=== PATIENT | female | born 1950 | race Caucasian/White ===

== ENCOUNTER 2021-01-09 13:59 | Inpatient (IN) ==
[2021-01-09 14:32] LABS: Basophils # (auto) 0.01 K/uL (0-0.2); Basophils % (auto) 0.2 %; Eosinophils # (auto) 0.16 K/uL (0-0.5); Eosinophils % (auto) 2.7 %; Hematocrit (blood only) 37.8 % (37-47); Hemoglobin 13.1 g/dL (12.0-16.0); Immature Granulocytes # (auto) 0.04 K/uL (0.00-0.02); Immature Granulocytes % (auto) 0.7 %; Lymphocytes # (auto) 1.93 K/uL (1.2-3.4); Mean Corpuscular Hemoglobin 32.4 pg (25-34); Mean Corpuscular Hgb Conc 34.7 g/dL (32-36); Mean Corpuscular Volume 93.6 fL (80-100); Mean Platelet Volume 8.7 fL (7.4-10.4); Monocytes # (auto) 0.43 K/uL (0.11-0.59); Monocytes % (auto) 7.1 %; Neutrophils # (auto) 3.46 K/uL (1.4-6.5); Neutrophils % (auto) 57.3 %; Platelet Count 218 K/uL (130-400); RDW Coefficient of Variation 12.5 % (11.5-14.5); RDW Standard Deviation 42.3 fL (36.4-46.3); Red Blood Count 4.04 M/uL (4.2-5.4); White Blood Count 6.03 K/uL (4.8-10.8)
[2021-01-09] MEDS ORDERED: OPTIRAY 320 125ml IV ONE (14:35)
[2021-01-09 14:37] LABS: iSTAT Creatinine 0.6 mg/dl (0.6-1.3); iSTAT Hemoglobin 12.9 g/dl (12.0-16.0); iSTAT Ionized Calcium 1.26 mmol/l (1.12-1.32); iSTAT Potassium 4.5 mmol/L (3.3-5.0)
--- NOTE | 2021-01-09 14:39 | CT Scan Report ---
CT OF THE HEAD WITHOUT CONTRAST CLINICAL HISTORY: Stroke Alert COMPARISON STUDY: No previous studies for comparison. CT DOSE: 537.48 mGy.cm TECHNIQUE: Helical axial images of the head were obtained without IV contrast. Automated exposure con trol was utilized for the study. A dose lowering technique was utilized adhering to the principles o f ALARA. FINDINGS: No acute intracranial hemorrhage, midline shift or mass effect is present. The ventricular system is unremarkable. The basal cisterns are patent. No extra-axial collections are present. There are no findings to suggest acute dural sinus thrombosis or acute territorial infarct. No significant calvarial abnormalities are present. Visualized portions of the sinuses and mastoid air cells are yale ar. IMPRESSION: No acute intracranial findings. ACT 112: Negative or not required by law. Electronically signed by: Jonathan Choe M.D. 01/09/2021 2:38 PM
[2021-01-09 14:42] LABS: Partial Thromboplastin Time 27.3 Seconds (21.0-31.0); Prothrombin Time 10.3 Seconds (9.0-12.0)
--- NOTE | 2021-01-09 14:48 | XRay Report ---
XR chest 1V portable CLINICAL HISTORY: stroke alert COMPARISON STUDY: Chest radiograph January 14, 2012. FINDINGS: Lung volumes are normal. Linear left basilar opacities favor atelectasis.. There is no pneu mothorax or pleural effusion. Mild cardiomegaly is noted. Mediastinal contours are normal. There is n o evidence for pulmonary edema. IMPRESSION: No acute cardiopulmonary findings. ACT 112: Negative or not required by law. Electronically signed by: Jonathan Choe M.D. 01/09/2021 2:46 PM
[2021-01-09 14:50] LABS: Alanine Aminotransferase 26 U/L (12-78); Albumin Level 3.8 gm/dl (3.4-5.0); Aspartate Aminotransferase 16 U/L (15-37); BUN Creatinine Ratio 38.7 (10-20); Blood Urea Nitrogen 26 mg/dl (7-18); Calcium 8.8 mg/dl (8.5-10.1); Carbon Dioxide 30 mmol/L (21-32); Chloride 110 mmol/L (98-107); Est GFR (African American) 104.7 ml/min; Est GFR (Non-African American) 90.3 ml/min; Glucose 87 mg/dl (70-99); Magnesium 1.9 mg/dl (1.8-2.4); Potassium 4.5 mmol/L (3.5-5.1); Sodium 143 mmol/L (136-145)
[2021-01-09 14:55] LABS: Albumin Globulin Ratio 1.2 (0.9-2); Alkaline Phosphatase 93 U/L (45-117); Bilirubin,Total 0.6 mg/dl (0.2-1); Globulin 3.2 gm/dl (2.5-4.0); Troponin I < 0.015 ng/ml (0-0.045)
--- NOTE | 2021-01-09 15:05 | Emergency Department Note ---
Impression & Plan UTI (urinary tract infection), Altered mental status ED Provider Note NAME: ENRIKE PICHARDO AGE: 70 SEX: F : 1950 ARRIVES VIA: Walk-In INFORMANT: Patient, ED PROVIDER(S): Messi Correa MD Chief Complaint: Confusion HPI: Patient does present with concern for acute confusion. This apparently last known well was 11 AM. Patient has not had any reported fevers chills chest pains or shortness of breath. The patient's daughter with whom the patient lives was concerned as she did not recognize the daughter or was unable to say where the patient lives or who her granddaughter is. Patient does have a his tory of multiple system atrophy and is wheelchair-bound at baseline. There was also concerned about some left upper extremity weakness although the patient does have a history of a chronic issue of the left upper extremity. Patient does complain of left upper extremity pain. ROS: See HPI for pertinent positives and negatives. A total of 10 systems were reviewed and otherwise negative. Past medical history: See below Surgical history: See below Social history: See below Physical Exam: GENERAL: NAD, wearing glasses, wearing a mask, non-toxic. EYE EXAM: Normal conjunctiva. PERRL, no anisocoria and EOM's grossly intact w/o pain. OROPHARYNX: Moist mucus membranes. Grossly normal dentition. No exudate, posterior pharynx is clear, no tonsillar/uvular deviation or swelling. No cervical adenopathy, no submental, submandibular, or sublingual swelling. NECK: Supple, no nuchal rigidity, no adenopathy, non-tender. No signs of meningismus. FROM of the neck with good chin to chest and neck extension. No stridor. LUNGS: Clear to auscultation. Normal chest wall mechanics. HEART: NSR, no MRG. ABDOMEN: Abdomen soft, non-tender, normo-active bowel sounds, no masses, no rebound or guarding. BACK: No CVA TTP. SKIN: No rashes and no bruising. UPPER EXTREMITIES: Upper extremities are grossly normal. LOWER EXTREMITIES: Grossly normal, no edema. NEURO EXAM: Awake alert does follow commands, cranial nerves II through XII grossly intact with normal speech, 5 and 5 strength right upper extremity, 4-5 strength left upper extremity, 2 out of 5 strength bilateral lower extremities. No sensory deficits. Patient is not oriented to place. Differential diagnoses: Infection, dehydration, metabolic abnormality, hypo/hyperglycemia, electrolyte disturbance, anemia, hypoxia, cardiac sources, intracerebral event, toxicologic, neurologic, as well as other pathologies. Course: Patient was seen and evaluated the bedside. Full history physical exam was performed. EKG interpreted by me Significant motion artifact. Ventricular rate of 87. Imaging Studies: See Below Cardiac monitoring: An order was placed for continuous cardiac monitoring. The monitor shows a rate of 88 with sinus rhythm. MDM: Patient did present due to concern for confusion and left upper extremity weakness. The patient also does have bilateral lower extremity weakness. Patient was initiated as a code stroke prior to arrival. I did speak with Dr. Calix with [facility] telestroke who did evaluate the patient. Patient is not a TPA candidate. Last known well was 11 but the patient has chronic deficits of her bilateral lower extremities and the patient's left upper extremity has a known prior issue with movement and thus does not believe she requires TPA at this time. Patient had unremarkable CT head and CT angiography of the head neck. I did speak with the on-call hospitalist due to the patient's acute confusion. The patient was ordered Rocephin given the possibility of UTI. Patient has had some mild improvement in her confusion since arrival per the patient's daughter at bedside. Patient was admitted by Dr. Chery. Past Med/Surg History Medical History Atypical parkinsonism HLD (hyperlipidemia) Hypothyroid MDD (major depressive disorder) Multiple system atrophy Orthostatic hypotension Surgical History History of hysterectomy Family History Other Family history unknown Social History Smoking Status: Former smoker Hx Alcohol Use: No Hx Substance Use: No Preferred Language: Swedish Communication Ability: Effective Beliefs That Will Affect Care: None Current Living Situation: Family Current Living Situation Comment: Lives with and daughter Other Information That Helps Us Care for You: No Feels Safe at Home: Yes Assistive Devices: Wheelchair Allergies Allergies Allergy/AdvReac Type Severity Reaction Status Date / Time bacitracin Allergy Intermediate hives Verified 01/09/21 15:04 neomycin Allergy Intermediate hives Verified 01/09/21 15:04 onion Allergy Intermediate diarrhea,violent Verified 01/09/21 15:04 illness polymyxin B Allergy Intermediate hives Verified 01/09/21 15:04 ragweed pollen Allergy Intermediate hayfever/adolfo Verified 01/09/21 15:04 fever carbidopa Allergy Unknown FROM [facility] Verified 01/09/21 15:04 MED LIST levodopa Allergy Unknown FROM [facility] Verified 01/09/21 15:04 MED LIST Home Meds Home Medications Medication Instructions Recorded Confirmed L.acidoph-L.rhamn-B.bifidum-B.long 1 tab PO TIDM 01/09/21 01/09/21 12.9 mg (2 billion cell) tabletDR (Probiotic Acidophilus Biobworthing[place]) alprazolam 0.25 mg tablet 0.125 mg PO DAILY PRN 01/09/21 01/09/21 alprazolam 0.25 mg tablet 0.25 mg PO HS 01/09/21 01/09/21 atorvastatin 10 mg tablet 10 mg PO QDD 01/09/21 01/09/21 cetirizine 10 mg tablet (Zyrtec) 10 mg PO HS 01/09/21 01/09/21 cholecalciferol (vitamin D3) 25 50 mcg PO DAILY 01/09/21 01/09/21 mcg (1,000 unit) tablet (Vitamin D3) citalopram 40 mg tablet 40 mg PO DAILY 01/09/21 01/09/21 cyanocobalamin (vitamin B-12) 1,000 mcg PO DAILY 01/09/21 01/09/21 1,000 mcg tablet (Vitamin B-12) gabapentin 300 mg capsule 300 mg PO TID 01/09/21 01/09/21 indomethacin 50 mg capsule 50 mg PO BID PRN 01/09/21 01/09/21 levothyroxine 75 mcg tablet 75 mcg PO DAILY 01/09/21 01/09/21 melatonin 10 mg tablet 10 mg PO HS 01/09/21 01/09/21 midodrine 2.5 mg tablet 2.5 mg PO BID 01/09/21 01/09/21 nystatin 100,000 unit/gram topical 1 applic TOPICAL BID 01/09/21 01/09/21 powder polyethylene glycol 3350 17 gram 17 g PO DAILY 01/09/21 01/09/21 oral powder packet (Miralax) ropinirole 1 mg tablet 1 mg PO TIDM 01/09/21 01/09/21 ropinirole 2 mg tablet 2 mg PO TIDM 01/09/21 01/09/21 sennosides 8.6 mg-docusate sodium 1 tab-cap PO BID 01/09/21 01/09/21 50 mg tablet (Senna-S) Results & Data (ED) Vital Signs Vital Signs - 24 hr 01/09/21 14:14 01/09/21 14:15 01/09/21 14:43 Temperature 36.8 C Temperature Source Temporal Artery Scan Pulse Rate 89 88 90 Pulse Rate [Apical] Pulse Rate from SpO2 Sensor 88 92 H Respiratory Rate 20 18 20 Blood Pressure 140/75 140/75 142/66 H Blood Pressure [Left Arm] Blood Pressure Mean 96 96 91 Blood Pressure Mean [Left Arm] Pulse Oximetry 95 94 91 Oxygen Delivery Method Room Air Sepsis Recent Fever Within 48 Hours No Sepsis New/Unexplained Change in Mental Status No Sepsis Action Taken by Nursing No Action Required 01/09/21 14:51 01/09/21 15:43 01/09/21 17:00 Temperature Temperature Source Pulse Rate 88 Pulse Rate [Apical] 87 90 Pulse Rate from SpO2 Sensor Respiratory Rate 18 18 Blood Pressure Blood Pressure [Left Arm] 124/55 L 128/55 L Blood Pressure Mean Blood Pressure Mean [Left Arm] 78 79 Pulse Oximetry 94 95 92 Oxygen Delivery Method Room Air Room Air Room Air Sepsis Recent Fever Within 48 Hours Sepsis New/Unexplained Change in Mental Status Sepsis Action Taken by Long-Term Medications Current Medication List: was personally reviewed by me Laboratory Data Attestation: I reviewed the patient's lab results. Result diagrams: 01/10/21 05:41 01/10/21 05:41 Lab Results 01/09/21 01/09/21 01/09/21 Range/Units 14:10 14:20 14:20 WBC 6.03 (4.8-10.8) K/uL RBC 4.04 L (4.2-5.4) M/uL Hgb 13.1 (12.0-16.0) g/dL POC Hgb (12.0-16.0) g/dl Hct 37.8 (37-47) % POC Hct (37-47) % MCV 93.6 (80-100) fL MCH 32.4 (25-34) pg MCHC 34.7 (32-36) g/dL RDW Std Deviation 42.3 (36.4-46.3) fL RDW Coeff of Radhames 12.5 (11.5-14.5) % Plt Count 218 (130-400) K/uL MPV 8.7 (7.4-10.4) fL Immature Gran % (Auto) 0.7 % Neut % (Auto) 57.3 % Lymph % (Auto) 32.0 % [place] % (Auto) 7.1 % Eos % (Auto) 2.7 % Baso % (Auto) 0.2 % Neut # (Auto) 3.46 (1.4-6.5) K/uL Lymph # (Auto) 1.93 (1.2-3.4) K/uL [place] # (Auto) 0.43 (0.11-0.59) K/uL Eos # (Auto) 0.16 (0-0.5) K/uL Baso # (Auto) 0.01 (0-0.2) K/uL Immature Gran # (Auto) 0.04 H (0.00-0.02) K/uL PT 10.3 (9.0-12.0) Seconds INR 1.0 (0.9-1.1) APTT 27.3 (21.0-31.0) Seconds PTT Ratio 1.0 POC Sodium (135-144) mmol/L Sodium (136-145) mmol/L POC Potassium (3.3-5.0) mmol/L Potassium (3.5-5.1) mmol/L POC Chloride (101-112) mmol/L Chloride (98-107) mmol/L Carbon Dioxide (21-32) mmol/L POC Total CO2 (24-31) mmol/L Anion Gap (3-11) POC Anion Gap (16-25) mmol/L POC BUN (7-18) mg/dl BUN (7-18) mg/dl Creatinine (0.6-1.2) mg/dl POC Creatinine (0.6-1.3) mg/dl Est Cr Clr Drug Dosing Est GFR ( Amer) ml/min Est GFR (Non-Af Amer) ml/min BUN/Creatinine Ratio (10-20) Glucose (70-99) mg/dl POC Glucose (70-99) mg/dl POC Glucose (other) (70-99) mg/dl Calcium (8.5-10.1) mg/dl POC Ioniz Calcium Dary (1.12-1.32) mmol/l Magnesium (1.8-2.4) mg/dl Total Bilirubin (0.2-1) mg/dl AST (15-37) U/L ALT (12-78) U/L Alkaline Phosphatase (45-117) U/L Troponin I (0-0.045) ng/ml Total Protein (6.4-8.2) gm/dl Albumin (3.4-5.0) gm/dl Globulin (2.5-4.0) gm/dl Albumin/Globulin Ratio (0.9-2) TSH 1.750 (0.300-4.500) uIu/ml Urine Color Urine Appearance (Clear) Urine pH (4.5-7.5) Ur Specific Kinsey (1.000-1.030) Urine Protein (Negative) Urine Glucose (UA) (Negative) Urine Ketones (Negative) Urine Blood (Negative) Urine Nitrite (Negative) Urine Bilirubin (Negative) Urine Urobilinogen (Negative) Ur Leukocyte Esterase (Negative) Urine WBC (Auto) (0-5) /hpf Urine RBC (Auto) (0-4) /hpf U Hyaline Cast (Auto) (0-5) /lpf U Epithel Cells (Auto) (0-5) /lpf Urine Bacteria (Auto) (Negative) Urine Yeast COVID-19 Eval Order SARS-CoV-2 (PCR) (Negative) Blood Type Antibody Screen 01/09/21 01/09/21 01/09/21 Range/Units 14:20 14:21 14:23 WBC (4.8-10.8) K/uL RBC (4.2-5.4) M/uL Hgb (12.0-16.0) g/dL POC Hgb (12.0-16.0) g/dl Hct (37-47) % POC Hct (37-47) % MCV (80-100) fL MCH (25-34) pg MCHC (32-36) g/dL RDW Std Deviation (36.4-46.3) fL RDW Coeff of Radhames (11.5-14.5) % Plt Count (130-400) K/uL MPV (7.4-10.4) fL Immature Gran % (Auto) % Neut % (Auto) % Lymph % (Auto) % [place] % (Auto) % Eos % (Auto) % Baso % (Auto) % Neut # (Auto) (1.4-6.5) K/uL Lymph # (Auto) (1.2-3.4) K/uL [place] # (Auto) (0.11-0.59) K/uL Eos # (Auto) (0-0.5) K/uL Baso # (Auto) (0-0.2) K/uL Immature Gran # (Auto) (0.00-0.02) K/uL PT (9.0-12.0) Seconds INR (0.9-1.1) APTT (21.0-31.0) Seconds PTT Ratio POC Sodium (135-144) mmol/L Sodium 143 (136-145) mmol/L POC Potassium (3.3-5.0) mmol/L Potassium 4.5 (3.5-5.1) mmol/L POC Chloride (101-112) mmol/L Chloride 110 H (98-107) mmol/L Carbon Dioxide 30 (21-32) mmol/L POC Total CO2 (24-31) mmol/L Anion Gap 3.0 (3-11) POC Anion Gap (16-25) mmol/L POC BUN (7-18) mg/dl BUN 26 H (7-18) mg/dl Creatinine 0.67 (0.6-1.2) mg/dl POC Creatinine (0.6-1.3) mg/dl Est Cr Clr Drug Dosing Not Reportable Est GFR ( Amer) 104.7 ml/min Est GFR (Non-Af Amer) 90.3 ml/min BUN/Creatinine Ratio 38.7 H (10-20) Glucose 87 (70-99) mg/dl POC Glucose 87 (70-99) mg/dl POC Glucose (other) (70-99) mg/dl Calcium 8.8 (8.5-10.1) mg/dl POC Ioniz Calcium Dary (1.12-1.32) mmol/l Magnesium 1.9 (1.8-2.4) mg/dl Total Bilirubin 0.6 (0.2-1) mg/dl AST 16 (15-37) U/L ALT 26 (12-78) U/L Alkaline Phosphatase 93 (45-117) U/L Troponin I < 0.015 (0-0.045) ng/ml Total Protein 7.0 (6.4-8.2) gm/dl Albumin 3.8 (3.4-5.0) gm/dl Globulin 3.2 (2.5-4.0) gm/dl Albumin/Globulin Ratio 1.2 (0.9-2) TSH (0.300-4.500) uIu/ml Urine Color Urine Appearance (Clear) Urine pH (4.5-7.5) Ur Specific Kinsey (1.000-1.030) Urine Protein (Negative) Urine Glucose (UA) (Negative) Urine Ketones (Negative) Urine Blood (Negative) Urine Nitrite (Negative) Urine Bilirubin (Negative) Urine Urobilinogen (Negative) Ur Leukocyte Esterase (Negative) Urine WBC (Auto) (0-5) /hpf Urine RBC (Auto) (0-4) /hpf U Hyaline Cast (Auto) (0-5) /lpf U Epithel Cells (Auto) (0-5) /lpf Urine Bacteria (Auto) (Negative) Urine Yeast COVID-19 Eval Order SARS-CoV-2 (PCR) (Negative) Blood Type O Positive Antibody Screen NEGATIVE 01/09/21 01/09/21 01/09/21 Range/Units 14:24 14:49 14:49 WBC (4.8-10.8) K/uL RBC (4.2-5.4) M/uL Hgb (12.0-16.0) g/dL POC Hgb 12.9 (12.0-16.0) g/dl Hct (37-47) % POC Hct 38 (37-47) % MCV (80-100) fL MCH (25-34) pg MCHC (32-36) g/dL RDW Std Deviation (36.4-46.3) fL RDW Coeff of Radhames (11.5-14.5) % Plt Count (130-400) K/uL MPV (7.4-10.4) fL Immature Gran % (Auto) % Neut % (Auto) % Lymph % (Auto) % [place] % (Auto) % Eos % (Auto) % Baso % (Auto) % Neut # (Auto) (1.4-6.5) K/uL Lymph # (Auto) (1.2-3.4) K/uL [place] # (Auto) (0.11-0.59) K/uL Eos # (Auto) (0-0.5) K/uL Baso # (Auto) (0-0.2) K/uL Immature Gran # (Auto) (0.00-0.02) K/uL PT (9.0-12.0) Seconds INR (0.9-1.1) APTT (21.0-31.0) Seconds PTT Ratio POC Sodium 144 (135-144) mmol/L Sodium (136-145) mmol/L POC Potassium 4.5 (3.3-5.0) mmol/L Potassium (3.5-5.1) mmol/L POC Chloride 101 (101-112) mmol/L Chloride (98-107) mmol/L Carbon Dioxide (21-32) mmol/L POC Total CO2 27 (24-31) mmol/L Anion Gap (3-11) POC Anion Gap 21.0 (16-25) mmol/L POC BUN 27 H (7-18) mg/dl BUN (7-18) mg/dl Creatinine (0.6-1.2) mg/dl POC Creatinine 0.6 (0.6-1.3) mg/dl Est Cr Clr Drug Dosing Est GFR ( Amer) ml/min Est GFR (Non-Af Amer) ml/min BUN/Creatinine Ratio (10-20) Glucose (70-99) mg/dl POC Glucose (70-99) mg/dl POC Glucose (other) 89 (70-99) mg/dl Calcium (8.5-10.1) mg/dl POC Ioniz Calcium Dary 1.26 (1.12-1.32) mmol/l Magnesium (1.8-2.4) mg/dl Total Bilirubin (0.2-1) mg/dl AST (15-37) U/L ALT (12-78) U/L Alkaline Phosphatase (45-117) U/L Troponin I (0-0.045) ng/ml Total Protein (6.4-8.2) gm/dl Albumin (3.4-5.0) gm/dl Globulin (2.5-4.0) gm/dl Albumin/Globulin Ratio (0.9-2) TSH (0.300-4.500) uIu/ml Urine Color Urine Appearance (Clear) Urine pH (4.5-7.5) Ur Specific Kinsey (1.000-1.030) Urine Protein (Negative) Urine Glucose (UA) (Negative) Urine Ketones (Negative) Urine Blood (Negative) Urine Nitrite (Negative) Urine Bilirubin (Negative) Urine Urobilinogen (Negative) Ur Leukocyte Esterase (Negative) Urine WBC (Auto) (0-5) /hpf Urine RBC (Auto) (0-4) /hpf U Hyaline Cast (Auto) (0-5) /lpf U Epithel Cells (Auto) (0-5) /lpf Urine Bacteria (Auto) (Negative) Urine Yeast COVID-19 Eval Order Covid19 at [facility] SARS-CoV-2 (PCR) NEGATIVE (Negative) Blood Type Antibody Screen 01/09/21 Range/Units 15:06 WBC (4.8-10.8) K/uL RBC (4.2-5.4) M/uL Hgb (12.0-16.0) g/dL POC Hgb (12.0-16.0) g/dl Hct (37-47) % POC Hct (37-47) % MCV (80-100) fL MCH (25-34) pg MCHC (32-36) g/dL RDW Std Deviation (36.4-46.3) fL RDW Coeff of Radhames (11.5-14.5) % Plt Count (130-400) K/uL MPV (7.4-10.4) fL Immature Gran % (Auto) % Neut % (Auto) % Lymph % (Auto) % [place] % (Auto) % Eos % (Auto) % Baso % (Auto) % Neut # (Auto) (1.4-6.5) K/uL Lymph # (Auto) (1.2-3.4) K/uL [place] # (Auto) (0.11-0.59) K/uL Eos # (Auto) (0-0.5) K/uL Baso # (Auto) (0-0.2) K/uL Immature Gran # (Auto) (0.00-0.02) K/uL PT (9.0-12.0) Seconds INR (0.9-1.1) APTT (21.0-31.0) Seconds PTT Ratio POC Sodium (135-144) mmol/L Sodium (136-145) mmol/L POC Potassium (3.3-5.0) mmol/L Potassium (3.5-5.1) mmol/L POC Chloride (101-112) mmol/L Chloride (98-107) mmol/L Carbon Dioxide (21-32) mmol/L POC Total CO2 (24-31) mmol/L Anion Gap (3-11) POC Anion Gap (16-25) mmol/L POC BUN (7-18) mg/dl BUN (7-18) mg/dl Creatinine (0.6-1.2) mg/dl POC Creatinine (0.6-1.3) mg/dl Est Cr Clr Drug Dosing Est GFR ( Amer) ml/min Est GFR (Non-Af Amer) ml/min BUN/Creatinine Ratio (10-20) Glucose (70-99) mg/dl POC Glucose (70-99) mg/dl POC Glucose (other) (70-99) mg/dl Calcium (8.5-10.1) mg/dl POC Ioniz Calcium Dary (1.12-1.32) mmol/l Magnesium (1.8-2.4) mg/dl Total Bilirubin (0.2-1) mg/dl AST (15-37) U/L ALT (12-78) U/L Alkaline Phosphatase (45-117) U/L Troponin I (0-0.045) ng/ml Total Protein (6.4-8.2) gm/dl Albumin (3.4-5.0) gm/dl Globulin (2.5-4.0) gm/dl Albumin/Globulin Ratio (0.9-2) TSH (0.300-4.500) uIu/ml Urine Color Yellow Urine Appearance Cloudy A (Clear) Urine pH 7.0 (4.5-7.5) Ur Specific Kinsey 1.029 (1.000-1.030) Urine Protein Negative (Negative) Urine Glucose (UA) Negative (Negative) Urine Ketones Negative (Negative) Urine Blood 3+ H (Negative) Urine Nitrite Negative (Negative) Urine Bilirubin Negative (Negative) Urine Urobilinogen Negative (Negative) Ur Leukocyte Esterase 1+ H (Negative) Urine WBC (Auto) 1-5 (0-5) /hpf Urine RBC (Auto) >30 H (0-4) /hpf U Hyaline Cast (Auto) 1-5 (0-5) /lpf U Epithel Cells (Auto) 20-30 H (0-5) /lpf Urine Bacteria (Auto) 4+ H (Negative) Urine Yeast Not Reportable COVID-19 Eval Order SARS-CoV-2 (PCR) (Negative) Blood Type Antibody Screen Administered Medications Alprazolam (Alprazolam 0.25 Mg Tablet) 0.125 mg PO DAILY PRN PRN Reason: Anxiety Stop: 02/08/21 18:48 Last Admin: 01/10/21 08:39 Dose: 0.125 mg Documented by: [id number] Alprazolam (Alprazolam 0.25 Mg Tablet) 0.25 mg PO HS SAL Stop: 02/08/21 20:59 Last Admin: 01/09/21 20:50 Dose: 0.25 mg Documented by: [id number] Cetirizine HCl (Cetirizine Hcl 10 Mg Tablet) 10 mg PO HS SAL Stop: 02/08/21 20:59 Last Admin: 01/09/21 20:51 Dose: 10 mg Documented by: [id number] Citalopram Hydrobromide (Citalopram 40 Mg Tab) 40 mg PO DAILY SAL Stop: 02/09/21 08:59 Last Admin: 01/10/21 08:22 Dose: 40 mg Documented by: [id number] Cyanocobalamin (Cyanocobalamin 500 Mcg Tablet (Vitamin B-12)) 1,000 mcg PO DAILY SAL Stop: 02/09/21 08:59 Last Admin: 01/10/21 08:22 Dose: 1,000 mcg Documented by: [id number] Gabapentin (Gabapentin 300 Mg Cap) 300 mg PO TID SAL Stop: 02/08/21 20:59 Last Admin: 01/10/21 08:22 Dose: 300 mg Documented by: [id number] Admin: 01/09/21 20:52 Dose: 300 mg Documented by: [id number] Heparin Sodium (Porcine) (Heparin Sod 5,000 Unit/0.5 Ml Vial) 5,000 units SQ Q8 SAL Stop: 02/08/21 21:59 Last Admin: 01/10/21 08:20 Dose: Not Given Documented by: [id number] Admin: 01/09/21 20:54 Dose: 5,000 units Documented by: [id number] Ceftriaxone Sodium 2,000 mg/ (Dextrose) 70 mls @ 140 mls/hr IV Q24H [facility]; Protocol Stop: 01/15/21 07:59 Last Infusion: 01/10/21 09:36 Dose: 0 mls/hr Documented by: [id number] Admin: 01/10/21 08:29 Dose: 140 mls/hr Documented by: [id number] Indomethacin (Indomethacin 25 Mg Cap) 50 mg PO BID PRN PRN Reason: Pain Stop: 02/08/21 18:48 Last Admin: 01/10/21 08:20 Dose: 50 mg Documented by: [id number] Admin: 01/10/21 01:40 Dose: 50 mg Documented by: [id number] Lactobacillus Acidoph/Casei/Rhamnos (Advanced Probiotic 1250 Mg Capsule) 2 cap PO DAILY SAL Stop: 02/09/21 08:59 Last Admin: 01/10/21 08:22 Dose: 2 cap Documented by: [id number] Levothyroxine Sodium (Levothyroxine Sodium 75 Mcg Tablet) 75 mcg PO DAILYBB [facility] Stop: 02/09/21 06:29 Last Admin: 01/10/21 08:20 Dose: Not Given Documented by: [id number] Lidocaine (Lidocaine 5% 1 Patch) 1 patch TD QAM SAL Stop: 02/08/21 19:29 Last Admin: 01/10/21 08:23 Dose: 1 patch Documented by: [id number] Admin: 01/09/21 20:39 Dose: 1 patch Documented by: [id number] Melatonin (Melatonin 3 Mg Tab) 9 mg PO HS [facility] Stop: 02/08/21 20:59 Last Admin: 01/09/21 20:52 Dose: 9 mg Documented by: [id number] Midodrine (Midodrine Hcl 2.5 Mg Tab) 2.5 mg PO BID@0800,1200 [facility] Stop: 02/09/21 07:59 Last Admin: 01/10/21 08:20 Dose: 2.5 mg Documented by: [id number] Miscellaneous (Remove Lidoderm Patch) 1 ea N/A DAILY@2100 [facility] Stop: 02/08/21 20:59 Last Admin: 01/09/21 20:51 Dose: 1 ea Documented by: [id number] Nystatin (Nystatin Powder 15gm Btl) 1 appln EXT BID SAL Stop: 02/08/21 20:59 Last Admin: 01/10/21 08:24 Dose: 1 appln Documented by: [id number] Admin: 01/09/21 20:53 Dose: 1 appln Documented by: [id number] Polyethylene Glycol (Polyethylene (Miralax) 17 Gm Pack) 17 gm PO DAILY SAL Stop: 02/09/21 08:59 Last Admin: 01/10/21 08:23 Dose: 17 gm Documented by: [id number] Ropinirole HCl (Ropinirole Hcl 1 Mg Tablet) 1 mg PO TIDM SAL Stop: 02/09/21 07:59 Last Admin: 01/10/21 08:21 Dose: 1 mg Documented by: [id number] Ropinirole HCl (Ropinirole Hcl 1 Mg Tablet) 2 mg PO TIDM SAL Stop: 02/09/21 07:59 Last Admin: 01/10/21 08:24 Dose: 2 mg Documented by: [id number] Senna/Docusate Sodium (Docusate Sodium/Senna 50/8.6mg Tab) 1 tab PO BID SAL Stop: 02/08/21 20:59 Last Admin: 01/10/21 08:20 Dose: 1 tab Documented by: [id number] Admin: 01/09/21 20:53 Dose: 1 tab Documented by: [id number] Vitamin D (Cholecalciferol 1,000 Units 25 Mcg Tab) 2,000 units PO DAILY SAL Stop: 02/09/21 08:59 Last Admin: 01/10/21 08:21 Dose: 2,000 units Documented by: [id number] Discontinued Medications Acetaminophen (Acetaminophen 500 Mg Tab) 1,000 mg PO NOW STA Stop: 01/09/21 16:00 Last Admin: 01/09/21 16:09 Dose: 1,000 mg Documented by: [id number] Aspirin (Aspirin 81 Mg Chew) 324 mg PO ONE ONE Stop: 01/09/21 20:34 Last Admin: 01/09/21 20:47 Dose: 324 mg Documented by: [id number] Ceftriaxone Sodium (Rocephin) 2,000 mg in 70 mls @ 140 mls/hr IV NOW STA Stop: 01/09/21 17:18 Last Infusion: 01/09/21 17:44 Dose: 0 mls/hr Documented by: [id number] Admin: 01/09/21 17:09 Dose: 140 mls/hr Documented by: [id number] Sodium Chloride (Nss 1000ml) 1,000 mls @ 80 mls/hr IV .[id number] SAL Stop: 01/10/21 07:18 Last Infusion: 01/10/21 09:36 Dose: 0 mls/hr Documented by: [id number] Admin: 01/09/21 20:38 Dose: 80 mls/hr Documented by: [id number] Ioversol (Optiray 320 125ml) 120 ml IV ONCE ONE Stop: 01/09/21 14:36 Last Admin: 01/09/21 14:36 Dose: 120 ml Documented by: [id number] Morphine Sulfate (Morphine Sulfate 2 Mg/Ml Carp) 2 mg IV NOW STA Stop: 01/09/21 18:07 Last Admin: 01/09/21 18:12 Dose: 2 mg Documented by: [id number] Morphine Sulfate (Morphine Sulfate 2 Mg/Ml Carp) 2 mg IV NOW STA Stop: 01/09/21 19:28 Last Admin: 01/09/21 20:38 Dose: 2 mg Documented by: [id number] Imaging Data Radiologist's Impression: Chest X-Ray 01/09/21 14:01 XR chest 1V portable CLINICAL HISTORY: stroke alert COMPARISON STUDY: Chest radiograph January 14, 2012. FINDINGS: Lung volumes are normal. Linear left basilar opacities favor atelectasis.. There is no pneumothorax or pleural effusion. Mild cardiomegaly is noted. Mediastinal contours are normal. There is no evidence for pulmonary edema. IMPRESSION: No acute cardiopulmonary findings. ACT 112: Negative or not required by law. Electronically signed by: Jonathan Choe M.D. 01/09/2021 2:[address] 01/09/21 14:01 CT OF THE HEAD WITHOUT CONTRAST CLINICAL HISTORY: Stroke Alert COMPARISON STUDY: No previous studies for comparison. CT DOSE: 537.48 mGy.cm TECHNIQUE: Helical axial images of the head were obtained without IV contrast. Automated exposure control was utilized for the study. A dose lowering technique was utilized adhering to the principles of ALARA. FINDINGS: No acute intracranial hemorrhage, midline shift or mass effect is present. The ventricular system is unremarkable. The basal cisterns are patent. No extra-axial collections are present. There are no findings to suggest acute dural sinus thrombosis or acute territorial infarct. No significant calvarial abnormalities are present. Visualized portions of the sinuses and mastoid air cells are clear. IMPRESSION: No acute intracranial findings. ACT 112: Negative or not required by law. Electronically signed by: Jonathan Choe M.D. 01/09/2021 2:38 PM Chest X-Ray 01/09/21 14:01 XR chest 1V portable CLINICAL HISTORY: stroke alert COMPARISON STUDY: Chest radiograph January 14, 2012. FINDINGS: Lung volumes are normal. Linear left basilar opacities favor atelectasis.. There is no pneumothorax or pleural effusion. Mild cardiomegaly is noted. Mediastinal contours are normal. There is no evidence for pulmonary justino ma. IMPRESSION: No acute cardiopulmonary findings. ACT 112: Negative or not required by law. Electronically signed by: Jonathan Choe M.D. 01/09/2021 2:[address] 01/09/21 14:01 CT OF THE HEAD WITHOUT CONTRAST CLINICAL HISTORY: Stroke Alert COMPARISON STUDY: No previous studies for comparison. CT DOSE: 537.48 mGy.cm TECHNIQUE: Helical axial images of the head were obtained without IV contrast. Automated exposure control was utilized for the study. A dose lowering technique was utilized adhering to the principles of ALARA. FINDINGS: No acute intracranial hemorrhage, midline shift or mass effect is present. The ventricular system is unremarkable. The basal cisterns are patent. No extra-axial collections are present. There are no findings to suggest acute dural sinus thrombosis or acute territorial infarct. No significant calvarial abnormalities are present. Visualized portions of the sinuses and mastoid air cells are clear. IMPRESSION: No acute intracranial findings. ACT 112: Negative or not required by law. Electronically signed by: Jonathan Choe M.D. 01/09/2021 2:38 PM Head CTA 01/09/21 14:23 CT angio head w con CLINICAL HISTORY: Stroke Like Symptoms TECHNIQUE: CT angiography of the head was performed in a dynamic helical fashion during intravenous administration of 112 cc of Optiray. MIP imaging was performed. A dose lowering technique was utilized adhering to the principles of ALARA. CT DOSE: COMPARISON STUDY: No previous studies for comparison. FINDINGS: Bilateral internal carotid arteries are patent and show no evidence of occlusion or significant stenosis. Right and left middle cerebral cerebral arteries, anterior cerebral arteries and anterior communicating arteries are normally opacified without focal occlusion or hemodynamically significant stenosis. Basilar artery is diffusely narrowed without evidence of focal occlusion. There is origin of the right and left posterior cerebral arteries which shows no evidence of focal occlusion or hemodynamically significant stenosis. Hypoplastic left transverse sinus. Arachnoid granulations with are seen within confluent of sinuses. The rest of visualized dural sinuses are well opacified. IMPRESSION: 1. No evidence of occlusion or hemodynamically significant stenosis. 2. origin of the right and left posterior cerebral arteries from MCA is seen bilaterally. 3. The rest of findings as above. ACT 112: Negative or not required by law. The above report was generated using voice recognition software. It may contain grammatical, syntax or spelling errors. Electronically signed by: Chelita Husain DO 01/09/2021 3:25 PM Neck CTA 01/09/21 14:23 CT angio neck with con CLINICAL HISTORY: Stroke Like Symptoms COMPARISON STUDY: No previous studies for comparison. TECHNIQUE: CT angiography was performed from the aortic arch to the skull base. MIP imaging was performed. The patient was scanned in a dynamic helical fashion during intravenous administration of 120 cc of Optiray. A dose lowering technique was utilized adhering to the principles of ALARA. CT DOSE: 496.07 mGy.cm Technique: CT angiogram of the carotid and vertebral arteries was obtained using intravenous contrast and 3-D reconstruction. NASCET criteria was utilized. Findings: The right carotid revealed no evidence of aneurysm and no evidence of dissection. There is no evidence of hemodynamic significant stenosis. The left carotid revealed no evidence of hemodynamic significant stenosis. There is no evidence of aneurysm. There is no evidence of dissection. Mild diffuse narrowing of the V4 segment of the right vertebral artery. No evidence of focal occlusion is seen. There is no evidence of vertebral dissection. IMPRESSION: No evidence of hemodynamically significant carotid artery stenosis. Mild diffuse narrowing of the V4 segment of the right vertebral artery without focal occlusion might represent developmental variant. No evidence of dissection. ACT 112: Negative or not required by law. The above report was generated using voice recognition software. It may contain grammatical, syntax or spelling errors. Electronically signed by: Chelita Husain DO 01/09/2021 3:20 PM Discharge Plan Visit Data Chief Complaint: Stroke/CVA Symptoms Stated Complaint: SEIZURE ED Provider: Messi Correa Discharge Problem: UTI (urinary tract infection), Altered mental status Patient Disposition: Admitted As Inpatient Discharge Instructions Interventions: ED Discharge Assessment Last Done: 01/09/21 18:18
--- NOTE | 2021-01-09 15:21 | CT Scan Report ---
CT angio neck with con CLINICAL HISTORY: Stroke Like Symptoms COMPARISON STUDY: No previous studies for comparison. TECHNIQUE: CT angiography was performed from the aortic arch to the skull base. MIP imaging was perfo rmed. The patient was scanned in a dynamic helical fashion during intravenous administration of 120 c c of Optiray. A dose lowering technique was utilized adhering to the principles of ALARA. CT DOSE: 496.07 mGy.cm Technique: CT angiogram of the carotid and vertebral arteries was obtained using intravenous contrast and 3-D reconstruction. NASCET criteria was utilized. Findings: The right carotid revealed no evidence of aneurysm and no evidence of dissection. There is no evidenc e of hemodynamic significant stenosis. The left carotid revealed no evidence of hemodynamic significant stenosis. There is no evidence of an eurysm. There is no evidence of dissection. Mild diffuse narrowing of the V4 segment of the right vertebral artery. No evidence of focal occlusio n is seen. There is no evidence of vertebral dissection. IMPRESSION: No evidence of hemodynamically significant carotid artery stenosis. Mild diffuse narrowing of the V4 segment of the right vertebral artery without focal occlusion might represent developmental variant. No evidence of dissection. ACT 112: Negative or not required by law. The above report was generated using voice recognition software. It may contain grammatical, syntax o r spelling errors. Electronically signed by: Chelita Husain DO 01/09/2021 3:20 PM
--- NOTE | 2021-01-09 15:27 | CT Scan Report ---
CT angio head w con CLINICAL HISTORY: Stroke Like Symptoms TECHNIQUE: CT angiography of the head was performed in a dynamic helical fashion during intravenous a dministration of 112 cc of Optiray. MIP imaging was performed. A dose lowering technique was utilized adhering to the principles of ALARA. CT DOSE: COMPARISON STUDY: No previous studies for comparison. FINDINGS: Bilateral internal carotid arteries are patent and show no evidence of occlusion or significant steno sis. Right and left middle cerebral cerebral arteries, anterior cerebral arteries and anterior communicati ng arteries are normally opacified without focal occlusion or hemodynamically significant stenosis. Basilar artery is diffusely narrowed without evidence of focal occlusion. There is origin of th e right and left posterior cerebral arteries which shows no evidence of focal occlusion or hemodynami [place] significant stenosis. Hypoplastic left transverse sinus. Arachnoid granulations with are seen within confluent of sinuses. The rest of visualized dural sinuse s are well opacified. IMPRESSION: 1. No evidence of occlusion or hemodynamically significant stenosis. 2. origin of the right and left posterior cerebral arteries from MCA is seen bilaterally. 3. The rest of findings as above. ACT 112: Negative or not required by law. The above report was generated using voice recognition software. It may contain grammatical, syntax o r spelling errors. Electronically signed by: Chelita Husain DO 01/09/2021 3:25 PM
[2021-01-09 15:54] LABS: Appearance Urine Cloudy (Clear); Bacteria Urine Automated 4+ (Negative); Bilirubin Urine Negative (Negative); Blood Urine 3+ (Negative); Color Urine Yellow; Epithelial Cell Urine Auto 20-30 /lpf (0-5); Glucose Urine UA Negative (Negative); Ketones Urine Negative (Negative); Leukocyte Esterase Urine 1+ (Negative); Nitrite Urine Negative (Negative); Protein Urine Negative (Negative); Specific Gravity Urine 1.029 (1.000-1.030); Urobilinogen Urine Negative (Negative)
[2021-01-09] MEDS ORDERED: ACETAMINOPHEN 500 MG TAB PO STA (15:59)
--- NOTE | 2021-01-09 15:59 | Electrocardiogram Report ---
Test Reason : Blood Pressure : / mmHG Vent. Rate : 087 BPM Atrial Rate : 087 BPM P-R Int : 160 ms QRS Dur : 076 ms QT Int : 330 ms P-R-T Axes : 000 -28 -05 degrees QTc Int : 397 ms Poor data quality, interpretation may be adversely affected Narrow complex rhythm with normal rate, otherwise not interpretable Confirmed by Santana Ni ([id number]) on 01/09/2021 3:58:35 PM Referred By: Confirmed By:Jose Ni
[2021-01-09 16:06] LABS: RBC Urine Automated >30 /hpf (0-4)
[2021-01-09] MEDS ORDERED: cefTRIAXone SODIUM 2,000 MG/70 ML BAG IV STA (16:49)
--- NOTE | 2021-01-09 17:54 | History & Physical Report ---
Date of Service January 09, 2021 Assessment & Plan (1) Altered mental status: Plan: Pt is 70 y/o F with PMH atypical parkinsonism, orthostatic hypotension, HLD, acquired hypothyroidism, anxiety presented to ER with complaint of altered mental status this morning. In ER patient afebrile, vitals stable. CT head: No acute intracranial findings. CTA head: No evidence of occlusion or hemodynamically significant stenosis. origin of the right and left posterior cerebral arteries from MCA is seen bilaterally. CTA neck:No evidence of hemodynamically significant carotid artery stenosis. Mild diffuse narrowing of the V4 segment of the right vertebral artery without focal occlusion might represent developmental variant. No evidence of dissection. UA suggestive of UTI. Tele stroke recommended no TPA. DDX: metabolic encephalopathy secondary to UTI, TIA -During ER course patient becomes more oriented -Tele to monitor for arrhythmias -EKG in am -Neurology consult. Will hold on MRI pending further neurology recommendations -aspiration precautions -PT/OT consult -Continue statin -Treat UTI as below -CBC, BMP in a.m. (2) UTI (urinary tract infection): Plan: UA: 4+ bacteria, 1+ leuk esterase,> 30 RBC, 20-30 epithelial -In ER given Rocephin IV -Urine culture pending -Continue Rocephin Patient with reported UTI the end of November 2020. Was treated with Cipro. Was unable to find UA and outpatient records (3) Chronic pain of left upper extremity: Plan: Chronic LUE pain. Reports increased pain today. Chronic edema left hand, daughter does not feel increased edema -Will obtain Doppler to rule out DVT -Continue indomethacin -Lidocaine patch (4) Atypical parkinsonism: Plan: Follows with [facility] neurology in [place]:Dr Painter -Continue ropinirole (5) Orthostatic hypotension: Plan: -Continue midodrine (6) HLD (hyperlipidemia): Plan: -Continue atorvastatin (7) Hypothyroid: Plan: TSH pending -Continue levothyroxine (8) Anxiety: Plan: -Continue citalopram, alprazolam DVT Prophylaxis -Heparin SQ Full Code as per discussion with pt Follows with Dr White for routine care Pt was seen and care coordinated with Dr Chery. See addendum Admission and Anticipated Discharge Date Admission Date: Patient seen and examined by me, care coordinated with JOSE Vegas, please refer to her note above for further detail. Pt is 70 y/o F with hx of atypical parkinsonism, orthostatic hypotension, HLD, acquired hypothyroidism, anxiety presents with altered mental status, not able to recognize her family members earlier this morning. In addition patient had some left upper extremity pain, which is chronic but seem to be bothering her more today. Therefore patient actually came as stroke alert. CT brain images unremarkable. On my evaluation, patient is already aware of being in the hospital and able to answer questions appropriately. She does not remember however what happened earlier today. Lungs are CTAB w/o any wheezing rhonchi or crackles. Heart sounds regular. Abdomen soft nontender nondistended. No significant lower extremity edema. Left-sided weakness chronic. No significant left upper extremity edema noted. Tele stroke recommended no TPA. Doppler obtained for left lower extremity. UA significant for possible UTI. Patient has history of recent UTI as well. Patient reports urinary frequency, but the inability to void today. Started on Rocephin in ED. Continue antibiotic, and await urine culture. Will discuss further with neurology if any further studies needs to be obtained. Rio Chery MD History of Present Illness Chief Complaint: Confusion Primary Care Provider: Ronit White MD Pt is 70 y/o F with PMH atypical parkinsonism, orthostatic hypotension, HLD, acquired hypothyroidism, anxiety presented to ER with complaint of altered mental status. History obtained from patient's daughter and patient. Patient's daughter reports patient with chronic left upper extremity pain and some edema and decreased range of motion however patient been complaining of more pain to left arm today. Also reports chronic bilateral lower extremity pain edema. Patient is wheelchair-bound. Patient's daughter states this morning patient had acute confusion did not know where she was, did not know daughter or granddaughter. Patient is usually alert and oriented x3 at baseline. It is rep orted that patient had urinary symptoms over 1 month ago and was treated with Cipro and completed course. Reports past couple days patient complaining of urinary frequency. Has had poor appetite and oral intake the past 2 days. This morning was unable to urinate. Denies any known fever, chills, hematuria, falls or head injury. Reports pain patient with chronic constipation and are currently using laxatives, currently titrating dose to avoid loose stools. Denies TRINH, nausea, vomiting dizziness, syncope, vision changes, neck pain, CP, SOB, orthopnea, palpitations, cough, sore throat, choking, otalgia, rhinorrhea, abdominal pain, new paresthesias, rashes. In ER patient afebrile, vitals stable. CT head: No acute intracranial findings. UA suggestive of UTI. Tele stroke recommended no TPA. In ER was given Rocephin IV. Upon initial ER presentation patient did not know location or family members. During ER course patient is alert to place, person, year and season. Allergies Allergy/AdvReac Type Severity Reaction Status Date / Time bacitracin Allergy Intermediate hives Verified 01/09/21 15:04 neomycin Allergy Intermediate hives Verified 01/09/21 15:04 onion Allergy Intermediate diarrhea,violent Verified 01/09/21 15:04 illness polymyxin B Allergy Intermediate hives Verified 01/09/21 15:04 ragweed pollen Allergy Intermediate hayfever/adolfo Verified 01/09/21 15:04 fever carbidopa [place] [facility] 01/09/21 15:04 MED LIST levodopa Allergy Unknown [place] [facility] Verified 01/09/21 15:04 MED LIST Home Medications Medication Instructions Recorded Confirmed Type L.acidoph-L.rhamn-B.bifidum-B.long 1 tab PO TIDM 01/09/21 01/09/21 History 12.9 mg (2 billion cell) DR armando (Probiotic Acidophilus Trini) alprazolam 0.25 mg tablet 0.125 mg PO DAILY PRN 01/09/21 01/09/21 History alprazolam 0.25 mg tablet 0.25 mg PO HS 01/09/21 01/09/21 History atorvastatin 10 mg tablet 10 mg PO QDD 01/09/21 01/09/21 History cetirizine 10 mg tablet (Zyrtec) 10 mg PO HS 01/09/21 01/09/21 History cholecalciferol (vitamin D3) 25 50 mcg PO DAILY 01/09/21 01/09/21 History mcg (1,000 unit) tablet (Vitamin D3) citalopram 40 mg tablet 40 mg PO DAILY 01/09/21 01/09/21 History cyanocobalamin (vitamin B-12) 1,000 mcg PO DAILY 01/09/21 01/09/21 History 1,000 mcg tablet (Vitamin B-12) gabapentin 300 mg capsule 300 mg PO TID 01/09/21 01/09/21 History indomethacin 50 mg capsule 50 mg PO BID PRN 01/09/21 01/09/21 History levothyroxine 75 mcg tablet 75 mcg PO DAILY 01/09/21 01/09/21 History melatonin 10 mg tablet 10 mg PO HS 01/09/21 01/09/21 History midodrine 2.5 mg tablet 2.5 mg PO BID 01/09/21 01/09/21 History nystatin 100,000 unit/gram topical 1 applic TOPICAL BID 01/09/21 01/09/21 History powder polyethylene glycol 3350 17 gram 17 g PO DAILY 01/09/21 01/09/21 History oral powder packet (Miralax) ropinirole 1 mg tablet 1 mg PO TIDM 01/09/21 01/09/21 History ropinirole 2 mg tablet 2 mg PO TIDM 01/09/21 01/09/21 History sennosides 8.6 mg-docusate sodium 1 tab-cap PO BID 01/09/21 01/09/21 History 50 mg tablet (Senna-S) Past Med/Surg History Medical History Atypical parkinsonism HLD (hyperlipidemia) Hypothyroid MDD (major depressive disorder) Multiple system atrophy Orthostatic hypotension Surgical History History of hysterectomy Family History Other Family history unknown Social History Smoking Status: Former smoker Hx Alcohol Use: No Hx Substance Use: No Preferred Language: Spanish Communication Ability: Effective Beliefs That Will Affect Care: None Current Living Situation: Family Current Living Situation Comment: Lives with and daughter Other Information That Helps Us Care for You: No Feels Safe at Home: Yes Assistive Devices: Wheelchair Review of Systems Review of Systems: All systems reviewed & are unremarkable except as noted in HPI & below Physical Exam Physical Exam: General: no distress, overweight, chronic ill appearing Head: normocephalic, atraumatic Eyes: PERRL, EOM's intact, conjunctiva non-injected, anicteric ENT: normal inspection external ears, nose, mucous membranes moist Neck: supple, trachea midline Lungs: clear, no respiratory distress, no wheezing/rhonchi/rales CV: RRR, no murmur, no JVD, no pretibial edema Abd: normal BS, soft, non-tender Ext: no cyanosis, no erythema, no calf tenderness, left fingers contracted, +tenderness to palpation left upper arm, unable to actively move left arm, minimal passive ROM attempted secondary to discomfort Neuro: Alert, oriented to place, person, year and season, unsure of month or day. +resting tremor left fingers and tremor and left foot, The face is strong and symmetric, Hearing grossly intact, no dysarthria, only able to slightly shrug right shoulder, unable to left secondary to chronic LUE weakness and pain, tongue is midline, normal movement, no fasciculations +weakness bilateral upper extremities and lower extremities with left greater than right. (chronic weakness, left greater than right at baseline). Skin: warm, dry Results & Data Results & Data ([facility]) Vital Signs (Past 12 Hours) Vital Signs Temp Pulse Pulse Resp BP BP Pulse Ox 01/09/21 17:00 90 18 128/55 L 92 01/09/21 15:43 87 18 124/55 L 95 01/09/21 14:51 88 94 01/09/21 14:43 90 20 142/66 H 91 01/09/21 14:15 88 18 140/75 94 01/09/21 14:14 36.8 C 89 20 140/75 95 Laboratory Results Short CBC 01/09/21 Range/Units 14:20 WBC 6.03 (4.8-10.8) K/uL Hgb 13.1 (12.0-16.0) g/dL Hct 37.8 (37-47) % Plt Count 218 (130-400) K/uL BMP 01/09/21 14:20 Sodium 143 Potassium 4.5 Chloride 110 H Carbon Dioxide 30 BUN 26 H Creatinine 0.67 Glucose 87 Calcium 8.8 Cardiac Enzymes 01/09/21 Range/Units 14:20 Troponin I < 0.015 (0-0.045) ng/ml Liver Function 01/09/21 Range/Units 14:20 Total Bilirubin 0.6 (0.2-1) mg/dl AST 16 (15-37) U/L ALT 26 (12-78) U/L Alkaline Phosphatase 93 (45-117) U/L Albumin 3.8 (3.4-5.0) gm/dl Urine 01/09/21 Range/Units 15:06 Urine Color Yellow Urine Appearance Cloudy A (Clear) Urine pH 7.0 (4.5-7.5) Ur Specific [place] 1.029 (1.000-1.030) Urine Protein Negative (Negative) Urine Glucose (UA) Negative (Negative) Diagnostic Findings Chest X-Ray 01/09/21 14:01 XR chest 1V portable CLINICAL HISTORY: stroke alert COMPARISON STUDY: Chest radiograph January 14, 2012. FINDINGS: Lung volumes are normal. Linear left basilar opacities favor atelectasis.. There is no pneumothorax or pleural effusion. Mild cardiomegaly is noted. Mediastinal contours are normal. There is no evidence for pulmonary edema. IMPRESSION: No acute cardiopulmonary findings. ACT 112: Negative or not required by law. Electronically signed by: Jonathan Cheo M.D. 01/09/2021 2:[address] 01/09/21 14:01 CT OF THE HEAD WITHOUT CONTRAST CLINICAL HISTORY: Stroke Alert COMPARISON STUDY: No previous studies for comparison. CT DOSE: 537.48 mGy.cm TECHNIQUE: Helical axial images of the head were obtained without IV contrast. Automated exposure control was utilized for the study. A dose lowering technique was utilized adhering to the principles of ALARA. FINDINGS: No acute intracranial hemorrhage, midline shift or mass effect is present. The ventricular system is unremarkable. The basal cisterns are patent. No extra-axial collections are present. There are no findings to suggest acute dural sinus thrombosis or acute territorial infarct. No significant calvarial abnormalities are present. Visualized portions of the sinuses and mastoid air cells are clear. IMPRESSION: No acute intracranial findings. ACT 112: Negative or not required by law. Electronically signed by: Jonathan Choe M.D. 01/09/2021 2:38 PM Head CTA 01/09/21 14:23 CT angio head w con CLINICAL HISTORY: Stroke Like Symptoms TECHNIQUE: CT angiography of the head was performed in a dynamic helical fashion during intravenous administration of 112 cc of Optiray. MIP imaging was performed. A dose lowering technique was utilized adhering to the principles of ALARA. CT DOSE: COMPARISON STUDY: No previous studies for comparison. FINDINGS: Bilateral internal carotid arteries are patent and show no evidence of occlusion or significant stenosis. Right and left middle cerebral cerebral arteries, anterior cerebral arteries and anterior communicating arteries are normally opacified without focal occlusion or hemodynamically significant stenosis. Basilar artery is diffusely narrowed without evidence of focal occlusion. There is origin of the right and left posterior cerebral arteries which shows no evidence of focal occlusion or hemodynamically significant stenosis. Hypoplastic left transverse sinus. Arachnoid granulations with are seen within confluent of sinuses. The rest of visualized dural sinuses are well opacified. IMPRESSION: 1. No evidence of occlusion or hemodynamically significant stenosis. 2. origin of the right and left posterior cerebral arteries from MCA is seen bilaterally. 3. The rest of findings as above. ACT 112: Negative or not required by law. The above report was generated using voice recognition software. It may contain grammatical, syntax or spelling errors. Electronically signed by: Chelita Husain DO 01/09/2021 3:25 PM Neck CTA 01/09/21 14:23 CT angio neck with con CLINICAL HISTORY: Stroke Like Symptoms COMPARISON STUDY: No previous studies for comparison. TECHNIQUE: CT angiography was performed from the aortic arch to the skull base. MIP imaging was performed. The patient was scanned in a dynamic helical fashion during intravenous administration of 120 cc of Optiray. A dose lowering technique was utilized adhering to the principles of ALARA. CT DOSE: 496.07 mGy.cm Technique: CT angiogram of the carotid and vertebral arteries was obtained using intravenous contrast and 3-D reconstruction. NASCET criteria was utilized. Findings: The right carotid revealed no evidence of aneurysm and no evidence of dissection. There is no evidence of hemodynamic significant stenosis. The left carotid revealed no evidence of hemodynamic significant stenosis. There is no evidence of aneurysm. There is no evidence of dissection. Mild diffuse narrowing of the V4 segment of the right vertebral artery. No evidence of focal occlusion is seen. There is no evidence of vertebral dissection. IMPRESSION: No evidence of hemodynamically significant carotid artery stenosis. Mild diffuse narrowing of the V4 segment of the right vertebral artery without focal occlusion might represent developmental variant. No evidence of dissection. ACT 112: Negative or not required by law. The above report was generated using voice recognition software. It may contain grammatical, syntax or spelling errors. Electronically signed by: Chelita Husain DO 01/09/2021 3:20 PM Code Status & VTE Plan VTE Prophylaxis Plan VTE Prophylaxis will be ordered: Yes
[2021-01-09] MEDS ORDERED: MoRPHine SULFATE 2 MG/ML CARP IV STA ×2 (18:06→19:27)
[2021-01-09] MEDS ORDERED: ALPRAZolam 0.25 MG TABLET PO PRN (18:49)
[2021-01-09] MEDS ORDERED: PHARMACIST DISCHARGE MED REC CONSULT PRN (18:49)
[2021-01-09] MEDS ORDERED: ACETAMINOPHEN 325 MG TAB PO PRN (18:49)
[2021-01-09] MEDS ORDERED: SODIUM CHLORIDE 0.9% 1000ML 1,000 ML IV SCH (18:49)
[2021-01-09] MEDS ORDERED: POLYETHYLENE (MIRALAX) 17 GM PACK PO PRN (19:05)
[2021-01-09] MEDS ORDERED: MoRPHine SULFATE 2 MG/ML CARP IV PRN (19:29)
[2021-01-09] MEDS ORDERED: ASPIRIN 81 MG CHEW PO ONE (20:33)
[2021-01-09] MEDS: LIDOCAINE 5% 1 PATCH TD SCH (20:39)
[2021-01-09] MEDS: ALPRAZolam 0.25 MG TABLET PO SCH (20:50)
[2021-01-09] MEDS: CETIRIZINE HCL 10 MG TABLET PO SCH (20:51)
[2021-01-09] MEDS: MELATONIN 3 MG TAB PO SCH (20:52)
[2021-01-09] MEDS: GABAPENTIN 300 MG CAP PO SCH (20:52)
[2021-01-09] MEDS: DOCUSATE SODIUM/SENNA 50/8.6MG TAB PO SCH (20:53)
[2021-01-09] MEDS: NYSTATIN POWDER 15GM BTL EXT SCH (20:53)
[2021-01-09] MEDS: HEPARIN SOD 5,000 UNIT/0.5 ML VIAL SQ SCH (20:54)
[2021-01-10] MEDS: INDOMETHACIN 25 MG CAP PO PRN ×2 (01:40→08:20)
[2021-01-10 05:59] LABS: Basophils # (auto) 0.01 K/uL (0-0.2); Basophils % (auto) 0.1 %; Eosinophils # (auto) 0.11 K/uL (0-0.5); Eosinophils % (auto) 1.5 %; Hematocrit (blood only) 33.9 % (37-47); Hemoglobin 11.8 g/dL (12.0-16.0); Immature Granulocytes # (auto) 0.03 K/uL (0.00-0.02); Immature Granulocytes % (auto) 0.4 %; Lymphocytes % (auto) 29.5 %; Mean Corpuscular Hemoglobin 33.1 pg (25-34); Mean Corpuscular Hgb Conc 34.8 g/dL (32-36); Mean Platelet Volume 8.5 fL (7.4-10.4); Monocytes # (auto) 0.55 K/uL (0.11-0.59); Monocytes % (auto) 7.7 %; Neutrophils # (auto) 4.31 K/uL (1.4-6.5); Neutrophils % (auto) 60.8 %; Platelet Count 181 K/uL (130-400); RDW Coefficient of Variation 12.7 % (11.5-14.5); RDW Standard Deviation 43.5 fL (36.4-46.3); Red Blood Count 3.57 M/uL (4.2-5.4); White Blood Count 7.11 K/uL (4.8-10.8)
[2021-01-10 06:46] LABS: BUN Creatinine Ratio 32.4 (10-20); Calcium 8.5 mg/dl (8.5-10.1); Creatinine Clr Calc Pharmacy 94.9 ml/min; Est GFR (African American) 109.8 ml/min; Est GFR (Non-African American) 94.7 ml/min; Potassium 3.6 mmol/L (3.5-5.1)
--- NOTE | 2021-01-10 07:36 | Ultrasound Report ---
LEFT UPPER EXTREMITY VENOUS DOPPLER ULTRASOUND CLINICAL HISTORY: Left arm pain and swelling. COMPARISON STUDY: No previous studies for comparison. TECHNIQUE: Sonography of the deep venous system of the left upper extremity was performed. FINDINGS: This exam was compromised by difficulty positioning with suboptimal evaluation of the left radial, ulnar and basilic veins. The left antecubital fossa was also suboptimally assessed. However, no venous thrombus was identified within the left upper extremity. IMPRESSION: Technically difficult exam, as described above. However, no deep venous thrombus identif ied within the left upper extremity. ACT 112: Negative or not required by law. Electronically signed by: Jonathan Choe M.D. 01/10/2021 7:34 AM
[2021-01-10] MEDS: MIDODRINE HCL 2.5 MG TAB PO SCH ×2 (08:20→12:29)
[2021-01-10] MEDS: DOCUSATE SODIUM/SENNA 50/8.6MG TAB PO SCH ×2 (08:20→20:43)
[2021-01-10] MEDS: HEPARIN SOD 5,000 UNIT/0.5 ML VIAL SQ SCH ×3 (08:20→21:03)
[2021-01-10] MEDS: LEVOTHYROXINE SODIUM 75 MCG TABLET PO SCH (08:20)
[2021-01-10] MEDS: rOPINIRole HCL 1 MG TABLET PO SCH ×6 (08:21→16:32)
[2021-01-10] MEDS: CHOLECALCIFEROL 1,000 UNITS 25 MCG TAB PO SCH (08:21)
[2021-01-10] MEDS: CITALOPRAM 40 MG TAB PO SCH (08:22)
[2021-01-10] MEDS: GABAPENTIN 300 MG CAP PO SCH ×3 (08:22→20:43)
[2021-01-10] MEDS: CYANOCOBALAMIN 500 MCG TABLET (VITAMIN B-12) PO SCH (08:22)
[2021-01-10] MEDS: ADVANCED PROBIOTIC 1250 MG CAPSULE PO SCH (08:22)
[2021-01-10] MEDS: POLYETHYLENE (MIRALAX) 17 GM PACK PO SCH (08:23)
[2021-01-10] MEDS: LIDOCAINE 5% 1 PATCH TD SCH (08:23)
[2021-01-10] MEDS: NYSTATIN POWDER 15GM BTL EXT SCH ×2 (08:24→20:49)
[2021-01-10] MEDS: cefTRIAXone SODIUM 2,000 MG in DEXTROSE 5% 50 ML IV SCH (08:29)
--- NOTE | 2021-01-10 09:00 | Hospitalist Progress Note ---
Date of Service January 10, 2021 Assessment & Plan (1) Altered mental status: Plan: Pt is 70 y/o F with atypical parkinsonism, orthostatic hypotension, HLD, acquired hypothyroidism, anxiety presents w/ altered mental status. In ER patient afebrile, vitals stable. CT head: No acute intracranial findings. CTA head: No evidence of occlusion or hemodynamically significant stenosis. origin of the right and left posterior cerebral arteries from MCA is seen bilaterally. CTA neck:No evidence of hemodynamically significant carotid artery stenosis. Mild diffuse narrowing of the V4 segment of the right vertebral artery without focal occlusion might represent developmental variant. No evidence of dissection. Tele stroke recommended no TPA. UA suggestive of UTI. DDX: metabolic encephalopathy secondary to UTI, TIA -During ER course patient becomes more oriented Now patient is alert oriented answering questions appropriately -Tele to monitor for arrhythmias -EKG in am -Neurology consult. Will hold on MRI pending further neurology recommendations Seen by neurology, no further testing recommended. Patient's altered mental status most likely secondary to UTI. Recommend to follow-up with neurology in [place]. -aspiration precautions -PT/OT consult -recommend to return home -Continue statin -Treat UTI as below -CBC, BMP in a.m. (2) UTI (urinary tract infection): Plan: UA: 4+ bacteria, 1+ leuk esterase,> 30 RBC, 20-30 epithelial Patient reported dysuria symptoms, frequency, and then inability to void the day of admission. -In ER given Rocephin IV -Urine culture pending -Continue Rocephin Patient with reported UTI the end of November 2020. Was treated with Cipro. Was unable to find UA and outpatient records (3) Chronic pain of left upper extremity: Plan: Chronic LUE pain. Reports increased pain on day of admission. Chronic edema left hand, daughter does not feel increased edema -Doppler obtained - negative for DVT -Continue indomethacin -Lidocaine patch Currently left upper extremity pain feels better, improved (4) Atypical parkinsonism: Plan: Follows with [facility] neurology in [place]:Dr Painter -Continue ropinirole (5) Orthostatic hypotension: Plan: -Continue midodrine (6) HLD (hyperlipidemia): Plan: -Continue atorvastatin (7) Hypothyroid: Plan: TSH 1.75 -Continue levothyroxine (8) Anxiety: Plan: -Continue citalopram, alprazolam DVT Prophylaxis -Heparin SQ Full Code as per discussion with pt Follows with Dr White for routine care Admission and Anticipated Discharge Date Admission Date: January 09, 2021 Subjective Patient seen in follow-up of altered mental status, UTI Currently laying in bed in no acute distress, she is alert oriented answering questions appropriately Denies any fevers, chills, chest pain, shortness of breath, abdominal pain, nausea or vomiting Reports left lower extremity pain feels better Seen by neurology today Review of Systems Review of Systems: All systems reviewed & are unremarkable except as noted in Subjective Physical Exam Physical Exam: General: no distress, overweight, chronic ill appearing Head: normocephalic, atraumatic Eyes: PERRL, EOM's intact, conjunctiva non-injected, anicteric ENT: normal inspection external ears, nose, mucous membranes moist Neck: supple, trachea midline Lungs: clear, no respiratory distress, no wheezing/rhonchi/rales CV: RRR, no murmur, no JVD, no pretibial edema Abd: normal BS, soft, non-tender Ext: left fingers contracted, +tenderness to palpation left upper arm (improved), unable to actively move left arm, minimal passive ROM attempted secondary to discomfort Neuro: Alert, oriented and answering questions appropriately. No facial asymmetry, speech fluent. +mild resting tremor left fingers and left foot. +weakness bilateral upper extremities and lower extremities with left greater than right. (chronic weakness, left greater than right at baseline). Skin: warm, dry Results & Data Results & Data ([facility]) Vital Signs (Past 12 Hours) Vital Signs Temp Pulse Pulse Resp BP Pulse Ox 01/10/21 08:05 37.0 C 75 18 130/78 93 01/10/21 07:44 78 01/10/21 03:43 36.8 C 76 20 125/74 93 Laboratory Results 01/10/21 01/10/21 01/10/21 Range/Units 05:41 05:41 05:41 WBC 7.11 (4.8-10.8) K/uL RBC 3.57 L (4.2-5.4) M/uL Hgb 11.8 L (12.0-16.0) g/dL POC Hgb (12.0-16.0) g/dl Hct 33.9 L (37-47) % POC Hct (37-47) % MCV 95.0 (80-100) fL MCH 33.1 (25-34) pg MCHC 34.8 (32-36) g/dL RDW Std Deviation 43.5 (36.4-46.3) fL RDW Coeff of Radhames 12.7 (11.5-14.5) % Plt Count 181 (130-400) K/uL MPV 8.5 (7.4-10.4) fL Immature Gran % (Auto) 0.4 % Neut % (Auto) 60.8 % Lymph % (Auto) 29.5 % [place] % (Auto) 7.7 % Eos % (Auto) 1.5 % Baso % (Auto) 0.1 % Neut # (Auto) 4.31 (1.4-6.5) K/uL Lymph # (Auto) 2.10 (1.2-3.4) K/uL [place] # (Auto) 0.55 (0.11-0.59) K/uL Eos # (Auto) 0.11 (0-0.5) K/uL Baso # (Auto) 0.01 (0-0.2) K/uL Immature Gran # (Auto) 0.03 H (0.00-0.02) K/uL PT (9.0-12.0) Seconds INR (0.9-1.1) APTT (21.0-31.0) Seconds PTT Ratio POC Sodium (135-144) mmol/L Sodium 140 (136-145) mmol/L POC Potassium (3.3-5.0) mmol/L Potassium 3.6 D (3.5-5.1) mmol/L POC Chloride (101-112) mmol/L Chloride 108 H (98-107) mmol/L Carbon Dioxide 26 (21-32) mmol/L POC Total CO2 (24-31) mmol/L Anion Gap 6.0 (3-11) POC Anion Gap (16-25) mmol/L POC BUN (7-18) mg/dl BUN 19 H (7-18) mg/dl Creatinine 0.58 L (0.6-1.2) mg/dl POC Creatinine (0.6-1.3) mg/dl Est Cr Clr Drug Dosing 94.9 Est GFR ( Amer) 109.8 ml/min Est GFR (Non-Af Amer) 94.7 ml/min BUN/Creatinine Ratio 32.4 H (10-20) Glucose 88 (70-99) mg/dl POC Glucose (70-99) mg/dl POC Glucose (other) (70-99) mg/dl Estimat Average Glucose Pending Hemoglobin A1c Pending Calcium 8.5 (8.5-10.1) mg/dl POC Ioniz Calcium Dary (1.12-1.32) mmol/l Magnesium (1.8-2.4) mg/dl Total Bilirubin (0.2-1) mg/dl AST (15-37) U/L ALT (12-78) U/L Alkaline Phosphatase (45-117) U/L Troponin I (0-0.045) ng/ml Total Protein (6.4-8.2) gm/dl Albumin (3.4-5.0) gm/dl Globulin (2.5-4.0) gm/dl Albumin/Globulin Ratio (0.9-2) Triglycerides 182 H (0-150) mg/dl Cholesterol 174 (0-200) mg/dl LDL Cholesterol, Calc 97 mg/dl VLDL Cholesterol, Calc 36 mg/dl HDL Cholesterol 41 mg/dl Cholesterol/HDL Ratio 4 TSH (0.300-4.500) uIu/ml Urine Color Urine Appearance (Clear) Urine pH (4.5-7.5) Ur Specific [place] (1.000-1.030) Urine Protein (Negative) Urine Glucose (UA) (Negative) Urine Ketones (Negative) Urine Blood (Negative) Urine Nitrite (Negative) Urine Bilirubin (Negative) Urine Urobilinogen (Negative) Ur Leukocyte Esterase (Negative) Urine WBC (Auto) (0-5) /hpf Urine RBC (Auto) (0-4) /hpf U Hyaline Cast (Auto) (0-5) /lpf U Epithel Cells (Auto) (0-5) /lpf Urine Bacteria (Auto) (Negative) Urine Yeast COVID-19 Eval Order SARS-CoV-2 (PCR) (Negative) Blood Type Antibody Screen 01/09/21 01/09/21 01/09/21 Range/Units 15:06 14:49 14:49 WBC (4.8-10.8) K/uL RBC (4.2-5.4) M/uL Hgb (12.0-16.0) g/dL POC Hgb (12.0-16.0) g/dl Hct (37-47) % POC Hct (37-47) % MCV (80-100) fL MCH (25-34) pg MCHC (32-36) g/dL RDW Std Deviation (36.4-46.3) fL RDW Coeff of Radhames (11.5-14.5) % Plt Count (130-400) K/uL MPV (7.4-10.4) fL Immature Gran % (Auto) % Neut % (Auto) % Lymph % (Auto) % [place] % (Auto) % Eos % (Auto) % Baso % (Auto) % Neut # (Auto) (1.4-6.5) K/uL Lymph # (Auto) (1.2-3.4) K/uL [place] # (Auto) (0.11-0.59) K/uL Eos # (Auto) (0-0.5) K/uL Baso # (Auto) (0-0.2) K/uL Immature Gran # (Auto) (0.00-0.02) K/uL PT (9.0-12.0) Seconds INR (0.9-1.1) APTT (21.0-31.0) Seconds PTT Ratio POC Sodium (135-144) mmol/L Sodium (136-145) mmol/L POC Potassium (3.3-5.0) mmol/L Potassium (3.5-5.1) mmol/L POC Chloride (101-112) mmol/L Chloride (98-107) mmol/L Carbon Dioxide (21-32) mmol/L POC Total CO2 (24-31) mmol/L Anion Gap (3-11) POC Anion Gap (16-25) mmol/L POC BUN (7-18) mg/dl BUN (7-18) mg/dl Creatinine (0.6-1.2) mg/dl POC Creatinine (0.6-1.3) mg/dl Est Cr Clr Drug Dosing Est GFR ( Amer) ml/min Est GFR (Non-Af Amer) ml/min BUN/Creatinine Ratio (10-20) Glucose (70-99) mg/dl POC Glucose (70-99) mg/dl POC Glucose (other) (70-99) mg/dl Estimat Average Glucose Hemoglobin A1c Calcium (8.5-10.1) mg/dl POC Ioniz Calcium Dary (1.12-1.32) mmol/l Magnesium (1.8-2.4) mg/dl Total Bilirubin (0.2-1) mg/dl AST (15-37) U/L ALT (12-78) U/L Alkaline Phosphatase (45-117) U/L Troponin I (0-0.045) ng/ml Total Protein (6.4-8.2) gm/dl Albumin (3.4-5.0) gm/dl Globulin (2.5-4.0) gm/dl Albumin/Globulin Ratio (0.9-2) Triglycerides (0-150) mg/dl Cholesterol (0-200) mg/dl LDL Cholesterol, Calc mg/dl VLDL Cholesterol, Calc mg/dl HDL Cholesterol mg/dl Cholesterol/HDL Ratio TSH (0.300-4.500) uIu/ml Urine Color Yellow Urine Appearance Cloudy A (Clear) Urine pH 7.0 (4.5-7.5) Ur Specific [place] 1.029 (1.000-1.030) Urine Protein Negative (Negative) Urine Glucose (UA) Negative (Negative) Urine Ketones Negative (Negative) Urine Blood 3+ H (Negative) Urine Nitrite Negative (Negative) Urine Bilirubin Negative (Negative) Urine Urobilinogen Negative (Negative) Ur Leukocyte Esterase 1+ H (Negative) Urine WBC (Auto) 1-5 (0-5) /hpf Urine RBC (Auto) >30 H (0-4) /hpf U Hyaline Cast (Auto) 1-5 (0-5) /lpf U Epithel Cells (Auto) 20-30 H (0-5) /lpf Urine Bacteria (Auto) 4+ H (Negative) Urine Yeast Not Reportable COVID-19 Eval Order Covid19 at [facility] SARS-CoV-2 (PCR) NEGATIVE (Negative) Blood Type Antibody Screen 01/09/21 01/09/21 01/09/21 Range/Units 14:24 14:23 14:21 WBC (4.8-10.8) K/uL RBC (4.2-5.4) M/uL Hgb (12.0-16.0) g/dL POC Hgb 12.9 (12.0-16.0) g/dl Hct (37-47) % POC Hct 38 (37-47) % MCV (80-100) fL MCH (25-34) pg MCHC (32-36) g/dL RDW Std Deviation (36.4-46.3) fL RDW Coeff of Radhames (11.5-14.5) % Plt Count (130-400) K/uL MPV (7.4-10.4) fL Immature Gran % (Auto) % Neut % (Auto) % Lymph % (Auto) % [place] % (Auto) % Eos % (Auto) % Baso % (Auto) % Neut # (Auto) (1.4-6.5) K/uL Lymph # (Auto) (1.2-3.4) K/uL [place] # (Auto) (0.11-0.59) K/uL Eos # (Auto) (0-0.5) K/uL Baso # (Auto) (0-0.2) K/uL Immature Gran # (Auto) (0.00-0.02) K/uL PT (9.0-12.0) Seconds INR (0.9-1.1) APTT (21.0-31.0) Seconds PTT Ratio POC Sodium 144 (135-144) mmol/L Sodium (136-145) mmol/L POC Potassium 4.5 (3.3-5.0) mmol/L Potassium (3.5-5.1) mmol/L POC Chloride 101 (101-112) mmol/L Chloride (98-107) mmol/L Carbon Dioxide (21-32) mmol/L POC Total CO2 27 (24-31) mmol/L Anion Gap (3-11) POC Anion Gap 21.0 (16-25) mmol/L POC BUN 27 H (7-18) mg/dl BUN (7-18) mg/dl Creatinine (0.6-1.2) mg/dl POC Creatinine 0.6 (0.6-1.3) mg/dl Est Cr Clr Drug Dosing Est GFR ( Amer) ml/min Est GFR (Non-Af Amer) ml/min BUN/Creatinine Ratio (10-20) Glucose (70-99) mg/dl POC Glucose 87 (70-99) mg/dl POC Glucose (other) 89 (70-99) mg/dl Estimat Average Glucose Hemoglobin A1c Calcium (8.5-10.1) mg/dl POC Ioniz Calcium Dary 1.26 (1.12-1.32) mmol/l Magnesium (1.8-2.4) mg/dl Total Bilirubin (0.2-1) mg/dl AST (15-37) U/L ALT (12-78) U/L Alkaline Phosphatase (45-117) U/L Troponin I (0-0.045) ng/ml Total Protein (6.4-8.2) gm/dl Albumin (3.4-5.0) gm/dl Globulin (2.5-4.0) gm/dl Albumin/Globulin Ratio (0.9-2) Triglycerides (0-150) mg/dl Cholesterol (0-200) mg/dl LDL Cholesterol, Calc mg/dl VLDL Cholesterol, Calc mg/dl HDL Cholesterol mg/dl Cholesterol/HDL Ratio TSH (0.300-4.500) uIu/ml Urine Color Urine Appearance (Clear) Urine pH (4.5-7.5) Ur Specific [place] (1.000-1.030) Urine Protein (Negative) Urine Glucose (UA) (Negative) Urine Ketones (Negative) Urine Blood (Negative) Urine Nitrite (Negative) Urine Bilirubin (Negative) Urine Urobilinogen (Negative) Ur Leukocyte Esterase (Negative) Urine WBC (Auto) (0-5) /hpf Urine RBC (Auto) (0-4) /hpf U Hyaline Cast (Auto) (0-5) /lpf U Epithel Cells (Auto) (0-5) /lpf Urine Bacteria (Auto) (Negative) Urine Yeast COVID-19 Eval Order SARS-CoV-2 (PCR) (Negative) Blood Type O Positive Antibody Screen NEGATIVE 01/09/21 01/09/21 01/09/21 Range/Units 14:20 14:20 14:20 WBC 6.03 (4.8-10.8) K/uL RBC 4.04 L (4.2-5.4) M/uL Hgb 13.1 (12.0-16.0) g/dL POC Hgb (12.0-16.0) g/dl Hct 37.8 (37-47) % POC Hct (37-47) % MCV 93.6 (80-100) fL MCH 32.4 (25-34) pg MCHC 34.7 (32-36) g/dL RDW Std Deviation 42.3 (36.4-46.3) fL RDW Coeff of Radhames 12.5 (11.5-14.5) % Plt Count 218 (130-400) K/uL MPV 8.7 (7.4-10.4) fL Immature Gran % (Auto) 0.7 % Neut % (Auto) 57.3 % Lymph % (Auto) 32.0 % [place] % (Auto) 7.1 % Eos % (Auto) 2.7 % Baso % (Auto) 0.2 % Neut # (Auto) 3.46 (1.4-6.5) K/uL Lymph # (Auto) 1.93 (1.2-3.4) K/uL [place] # (Auto) 0.43 (0.11-0.59) K/uL Eos # (Auto) 0.16 (0-0.5) K/uL Baso # (Auto) 0.01 (0-0.2) K/uL Immature Gran # (Auto) 0.04 H (0.00-0.02) K/uL PT 10.3 (9.0-12.0) Seconds INR 1.0 (0.9-1.1) APTT 27.3 (21.0-31.0) Seconds PTT Ratio 1.0 POC Sodium (135-144) mmol/L Sodium 143 (136-145) mmol/L POC Potassium (3.3-5.0) mmol/L Potassium 4.5 (3.5-5.1) mmol/L POC Chloride (101-112) mmol/L Chloride 110 H (98-107) mmol/L Carbon Dioxide 30 (21-32) mmol/L POC Total CO2 (24-31) mmol/L Anion Gap 3.0 (3-11) POC Anion Gap (16-25) mmol/L POC BUN (7-18) mg/dl BUN 26 H (7-18) mg/dl Creatinine 0.67 (0.6-1.2) mg/dl POC Creatinine (0.6-1.3) mg/dl Est Cr Clr Drug Dosing Not Reportable Est GFR ( Amer) 104.7 ml/min Est GFR (Non-Af Amer) 90.3 ml/min BUN/Creatinine Ratio 38.7 H (10-20) Glucose 87 (70-99) mg/dl POC Glucose (70-99) mg/dl POC Glucose (other) (70-99) mg/dl Estimat Average Glucose Hemoglobin A1c Calcium 8.8 (8.5-10.1) mg/dl POC Ioniz Calcium Dary (1.12-1.32) mmol/l Magnesium 1.9 (1.8-2.4) mg/dl Total Bilirubin 0.6 (0.2-1) mg/dl AST 16 (15-37) U/L ALT 26 (12-78) U/L Alkaline Phosphatase 93 (45-117) U/L Troponin I < 0.015 (0-0.045) ng/ml Total Protein 7.0 (6.4-8.2) gm/dl Albumin 3.8 (3.4-5.0) gm/dl Globulin 3.2 (2.5-4.0) gm/dl Albumin/Globulin Ratio 1.2 (0.9-2) Triglycerides (0-150) mg/dl Cholesterol (0-200) mg/dl LDL Cholesterol, Calc mg/dl VLDL Cholesterol, Calc mg/dl HDL Cholesterol mg/dl Cholesterol/HDL Ratio TSH (0.300-4.500) uIu/ml Urine Color Urine Appearance (Clear) Urine pH (4.5-7.5) Ur Specific [place] (1.000-1.030) Urine Protein (Negative) Urine Glucose (UA) (Negative) Urine Ketones (Negative) Urine Blood (Negative) Urine Nitrite (Negative) Urine Bilirubin (Negative) Urine Urobilinogen (Negative) Ur Leukocyte Esterase (Negative) Urine WBC (Auto) (0-5) /hpf Urine RBC (Auto) (0-4) /hpf U Hyaline Cast (Auto) (0-5) /lpf U Epithel Cells (Auto) (0-5) /lpf Urine Bacteria (Auto) (Negative) Urine Yeast COVID-19 Eval Order SARS-CoV-2 (PCR) (Negative) Blood Type Antibody Screen 01/09/21 Range/Units 14:10 WBC (4.8-10.8) K/uL RBC (4.2-5.4) M/uL Hgb (12.0-16.0) g/dL POC Hgb (12.0-16.0) g/dl Hct (37-47) % POC Hct (37-47) % MCV (80-100) fL MCH (25-34) pg MCHC (32-36) g/dL RDW Std Deviation (36.4-46.3) fL RDW Coeff of Radhames (11.5-14.5) % Plt Count (130-400) K/uL MPV (7.4-10.4) fL Immature Gran % (Auto) % Neut % (Auto) % Lymph % (Auto) % [place] % (Auto) % Eos % (Auto) % Baso % (Auto) % Neut # (Auto) (1.4-6.5) K/uL Lymph # (Auto) (1.2-3.4) K/uL [place] # (Auto) (0.11-0.59) K/uL Eos # (Auto) (0-0.5) K/uL Baso # (Auto) (0-0.2) K/uL Immature Gran # (Auto) (0.00-0.02) K/uL PT (9.0-12.0) Seconds INR (0.9-1.1) APTT (21.0-31.0) Seconds PTT Ratio POC Sodium (135-144) mmol/L Sodium (136-145) mmol/L POC Potassium (3.3-5.0) mmol/L Potassium (3.5-5.1) mmol/L POC Chloride (101-112) mmol/L Chloride (98-107) mmol/L Carbon Dioxide (21-32) mmol/L POC Total CO2 (24-31) mmol/L Anion Gap (3-11) POC Anion Gap (16-25) mmol/L POC BUN (7-18) mg/dl BUN (7-18) mg/dl Creatinine (0.6-1.2) mg/dl POC Creatinine (0.6-1.3) mg/dl Est Cr Clr Drug Dosing Est GFR ( Amer) ml/min Est GFR (Non-Af Amer) ml/min BUN/Creatinine Ratio (10-20) Glucose (70-99) mg/dl POC Glucose (70-99) mg/dl POC Glucose (other) (70-99) mg/dl Estimat Average Glucose Hemoglobin A1c Calcium (8.5-10.1) mg/dl POC Ioniz Calcium Dary (1.12-1.32) mmol/l Magnesium (1.8-2.4) mg/dl Total Bilirubin (0.2-1) mg/dl AST (15-37) U/L ALT (12-78) U/L Alkaline Phosphatase (45-117) U/L Troponin I (0-0.045) ng/ml Total Protein (6.4-8.2) gm/dl Albumin (3.4-5.0) gm/dl Globulin (2.5-4.0) gm/dl Albumin/Globulin Ratio (0.9-2) Triglycerides (0-150) mg/dl Cholesterol (0-200) mg/dl LDL Cholesterol, Calc mg/dl VLDL Cholesterol, Calc mg/dl HDL Cholesterol mg/dl Cholesterol/HDL Ratio TSH 1.750 (0.300-4.500) uIu/ml Urine Color Urine Appearance (Clear) Urine pH (4.5-7.5) Ur Specific [place] (1.000-1.030) Urine Protein (Negative) Urine Glucose (UA) (Negative) Urine Ketones (Negative) Urine Blood (Negative) Urine Nitrite (Negative) Urine Bilirubin (Negative) Urine Urobilinogen (Negative) Ur Leukocyte Esterase (Negative) Urine WBC (Auto) (0-5) /hpf Urine RBC (Auto) (0-4) /hpf U Hyaline Cast (Auto) (0-5) /lpf U Epithel Cells (Auto) (0-5) /lpf Urine Bacteria (Auto) (Negative) Urine Yeast COVID-19 Eval Order SARS-CoV-2 (PCR) (Negative) Blood Type Antibody Screen (1) Altered mental status Altered mental status type: unspecified Qualified Code(s): R41.82 - Altered mental status, unspecified (2) UTI (urinary tract infection) Hematuria presence: with hematuria Urinary tract infection type: acute cystitis Qualified Code(s): N30.01 - Acute cystitis with hematuria
--- NOTE | 2021-01-10 14:03 | Consultation Report ---
NEUROLOGY CONSULTATION NOTE DATE OF CONSULTATION: 01/10/2021 CHIEF COMPLAINT: Altered mental status. HISTORY OF PRESENT ILLNESS: A 70-year-old female with a past medical history of parkinsonism, orthostatic hypotension, hyperlipidemia as well as anxiety, presented to the Emergency Department yesterday with complaint of altered mental status. History was largely obtained from the patient's daughter. States that the patient has chronic left upper extremity pain and some edema and decreased range of motion; however, the patient was complaining of more pain to the left arm yesterday. She also was complaining of bilateral lower extremity pain. She is wheelchair bound. It was noted that she had acute confusion in the morning and did not know where she was, did not know who the daughter was or granddaughter. She is usually alert, oriented to person, place, and time. It was noted that she did have urinary symptoms over 1 month ago and was treated with ciprofloxacin and completed the course. She was complaining of urinary frequency more recently. She had a poor appetite and oral intake for the last 2 days. Earlier yesterday, she was unable to urinate. There was no fever, chills, hematuria, falls or head injury noted. She does have chronic constipation, is currently using laxatives. She denied any headache, nausea, vomiting, dizziness, syncope, vision changes, chest pain, shortness of breath, palpitations, cough, sore throat, choking, rhinorrhea, abdominal pain or paresthesias. In the ER, she was afebrile. Her vitals were stable. She underwent a CT head noncontrast, which showed no acute findings. UA was suggestive of a urinary tract infection. A telestroke consultation was performed and they did not recommend administration of IV tPA. She was given IV Rocephin in the Emergency Department. The patient was admitted for altered mental status, presumed due to her urinary tract infection. Neurology was consulted for further assessment. ALLERGIES: BACITRACIN, NEOMYCIN, ONION, POLYMYXIN B, RAGWEED, POLLEN, CARBIDOPA AND LEVODOPA. HOME MEDICATIONS: Xanax as needed, Xanax nightly, atorvastatin, vitamin D, citalopram 40 mg daily, vitamin B12, gabapentin 300 mg 3 times daily, indomethacin 50 mg as needed, Synthroid, melatonin, midodrine 2.5 mg twice daily, nystatin, MiraLax, ropinirole 3 mg 3 times daily, and senna. PAST MEDICAL HISTORY: Parkinsonism, hyperlipidemia, hypothyroidism, major depressive disorder, multiple systems atrophy, orthostatic hypotension. PAST SURGICAL HISTORY: Colon, hysterectomy. FAMILY HISTORY: Reviewed. No pertinent family history noted. SOCIAL HISTORY: She is a former smoker. Denies any alcohol use. She lives with her and daughter. She is wheelchair bound. REVIEW OF SYSTEMS: Negative except as noted above in the HPI. PHYSICAL EXAMINATION: VITAL SIGNS: Blood pressure 130/78, pulse is 75, respiratory rate 18, temperature 37.0 degrees Celsius, oxygen saturation 93% on room air. GENERAL: The patient appears stated age, appears chronically ill, in no distress. HEENT: Head is atraumatic, normocephalic. Normal eyelids. Normal conjunctivae. Eyes are midline. NECK: Supple, right torticollis LUNGS: Normal respiratory effort. CARDIAC: Pulses are intact. ABDOMEN: Nondistended. SKIN: No skin rash. PSYCHIATRIC: Normal mood. NEUROLOGIC: She is awake, alert, oriented to person, place, and time. Comprehension is intact. No dysarthria. Speech is soft. Pupils are symmetric. Facial sensation is intact. Extraocular muscles are intact. Face is symmetric and intact hearing. Palate is symmetric. Good shoulder shrug. Tongue is midline. Gait, the patient is wheelchair bound and unable to ambulate. Left arm tremor with posture.. Sensation is intact to light touch. Muscle tone shows paratonia. Left arm weakness 3/5, chronic. Left toe is downgoing. DIAGNOSTIC TESTING AND LABORATORY VALUES: WBC 7.11, hemoglobin 11.8, platelet count 181. INR is 1.0. Sodium is 140, potassium 3.6, chloride is 108, carbon dioxide 26, BUN is 19, creatinine 0.58, glucose is 88. Hemoglobin A1c is pending. Calcium is 8.5, magnesium 2.0, AST and ALT are normal. Triglycerides are elevated at 182, LDL is 97. IMAGING: Head CT noncontrast showed no acute intracranial finding. Head and neck CTA showed no evidence of occlusion or hemodynamically significant stenosis. origin of the right and left posterior cerebral arteries from the MCA seen bilaterally. No evidence of hemodynamically significant carotid stenosis. Mild diffuse narrowing of the V4 segment of the right vertebral artery without focal occlusion, no evidence of dissection. Lower extremity Dopplers showed no deep venous thrombosis within the left upper extremity. Chest x-ray, no acute cardiopulmonary findings. Urinalysis showed cloudy appearance, 3+ blood, 1+ leukocyte esterase, greater than 30 RBCs, 20-30 epithelial cells, 4+ bacteria. Urine culture is pending. ASSESSMENT AND PLAN: A 70-year-old woman with history of multiple systems atrophy on Requip admitted with encephalopathy, likely secondary to urinary tract infection. Urine cultures are pending. The patient's mental status did improve with use of IV antibiotics. CT head and CTA head and neck is reassuring without any evidence of acute intracranial hemorrhage or evidence of acute ischemic stroke. There is no large vessel occlusion or high-grade stenosis. The patient does follow up neurologist for her left sided weakness and MSA. She is currently back to baseline. For now, I would recommend in followup urine culture. Otherwise, no additional neurological testing required. Please contact me with any additional questions or concerns. Job ID: [id number] [facility]
[2021-01-10] MEDS: ATORVASTATIN 10 MG TAB PO SCH (16:31)
[2021-01-10] MEDS: CETIRIZINE HCL 10 MG TABLET PO SCH (20:43)
[2021-01-10] MEDS: MELATONIN 3 MG TAB PO SCH (20:43)
[2021-01-10] MEDS: ALPRAZolam 0.25 MG TABLET PO SCH (20:44)
[2021-01-11] MEDS: HEPARIN SOD 5,000 UNIT/0.5 ML VIAL SQ SCH ×3 (05:33→19:42)
[2021-01-11] MEDS: LEVOTHYROXINE SODIUM 75 MCG TABLET PO SCH (05:34)
[2021-01-11 08:24] LABS: Estimated Average Glucose 100 mg/dl; Hemoglobin A1C 5.1 % (4.5-5.6)
[2021-01-11 09:37] LABS: BUN Creatinine Ratio 27.1 (10-20); Calcium 8.6 mg/dl (8.5-10.1); Creatinine Clr Calc Pharmacy 93.2 ml/min; Est GFR (African American) 109.2 ml/min; Est GFR (Non-African American) 94.2 ml/min; Potassium 3.6 mmol/L (3.5-5.1)
[2021-01-11 09:44] LABS: Hematocrit (blood only) 34.4 % (37-47); Hemoglobin 11.7 g/dL (12.0-16.0)
[2021-01-11] MEDS: cefTRIAXone SODIUM 2,000 MG in DEXTROSE 5% 50 ML IV SCH (09:49)
[2021-01-11] MEDS: MIDODRINE HCL 2.5 MG TAB PO SCH ×2 (09:49→13:48)
[2021-01-11] MEDS: rOPINIRole HCL 1 MG TABLET PO SCH ×6 (09:50→16:03)
[2021-01-11] MEDS: ADVANCED PROBIOTIC 1250 MG CAPSULE PO SCH (09:50)
[2021-01-11] MEDS: CITALOPRAM 40 MG TAB PO SCH (09:51)
[2021-01-11] MEDS: CHOLECALCIFEROL 1,000 UNITS 25 MCG TAB PO SCH (09:51)
[2021-01-11] MEDS: DOCUSATE SODIUM/SENNA 50/8.6MG TAB PO SCH ×2 (09:52→19:42)
[2021-01-11] MEDS: LIDOCAINE 5% 1 PATCH TD SCH (09:52)
[2021-01-11] MEDS: GABAPENTIN 300 MG CAP PO SCH ×3 (09:52→19:42)
[2021-01-11] MEDS: CYANOCOBALAMIN 500 MCG TABLET (VITAMIN B-12) PO SCH (09:52)
[2021-01-11] MEDS: NYSTATIN POWDER 15GM BTL EXT SCH ×2 (09:54→19:42)
[2021-01-11] MEDS: POLYETHYLENE (MIRALAX) 17 GM PACK PO SCH (09:55)
--- NOTE | 2021-01-11 14:08 | Hospitalist Progress Note ---
Date of Service January 11, 2021 Assessment & Plan (1) Altered mental status: Plan: Pt is 70 y/o F with atypical parkinsonism, orthostatic hypotension, HLD, acquired hypothyroidism, anxiety presents w/ altered mental status. In ER patient afebrile, vitals stable. CT head: No acute intracranial findings. CTA head: No evidence of occlusion or hemodynamically significant stenosis. origin of the right and left posterior cerebral arteries from MCA is seen bilaterally. CTA neck:No evidence of hemodynamically significant carotid artery stenosis. Mild diffuse narrowing of the V4 segment of the right vertebral artery without focal occlusion might represent developmental variant. No evidence of dissection. Tele stroke recommended no TPA. UA suggestive of UTI. DDX: metabolic encephalopathy secondary to UTI, TIA -During ER course patient becomes more oriented Now patient is alert oriented answering questions appropriately -Tele to monitor for arrhythmias -EKG in am -Neurology consult. Will hold on MRI pending further neurology recommendations Seen by neurology, no further testing recommended. Patient's altered mental status most likely secondary to UTI. Recommend to follow-up with neurology in [place]. -aspiration precautions -PT/OT consult -recommend to return home -Continue statin -Treat UTI as below -CBC, BMP in a.m. (2) UTI (urinary tract infection): Plan: UA: 4+ bacteria, 1+ leuk esterase,> 30 RBC, 20-30 epithelial Patient reported dysuria symptoms, frequency, and then inability to void the day of admission. Uribe was placed in the ED. -In ER given Rocephin IV -Urine culture pending -Continue Rocephin Patient with reported UTI the end of November 2020. Was treated with Cipro. Was unable to find UA and outpatient records Constipation -Patient has a chronic constipation, continue stool softeners - she did not have a bowel movement since admission, provide suppository now (3) Chronic pain of left upper extremity: Plan: Chronic LUE pain. Reports increased pain on day of admission. Chronic edema left hand, daughter does not feel increased edema -Doppler obtained - negative for DVT -Continue indomethacin -Lidocaine patch Currently left upper extremity pain feels better, improved (4) Atypical parkinsonism: Plan: Follows with [facility] neurology in [place]:Dr Painter -Continue ropinirole (5) Orthostatic hypotension: Plan: -Continue midodrine (6) HLD (hyperlipidemia): Plan: -Continue atorvastatin (7) Hypothyroid: Plan: TSH 1.75 -Continue levothyroxine (8) Anxiety: Plan: -Continue citalopram, alprazolam DVT Prophylaxis -Heparin SQ Full Code as per discussion with pt Follows with Dr White for routine care Admission and Anticipated Discharge Date Admission Date: January 09, 2021 Subjective Patient seen in follow-up of altered mental status, UTI Currently laying in bed in no acute distress, she is alert oriented answering questions appropriately Denies any fevers, chills, chest pain, shortness of breath, abdominal pain, nausea or vomiting Reports left lower extremity pain feels better. Also she is able to move her left upper extremity more. Seen by neurology yesterday Review of Systems Review of Systems: All systems reviewed & are unremarkable except as noted in Subjective Physical Exam Physical Exam: General: no distress, overweight, chronic ill appearing Head: normocephalic, atraumatic Eyes: PERRL, EOM's intact, conjunctiva non-injected, anicteric ENT: normal inspection external ears, nose, mucous membranes moist Neck: supple, trachea midline Lungs: clear, no respiratory distress, no wheezing/rhonchi/rales CV: RRR, no murmur, no JVD, no pretibial edema Abd: normal BS, soft, non-tender Ext: left fingers contracted, +tenderness to palpation left upper arm (improved), minimal movement of LUE (seems at baseline) Neuro: Alert, oriented and answering questions appropriately. No facial asymmetry, speech fluent. +mild resting tremor left fingers. +weakness bilateral upper extremities and lower extremities with left > right. (chronic weakness, left greater than right at baseline). Skin: warm, dry Results & Data Results & Data ([facility]) Vital Signs (Past 12 Hours) Vital Signs Temp Pulse Pulse Resp BP BP Pulse Ox 01/11/21 12:34 37.3 C 79 18 110/68 90 01/11/21 09:00 79 01/11/21 07:41 37.2 C 80 18 121/70 91 01/11/21 04:16 37.2 C 80 20 107/58 L 92 Laboratory Results 01/11/21 01/11/21 01/11/21 Range/Units 05:45 05:45 05:45 Hgb 11.7 L (12.0-16.0) g/dL Hct 34.4 L (37-47) % Sodium 141 (136-145) mmol/L Potassium 3.6 (3.5-5.1) mmol/L Chloride 109 H (98-107) mmol/L Carbon Dioxide 28 (21-32) mmol/L Anion Gap 4.0 (3-11) BUN 16 (7-18) mg/dl Creatinine 0.59 L (0.6-1.2) mg/dl Est Cr Clr Drug Dosing 93.2 ml/min Est GFR ( Amer) 109.2 ml/min Est GFR (Non-Af Amer) 94.2 ml/min BUN/Creatinine Ratio 27.1 H (10-20) Glucose 89 (70-99) mg/dl Estimat Average Glucose mg/dl Hemoglobin A1c (4.5-5.6) % Calcium 8.6 (8.5-10.1) mg/dl Magnesium 1.8 (1.8-2.4) mg/dl 01/10/21 Range/Units 05:41 Hgb (12.0-16.0) g/dL Hct (37-47) % Sodium (136-145) mmol/L Potassium (3.5-5.1) mmol/L Chloride (98-107) mmol/L Carbon Dioxide (21-32) mmol/L Anion Gap (3-11) BUN (7-18) mg/dl Creatinine (0.6-1.2) mg/dl Est Cr Clr Drug Dosing ml/min Est GFR ( Amer) ml/min Est GFR (Non-Af Amer) ml/min BUN/Creatinine Ratio (10-20) Glucose (70-99) mg/dl Estimat Average Glucose 100 mg/dl Hemoglobin A1c 5.1 (4.5-5.6) % Calcium (8.5-10.1) mg/dl Magnesium (1.8-2.4) mg/dl Medications Administered Current Inpatient Medications Acetaminophen (Acetaminophen 325 Mg Tab) 650 mg PO Q4H PRN PRN Reason: Pain or Fever Stop: 02/08/21 18:48 Last Admin: 01/10/21 14:00 Dose: 650 mg Documented by: Alprazolam (Alprazolam 0.25 Mg Tablet) 0.125 mg PO DAILY PRN PRN Reason: Anxiety Stop: 02/08/21 18:48 Last Admin: 01/10/21 08:39 Dose: 0.125 mg Documented by: Alprazolam (Alprazolam 0.25 Mg Tablet) 0.25 mg PO HS SAL Stop: 02/08/21 20:59 Last Admin: 01/10/21 20:44 Dose: 0.25 mg Documented by: Atorvastatin Calcium (Atorvastatin 10 Mg Tab) 10 mg PO QDD SAL Stop: 02/09/21 16:29 Last Admin: 01/10/21 16:31 Dose: 10 mg Documented by: Bisacodyl (Bisacodyl 10 Mg Supp) 10 mg DE NOW STA Stop: 01/11/21 14:59 Cetirizine HCl (Cetirizine Hcl 10 Mg Tablet) 10 mg PO HS SAL Stop: 02/08/21 20:59 Last Admin: 01/10/21 20:43 Dose: 10 mg Documented by: Citalopram Hydrobromide (Citalopram 40 Mg Tab) 40 mg PO DAILY SAL Stop: 02/09/21 08:59 Last Admin: 01/11/21 09:51 Dose: 40 mg Documented by: Cyanocobalamin (Cyanocobalamin 500 Mcg Tablet (Vitamin B-12)) 1,000 mcg PO DAILY SAL Stop: 02/09/21 08:59 Last Admin: 01/11/21 09:52 Dose: 1,000 mcg Documented by: Gabapentin (Gabapentin 300 Mg Cap) 300 mg PO TID SAL Stop: 02/08/21 20:59 Last Admin: 01/11/21 13:47 Dose: 300 mg Documented by: Heparin Sodium (Porcine) (Heparin Sod 5,000 Unit/0.5 Ml Vial) 5,000 units SQ Q8 SAL Stop: 02/08/21 21:59 Last Admin: 01/11/21 13:47 Dose: 5,000 units Documented by: Ceftriaxone Sodium 2,000 mg/ (Dextrose) 70 mls @ 140 mls/hr IV Q24H [facility]; Protocol Stop: 01/15/21 07:59 Last Infusion: 01/11/21 10:22 Dose: Infused Documented by: Indomethacin (Indomethacin 25 Mg Cap) 50 mg PO BID PRN PRN Reason: Pain Stop: 02/08/21 18:48 Last Admin: 01/10/21 08:20 Dose: 50 mg Documented by: Lactobacillus Acidoph/Casei/Rhamnos (Advanced Probiotic 1250 Mg Capsule) 2 cap PO DAILY [facility] Stop: 02/09/21 08:59 Last Admin: 01/11/21 09:50 Dose: 2 cap Documented by: Levothyroxine Sodium (Levothyroxine Sodium 75 Mcg Tablet) 75 mcg PO DAILYBB [facility] Stop: 02/09/21 06:29 Last Admin: 01/11/21 05:34 Dose: 75 mcg Documented by: Lidocaine (Lidocaine 5% 1 Patch) 1 patch TD QAM [facility] Stop: 02/08/21 19:29 Last Admin: 01/11/21 09:52 Dose: 1 patch Documented by: Melatonin (Melatonin 3 Mg Tab) 9 mg PO HS [facility] Stop: 02/08/21 20:59 Last Admin: 01/10/21 20:43 Dose: 9 mg Documented by: Midodrine (Midodrine Hcl 2.5 Mg Tab) 2.5 mg PO BID@0800,1200 [facility] Stop: 02/09/21 07:59 Last Admin: 01/11/21 13:48 Dose: 2.5 mg Documented by: Miscellaneous (Remove Lidoderm Patch) 1 ea N/A DAILY@2100 [facility] Stop: 02/08/21 20:59 Last Admin: 01/10/21 20:45 Dose: 1 ea Documented by: Miscellaneous Information (Pharmacist Discharge Med Rec Consult) 1 ea N/A UD PRN PRN Reason: Consult Stop: 02/08/21 18:48 Morphine Sulfate (Morphine Sulfate 2 Mg/Ml Carp) 2 mg IV Q4H PRN PRN Reason: Pain (7-10) Stop: 01/23/21 19:28 Nystatin (Nystatin Powder 15gm Btl) 1 appln EXT BID [facility] Stop: 02/08/21 20:59 Last Admin: 01/11/21 09:54 Dose: 1 appln Documented by: Oxycodone HCl (Oxycodone Hcl Ir 5 Mg Tab (Immediate Release)) 5 mg PO Q4H PRN PRN Reason: Pain Stop: 01/23/21 19:27 Polyethylene Glycol (Polyethylene (Miralax) 17 Gm Pack) 17 gm PO DAILY [facility] Stop: 02/09/21 08:59 Last Admin: 01/11/21 09:55 Dose: 17 gm Documented by: Polyethylene Glycol (Polyethylene (Miralax) 17 Gm Pack) 17 gm PO DAILY PRN PRN Reason: CONSTIPATION Stop: 02/08/21 19:04 Potassium Chloride (Potassium Chloride Crtab 20 Meq Tabcr) 20 meq PO NOW STA Stop: 01/11/21 15:02 Ropinirole HCl (Ropinirole Hcl 1 Mg Tablet) 1 mg PO TIDM SAL Stop: 02/09/21 07:59 Last Admin: 01/11/21 13:48 Dose: 1 mg Documented by: Ropinirole HCl (Ropinirole Hcl 1 Mg Tablet) 2 mg PO TIDM SAL Stop: 02/09/21 07:59 Last Admin: 01/11/21 13:48 Dose: 2 mg Documented by: Senna/Docusate Sodium (Docusate Sodium/Senna 50/8.6mg Tab) 1 tab PO BID SAL Stop: 02/08/21 20:59 Last Admin: 01/11/21 09:52 Dose: 1 tab Documented by: Vitamin D (Cholecalciferol 1,000 Units 25 Mcg Tab) 2,000 units PO DAILY SAL Stop: 02/09/21 08:59 Last Admin: 01/11/21 09:51 Dose: 2,000 units Documented by: (1) UTI (urinary tract infection) Hematuria presence: with hematuria Urinary tract infection type: acute cystitis Qualified Code(s): N30.01 - Acute cystitis with hematuria (2) Altered mental status Altered mental status type: unspecified Qualified Code(s): R41.82 - Altered mental status, unspecified
[2021-01-11] MEDS ORDERED: bisacodyL 10 MG SUPP PR STA (14:58)
[2021-01-11] MEDS ORDERED: POTASSIUM CHLORIDE CRTAB 20 MEQ TABCR PO STA (15:01)
[2021-01-11] MEDS: ATORVASTATIN 10 MG TAB PO SCH (16:03)
[2021-01-11] MEDS: AMPICILLIN 1,000 MG in SODIUM CHLOR 0.9% AD-VAN 50 ML IV SCH (17:50)
[2021-01-11] MEDS: CETIRIZINE HCL 10 MG TABLET PO SCH (19:41)
[2021-01-11] MEDS: MELATONIN 3 MG TAB PO SCH (19:42)
[2021-01-11] MEDS: ALPRAZolam 0.25 MG TABLET PO SCH (20:51)
[2021-01-12] MEDS: AMPICILLIN 1,000 MG in SODIUM CHLOR 0.9% AD-VAN 50 ML IV SCH ×4 (01:00→18:05)
[2021-01-12] MEDS: HEPARIN SOD 5,000 UNIT/0.5 ML VIAL SQ SCH ×3 (05:41→20:31)
[2021-01-12] MEDS: LEVOTHYROXINE SODIUM 75 MCG TABLET PO SCH (05:41)
[2021-01-12 06:15] LABS: Hematocrit (blood only) 34.5 % (37-47); Hemoglobin 11.7 g/dL (12.0-16.0); Mean Corpuscular Hemoglobin 32.4 pg (25-34); Mean Corpuscular Hgb Conc 33.9 g/dL (32-36); Mean Corpuscular Volume 95.6 fL (80-100); Mean Platelet Volume 8.7 fL (7.4-10.4); Platelet Count 173 K/uL (130-400); RDW Coefficient of Variation 12.7 % (11.5-14.5); RDW Standard Deviation 44.1 fL (36.4-46.3); Red Blood Count 3.61 M/uL (4.2-5.4); White Blood Count 6.17 K/uL (4.8-10.8)
[2021-01-12 06:46] LABS: BUN Creatinine Ratio 32.9 (10-20); Calcium 8.9 mg/dl (8.5-10.1); Creatinine Clr Calc Pharmacy 94.6 ml/min; Est GFR (African American) 109.8 ml/min; Est GFR (Non-African American) 94.7 ml/min; Phosphorus 4.7 mg/dl (2.5-4.9); Potassium 3.9 mmol/L (3.5-5.1)
[2021-01-12] MEDS: DOCUSATE SODIUM/SENNA 50/8.6MG TAB PO SCH ×2 (08:14→20:30)
[2021-01-12] MEDS: ADVANCED PROBIOTIC 1250 MG CAPSULE PO SCH (08:14)
[2021-01-12] MEDS: GABAPENTIN 300 MG CAP PO SCH ×3 (08:14→20:30)
[2021-01-12] MEDS: MIDODRINE HCL 2.5 MG TAB PO SCH ×2 (08:15→11:45)
[2021-01-12] MEDS: CHOLECALCIFEROL 1,000 UNITS 25 MCG TAB PO SCH (08:15)
[2021-01-12] MEDS: CYANOCOBALAMIN 500 MCG TABLET (VITAMIN B-12) PO SCH (08:15)
[2021-01-12] MEDS: rOPINIRole HCL 1 MG TABLET PO SCH ×6 (08:16→16:30)
[2021-01-12] MEDS: CITALOPRAM 40 MG TAB PO SCH (08:16)
[2021-01-12] MEDS: LIDOCAINE 5% 1 PATCH TD SCH (08:17)
[2021-01-12] MEDS: POLYETHYLENE (MIRALAX) 17 GM PACK PO SCH (08:21)
[2021-01-12] MEDS: NYSTATIN POWDER 15GM BTL EXT SCH ×2 (08:21→20:30)
--- NOTE | 2021-01-12 13:29 | Hospitalist Progress Note ---
Date of Service January 12, 2021 Assessment & Plan (1) Metabolic encephalopathy: Plan: (1) Altered mental status: Plan: Pt is 70 y/o F with atypical parkinsonism, orthostatic hypotension, HLD, acquired hypothyroidism, anxiety presents w/ altered mental status. In ER patient afebrile, vitals stable. CT head: No acute intracranial findings. CTA head: No evidence of occlusion or hemodynamically significant stenosis. origin of the right and left posterior cerebral arteries from MCA is seen bilaterally. CTA neck:No evidence of hemodynamically significant carotid artery stenosis. Mild diffuse narrowing of the V4 segment of the right vertebral artery without focal occlusion might represent developmental variant. No evidence of dissection. Tele stroke recommended no TPA. UTI UA c/w UTI. Urine cultx - Enterococcus faecalis - switched Abx from ceftriaxone to Unasyn DDX: metabolic encephalopathy secondary to UTI, TIA -During ER course patient becomes more oriented Now patient is alert oriented answering questions appropriately -Tele to monitor for arrhythmias -EKG in am -Neurology consult. Will hold on MRI pending further neurology recommendations Seen by neurology, no further testing recommended. Patient's altered mental status most likely secondary to UTI. Recommend to follow-up with neurology in [place]. -aspiration precautions -PT/OT consult -recommend to return home -Continue statin -Treat UTI as below -CBC, BMP in a.m. (2) UTI (urinary tract infection): Plan: UA: 4+ bacteria, 1+ leuk esterase,> 30 RBC, 20-30 epithelial Patient reported dysuria symptoms, frequency, and then inability to void the day of admission. Uribe was placed in the ED. -In ER given Rocephin IV - now switched to Unasyn -Urine culture - Enterococcus faecalis Patient with reported UTI the end of November 2020. Was treated with Cipro. Was unable to find UA and outpatient records Constipation -Patient has a chronic constipation, continue stool softeners - she did not have a bowel movement since admission, provide suppository now (3) Chronic pain of left upper extremity: Plan: Chronic LUE pain. Reports increased pain on day of admission. Chronic edema left hand, daughter does not feel increased edema -Doppler obtained - negative for DVT -Continue indomethacin -Lidocaine patch Currently left upper extremity pain feels better, improved (4) Atypical parkinsonism: Plan: Follows with [facility] neurology in [place]:Dr Madina -Continue ropinirole (5) Orthostatic hypotension: Plan: -Continue midodrine (6) HLD (hyperlipidemia): Plan: -Continue atorvastatin (7) Hypothyroid: Plan: TSH 1.75 -Continue levothyroxine (8) Anxiety: Plan: -Continue citalopram, alprazolam DVT Prophylaxis -Heparin SQ Full Code as per discussion with pt Follows with Dr White for routine care Disposition - per PT recommends snf/ rehab - CM aware Admission and Anticipated Discharge Date Admission Date: January 09, 2021 Subjective Patient seen in follow-up of altered mental status, UTI Currently laying in bed in no acute distress, she is alert oriented answering questions appropriately Denies any fevers, chills, chest pain, shortness of breath, abdominal pain, nausea or vomiting Reports left lower extremity pain feels better. Also she is able to move her left upper extremity more. Seen by neurology - recommend outpt follow up Seen by PT - recommend snf/ rehab - discussed with CM Review of Systems Review of Systems: All systems reviewed & are unremarkable except as noted in Subjective Physical Exam Physical Exam: General: no distress, overweight, chronic ill appearing Head: normocephalic, atraumatic Eyes: PERRL, EOM's intact, conjunctiva non-injected, anicteric ENT: normal inspection external ears, nose, mucous membranes moist Neck: supple, trachea midline Lungs: clear, no respiratory distress, no wheezing/rhonchi/rales CV: RRR, no murmur, no JVD, no pretibial edema Abd: normal BS, soft, non-tender Ext: left fingers contracted, +tenderness to palpation left upper arm (improved), minimal movement of LUE (seems at baseline) Neuro: Alert, oriented and answering questions appropriately. No facial asymmetry, speech fluent. +mild resting tremor left fingers. +weakness bilateral upper extremities and lower extremities with left > right. (chronic weakness, left greater than right at baseline). Skin: warm, dry Results & Data Results & Data ([facility]) Vital Signs (Past 12 Hours) Vital Signs Temp Pulse Pulse Resp BP Pulse Ox 01/12/21 08:04 36.9 C 86 18 128/70 91 01/12/21 07:59 81 01/12/21 03:47 37 C 81 20 101/60 93 Laboratory Results 01/12/21 01/12/21 Range/Units 05:53 05:53 WBC 6.17 (4.8-10.8) K/uL RBC 3.61 L (4.2-5.4) M/uL Hgb 11.7 L (12.0-16.0) g/dL Hct 34.5 L (37-47) % MCV 95.6 (80-100) fL MCH 32.4 (25-34) pg MCHC 33.9 (32-36) g/dL RDW Std Deviation 44.1 (36.4-46.3) fL RDW Coeff of Radhames 12.7 (11.5-14.5) % Plt Count 173 (130-400) K/uL MPV 8.7 (7.4-10.4) fL Sodium 140 (136-145) mmol/L Potassium 3.9 (3.5-5.1) mmol/L Chloride 109 H (98-107) mmol/L Carbon Dioxide 26 (21-32) mmol/L Anion Gap 5.0 (3-11) BUN 19 H (7-18) mg/dl Creatinine 0.58 L (0.6-1.2) mg/dl Est Cr Clr Drug Dosing 94.6 ml/min Est GFR ( Amer) 109.8 ml/min Est GFR (Non-Af Amer) 94.7 ml/min BUN/Creatinine Ratio 32.9 H (10-20) Glucose 98 (70-99) mg/dl Calcium 8.9 (8.5-10.1) mg/dl Phosphorus 4.7 (2.5-4.9) mg/dl Magnesium 2.0 (1.8-2.4) mg/dl Medications Administered Current Inpatient Medications Acetaminophen (Acetaminophen 325 Mg Tab) 650 mg PO Q4H PRN PRN Reason: Pain or Fever Stop: 02/08/21 18:48 Last Admin: 01/10/21 14:00 Dose: 650 mg Documented by: Alprazolam (Alprazolam 0.25 Mg Tablet) 0.125 mg PO DAILY PRN PRN Reason: Anxiety Stop: 02/08/21 18:48 Last Admin: 01/10/21 08:39 Dose: 0.125 mg Documented by: Alprazolam (Alprazolam 0.25 Mg Tablet) 0.25 mg PO HS SAL Stop: 02/08/21 20:59 Last Admin: 01/11/21 20:51 Dose: 0.25 mg Documented by: Atorvastatin Calcium (Atorvastatin 10 Mg Tab) 10 mg PO QDD SAL Stop: 02/09/21 16:29 Last Admin: 01/11/21 16:03 Dose: 10 mg Documented by: Cetirizine HCl (Cetirizine Hcl 10 Mg Tablet) 10 mg PO HS SAL Stop: 02/08/21 20:59 Last Admin: 01/11/21 19:41 Dose: 10 mg Documented by: Citalopram Hydrobromide (Citalopram 40 Mg Tab) 40 mg PO DAILY SAL Stop: 02/09/21 08:59 Last Admin: 01/12/21 08:16 Dose: 40 mg Documented by: Cyanocobalamin (Cyanocobalamin 500 Mcg Tablet (Vitamin B-12)) 1,000 mcg PO DAILY SAL Stop: 02/09/21 08:59 Last Admin: 01/12/21 08:15 Dose: 1,000 mcg Documented by: Gabapentin (Gabapentin 300 Mg Cap) 300 mg PO TID SAL Stop: 02/08/21 20:59 Last Admin: 01/12/21 08:14 Dose: 300 mg Documented by: Heparin Sodium (Porcine) (Heparin Sod 5,000 Unit/0.5 Ml Vial) 5,000 units SQ Q8 SAL Stop: 02/08/21 21:59 Last Admin: 01/12/21 05:41 Dose: 5,000 units Documented by: Ampicillin Sodium 1,000 mg/ (Sodium Chloride) 50 mls @ 100 mls/hr IV Q6 SAL Stop: 01/16/21 17:59 Last Infusion: 01/12/21 12:17 Dose: Infused Documented by: Indomethacin (Indomethacin 25 Mg Cap) 50 mg PO BID PRN PRN Reason: Pain Stop: 02/08/21 18:48 Last Admin: 01/10/21 08:20 Dose: 50 mg Documented by: Lactobacillus Acidoph/Casei/Rhamnos (Advanced Probiotic 1250 Mg Capsule) 2 cap PO DAILY SAL Stop: 02/09/21 08:59 Last Admin: 01/12/21 08:14 Dose: 2 cap Documented by: Levothyroxine Sodium (Levothyroxine Sodium 75 Mcg Tablet) 75 mcg PO DAILYBB SAL Stop: 02/09/21 06:29 Last Admin: 01/12/21 05:41 Dose: 75 mcg Documented by: Lidocaine (Lidocaine 5% 1 Patch) 1 patch TD QAM [facility] Stop: 02/08/21 19:29 Last Admin: 01/12/21 08:17 Dose: 1 patch Documented by: Melatonin (Melatonin 3 Mg Tab) 9 mg PO HS [facility] Stop: 02/08/21 20:59 Last Admin: 01/11/21 19:42 Dose: 9 mg Documented by: Midodrine (Midodrine Hcl 2.5 Mg Tab) 2.5 mg PO BID@0800,1200 [facility] Stop: 02/09/21 07:59 Last Admin: 01/12/21 11:45 Dose: 2.5 mg Documented by: Miscellaneous (Remove Lidoderm Patch) 1 ea N/A DAILY@2100 [facility] Stop: 02/08/21 20:59 Last Admin: 01/11/21 19:42 Dose: 1 ea Documented by: Miscellaneous Information (Pharmacist Discharge Med Rec Consult) 1 ea N/A UD PRN PRN Reason: Consult Stop: 02/08/21 18:48 Morphine Sulfate (Morphine Sulfate 2 Mg/Ml Carp) 2 mg IV Q4H PRN PRN Reason: Pain (7-10) Stop: 01/23/21 19:28 Nystatin (Nystatin Powder 15gm Btl) 1 appln EXT BID [facility] Stop: 02/08/21 20:59 Last Admin: 01/12/21 08:21 Dose: 1 appln Documented by: Oxycodone HCl (Oxycodone Hcl Ir 5 Mg Tab (Immediate Release)) 5 mg PO Q4H PRN PRN Reason: Pain Stop: 01/23/21 19:27 Polyethylene Glycol (Polyethylene (Miralax) 17 Gm Pack) 17 gm PO DAILY SAL Stop: 02/09/21 08:59 Last Admin: 01/12/21 08:21 Dose: Not Given Documented by: Polyethylene Glycol (Polyethylene (Miralax) 17 Gm Pack) 17 gm PO DAILY PRN PRN Reason: CONSTIPATION Stop: 02/08/21 19:04 Ropinirole HCl (Ropinirole Hcl 1 Mg Tablet) 1 mg PO TIDM [facility] Stop: 02/09/21 07:59 Last Admin: 01/12/21 11:45 Dose: 1 mg Documented by: Ropinirole HCl (Ropinirole Hcl 1 Mg Tablet) 2 mg PO TIDM SAL Stop: 02/09/21 07:59 Last Admin: 01/12/21 11:45 Dose: 2 mg Documented by: Senna/Docusate Sodium (Docusate Sodium/Senna 50/8.6mg Tab) 1 tab PO BID SAL Stop: 02/08/21 20:59 Last Admin: 01/12/21 08:14 Dose: 1 tab Documented by: Vitamin D (Cholecalciferol 1,000 Units 25 Mcg Tab) 2,000 units PO DAILY SAL Stop: 02/09/21 08:59 Last Admin: 01/12/21 08:15 Dose: 2,000 units Documented by:
[2021-01-12] MEDS: ATORVASTATIN 10 MG TAB PO SCH (16:30)
[2021-01-12] MEDS: oxyCODONE HCL IR 5 MG TAB (IMMEDIATE RELEASE) PO PRN (18:09)
[2021-01-12] MEDS: ALPRAZolam 0.25 MG TABLET PO SCH (20:30)
[2021-01-12] MEDS: CETIRIZINE HCL 10 MG TABLET PO SCH (20:30)
[2021-01-12] MEDS: MELATONIN 3 MG TAB PO SCH (20:31)
[2021-01-13] MEDS: AMPICILLIN 1,000 MG in SODIUM CHLOR 0.9% AD-VAN 50 ML IV SCH ×2 (02:08→05:52)
[2021-01-13] MEDS: HEPARIN SOD 5,000 UNIT/0.5 ML VIAL SQ SCH ×3 (05:52→20:44)
[2021-01-13] MEDS: LEVOTHYROXINE SODIUM 75 MCG TABLET PO SCH (05:52)
[2021-01-13] MEDS: CYANOCOBALAMIN 500 MCG TABLET (VITAMIN B-12) PO SCH (08:23)
[2021-01-13] MEDS: MIDODRINE HCL 2.5 MG TAB PO SCH ×2 (08:24→11:42)
[2021-01-13] MEDS: DOCUSATE SODIUM/SENNA 50/8.6MG TAB PO SCH ×2 (08:24→20:06)
[2021-01-13] MEDS: GABAPENTIN 300 MG CAP PO SCH ×3 (08:25→20:07)
[2021-01-13] MEDS: rOPINIRole HCL 1 MG TABLET PO SCH ×6 (08:25→16:30)
[2021-01-13] MEDS: CHOLECALCIFEROL 1,000 UNITS 25 MCG TAB PO SCH (08:25)
[2021-01-13] MEDS: ADVANCED PROBIOTIC 1250 MG CAPSULE PO SCH (08:26)
[2021-01-13] MEDS: CITALOPRAM 40 MG TAB PO SCH (08:26)
[2021-01-13] MEDS: LIDOCAINE 5% 1 PATCH TD SCH (08:27)
[2021-01-13] MEDS: POLYETHYLENE (MIRALAX) 17 GM PACK PO SCH (08:28)
[2021-01-13] MEDS: NYSTATIN POWDER 15GM BTL EXT SCH ×2 (08:28→20:44)
[2021-01-13] MEDS ORDERED: CIPROFLOXACIN 500 MG TAB PO SCH (10:30)
[2021-01-13] MEDS: ATORVASTATIN 10 MG TAB PO SCH (16:29)
[2021-01-13] MEDS: AMOXICILLIN/CLAVULANATE 500 MG TAB PO SCH (16:33)
--- NOTE | 2021-01-13 19:13 | Hospitalist Progress Note ---
Date of Service January 13, 2021 Assessment & Plan (1) Altered mental status: Plan: Pt is 70 y/o F with atypical parkinsonism, orthostatic hypotension, HLD, acquired hypothyroidism, anxiety presents w/ altered mental status likely secondary to UTI. Admitting vitals afebrile and stable with normal admitting CT head. No acute findings and CT head and CTA neck. Initial concern for stroketelestroke recommended no TPA. Neurology evaluated her and recommended no further testing/no MRI as patient's mental status was likely secondary to UTI. Neuro recommends to follow-up with neurology in [place]. 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 (2) UTI (urinary tract infection): Plan: Patient with reported UTI the end of November 2020. Was treated with Cipro. Was unable to find UA and outpatient records Patient has symptoms consistent with UTI upon presentation along with positive UA Urine culture out and sensitive to penicillin We will transition her to Augmentin with a stop date of January 08 after evening dose. (3) Chronic pain of left upper extremity: Plan: Chronic LUE pain. Reports increased pain on day of admission. Chronic edema left hand, daughter does not feel increased edema -Doppler obtained - negative for DVT -Continue indomethacin -Lidocaine patch -Improved (4) Atypical parkinsonism: Plan: Follows with [facility] neurology in [place]:Dr Painter -Continue ropinirole (5) Orthostatic hypotension: Plan: -Continue midodrine (6) HLD (hyperlipidemia): Plan: -Continue atorvastatin (7) Hypothyroid: Plan: TSH 1.75 -Continue levothyroxine (8) Anxiety: Plan: -Continue citalopram, alprazolam DVT Prophylaxis -Heparin SQ Disposition: Patient medically stable, awaiting SNF placement. Waiting for return call from [facility] care for bed availability. Full Code as per discussion with pt Follows with Dr White for routine care Admission and Anticipated Discharge Date Admission Date: January 09, 2021 Subjective Patient was sitting up in chair, on room air, NAD, no new issues overnight. PT reevaluated her today and recommend SNF placement. Patient is AO x3, states that she feels better, denies any review of symptoms. We will remove her urinary catheter. Patient eating and moving bowels okay. Physical Exam Physical Exam: GENERAL: Alert and oriented x3. NAD, on RA. Avoid. Chronic ill-appearing. HEENT: No pallor, no icterus. Pupils equal, round and reactive to light. Oral mucosa moist. NECK: No JVD, no neck masses. HEART: S1 and S2 heard. Regular rate and rhythm. No murmur, no gallop. RESPIRATORY SYSTEM: Normal AP diameter. No accessory muscle use. No wheezing, no crackles. ABDOMEN: Soft, bowel sounds present, nontender, no distention. CENTRAL NERVOUS SYSTEM: Alert and oriented x3. No facial droop. Speech is clear. Obeys simple commands. Moves extremities. EXTREMITIES: No edema, left fingers contracted, minimal movement of LLE [at baseline], bilateral weak upper extremities and lower extremities [left greater than right, at baseline] Results & Data Results & Data ([facility]) Vital Signs (Past 12 Hours) Vital Signs Temp Pulse Resp BP Pulse Ox 01/13/21 11:08 37.1 C 84 16 94/59 L 90 01/13/21 08:13 36.7 C 82 16 105/63 91 (1) Altered mental status Altered mental status type: unspecified Qualified Code(s): R41.82 - Altered mental status, unspecified (2) UTI (urinary tract infection) Hematuria presence: with hematuria Urinary tract infection type: acute cystitis Qualified Code(s): N30.01 - Acute cystitis with hematuria
[2021-01-13] MEDS: CETIRIZINE HCL 10 MG TABLET PO SCH (20:06)
[2021-01-13] MEDS: ALPRAZolam 0.25 MG TABLET PO SCH (20:06)
[2021-01-13] MEDS: MELATONIN 3 MG TAB PO SCH (20:07)
[2021-01-14] MEDS: LEVOTHYROXINE SODIUM 75 MCG TABLET PO SCH (05:19)
[2021-01-14] MEDS: HEPARIN SOD 5,000 UNIT/0.5 ML VIAL SQ SCH ×3 (05:19→21:53)
[2021-01-14] MEDS: CHOLECALCIFEROL 1,000 UNITS 25 MCG TAB PO SCH (08:10)
[2021-01-14] MEDS: CYANOCOBALAMIN 500 MCG TABLET (VITAMIN B-12) PO SCH (08:10)
[2021-01-14] MEDS: GABAPENTIN 300 MG CAP PO SCH ×3 (08:10→21:54)
[2021-01-14] MEDS: MIDODRINE HCL 2.5 MG TAB PO SCH ×2 (08:10→11:45)
[2021-01-14] MEDS: DOCUSATE SODIUM/SENNA 50/8.6MG TAB PO SCH ×2 (08:10→21:54)
[2021-01-14] MEDS: CITALOPRAM 40 MG TAB PO SCH (08:10)
[2021-01-14] MEDS: ADVANCED PROBIOTIC 1250 MG CAPSULE PO SCH (08:11)
[2021-01-14] MEDS: rOPINIRole HCL 1 MG TABLET PO SCH ×6 (08:11→17:08)
[2021-01-14] MEDS: LIDOCAINE 5% 1 PATCH TD SCH (08:12)
[2021-01-14] MEDS: NYSTATIN POWDER 15GM BTL EXT SCH ×2 (08:12→21:55)
[2021-01-14] MEDS: AMOXICILLIN/CLAVULANATE 500 MG TAB PO SCH ×2 (08:12→17:08)
[2021-01-14] MEDS: POLYETHYLENE (MIRALAX) 17 GM PACK PO SCH (08:13)
[2021-01-14] MEDS ORDERED: BACLOFEN 20 MG TAB PO ONE (10:37)
--- NOTE | 2021-01-14 16:57 | Hospitalist Progress Note ---
Date of Service January 14, 2021 Assessment & Plan (1) Metabolic encephalopathy: (2) Altered mental status: Plan: Pt is 70 y/o F with atypical parkinsonism, orthostatic hypotension, HLD, acquired hypothyroidism, anxiety presents w/ altered mental status likely sec ondary to UTI. Admitting vitals afebrile and stable with normal admitting CT head. No acute findings and CT head and CTA neck. Initial concern for stroketelestroke recommended no TPA. Neurology evaluated her and recommended no further testing/no MRI as patient's mental status was likely secondary to UTI. Neuro recommends to follow-up with neurology in [place]. 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 RESOLVED (3) UTI (urinary tract infection): Plan: Patient with reported UTI the end of November 2020. Was treated with Cipro. Was unable to find UA and outpatient records Patient has symptoms consistent with UTI upon presentation along with positive UA Urine culture out and sensitive to penicillin We will transition her to Augmentin with a stop date of January 08 after evening dose. (4) Chronic pain of left upper extremity: Plan: Chronic LUE pain. Reports increased pain on day of admission. Chronic edema left hand, daughter does not feel increased edema -Doppler obtained - negative for DVT -Continue indomethacin -Lidocaine patch -Improved (5) Atypical parkinsonism: Plan: Follows with [facility]y in [place]:Dr Painter -Continue ropinirole (6) Orthostatic hypotension: Plan: -Continue midodrine (7) HLD (hyperlipidemia): Plan: -Continue atorvastatin (8) Hypothyroid: Plan: TSH 1.75 -Continue levothyroxine (9) Anxiety: Plan: -Continue citalopram, alprazolam DVT Prophylaxis -Heparin SQ Disposition: Patient medically stable, awaiting SNF placement. Authorization pending. [facility] can possibly take tomorrow or Monday. Full Code as per discussion with pt Follows with Dr White for routine care Admission and Anticipated Discharge Date Admission Date: January 09, 2021 Subjective Patient was lying in bed, on room air, NAD, no new issues overnight. PT recommend SNF placement. Patient is AO x3, states she is feeling cramps in her lower extremities for which at home she uses gabapentin and gets relief. She recently received gabapentin dose at bedside exam. We will add one-time dose of baclofen. denies any other review of symptoms. Patient eating and moving bowels okay. Physical Exam Physical Exam: GENERAL: Alert and oriented x3. NAD, on RA. Avoid. Chronic ill-appearing. HEENT: No pallor, no icterus. Pupils equal, round and reactive to light. Oral mucosa moist. NECK: No JVD, no neck masses. HEART: S1 and S2 heard. Regular rate and rhythm. No murmur, no gallop. RESPIRATORY SYSTEM: Normal AP diameter. No accessory muscle use. No wheezing, no crackles. ABDOMEN: Soft, bowel sounds present, nontender, no distention. CENTRAL NERVOUS SYSTEM: Alert and oriented x3. No facial droop. Speech is clear. Obeys simple commands. Moves extremities. EXTREMITIES: No edema, left fingers contracted, minimal movement of LLE [at baseline], bilateral weak upper extremities and lower extremities [left greater than right, at baseline] Results & Data Results & Data ([facility]) Vital Signs (Past 12 Hours) Vital Signs Temp Pulse Pulse Resp BP Pulse Ox 01/14/21 15:51 37.1 C 72 16 95/58 L 90 01/14/21 11:21 36.6 C 73 16 117/71 92 01/14/21 07:30 81 01/14/21 07:18 37.1 C 79 20 106/64 91 (1) Altered mental status Altered mental status type: unspecified Qualified Code(s): R41.82 - Altered mental status, unspecified (2) UTI (urinary tract infection) Hematuria presence: with hematuria Urinary tract infection type: acute cystitis Qualified Code(s): N30.01 - Acute cystitis with hematuria
[2021-01-14] MEDS: ATORVASTATIN 10 MG TAB PO SCH (17:07)
[2021-01-14] MEDS: ALPRAZolam 0.25 MG TABLET PO SCH (21:53)
[2021-01-14] MEDS: CETIRIZINE HCL 10 MG TABLET PO SCH (21:54)
[2021-01-14] MEDS: MELATONIN 3 MG TAB PO SCH (21:54)
[2021-01-15] MEDS: HEPARIN SOD 5,000 UNIT/0.5 ML VIAL SQ SCH ×3 (05:56→20:42)
[2021-01-15] MEDS: LEVOTHYROXINE SODIUM 75 MCG TABLET PO SCH (05:56)
[2021-01-15] MEDS: oxyCODONE HCL IR 5 MG TAB (IMMEDIATE RELEASE) PO PRN (08:09)
[2021-01-15] MEDS: MIDODRINE HCL 2.5 MG TAB PO SCH ×2 (08:09→12:09)
[2021-01-15] MEDS: GABAPENTIN 300 MG CAP PO SCH ×3 (08:09→20:37)
[2021-01-15] MEDS: CYANOCOBALAMIN 500 MCG TABLET (VITAMIN B-12) PO SCH (08:10)
[2021-01-15] MEDS: DOCUSATE SODIUM/SENNA 50/8.6MG TAB PO SCH ×2 (08:10→20:36)
[2021-01-15] MEDS: CHOLECALCIFEROL 1,000 UNITS 25 MCG TAB PO SCH (08:10)
[2021-01-15] MEDS: AMOXICILLIN/CLAVULANATE 500 MG TAB PO SCH ×2 (08:10→16:50)
[2021-01-15] MEDS: ADVANCED PROBIOTIC 1250 MG CAPSULE PO SCH (08:10)
[2021-01-15] MEDS: CITALOPRAM 40 MG TAB PO SCH (08:10)
[2021-01-15] MEDS: rOPINIRole HCL 1 MG TABLET PO SCH ×6 (08:10→16:49)
[2021-01-15] MEDS: NYSTATIN POWDER 15GM BTL EXT SCH ×2 (08:11→20:42)
[2021-01-15] MEDS: POLYETHYLENE (MIRALAX) 17 GM PACK PO SCH (08:12)
[2021-01-15] MEDS: LIDOCAINE 5% 1 PATCH TD SCH (08:12)
[2021-01-15] MEDS: CYCLOBENZAPRINE HCL 5 MG TAB PO SCH ×2 (12:09→20:36)
--- NOTE | 2021-01-15 16:11 | Hospitalist Progress Note ---
Date of Service January 15, 2021 Assessment & Plan (1) Metabolic encephalopathy: (2) Altered mental status: Plan: Pt is 70 y/o F with atypical parkinsonism, orthostatic hypotension, HLD, acquired hypothyroidism, anxiety presents w/ altered mental status likely se condary to UTI. Admitting vitals afebrile and stable with normal admitting CT head. No acute findings and CT head and CTA neck. Initial concern for stroketelestroke recommended no TPA. Neurology evaluated her and recommended no further testing/no MRI as patient's mental status was likely secondary to UTI. Neuro recommends to follow-up with neurology in [place]. 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 Continue with treatment of UTI and labs as needed. RESOLVED (3) UTI (urinary tract infection): Plan: Patient with reported UTI the end of November 2020. Was treated with Cipro. Was unable to find UA and outpatient records Patient has symptoms consistent with UTI upon presentation along with positive UA Urine culture out and sensitive to penicillin We will transition her to Augmentin with a stop date of January 18 after evening dose. (4) Chronic pain of left upper extremity: Plan: Chronic LUE pain. Reports increased pain on day of admission. Chronic edema left hand, daughter does not feel increased edema -Doppler obtained - negative for DVT -Continue indomethacin -Lidocaine patch -Patient having stiffness worsening lately, will add Flexeril. -Continue supportive care. (5) Atypical parkinsonism: Plan: Follows with [facility]y in [place]:Dr Painter -Continue ropinirole (6) Orthostatic hypotension: Plan: -Continue midodrine (7) HLD (hyperlipidemia): Plan: -Continue atorvastatin (8) Hypothyroid: Plan: TSH 1.75 -Continue levothyroxine (9) Anxiety: Plan: -Continue citalopram, alprazolam DVT Prophylaxis -Heparin SQ Patient's daughter made aware of her plan of care and seemed understanding and agreeable. Disposition: PT recommend SNF placement -was denied, 01/[address] Jc and made her aware that loss of patient's postural balance is new and our in-house PT recommends SNF placement to regain that as patient lives with her daughter at home with no aide coming and it would be difficult for her care at home. Still denied. I believe patient will benefit from SNF placement and family is going to do appeal per CM, with a backup of home health option. Full Code as per discussion with pt Follows with Dr White for routine care Admission and Anticipated Discharge Date Admission Date: January 09, 2021 Subjective Patient was lying in bed, on room air, NAD, no new issues overnight. PT recommend SNF placement -was denied, 01/15 talked with insurance physician Dr[address] Jc and made her aware that loss of patient's postural balance is new and our in-house PT recommends SNF placement to regain that as patient lives with her daughter at home with no aide coming and it would be difficult for her care at home. Still denied. I believe patient will benefit from SNF placement and family is going to do appeal, with a backup of home health option. Patient is AO x3, she was again feeling cramps in her lower extremities today morning and he states that it was relieved by muscle relaxant given yesterday. Denies any other review of symptoms. Patient eating and moving bowels okay. Physical Exam Physical Exam: GENERAL: Alert and oriented x3. NAD, on RA. Avoid. Chronic ill-appearing. HEENT: No pallor, no icterus. Pupils equal, round and reactive to light. Oral mucosa moist. NECK: No JVD, no neck masses. HEART: S1 and S2 heard. Regular rate and rhythm. No murmur, no gallop. RESPIRATORY SYSTEM: Normal AP diameter. No accessory muscle use. No wheezing, no crackles. ABDOMEN: Soft, bowel sounds present, nontender, no distention. CENTRAL NERVOUS SYSTEM: Alert and oriented x3. No facial droop. Speech is clear. Obeys simple commands. Moves extremities. EXTREMITIES: No edema, left fingers contracted, minimal movement of LLE [at baseline], bilateral weak upper extremities and lower extremities [left greater than right, at baseline] Results & Data Results & Data ([facility]) Vital Signs (Past 12 Hours) Vital Signs Temp Pulse Pulse Resp BP Pulse Ox 01/15/21 15:22 74 01/15/21 11:00 36.6 C 80 16 91/56 L 90 01/15/21 07:24 76 01/15/21 07:15 36.6 C 83 16 114/71 90 (1) Altered mental status Altered mental status type: unspecified Qualified Code(s): R41.82 - Altered mental status, unspecified (2) UTI (urinary tract infection) Hematuria presence: with hematuria Urinary tract infection type: acute cystitis Qualified Code(s): N30.01 - Acute cystitis with hematuria
[2021-01-15] MEDS: ATORVASTATIN 10 MG TAB PO SCH (16:50)
[2021-01-15] MEDS: CETIRIZINE HCL 10 MG TABLET PO SCH (20:36)
[2021-01-15] MEDS: MELATONIN 3 MG TAB PO SCH (20:37)
[2021-01-15] MEDS: ALPRAZolam 0.25 MG TABLET PO SCH (20:41)
[2021-01-16] MEDS: HEPARIN SOD 5,000 UNIT/0.5 ML VIAL SQ SCH ×2 (05:58→14:45)
[2021-01-16] MEDS: LEVOTHYROXINE SODIUM 75 MCG TABLET PO SCH (05:58)
[2021-01-16] MEDS: DOCUSATE SODIUM/SENNA 50/8.6MG TAB PO SCH ×2 (08:37→19:51)
[2021-01-16] MEDS: GABAPENTIN 300 MG CAP PO SCH ×3 (08:37→19:49)
[2021-01-16] MEDS: CYCLOBENZAPRINE HCL 5 MG TAB PO SCH ×2 (08:37→19:50)
[2021-01-16] MEDS: MIDODRINE HCL 2.5 MG TAB PO SCH ×2 (08:38→12:18)
[2021-01-16] MEDS: CYANOCOBALAMIN 500 MCG TABLET (VITAMIN B-12) PO SCH (08:38)
[2021-01-16] MEDS: POLYETHYLENE (MIRALAX) 17 GM PACK PO SCH (08:38)
[2021-01-16] MEDS: CITALOPRAM 40 MG TAB PO SCH (08:38)
[2021-01-16] MEDS: ADVANCED PROBIOTIC 1250 MG CAPSULE PO SCH (08:38)
[2021-01-16] MEDS: CHOLECALCIFEROL 1,000 UNITS 25 MCG TAB PO SCH (08:38)
[2021-01-16] MEDS: LIDOCAINE 5% 1 PATCH TD SCH (08:39)
[2021-01-16] MEDS: AMOXICILLIN/CLAVULANATE 500 MG TAB PO SCH ×2 (08:39→17:17)
[2021-01-16] MEDS: rOPINIRole HCL 1 MG TABLET PO SCH ×6 (08:39→17:16)
[2021-01-16] MEDS: NYSTATIN POWDER 15GM BTL EXT SCH ×2 (08:39→19:51)
[2021-01-16] MEDS: oxyCODONE HCL IR 5 MG TAB (IMMEDIATE RELEASE) PO PRN ×2 (08:41→19:46)
--- NOTE | 2021-01-16 15:37 | Hospitalist Progress Note ---
Date of Service January 16, 2021 Assessment & Plan (1) Metabolic encephalopathy: (2) Altered mental status: Plan: Pt is 70 y/o F with atypical parkinsonism, orthostatic hypotension, HLD, acquired hypothyroidism, anxiety presents w/ altered mental status likely se condary to UTI. Admitting vitals afebrile and stable with normal admitting CT head. No acute findings and CT head and CTA neck. Initial concern for stroketelestroke recommended no TPA. Neurology evaluated her and recommended no further testing/no MRI as patient's mental status was likely secondary to UTI. Neuro recommends to follow-up with neurology in [place]. 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 Continue with treatment of UTI and labs as needed. RESOLVED (3) UTI (urinary tract infection): Plan: Patient with reported UTI the end of November 2020. Was treated with Cipro. Was unable to find UA and outpatient records Patient has symptoms consistent with UTI upon presentation along with positive UA Urine culture out and sensitive to penicillin We will transition her to Augmentin with a stop date of January 18 after evening dose. (4) Chronic pain of left upper extremity: Plan: Chronic LUE pain. Reports increased pain on day of admission. Chronic edema left hand, daughter does not feel increased edema -Doppler obtained - negative for DVT -Continue indomethacin -Lidocaine patch -Patient having stiffness worsening lately, Flexeril added 5 mg twice dailycan uptitrate to 10 mg 3 times daily as appropriate. -Continue supportive care. (5) Atypical parkinsonism: Plan: Follows with [facility]y in [place]:Dr Painter -Continue ropinirole (6) Orthostatic hypotension: Plan: -Continue midodrine (7) HLD (hyperlipidemia): Plan: -Continue atorvastatin (8) Hypothyroid: Plan: TSH 1.75 -Continue levothyroxine (9) Anxiety: Plan: -Continue citalopram, alprazolam DVT Prophylaxis -Heparin SQ Patient's daughter made aware of her plan of care and seemed understanding and agreeable. Disposition: PT recommend SNF placement -was denied, 01/[address] talked [address] insurance physician [address] Jc and made her aware that loss of patient's postural balance is new and our in-house PT recommends SNF placement to regain that as patient lives with her daughter at home with no aide coming and it would be difficult for her care at home. Still denied. I believe patient will benefit from SNF placement and family is going to do appeal per CM, with a backup of home health option. Full Code as per discussion with pt Follows with Dr White for routine care Admission and Anticipated Discharge Date Admission Date: January 09, 2021 Subjective Patient was lying in bed, NAD, on room air. No acute events overnight. Patient reports improvement in her stiffness with addition of cyclobenzaprine. We will continue with this medication. Denies shortness of breath/fever/chills/other review of symptoms. Physical Exam Physical Exam: GENERAL: Alert and oriented x3. NAD, on RA. Avoid. Chronic ill-appearing. HEENT: No pallor, no icterus. Pupils equal, round and reactive to light. Oral mucosa moist. NECK: No JVD, no neck masses. HEART: S1 and S2 heard. Regular rate and rhythm. No murmur, no gallop. RESPIRATORY SYSTEM: Normal AP diameter. No accessory muscle use. No wheezing, no crackles. ABDOMEN: Soft, bowel sounds present, nontender, no distention. CENTRAL NERVOUS SYSTEM: Alert and oriented x3. No facial droop. Speech is clear. Obeys simple commands. Moves extremities. EXTREMITIES: No edema, left fingers contracted, minimal movement of LLE [at baseline], bilateral weak upper extremities and lower extremities [left greater than right, at baseline] Results & Data Results & Data ([facility]) Vital Signs (Past 12 Hours) Vital Signs Temp Pulse Pulse Resp BP Pulse Ox 01/16/21 11:21 37.3 C 76 22 103/66 92 01/16/21 07:22 36.8 C 84 16 90/54 L 91 01/16/21 07:03 76 (1) Altered mental status Altered mental status type: unspecified Qualified Code(s): R41.82 - Altered mental status, unspecified (2) UTI (urinary tract infection) Hematuria presence: with hematuria Urinary tract infection type: acute cystitis Qualified Code(s): N30.01 - Acute cystitis with hematuria
[2021-01-16] MEDS: ATORVASTATIN 10 MG TAB PO SCH (17:15)
[2021-01-16] MEDS: ALPRAZolam 0.25 MG TABLET PO SCH (19:42)
[2021-01-16] MEDS: CETIRIZINE HCL 10 MG TABLET PO SCH (19:46)
[2021-01-16] MEDS: MELATONIN 3 MG TAB PO SCH (19:48)
[2021-01-17] MEDS: HEPARIN SOD 5,000 UNIT/0.5 ML VIAL SQ SCH ×4 (00:45→23:56)
[2021-01-17] MEDS: LEVOTHYROXINE SODIUM 75 MCG TABLET PO SCH (06:08)
[2021-01-17] MEDS: CHOLECALCIFEROL 1,000 UNITS 25 MCG TAB PO SCH (08:15)
[2021-01-17] MEDS: CYANOCOBALAMIN 500 MCG TABLET (VITAMIN B-12) PO SCH (08:15)
[2021-01-17] MEDS: MIDODRINE HCL 2.5 MG TAB PO SCH ×2 (08:15→12:45)
[2021-01-17] MEDS: CITALOPRAM 40 MG TAB PO SCH (08:15)
[2021-01-17] MEDS: AMOXICILLIN/CLAVULANATE 500 MG TAB PO SCH ×2 (08:15→16:48)
[2021-01-17] MEDS: DOCUSATE SODIUM/SENNA 50/8.6MG TAB PO SCH ×2 (08:15→20:23)
[2021-01-17] MEDS: GABAPENTIN 300 MG CAP PO SCH ×3 (08:15→20:23)
[2021-01-17] MEDS: rOPINIRole HCL 1 MG TABLET PO SCH ×6 (08:16→16:48)
[2021-01-17] MEDS: ADVANCED PROBIOTIC 1250 MG CAPSULE PO SCH (08:16)
[2021-01-17] MEDS: NYSTATIN POWDER 15GM BTL EXT SCH ×2 (08:17→20:28)
[2021-01-17] MEDS: POLYETHYLENE (MIRALAX) 17 GM PACK PO SCH (08:17)
[2021-01-17] MEDS: LIDOCAINE 5% 1 PATCH TD SCH (08:17)
[2021-01-17] MEDS: oxyCODONE HCL IR 5 MG TAB (IMMEDIATE RELEASE) PO PRN ×2 (08:20→20:28)
--- NOTE | 2021-01-17 09:00 | Hospitalist Progress Note ---
Date of Service January 17, 2021 Assessment & Plan (1) Metabolic encephalopathy: (2) Altered mental status: Plan: Pt is 70 y/o F with atypical parkinsonism, orthostatic hypotension, HLD, acquired hypothyroidism, anxiety presents w/ altered mental status likely se condary to UTI. Admitting vitals afebrile and stable with normal admitting CT head. No acute findings and CT head and CTA neck. Initial concern for stroketelestroke recommended no TPA. Neurology evaluated her and recommended no further testing/no MRI as patient's mental status was likely secondary to UTI. Neuro recommends to follow-up with neurology in [place]. 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 Continue with treatment of UTI and labs as needed. RESOLVED (3) UTI (urinary tract infection): Plan: Patient with reported UTI the end of November 2020. Was treated with Cipro. Was unable to find UA and outpatient records Patient has symptoms consistent with UTI upon presentation along with positive UA Urine culture out and sensitive to penicillin Continue with Augmentin with a stop date of January 18 after evening dose. (4) Chronic pain of left upper extremity: Plan: Chronic LUE pain. Reports increased pain on day of admission. Chronic edema left hand, daughter does not feel increased edema -Doppler obtained - negative for DVT -Continue indomethacin -Lidocaine patch -Patient having stiffness worsening lately, Flexeril dose increased to 10 mg twice dailycan uptitrate to 10 mg 3 times daily as appropriate. -Continue supportive care. (5) Atypical parkinsonism: Plan: Follows with [facility]y in [place]:Dr Painter -Continue ropinirole (6) Orthostatic hypotension: Plan: -Continue midodrine (7) HLD (hyperlipidemia): Plan: -Continue atorvastatin (8) Hypothyroid: Plan: TSH 1.75 -Continue levothyroxine (9) Anxiety: Plan: -Continue citalopram, alprazolam DVT Prophylaxis -Heparin SQ Patient's daughter made aware of her plan of care and seemed understanding and agreeable. Disposition: PT recommend SNF placement -was denied, 01/15 talked with insurance physician [address] Jc and made her aware that loss of patient's postural balance is new and our in-house PT recommends SNF placement to regain that as patient lives with her daughter at home with no aide coming and it would be difficult for her care at home. Still denied. I believe patient will benefit from SNF placement and family is going to do appeal per CM, with a backup of home health option. Can be discharged as soon as patient gets placement. Full Code as per discussion with pt Follows with Dr White for routine care Admission and Anticipated Discharge Date Admission Date: January 09, 2021 Subjective Patient was lying in bed, NAD, on room air. No acute events overnight. Patient reports improvement in her stiffness with addition of cyclobenzaprine-but was still having spasms at bedside exam, but to lesser extent than her usual per patient. Will increase the dose on Flexeril.. Denies shortness of breath/f ever/chills/other review of symptoms. Patient is eating and moving bowel movements okay. Physical Exam Physical Exam: GENERAL: Alert and oriented x3. NAD, on RA. Avoid. Chronic ill-appearing. HEENT: No pallor, no icterus. Pupils equal, round and reactive to light. Oral mucosa moist. NECK: No JVD, no neck masses. HEART: S1 and S2 heard. Regular rate and rhythm. No murmur, no gallop. RESPIRATORY SYSTEM: Normal AP diameter. No accessory muscle use. No wheezing, no crackles. ABDOMEN: Soft, bowel sounds present, nontender, no distention. CENTRAL NERVOUS SYSTEM: Alert and oriented x3. No facial droop. Speech is clear. Obeys simple commands. Moves extremities. EXTREMITIES: No edema, left fingers contracted, minimal movement of LLE [at baseline], bilateral weak upper extremities and lower extremities [left greater than right, at baseline]. Results & Data Results & Data ([facility]) Vital Signs (Past 12 Hours) Vital Signs Temp Pulse Pulse Resp BP Pulse Ox 01/17/21 07:22 90 01/17/21 07:07 36.9 C 86 18 99/63 L 91 01/17/21 03:25 37 C 83 16 103/67 90 01/16/21 23:43 37 C 82 16 90/61 L 90 01/16/21 22:20 78 (1) Altered mental status Altered mental status type: unspecified Qualified Code(s): R41.82 - Altered mental status, unspecified (2) UTI (urinary tract infection) Hematuria presence: with hematuria Urinary tract infection type: acute cystitis Qualified Code(s): N30.01 - Acute cystitis with hematuria
[2021-01-17] MEDS: CYCLOBENZAPRINE HCL 10 MG TAB PO SCH ×2 (09:37→20:21)
[2021-01-17] MEDS: ATORVASTATIN 10 MG TAB PO SCH (16:48)
[2021-01-17] MEDS: MELATONIN 3 MG TAB PO SCH (20:21)
[2021-01-17] MEDS: CETIRIZINE HCL 10 MG TABLET PO SCH (20:23)
[2021-01-17] MEDS: ALPRAZolam 0.25 MG TABLET PO SCH (20:28)
[2021-01-18] MEDS: HEPARIN SOD 5,000 UNIT/0.5 ML VIAL SQ SCH ×3 (05:57→21:52)
[2021-01-18] MEDS: LEVOTHYROXINE SODIUM 75 MCG TABLET PO SCH (05:57)
[2021-01-18] MEDS: AMOXICILLIN/CLAVULANATE 500 MG TAB PO SCH ×2 (08:06→17:17)
[2021-01-18] MEDS: rOPINIRole HCL 1 MG TABLET PO SCH ×6 (08:07→17:17)
[2021-01-18] MEDS: MIDODRINE HCL 2.5 MG TAB PO SCH ×2 (08:07→12:22)
[2021-01-18] MEDS: CHOLECALCIFEROL 1,000 UNITS 25 MCG TAB PO SCH (08:08)
[2021-01-18] MEDS: CYCLOBENZAPRINE HCL 10 MG TAB PO SCH ×2 (08:08→20:45)
[2021-01-18] MEDS: CITALOPRAM 40 MG TAB PO SCH (08:08)
[2021-01-18] MEDS: CYANOCOBALAMIN 500 MCG TABLET (VITAMIN B-12) PO SCH (08:08)
[2021-01-18] MEDS: LIDOCAINE 5% 1 PATCH TD SCH (08:09)
[2021-01-18] MEDS: ADVANCED PROBIOTIC 1250 MG CAPSULE PO SCH (08:09)
[2021-01-18] MEDS: GABAPENTIN 300 MG CAP PO SCH ×3 (08:09→20:45)
[2021-01-18] MEDS: POLYETHYLENE (MIRALAX) 17 GM PACK PO SCH (08:10)
[2021-01-18] MEDS: DOCUSATE SODIUM/SENNA 50/8.6MG TAB PO SCH ×2 (08:10→20:40)
[2021-01-18] MEDS: NYSTATIN POWDER 15GM BTL EXT SCH ×2 (08:11→20:47)
--- NOTE | 2021-01-18 12:01 | Hospitalist Progress Note ---
Date of Service January 18, 2021 Assessment & Plan (1) Metabolic encephalopathy: (2) Altered mental status: Plan: Pt is 70 y/o F with atypical parkinsonism, orthostatic hypotension, HLD, acquired hypothyroidism, anxiety presents w/ altered mental status likely se condary to UTI. Admitting vitals afebrile and stable with normal admitting CT head. No acute findings and CT head and CTA neck. Initial concern for stroketelestroke recommended no TPA. Neurology evaluated her and recommended no further testing/no MRI as patient's mental status was likely secondary to UTI. Neuro recommends to follow-up with neurology in [place]. 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 Continue with treatment of UTI and labs as needed. RESOLVED (3) UTI (urinary tract infection): Plan: Patient with reported UTI the end of November 2020. Was treated with Cipro. Was unable to find UA and outpatient records Patient has symptoms consistent with UTI upon presentation along with positive UA Urine culture out and sensitive to penicillin Continue with Augmentin with a stop date of January 18 after evening dose. (4) Chronic pain of left upper extremity: Plan: Chronic LUE pain. Reports increased pain on day of admission. Chronic edema left hand, daughter does not feel increased edema -Doppler obtained - negative for DVT -Continue indomethacin -Lidocaine patch -Patient having stiffness worsening lately, Flexeril dose increased to 10 mg twice dailycan uptitrate to 10 mg 3 times daily as appropriate. -Continue supportive care. (5) Atypical parkinsonism: Plan: Follows with [facility]y in [place]:Dr Painter -Continue ropinirole (6) Orthostatic hypotension: Plan: -Continue midodrine (7) HLD (hyperlipidemia): Plan: -Continue atorvastatin (8) Hypothyroid: Plan: TSH 1.75 -Continue levothyroxine (9) Anxiety: Plan: -Continue citalopram, alprazolam DVT Prophylaxis -Heparin SQ Disposition: Patient accepted at [facility] for tomorrow. We will discharge her [employer] tomorrow. Full Code as per discussion with pt Follows with Dr White for routine care Admission and Anticipated Discharge Date Admission Date: January 09, 2021 Subjective Patient was lying in bed, NAD, on room air. No acute events overnight. Patient reports improvement in her stiffness and spasm, no spasm noted at bedside exam. Continue with current Flexeril dose. Denies shortness of breath/f ever/chills/other review of symptoms. Patient is eating and moving bowel movements okay. Physical Exam Physical Exam: GENERAL: Alert and oriented x3. NAD, on RA. Avoid. Chronic ill-appearing. HEENT: No pallor, no icterus. Pupils equal, round and reactive to light. Oral mucosa moist. NECK: No JVD, no neck masses. HEART: S1 and S2 heard. Regular rate and rhythm. No murmur, no gallop. RESPIRATORY SYSTEM: Normal AP diameter. No accessory muscle use. No wheezing, no crackles. ABDOMEN: Soft, bowel sounds present, nontender, no distention. CENTRAL NERVOUS SYSTEM: Alert and oriented x3. No facial droop. Speech is clear. Obeys simple commands. Moves extremities. EXTREMITIES: No edema, left fingers contracted, minimal movement of LLE [at baseline], bilateral weak upper extremities and lower extremities [left greater than right, at baseline]. Results & Data Results & Data ([facility]) Vital Signs (Past 12 Hours) Vital Signs Temp Pulse Pulse Resp BP Pulse Ox 01/18/21 11:46 37.1 C 86 16 90/51 L 92 01/18/21 07:07 36.5 C 75 18 112/61 91 01/18/21 06:29 78 01/18/21 04:16 36.3 C L 77 18 119/74 90 (1) UTI (urinary tract infection) Hematuria presence: with hematuria Urinary tract infection type: acute cyst itis Qualified Code(s): N30.01 - Acute cystitis with hematuria (2) Altered mental status Altered mental status type: unspecified Qualified Code(s): R41.82 - Altered mental status, unspecified
[2021-01-18] MEDS: ATORVASTATIN 10 MG TAB PO SCH (17:17)
[2021-01-18] MEDS: MELATONIN 3 MG TAB PO SCH (20:44)
[2021-01-18] MEDS: ALPRAZolam 0.25 MG TABLET PO SCH (20:44)
[2021-01-18] MEDS: CETIRIZINE HCL 10 MG TABLET PO SCH (20:45)
[2021-01-19] MEDS: LEVOTHYROXINE SODIUM 75 MCG TABLET PO SCH (06:36)
[2021-01-19] MEDS: HEPARIN SOD 5,000 UNIT/0.5 ML VIAL SQ SCH (06:37)
[2021-01-19] MEDS: MIDODRINE HCL 2.5 MG TAB PO SCH (08:34)
[2021-01-19] MEDS: CHOLECALCIFEROL 1,000 UNITS 25 MCG TAB PO SCH (08:35)
[2021-01-19] MEDS: CITALOPRAM 40 MG TAB PO SCH (08:35)
[2021-01-19] MEDS: rOPINIRole HCL 1 MG TABLET PO SCH ×2 (08:35)
[2021-01-19] MEDS: LIDOCAINE 5% 1 PATCH TD SCH (08:36)
[2021-01-19] MEDS: DOCUSATE SODIUM/SENNA 50/8.6MG TAB PO SCH (08:36)
[2021-01-19] MEDS: ADVANCED PROBIOTIC 1250 MG CAPSULE PO SCH (08:36)
[2021-01-19] MEDS: CYANOCOBALAMIN 500 MCG TABLET (VITAMIN B-12) PO SCH (08:36)
[2021-01-19] MEDS: CYCLOBENZAPRINE HCL 10 MG TAB PO SCH (08:36)
[2021-01-19] MEDS: POLYETHYLENE (MIRALAX) 17 GM PACK PO SCH (08:37)
[2021-01-19] MEDS: GABAPENTIN 300 MG CAP PO SCH (08:37)
[2021-01-19] MEDS: NYSTATIN POWDER 15GM BTL EXT SCH (11:11)
--- NOTE | 2021-01-19 14:33 | Discharge Summary ---
Date of Service January 19, 2021 Admission HPI Per Admitting Provider Pt is 70 y/o F with PMH atypical parkinsonism, orthostatic hypotension, HLD, acquired hypothyroidism, anxiety presented to ER with complaint of altered mental status. History obtained from patient's daughter and patient. Patient's daughter reports patient with chronic left upper extremity pain and some edema and decreased range of motion however patient been complaining of more pain to left arm today. Also reports chronic bilateral lower extremity pain edema. Patient is wheelchair-bound. Patient's daughter states this morning patient had acute confusion did not know where she was, did not know daughter or granddaughter. Patient is usually alert and oriented x3 at baseline. It is reported that patient had urinary symptoms over 1 month ago and was treated with Cipro and completed course. Reports past couple days patient complaining of urinary frequency. Has had poor appetite and oral intake the past 2 days. This morning was unable to urinate. Denies any known fever, chills, hematuria, falls or head injury. Reports pain patient with chronic constipation and are currently using laxatives, currently titrating dose to avoid loose stools. Denies TRINH, nausea, vomiting dizziness, syncope, vision changes, neck pain, CP, SOB, orthopnea, palpitations, cough, sore throat, choking, otalgia, rhinorrhea, abdominal pain, new paresthesias, rashes. In ER patient afebrile, vitals stable. CT head: No acute intracranial findings. UA suggestive of UTI. Tele stroke recommended no TPA. In ER was given Rocephin IV. Upon initial ER presentation patient did not know location or family members. During ER course patient is alert to place, person, year and season. Admission Exam Per Admitting Provider General: no distress, overweight, chronic ill appearing Head: normocephalic, atraumatic Eyes: PERRL, EOM's intact, conjunctiva non-injected, anicteric ENT: normal inspection external ears, nose, mucous membranes moist Neck: supple, trachea midline Lungs: clear, no respiratory distress, no wheezing/rhonchi/rales CV: RRR, no murmur, no JVD, no pretibial edema Abd: normal BS, soft, non-tender Ext: no cyanosis, no erythema, no calf tenderness, left fingers contracted, +tenderness to palpation left upper arm, unable to actively move left arm, minimal passive ROM attempted secondary to discomfort Neuro: Alert, oriented to place, person, year and season, unsure of month or day. +resting tremor left fingers and tremor and left foot, The face is strong and symmetric, Hearing grossly intact, no dysarthria, only able to slightly shrug right shoulder, unable to left secondary to chronic LUE weakness and pain, tongue is midline, normal movement, no fasciculations +weakness bilateral upper extremities and lower extremities with left greater than right. (chronic weakness, left greater than right at baseline). Skin: warm, dry Principal Diagnosis Metabolic encephalopathy secondary to UTI Discharge Exam GENERAL: Alert and oriented x3. NAD, on RA. Avoid. Chronic ill-appearing. HEENT: No pallor, no icterus. Pupils equal, round and reactive to light. Oral mucosa moist. NECK: No JVD, no neck masses. HEART: S1 and S2 heard. Regular rate and rhythm. No murmur, no gallop. RESPIRATORY SYSTEM: Normal AP diameter. No accessory muscle use. No wheezing, no crackles. ABDOMEN: Soft, bowel sounds present, nontender, no distention. CENTRAL NERVOUS SYSTEM: Alert and oriented x3. No facial droop. Speech is cl ear. Obeys simple commands. Moves extremities. EXTREMITIES: No edema, left fingers contracted, minimal movement of LLE [at baseline], bilateral weak upper extremities and lower extremities [left greater than right, at baseline]. Discharge Data Allergies Allergy/AdvReac Type Severity Reaction Status Date / Time bacitracin Allergy Intermediate hives Verified 01/09/21 15:04 neomycin Allergy Intermediate hives Verified 01/09/21 15:04 onion Allergy Intermediate diarrhea,violent Verified 01/09/21 15:04 illness polymyxin B Allergy Intermediate hives Verified 01/09/21 15:04 ragweed pollen Allergy Intermediate hayfever/adolfo Verified 01/09/21 15:04 fever carbidopa Allergy Unknown FROM [facility] Verified 01/09/21 15:04 MED LIST levodopa Allergy Unknown FROM [facility] Verified 01/09/21 15:04 MED LIST Consultations 01/09/21 18:05 ED Decision to Admit Stat 01/09/21 18:49 Consult Neurology Routine Ordered Studies 01/09/21 14:01 CT head/brain wo con Stat 01/09/21 14:23 CT angio head w con Stat CT angio neck with con Stat 01/09/21 17:45 US venous doppler UE LT Urgent Hospital Course (1) Metabolic encephalopathy: (2) Altered mental status: Pt is 70 y/o F with atypical parkinsonism, orthostatic hypotension, HLD, acquired hypothyroidism, anxiety presents w/ altered mental status likely secondary to UTI. Admitting vitals afebrile and stable with normal admitting CT head. No acute findings and CT head and CTA neck. Initial concern for stroketelestroke recommended no TPA. Neurology evaluated her and recommended no further testing/no MRI as patient's mental status was likely secondary to UTI. Neuro recommends to follow-up with neurology in [place]. Metabolic encephalopathy secondary to UTI on the background of multisystem atrophy [on Requip] which raised initial concern of TIA AO x3 at bedside, aspiration precaution Resolved, patient being discharged to SNF. (3) UTI (urinary tract infection): Patient with reported UTI the end of November 2020. Was treated with Cipro. Was unable to find UA and outpatient records Patient has symptoms consistent with UTI upon presentation along with positive UA Urine culture out and sensitive to penicillin Completed course of antibiotic. (4) Chronic pain of left upper extremity: Chronic LUE pain. Reports increased pain on day of admission. Chronic edema left hand, daughter does not feel increased edema -Doppler obtained - negative for DVT -Continue indomethacin -Lidocaine patch -Patient having stiffness worsening lately, Flexeril dose increased to 10 mg twice dailycan uptitrate to 10 mg 3 times daily as appropriate. -Continue supportive care. (5) Atypical parkinsonism: Follows with [facility] neurology in [place]:Dr Painter -Continue ropinirole (6) Orthostatic hypotension: -Continue midodrine (7) HLD (hyperlipidemia): -Continue atorvastatin (8) Hypothyroid: TSH 1.75 -Continue levothyroxine (9) Anxiety: -Continue citalopram, alprazolam DVT Prophylaxis -Heparin SQ Full code Patient being discharged to SNF with the following instruction: Follow-up with your primary care physician within a week time. It is also commended that you follow-up with your neurologist in [place]. For your left wrist pain you can use lidocaine patch, prescription was sent to your pharmacy, however you can also obtain these [id number], often under the name Salonpas. This medication is a topical numbing medication, and will not make you sleepy or interact with other medications you are taking. Take medications as prescribed. You completed the course of antibiotic for UTI on 01/18. Ciprofloxacin sent earlier to the pharmacy is not required anymore and is canceled. You do not need to take any antibiotic after discharge at this point. Total Time Total Time Spent Total Time Spent (In Minutes): 45 Discharge Plan Discharge Items Patient Disposition: Transfer [facility] Reason For Visit: AMS Discharge Diagnosis: Altered mental status secondary to UTI Condition on Discharge: Fair Activity: Per Instructions section Non-emergency contact: Primary Care Provider Call non-emergency contact if: you have any medication questions and your symptoms worsen Follow-up/Referrals: Ronit White MD [Primary Care Provider] - ( ) Diet: Other - See Diet Comment Diet Texture: Dental soft (bite-sized) Diet Comment: FODMAP diet Addtl Attending Provider Instructions: Follow-up with your primary care physician within a week time. It is also commended that you follow-up with your neurologist in [place]. For your left wrist pain you can use lidocaine patch, prescription was sent to your pharmacy, however you can also obtain these [id number], often under the name Salonpas. This medication is a topical numbing medication, and will not make you sleepy or interact with other medications you are taking. Take medications as prescribed. You completed the course of antibiotic for UTI on 01/18. Ciprofloxacin sent earlier to the pharmacy is not required anymore and is canceled. You do not need to take any antibiotic after discharge at this point. Pending Studies at Discharge: No Stand-Alone Forms: My [facility] Skilled Items Patient informed of condition?: Yes DNR: No Discharge Level of Care: Skilled Communicable Disease: No Discharge Prognosis: Improving Lines: None Urinary Catheter: No Medications and DC Order Prescriptions: New lidocaine 5 % Adhesive Patch,Medicated 1 patch transdermal QAM Qty: 15 RF: 0 cyclobenzaprine 10 mg Tablet 10 mg PO BID 30 Days Qty: 60 RF: 0 Continued ropinirole 1 mg Tablet 1 mg PO TIDM RF: 0 polyethylene glycol 3350 [Miralax] 17 gram Powder In Packet 17 g PO DAILY RF: 0 cetirizine [Zyrtec] 10 mg Tablet 10 mg PO HS RF: 0 atorvastatin 10 mg Tablet 10 mg PO QDD RF: 0 sennosides-docusate sodium [Senna-S] 8.6-50 mg Tablet 1 tab-cap PO BID RF: 0 cyanocobalamin (vitamin B-12) [Vitamin B-12] 1,000 mcg Tablet 1,000 mcg PO DAILY RF: 0 levothyroxine 75 mcg Tablet 75 mcg PO DAILY RF: 0 alprazolam 0.25 mg Tablet 0.25 mg PO HS RF: 0 alprazolam 0.25 mg Tablet 0.125 mg PO DAILY PRN (Reason: Anxiety) RF: 0 ropinirole 2 mg Tablet 2 mg PO TIDM RF: 0 indomethacin 50 mg Capsule 50 mg PO BID PRN (Reason: Pain) RF: 0 gabapentin 300 mg Capsule 300 mg PO TID RF: 0 midodrine 2.5 mg Tablet 2.5 mg PO BID RF: 0 nystatin 100,000 unit/gram Powder 1 applic TOPICAL BID RF: 0 melatonin 10 mg Tablet 10 mg PO HS RF: 0 Probiotic Acidophilus Biobeads 12.9 mg (2 billion cell) Tablet,Delayed Release (Dr/Ec) 1 tab PO TIDM RF: 0 citalopram 40 mg tablet 40 mg PO DAILY RF: 0 cholecalciferol (vitamin D3) [Vitamin D3] 25 mcg (1,000 unit) Tablet 50 mcg PO DAILY RF: 0 Discharge Orders: Discharge Order (Routine); Ordered 01/19/21 Ordered By: Seth Womack Admission Data Admit Date/Time: 01/09/21 17:09 Attending Provider: Steh Womack Admit Provider: Paulie Chery Primary Care Provider: Ronit White Other Providers: Paulie Chery ; Jude Alex ; [facility] ; [facility] ; [facility] Other Interventions: Discharge Summary Assessment (RN) Last Done: 01/19/21 10:26
== END 2021-01-19 10:45 | DRG 689 ==
LOC: ED 13:59 → SUATTDRO 17:09 → 2N 17:09

== ENCOUNTER 2021-01-22 10:33 | Inpatient (IN) ==
[2021-01-22] MEDS ORDERED: SODIUM CHLORIDE 0.9% 1000ML 1,000 ML IV STA ×2 (10:51)
[2021-01-22] MEDS ORDERED: VANCOMYCIN CONSULT ACTIVE PRN (10:55)
[2021-01-22] MEDS ORDERED: CEFEPIME 2,000 MG/20 ML VIAL IV STA (10:55)
[2021-01-22] MEDS ORDERED: VANCOMYCIN HCL 1,500 MG in SODIUM CHLORIDE 0.9% 500 ML IV ONE (10:55)
[2021-01-22 11:03] LABS: Basophils # (auto) 0.01 K/uL (0-0.2); Basophils % (auto) 0.1 %; Eosinophils # (auto) 0.11 K/uL (0-0.5); Eosinophils % (auto) 0.9 %; Hematocrit (blood only) 36.7 % (37-47); Hemoglobin 12.2 g/dL (12.0-16.0); Immature Granulocytes # (auto) 0.05 K/uL (0.00-0.02); Immature Granulocytes % (auto) 0.4 %; Lymphocytes # (auto) 0.89 K/uL (1.2-3.4); Lymphocytes % (auto) 7.2 %; Mean Corpuscular Hemoglobin 32.2 pg (25-34); Mean Corpuscular Hgb Conc 33.2 g/dL (32-36); Mean Corpuscular Volume 96.8 fL (80-100); Monocytes # (auto) 0.81 K/uL (0.11-0.59); Monocytes % (auto) 6.6 %; Neutrophils # (auto) 10.41 K/uL (1.4-6.5); Neutrophils % (auto) 84.8 %; Platelet Count 213 K/uL (130-400); RDW Coefficient of Variation 13.4 % (11.5-14.5); RDW Standard Deviation 47.6 fL (36.4-46.3); Red Blood Count 3.79 M/uL (4.2-5.4); White Blood Count 12.28 K/uL (4.8-10.8)
[2021-01-22 11:20] LABS: Alanine Aminotransferase 26 U/L (12-78); Albumin Level 3.6 gm/dl (3.4-5.0); Aspartate Aminotransferase 18 U/L (15-37); BUN Creatinine Ratio 14.8 (10-20); Blood Urea Nitrogen 53 mg/dl (7-18); Calcium 8.7 mg/dl (8.5-10.1); Carbon Dioxide 23 mmol/L (21-32); Chloride 107 mmol/L (98-107); Creatinine Clr Calc Pharmacy 14.2 ml/min; Est GFR (African American) 14.3 ml/min; Est GFR (Non-African American) 12.4 ml/min; Glucose 126 mg/dl (70-99); Potassium 4.3 mmol/L (3.5-5.1); Sodium 138 mmol/L (136-145)
--- NOTE | 2021-01-22 11:22 | XRay Report ---
XR chest 1V portable HISTORY: 70 years-old Female hypotension COMPARISON: Chest radiograph 01/09/2021 TECHNIQUE: Portable AP view the chest FINDINGS: Cardiomediastinal and hilar silhouettes are unchanged. Calcified plaque the thoracic aorta. Linear beltran bsegmental atelectasis/scarring of the left lung base. Mild chronic interstitial coarsening. No pneum othorax, large pleural effusion or overt pulmonary edema. Degenerative changes of the shoulders and s pine. IMPRESSION: No acute process. ACT 112: Negative or not required by law. The above report was generated using voice recognition software. It may contain grammatical, syntax o r spelling errors. Electronically signed by: Osman Sauer M.D. 01/22/2021 11:21 AM
[2021-01-22 11:25] LABS: Albumin Globulin Ratio 1.4 (0.9-2); Alkaline Phosphatase 73 U/L (45-117); Bilirubin,Total 0.5 mg/dl (0.2-1); Globulin 2.6 gm/dl (2.5-4.0); Total Protein 6.2 gm/dl (6.4-8.2); Troponin I < 0.015 ng/ml (0-0.045)
[2021-01-22 11:28] LABS: Appearance Urine Cloudy (Clear); Bacteria Urine Automated Negative (Negative); Bilirubin Urine Negative (Negative); Blood Urine 2+ (Negative); Color Urine Yellow; Epithelial Cell Urine Auto >30 /lpf (0-5); Glucose Urine UA Negative (Negative); Ketones Urine Negative (Negative); Leukocyte Esterase Urine Negative (Negative); Nitrite Urine Negative (Negative); Protein Urine Trace (Negative); Specific Gravity Urine 1.014 (1.000-1.030); Urobilinogen Urine Negative (Negative)
[2021-01-22 11:39] LABS: Calcium Oxalate Crystals Urine Present (None Prsent)
[2021-01-22] MEDS ORDERED: SODIUM CHLORIDE 0.9% 1000ML 500 ML IV ONE ×2 (12:31→13:55)
--- NOTE | 2021-01-22 13:52 | CT Scan Report ---
ABDOMEN AND PELVIS CT WITHOUT CONTRAST CT DOSE: 1077.32 mGycm HISTORY: Acute renal failure with hypotension ARF TECHNIQUE: Multiaxial CT images of the abdomen and pelvis were performed without contrast. A dose lo wering technique was utilized adhering to the principles of ALARA. COMPARISON STUDY: Chest radiograph of same day FINDINGS: Mild cardiomegaly. Trace pericardial effusions with mild dependent bibasilar atelectasis. N o pneumatosis or pneumoperitoneum. Limited exam secondary to upper extremity positioning and respirat ory motion artifact. The unenhanced spleen, pancreas, adrenal glands, gallbladder and liver appear un remarkable. Punctate nonobstructing calculus of the interpolar left kidney. Equivocal punctate calcul i of the inferior pole right kidney. No ureteral calculi or hydroureteronephrosis. Retroperitoneal ca lcifications of the right hemipelvis on image 229 series 3 likely vascular in origin. Decompressed ur inary bladder with Uribe catheter in place. A punctate calcification on image 374 within the pelvis m ay represent a bladder calculus versus phlebolith. Hysterectomy. No adnexal mass lesion. Atherosclero sis of the aorta without aneurysm. Mild circumferential rectal wall thickening is noted with perirectal fat stranding. The appendix is r eportedly surgically absent. No bowel obstruction. Diastases recti. Stranding with small nodular foci of the anterior abdominal wall are suggestive of injection sites. No retroperitoneal hemorrhage iden tified. Degenerative changes of the spine, pelvis and hips. Demineralized appearance of the bones. Mi ld lumbar levoscoliosis. IMPRESSION: 1. Limited exam as above. Probable punctate left renal calculus. No ureteral calculi or hydroureteron ephrosis. 2. Mild rectal wall thickening with perirectal stranding. This may represent a nonspecific proctitis however should be correlated with a follow-up colonoscopy to exclude the less likely possibility of a n underlying lesion. 3. Trace pleural effusions with mild dependent bibasilar atelectasis. 4. No bowel obstruction. ACT 112: Negative or not required by law. The above report was generated using voice recognition software. It may contain grammatical, syntax o r spelling errors. Electronically signed by: Osman Sauer M.D. 01/22/2021 1:51 PM
[2021-01-22] MEDS ORDERED: ACETAMINOPHEN 1,000 MG/100 ML VIAL IV STA (13:54)
--- NOTE | 2021-01-22 14:18 | History & Physical Report ---
Date of Service January 22, 2021 Assessment & Plan (1) Acute respiratory failure with hypoxia: (2) Hypotension: (3) SIRS (systemic inflammatory response syndrome): Plan: -Admit to ICU -Patient sent to the ED from [facility] for evaluation of acute renal fail ure and hypotension -Recently admitted to [facility] 01/09 - 01/19 for metabolic encephalopathy due to UTI. Urine culture grew Enterococcus which patient received appropriate antibiotic course for. -01/12 creatinine 0.5 -> 01/21 1.9 -> 01/22 3.3 -In the ED, patient hypoxic on room air at 86%, currently requiring 4 L of oxygen via nasal cannula, also hypotensive and tachycardic. Given tachypnea and shallow breaths, concern for rapid respiratory decompensation. Has underlying profound generalized weakness -D-dimer 2300, BL LE Doppler negative for DVT. Consider VQ scan (unable to do CTA due to SLOAN) -WBC 12 K, lactate 1.6 -Patient received IVF, IV Vanco, IV cefepime in the ED -?? Partially treated/recurrent UTI -CXR, CT ABD/pelvis unremarkable -Check procalcitonin -Echo -Further management as per ICU (4) Acute renal failure: Plan: -01/12 creatinine 0.5 -> 01/21 1.9 -> 01/22 3.3 -Likely prerenal in nature due to dehydration/acute illness -ABG shows pH 7.28 -May benefit from HCO3 gtt -No signs of ureteral obstruction on CT -Nephrology consult (5) Hypothyroid: Plan: -Continue levothyroxine (6) Multiple system atrophy: Plan: -Typically managed with gabapentin, cyclobenzaprine, and Requip -given SLOAN, will hold these medications for now (7) Orthostatic hypotension: Plan: -Hypotensive as above -Continue midodrine (8) DVT prophylaxis: Plan: -SQ heparin History of Present Illness Chief Complaint: Sent from [facility] for worsening renal function and hypotension Primary Care Provider: Ronit White MD 70 year old female with PMH hypothyroidism, orthostatic hypotension, multiple system atrophy, and other problems listed below who presents to the ED from [facility] for eval of worsening renal function and hypotension. Patient recently admitted to [facility] 01/09 - 01/19 for metabolic encephalopathy due to UTI. Patient was discharged to [facility] for rehab. During previous admission, patient's urine culture grew Enterococcus for which she received 9 days of appropriate antibiotics for. Labs were obtained at [facility] yesterday that showed a creatinine of 1.9 (up from 0.5 on 01/12), today labs show creatinine 3.3. Patient was also found to be hypotensive today 80s/40s. Patient was sent to the ED for further evaluation. Patient speech is garbled at baseline from underlying MSA. She is also mostly bedbound at baseline. Patient reports she is currently feeling close to her baseline. She is noted to be tachypneic and taking shallow breaths however denies feeling short of breath. No chest pain. Denies lightheadedness and dizziness. No abdominal pain, nausea, vomiting, diarrhea. She denies urinary symptoms. In the ED, patient is found to be hypotensive, tachycardic, hypoxic. Also has low-grade fever of 37.6. Labs showed WBC 12 K, creatinine 3.5. CXR negative for acute cardiopulmonary findings. CT ABD/pelvis unremarkable as well. Patient was given IV Tylenol, IV cefepime, IV vancomycin, IVF. Allergies Allergy/AdvReac Type Severity Reaction Status Date / Time bacitracin Allergy Intermediate hives Verified 01/22/21 14:51 neomycin Allergy Intermediate hives Verified 01/22/21 14:51 onion Allergy Intermediate diarrhea,violent Verified 01/22/21 14:51 illness polymyxin B Allergy Intermediate hives Verified 01/22/21 14:51 ragweed pollen Allergy Intermediate hayfever/adolfo Verified 01/22/21 14:51 fever carbidopa Allergy Unknown FROM [facility] Verified 01/22/21 14:51 MED LIST levodopa Allergy Unknown FROM [facility] Verified 01/22/21 14:51 MED LIST Home Medications Medication Instructions Recorded Confirmed Type L.acidoph-L.rhamn-B.bifidum-B.long 1 tab PO TIDM 01/09/21 01/22/21 History 12.9 mg (2 billion cell) DR armando (Probiotic Acidophilus Trini) alprazolam 0.25 mg tablet 0.25 mg PO HS 01/09/21 01/22/21 History atorvastatin 10 mg tablet 10 mg PO QDD 01/09/21 01/22/21 History cetirizine 10 mg tablet (Zyrtec) 10 mg PO HS 01/09/21 01/22/21 History cholecalciferol (vitamin D3) 25 50 mcg PO DAILY 01/09/21 01/22/21 History mcg (1,000 unit) tablet (Vitamin D3) citalopram 40 mg tablet 40 mg PO DAILY 01/09/21 01/22/21 History cyanocobalamin (vitamin B-12) 1,000 mcg PO DAILY 01/09/21 01/22/21 History 1,000 mcg tablet (Vitamin B-12) gabapentin 300 mg capsule 300 mg PO TID 01/09/21 01/22/21 History levothyroxine 75 mcg tablet 75 mcg PO DAILY 01/09/21 01/22/21 History melatonin 10 mg tablet 10 mg PO HS 01/09/21 01/22/21 History midodrine 2.5 mg tablet 2.5 mg PO BID 01/09/21 01/22/21 History polyethylene glycol 3350 17 gram 17 g PO DAILY 01/09/21 01/22/21 History oral powder packet (Miralax) ropinirole 1 mg tablet 1 mg PO TIDM 01/09/21 01/22/21 History ropinirole 2 mg tablet 2 mg PO TIDM 01/09/21 01/22/21 History sennosides 8.6 mg-docusate sodium 1 tab-cap PO BID 01/09/21 01/22/21 History 50 mg tablet (Senna-S) cyclobenzaprine 10 mg tablet 10 mg PO BID 30 Days #60 tab 01/19/21 01/22/21 Rx lidocaine 4 % topical patch 1 patch TOPICAL DAILY 01/22/21 01/22/21 History Past Med/Surg History Medical History (Updated 01/22/21 @ 15:29 by AIDAN Serrano) Anxiety Atypical parkinsonism HLD (hyperlipidemia) Hypothyroid MDD (major depressive disorder) Multiple system atrophy Orthostatic hypotension Surgical History History of hysterectomy Family History Other Family history unknown Social History Smoking Status: Never smoker Hx Alcohol Use: No Hx Substance Use: No Preferred Language: Macedonian Communication Ability: Effective Beliefs That Will Affect Care: None Current Living Situation: Family Current Living Situation Comment: Lives with and daughter Feels Safe at Home: Yes Assistive Devices: Glasses Review of Systems Review of Systems: ROS per HPI, all other systems reviewed and negative Physical Exam Constitutional: well developed, well nourished and + ill appearing Eyes: PERRL, conjunctivae normal, anicteric sclerae ENMT: external ear and nose normal, oropharynx normal Respiratory: + tachypneic (w/ shallow breaths) and + grunting Auscultation: lungs clear to auscultation bilaterally Cardiovascular: Rate/Rhythm: regular rhythm and + tachycardic Vessels: normal peripheral pulses Extremities: no edema Gastrointestinal (Abdomen): normal bowel sounds, soft, nontender, no hepato splenomegaly Musculoskeletal: Extremities: no cyanosis and no clubbing strength 2-35 throughout Skin: no rashes, warm and dry strength 2-3/5 throughout Neurologic: Speech / Cognition: + abnormal speech (garbled speech - at baseline) Cranial Nerves: PERRL, normal accommodation and normal facial strength Psychiatric: A+Ox3, euthymic affect Lymphatic: charlton in place draining dark yellow urine Results & Data Results & Data ([facility]) Vital Signs (Past 12 Hours) Vital Signs Temp Pulse Pulse Resp BP BP Pulse Ox 01/22/21 13:43 130 H 20 88/67 L 97 01/22/21 12:34 99/49 L 01/22/21 12:20 84/57 L 01/22/21 10:54 37.6 C H 112 H 20 91/35 L 86 L Laboratory Results Short CBC 01/22/21 01/22/21 01/22/21 Range/Units 10:46 10:46 10:55 WBC 12.28 H (4.8-10.8) K/uL RBC 3.79 L (4.2-5.4) M/uL Hgb 12.2 (12.0-16.0) g/dL Hct 36.7 L (37-47) % MCV 96.8 (80-100) fL MCH 32.2 (25-34) pg MCHC 33.2 (32-36) g/dL RDW Std Deviation 47.6 H (36.4-46.3) fL RDW Coeff of Radhames 13.4 (11.5-14.5) % Plt Count 213 (130-400) K/uL MPV 9.0 (7.4-10.4) fL Immature Gran % (Auto) 0.4 % Neut % (Auto) 84.8 % Lymph % (Auto) 7.2 % [place] % (Auto) 6.6 % Eos % (Auto) 0.9 % Baso % (Auto) 0.1 % Neut # (Auto) 10.41 H (1.4-6.5) K/uL Lymph # (Auto) 0.89 L (1.2-3.4) K/uL [place] # (Auto) 0.81 H (0.11-0.59) K/uL Eos # (Auto) 0.11 (0-0.5) K/uL Baso # (Auto) 0.01 (0-0.2) K/uL Immature Gran # (Auto) 0.05 H (0.00-0.02) K/uL D-Dimer (0-500) ug/L FEU ABG pH (7.35-7.45) ABG pCO2 (35-46) mmHg ABG pO2 (80-95) mmHg ABG HCO3 (19-24) mmol/L ABG O2 Saturation (90-95) % ABG Base Excess (-9-1.8) mEq/L Jaden Test (Pos) Barometric Pressure mm/Hg Oxygen Given Sodium 138 (136-145) mmol/L Potassium 4.3 (3.5-5.1) mmol/L Chloride 107 (98-107) mmol/L Carbon Dioxide 23 (21-32) mmol/L Anion Gap 8.0 (3-11) BUN 53 H (7-18) mg/dl Creatinine 3.58 H (0.6-1.2) mg/dl Est Cr Clr Drug Dosing 14.2 ml/min Est GFR ( Amer) 14.3 ml/min Est GFR (Non-Af Amer) 12.4 ml/min BUN/Creatinine Ratio 14.8 (10-20) Glucose 126 H (70-99) mg/dl Lactate (0.4-2.0) mmol/L Calcium 8.7 (8.5-10.1) mg/dl Total Bilirubin 0.5 (0.2-1) mg/dl AST 18 (15-37) U/L ALT 26 (12-78) U/L Alkaline Phosphatase 73 (45-117) U/L Troponin I < 0.015 (0-0.045) ng/ml Total Protein 6.2 L (6.4-8.2) gm/dl Albumin 3.6 (3.4-5.0) gm/dl Globulin 2.6 (2.5-4.0) gm/dl Albumin/Globulin Ratio 1.4 (0.9-2) Urine Color Yellow Urine Appearance Cloudy A (Clear) Urine pH 6.0 (4.5-7.5) Ur Specific [place] 1.014 (1.000-1.030) Urine Protein Trace H (Negative) Urine Glucose (UA) Negative (Negative) Urine Ketones Negative (Negative) Urine Blood 2+ H (Negative) Urine Nitrite Negative (Negative) Urine Bilirubin Negative (Negative) Urine Urobilinogen Negative (Negative) Ur Leukocyte Esterase Negative (Negative) Urine WBC (Auto) 5-10 H (0-5) /hpf Urine RBC (Auto) 10-30 H (0-4) /hpf U Hyaline Cast (Auto) 10-30 H (0-5) /lpf U Epithel Cells (Auto) >30 H (0-5) /lpf Urine Bacteria (Auto) Negative (Negative) Calcium Oxalate Crystal Present A (None Prsent) Other Crystals Talc (None Prsent) Granular Casts 1-5 H (0) /lpf Urine Yeast Not Reportable COVID-19 Eval Order SARS-CoV-2 (PCR) (Negative) 01/22/21 01/22/21 01/22/21 Range/Units 11:12 11:12 11:12 WBC (4.8-10.8) K/uL RBC (4.2-5.4) M/uL Hgb (12.0-16.0) g/dL Hct (37-47) % MCV (80-100) fL MCH (25-34) pg MCHC (32-36) g/dL RDW Std Deviation (36.4-46.3) fL RDW Coeff of Radhames (11.5-14.5) % Plt Count (130-400) K/uL MPV (7.4-10.4) fL Immature Gran % (Auto) % Neut % (Auto) % Lymph % (Auto) % [place] % (Auto) % Eos % (Auto) % Baso % (Auto) % Neut # (Auto) (1.4-6.5) K/uL Lymph # (Auto) (1.2-3.4) K/uL [place] # (Auto) (0.11-0.59) K/uL Eos # (Auto) (0-0.5) K/uL Baso # (Auto) (0-0.2) K/uL Immature Gran # (Auto) (0.00-0.02) K/uL D-Dimer (0-500) ug/L FEU ABG pH (7.35-7.45) ABG pCO2 (35-46) mmHg ABG pO2 (80-95) mmHg ABG HCO3 (19-24) mmol/L ABG O2 Saturation (90-95) % ABG Base Excess (-9-1.8) mEq/L Jaden Test (Pos) Barometric Pressure mm/Hg Oxygen Given Sodium (136-145) mmol/L Potassium (3.5-5.1) mmol/L Chloride (98-107) mmol/L Carbon Dioxide (21-32) mmol/L Anion Gap (3-11) BUN (7-18) mg/dl Creatinine (0.6-1.2) mg/dl Est Cr Clr Drug Dosing ml/min Est GFR ( Amer) ml/min Est GFR (Non-Af Amer) ml/min BUN/Creatinine Ratio (10-20) Glucose (70-99) mg/dl Lactate 1.6 (0.4-2.0) mmol/L Calcium (8.5-10.1) mg/dl Total Bilirubin (0.2-1) mg/dl AST (15-37) U/L ALT (12-78) U/L Alkaline Phosphatase (45-117) U/L Troponin I (0-0.045) ng/ml Total Protein (6.4-8.2) gm/dl Albumin (3.4-5.0) gm/dl Globulin (2.5-4.0) gm/dl Albumin/Globulin Ratio (0.9-2) Urine Color Urine Appearance (Clear) Urine pH (4.5-7.5) Ur Specific [place] (1.000-1.030) Urine Protein (Negative) Urine Glucose (UA) (Negative) Urine Ketones (Negative) Urine Blood (Negative) Urine Nitrite (Negative) Urine Bilirubin (Negative) Urine Urobilinogen (Negative) Ur Leukocyte Esterase (Negative) Urine WBC (Auto) (0-5) /hpf Urine RBC (Auto) (0-4) /hpf U Hyaline Cast (Auto) (0-5) /lpf U Epithel Cells (Auto) (0-5) /lpf Urine Bacteria (Auto) (Negative) Calcium Oxalate Crystal (None Prsent) Other Crystals (None Prsent) Granular Casts (0) /lpf Urine Yeast COVID-19 Eval Order Covid19 at [facility] SARS-CoV-2 (PCR) NEGATIVE (Negative) 01/22/21 01/22/21 Range/Units 14:09 14:09 WBC (4.8-10.8) K/uL RBC (4.2-5.4) M/uL Hgb (12.0-16.0) g/dL Hct (37-47) % MCV (80-100) fL MCH (25-34) pg MCHC (32-36) g/dL RDW Std Deviation (36.4-46.3) fL RDW Coeff of Radhames (11.5-14.5) % Plt Count (130-400) K/uL MPV (7.4-10.4) fL Immature Gran % (Auto) % Neut % (Auto) % Lymph % (Auto) % [place] % (Auto) % Eos % (Auto) % Baso % (Auto) % Neut # (Auto) (1.4-6.5) K/uL Lymph # (Auto) (1.2-3.4) K/uL [place] # (Auto) (0.11-0.59) K/uL Eos # (Auto) (0-0.5) K/uL Baso # (Auto) (0-0.2) K/uL Immature Gran # (Auto) (0.00-0.02) K/uL D-Dimer 2330 H* (0-500) ug/L FEU ABG pH 7.28 L (7.35-7.45) ABG pCO2 41 (35-46) mmHg ABG pO2 81 (80-95) mmHg ABG HCO3 19 (19-24) mmol/L ABG O2 Saturation 95.4 H (90-95) % ABG Base Excess -7.5 (-9-1.8) mEq/L Jaden Test Pos (Pos) Barometric Pressure 737.1 mm/Hg Oxygen Given 3.5 Sodium (136-145) mmol/L Potassium (3.5-5.1) mmol/L Chloride (98-107) mmol/L Carbon Dioxide (21-32) mmol/L Anion Gap (3-11) BUN (7-18) mg/dl Creatinine (0.6-1.2) mg/dl Est Cr Clr Drug Dosing ml/min Est GFR ( Amer) ml/min Est GFR (Non-Af Amer) ml/min BUN/Creatinine Ratio (10-20) Glucose (70-99) mg/dl Lactate (0.4-2.0) mmol/L Calcium (8.5-10.1) mg/dl Total Bilirubin (0.2-1) mg/dl AST (15-37) U/L ALT (12-78) U/L Alkaline Phosphatase (45-117) U/L Troponin I (0-0.045) ng/ml Total Protein (6.4-8.2) gm/dl Albumin (3.4-5.0) gm/dl Globulin (2.5-4.0) gm/dl Albumin/Globulin Ratio (0.9-2) Urine Color Urine Appearance (Clear) Urine pH (4.5-7.5) Ur Specific [place] (1.000-1.030) Urine Protein (Negative) Urine Glucose (UA) (Negative) Urine Ketones (Negative) Urine Blood (Negative) Urine Nitrite (Negative) Urine Bilirubin (Negative) Urine Urobilinogen (Negative) Ur Leukocyte Esterase (Negative) Urine WBC (Auto) (0-5) /hpf Urine RBC (Auto) (0-4) /hpf U Hyaline Cast (Auto) (0-5) /lpf U Epithel Cells (Auto) (0-5) /lpf Urine Bacteria (Auto) (Negative) Calcium Oxalate Crystal (None Prsent) Other Crystals (None Prsent) Granular Casts (0) /lpf Urine Yeast COVID-19 Eval Order SARS-CoV-2 (PCR) (Negative) BMP 01/22/21 10:46 Sodium 138 Potassium 4.3 Chloride 107 Carbon Dioxide 23 BUN 53 H Creatinine 3.58 H Glucose 126 H Calcium 8.7 Cardiac Enzymes 01/22/21 Range/Units 10:46 Troponin I < 0.015 (0-0.045) ng/ml Liver Function 01/22/21 Range/Units 10:46 Total Bilirubin 0.5 (0.2-1) mg/dl AST 18 (15-37) U/L ALT 26 (12-78) U/L Alkaline Phosphatase 73 (45-117) U/L Albumin 3.6 (3.4-5.0) gm/dl Urine 01/22/21 Range/Units 10:55 Urine Color Yellow Urine Appearance Cloudy A (Clear) Urine pH 6.0 (4.5-7.5) Ur Specific [place] 1.014 (1.000-1.030) Urine Protein Trace H (Negative) Urine Glucose (UA) Negative (Negative) Diagnostic Findings Chest X-Ray 01/22/21 10:52 XR chest 1V portable HISTORY: 70 years-old Female hypotension COMPARISON: Chest radiograph 01/09/2021 TECHNIQUE: Portable AP view the chest FINDINGS: Cardiomediastinal and hilar silhouettes are unchanged. Calcified plaque the thoracic aorta. Linear subsegmental atelectasis/scarring of the left lung base. Mild chronic interstitial coarsening. No pneumothorax, large pleural effusion or overt pulmonary edema. Degenerative changes of the shoulders and spine. IMPRESSION: No acute process. ACT 112: Negative or not required by law. The above report was generated using voice recognition software. It may contain grammatical, syntax or spelling errors. Electronically signed by: Osman Sauer M.D. 01/22/2021 11:21 AM Abdomen/Pelvis CT 01/22/21 12:[address] WITHOUT CONTRAST CT DOSE: 1077.32 mGycm HISTORY: Acute renal failure with hypotension ARF TECHNIQUE: Multiaxial CT images of the abdomen and pelvis were performed without contrast. A dose lowering technique was utilized adhering to the principles of ALARA. COMPARISON STUDY: Chest radiograph of same day FINDINGS: Mild cardiomegaly. Trace pericardial effusions with mild dependent bibasilar atelectasis. No pneumatosis or pneumoperitoneum. Limited exam secondary to upper extremity positioning and respiratory motion artifact. The unenhanced spleen, pancreas, adrenal glands, gallbladder and liver appear unremarkable. Punctate nonobstructing calculus of the interpolar left kidney. Equivocal punctate calculi of the inferior pole right kidney. No ureteral calculi or hydroureteronephrosis. Retroperitoneal calcifications of the right hemipelvis on image 229 series 3 likely vascular in origin. Decompressed urinary bladder with Charlton catheter in place. A punctate calcification on image 374 within the pelvis may represent a bladder calculus versus phlebolith. Hysterectomy. No adnexal mass lesion. Atherosclerosis of the aorta without aneurysm. Mild circumferential rectal wall thickening is noted with perirectal fat stranding. The appendix is reportedly surgically absent. No bowel obstruction. Diastases recti. Stranding with small nodular foci of the anterior abdominal wall are suggestive of injection sites. No retroperitoneal hemorrhage identified. Degenerative changes of the spine, pelvis and hips. Demineralized appearance of the bones. Mild lumbar levoscoliosis. IMPRESSION: 1. Limited exam as above. Probable punctate left renal calculus. No ureteral calculi or hydroureteronephrosis. 2. Mild rectal wall thickening with perirectal stranding. This may represent a nonspecific proctitis however should be correlated with a follow-up colonoscopy to exclude the less likely possibility of an underlying lesion. 3. Trace pleural effusions with mild dependent bibasilar atelectasis. 4. No bowel obstruction. ACT 112: Negative or not required by law. The above report was generated using voice recognition software. It may contain grammatical, syntax or spelling errors. Electronically signed by: Osman Sauer M.D. 01/22/2021 1:51 PM Code Status & VTE Plan Code Status Patient is a full code as per my discussion with her. Supervising Physician Co-Signing Physician Notes Attending addendum: The patient was seen and examined in emergency room in presence of the daughter and the She has multiple system atrophy disease and was brought in from [facility] with decreased responsiveness, shortness of breath and noted to have acute kidney injury with hypotension She was having respiratory distress during examination but was able to converse with me reasonably Denies any significant pain On examination Moderate shortness of breath at rest with transmitted respiratory sound Her blood pressure noted to be low and she has been on intravenous Levophed and with that blood pressure is maintaining above 100 Chestdecreased breath sounds at the bases without any crackles HeartS1-S2, no murmur appreciated Abdomenmildly distended, soft, bowel sounds present Extremitiesno edema CNSalert and awake. Pleasantly confused with dysarthria likely secondary to dehydration Her admission labs, EKG and imaging studies reviewed She has SLOAN likely secondary to dehydration Possible sepsis secondary to UTI Multiple system atrophy is complicating current presentation Shortness of breath and cannot rule out pulmonary embolism with very high D- dimer She will be admitted to ICU as she may require intubation Agree with assessment and plan as outlined above by Citlalli Ruiz
--- NOTE | 2021-01-22 14:26 | Emergency Department Note ---
Impression & Plan Acute renal failure, Acute hypotension, Acute UTI (urinary tract infection), Tachypnea, Tachycardia ED Provider Note INFORMANT: Patient and ED PROVIDER(S): Michel Mitchell MD CHIEF COMPLAINT: Hypotension PLAN: Disposition: Admitted Condition: Guarded Outpatient prescription management: none Referral: None MEDICAL DECISION MAKING: Patient presented because of hypotension and acute renal failure noted on outpatient testing. She was mildly hypoxic and tachycardic. She denied any feelings of shortness of breath or chest pain. No abdominal pain. She had no headache. She was given prehospital normal saline. This was continued. Blood cultures were obtained. The patient had a leukocytosis on CBC. Chemistry panel confirms acute renal failure. Troponin negative. Urinalysis is concerning for infection. The patient was given broad-spectrum antibiotics of cefepime and vancomycin. The patient had a Covid swab performed. Uribe catheter was placed. CT scan of the abdomen pelvis was performed and was negative. The patient's heart rate increased even though she had received the IV fluids. She was given IV Tylenol for her borderline fever. Bedside ultrasound imaging was ordered for rule out DVT. This was negative. Record review indicated the patient has had significant issues with low blood pressures similar to today. The tachycardia is new. CT PE study cannot be performed secondary to her markedly elevated creatinine. I did discuss this with the patient and her . The patient is ill and needs admission to the hospital. Consultation was made with the [facility] hospitalist service. Patient was evaluated in the ER admitted by Dr. Ruiz. Triage Nursing notes reviewed and agree them. Vital Signs: reviewed and remarkable for tachycardia and hypotension Differential diagnosis: Sepsis, UTI, pneumonia, metabolic, electrolyte abnormalities, cardiac sources, intracerebral event, toxicologic, neurologic, pulmonary embolism, as well as other pathologies. Diagnostics interpreted by me: EC Lead ECG performed and revealed sinus tachycardia at 112 bpm, normal [place], QRS normal. No elevation or depression. No PACs or PVCs Cardiac Monitoring: Cardiac monitoring ordered by me: The patient was placed on continuous cardiac monitoring and observed. It revealed a sinus tachycardic rhythm at 120 beats per minute without ectopy or evidence of dysrhythmia. Imaging studies: Chest x-ray. Findings: A chest x-ray was performed and revealed no pneumothorax, effusion, infiltrate, pulmonary edema, free air under the diaphragm, or wide mediastinum. Impression: No acute disease. HPI: The patient is a 70 year old female who presents to the Emergency Room with acute renal failure and hypotension from her nursing facility [facility]. This started today. The patient was recently in the hospital for altered mental status and UTI treatment. She has significant Parkinson's disease. The patient was also noted to have a pulse oximetry of 87% on room air. She does not normally wear oxygen. No medication was given prehospital. Patient did receive normal saline 600 mL IV bolus. Current pain is rated as 0/10. Patient does not feel short of breath. She does feel weak. Pt denies LOC, headache, fevers, chills, diaphoresis, visual changes, neck pain, chest pain, breathing difficulties, nausea, vomiting, abdominal pain, back pain, melena, hematochezia, numbness, lymphadenopathy, rash, or other complaints. ROS: See above HPI for pertinent positives & negatives. A total of 10 systems reviewed and were otherwise negative. PAST MEDICAL HISTORY:See Below , the [place], hypotension orthostatic PAST SURGICAL HISTORY:See Below, FAMILY HISTORY:See Below SOCIAL HISTORY:See Below, HOME MEDICATIONS:See Below ALLERGIES:See Below VITALS:See Below PHYSICAL EXAMINATION: GENERAL: Awake, mildly ill appearing, in no distress HENT: Normocephalic, atraumatic. Oropharynx unremarkable. EYES: Normal conjunctiva. Sclera non-icteric. NECK: Inspection normal. Non-tender. Supple. No nuchal rigidity. FROM. No masses. RESPIRATORY: Clear to auscultation. No wheezes. No rales. Normal respiratory effort. CARDIAC: Tachycardic rate. Normal rhythm. No murmurs. No rubs. Extremities warm and well perfused. Pulses equal. No JVD. GI: Soft, non-distended. No tenderness to palpation. No rebound or guarding. No masses. RECTAL: Deferred. MUSCULOSKELETAL: Atraumatic. Chest examination reveals no tenderness. The back is symmetrical on inspection without obvious abnormality. There is no CVA tenderness to palpation. No joint edema. LOWER EXTREMITIES: Calves are equal size bilaterally and non-tender. No edema. No discoloration. NEURO: Relatively normal sensorium. No sensory deficits noted. Patient is generally weak in the upper and lower extremities. SKIN: No rash or jaundice noted. CRITICAL CARE: I have personally spent greater than 35 minutes of critical care time in the di rect management of this patient. This includes bedside care, interpretation of diagnostic studies, and testing, discussion with consultants, patient, and family members, and other required patient management activities. These minutes are in excess of all separately billable procedures. Michel Mitchell MD Past Med/Surg History Medical History (Updated 01/22/21 @ 15:29 by AIDAN Serrano) Anxiety Atypical parkinsonism HLD (hyperlipidemia) Hypothyroid MDD (major depressive disorder) Multiple system atrophy Orthostatic hypotension Surgical History History of hysterectomy Family History Other Family history unknown Social History Smoking Status: Never smoker Hx Alcohol Use: No Hx Substance Use: No Preferred Language: Cape Verdean Communication Ability: Effective Beliefs That Will Affect Care: None Current Living Situation: Family Current Living Situation Comment: Lives with and daughter Feels Safe at Home: Yes Assistive Devices: Glasses Allergies Allergies Allergy/AdvReac Type Severity Reaction Status Date / Time bacitracin Allergy Intermediate hives Verified 01/22/21 14:51 neomycin Allergy Intermediate hives Verified 01/22/21 14:51 onion Allergy Intermediate diarrhea,violent Verified 01/22/21 14:51 illness polymyxin B Allergy Intermediate hives Verified 01/22/21 14:51 ragweed pollen Allergy Intermediate hayfever/adolfo Verified 01/22/21 14:51 fever carbidopa Allergy Unknown FROM [facility] [place] Verified 01/22/21 14:51 MED LIST levodopa Allergy Unknown FROM [facility] [place] Verified 01/22/21 14:51 MED LIST Home Meds Home Medications Medication Instructions Recorded Confirmed L.acidoph-L.rhamn-B.bifidum-B.long 1 tab PO TIDM 01/09/21 01/22/21 12.9 mg (2 billion cell) DR armando (Probiotic Acidophilus Trini) alprazolam 0.25 mg tablet 0.25 mg PO HS 01/09/21 01/22/21 atorvastatin 10 mg tablet 10 mg PO QDD 01/09/21 01/22/21 cetirizine 10 mg tablet (Zyrtec) 10 mg PO HS 01/09/21 01/22/21 cholecalciferol (vitamin D3) 25 50 mcg PO DAILY 01/09/21 01/22/21 mcg (1,000 unit) tablet (Vitamin D3) citalopram 40 mg tablet 40 mg PO DAILY 01/09/21 01/22/21 cyanocobalamin (vitamin B-12) 1,000 mcg PO DAILY 01/09/21 01/22/21 1,000 mcg tablet (Vitamin B-12) gabapentin 300 mg capsule 300 mg PO TID 01/09/21 01/22/21 levothyroxine 75 mcg tablet 75 mcg PO DAILY 01/09/21 01/22/21 melatonin 10 mg tablet 10 mg PO HS 01/09/21 01/22/21 midodrine 2.5 mg tablet 2.5 mg PO BID 01/09/21 01/22/21 polyethylene glycol 3350 17 gram 17 g PO DAILY 01/09/21 01/22/21 oral powder packet (Miralax) ropinirole 1 mg tablet 1 mg PO TIDM 01/09/21 01/22/21 ropinirole 2 mg tablet 2 mg PO TIDM 01/09/21 01/22/21 sennosides 8.6 mg-docusate sodium 1 tab-cap PO BID 01/09/21 01/22/21 50 mg tablet (Senna-S) lidocaine 4 % topical patch 1 patch TOPICAL DAILY 01/22/21 01/22/21 Previous Rx's Medication Instructions Recorded cyclobenzaprine 10 mg tablet 10 mg PO BID 30 Days #60 tab 01/19/21 Results & Data (ED) Vital Signs Vital Signs - 24 hr 01/22/21 10:47 01/22/21 10:54 01/22/21 11:00 Temperature 37.6 C H Temperature Source Oral Pulse Rate 112 H 112 H 110 H Pulse Rate [Apical] Pulse Rate from SpO2 Sensor 112 H 111 H Respiratory Rate 21 20 23 Blood Pressure 88/35 L 91/35 L 110/52 L Blood Pressure [Left Arm] Blood Pressure Mean 52 53 71 Blood Pressure Mean [Left Arm] Pulse Oximetry 96 86 L 99 Oxygen Delivery Method Room Air Nasal Cannula Oxygen Flow Rate 0 Sepsis Recent Fever Within 48 Hours No Sepsis New/Unexplained Change in Mental Status No Sepsis Action Taken by Nursing Physician Notified Oxygen Flow Rate - Titration 3 Pulse Oximetry Post Tiitration 100 01/22/21 11:32 01/22/21 12:01 01/22/21 12:20 Temperature Temperature Source Pulse Rate 111 H 109 H Pulse Rate [Apical] Pulse Rate from SpO2 Sensor 109 H 108 H Respiratory Rate 21 24 Blood Pressure 67/40 L Blood Pressure [Left Arm] 84/57 L Blood Pressure Mean 49 Blood Pressure Mean [Left Arm] 66 Pulse Oximetry 97 95 Oxygen Delivery Method Oxygen Flow Rate Sepsis Recent Fever Within 48 Hours Sepsis New/Unexplained Change in Mental Status Sepsis Action Taken by Nursing Oxygen Flow Rate - Titration Pulse Oximetry Post Tiitration 01/22/21 12:30 01/22/21 12:34 01/22/21 13:01 Temperature Temperature Source Pulse Rate 111 H 123 H Pulse Rate [Apical] Pulse Rate from SpO2 Sensor 112 H 125 H Respiratory Rate 28 H 30 H Blood Pressure 87/56 L 120/55 L Blood Pressure [Left Arm] 99/49 L Blood Pressure Mean 66 76 Blood Pressure Mean [Left Arm] 65 Pulse Oximetry 96 86 L Oxygen Delivery Method Oxygen Flow Rate Sepsis Recent Fever Within 48 Hours Sepsis New/Unexplained Change in Mental Status Sepsis Action Taken by Nursing Oxygen Flow Rate - Titration Pulse Oximetry Post Tiitration 01/22/21 13:30 01/22/21 13:43 01/22/21 14:01 Temperature Temperature Source Pulse Rate 134 H 124 H Pulse Rate [Apical] 130 H Pulse Rate from SpO2 Sensor 134 H 125 H Respiratory Rate 27 H 20 22 Blood Pressure 88/67 L 63/41 L Blood Pressure [Left Arm] 88/67 L Blood Pressure Mean 74 48 Blood Pressure Mean [Left Arm] 74 Pulse Oximetry 98 97 96 Oxygen Delivery Method Nasal Cannula Oxygen Flow Rate 4 Sepsis Recent Fever Within 48 Hours Sepsis New/Unexplained Change in Mental Status Sepsis Action Taken by Nursing Oxygen Flow Rate - Titration Pulse Oximetry Post Tiitration 01/22/21 14:30 01/22/21 15:00 01/22/21 15:30 Temperature Temperature Source Pulse Rate 119 H 116 H 112 H Pulse Rate [Apical] Pulse Rate from SpO2 Sensor 119 H 117 H 112 H Respiratory Rate 25 H 17 23 Blood Pressure 55/34 L 79/40 L 68/43 L Blood Pressure [Left Arm] Blood Pressure Mean 41 53 51 Blood Pressure Mean [Left Arm] Pulse Oximetry 97 93 94 Oxygen Delivery Method Oxygen Flow Rate Sepsis Recent Fever Within 48 Hours Sepsis New/Unexplained Change in Mental Status Sepsis Action Taken by Nursing Oxygen Flow Rate - Titration Pulse Oximetry Post Tiitration Laboratory Data Result diagrams: 01/22/21 10:46 01/22/21 10:46 Lab Results 01/22/21 01/22/21 01/22/21 Range/Units 10:46 10:46 10:46 WBC 12.28 H (4.8-10.8) K/uL RBC 3.79 L (4.2-5.4) M/uL Hgb 12.2 (12.0-16.0) g/dL Hct 36.7 L (37-47) % MCV 96.8 (80-100) fL MCH 32.2 (25-34) pg MCHC 33.2 (32-36) g/dL RDW Std Deviation 47.6 H (36.4-46.3) fL RDW Coeff of Radhames 13.4 (11.5-14.5) % Plt Count 213 (130-400) K/uL MPV 9.0 (7.4-10.4) fL Immature Gran % (Auto) 0.4 % Neut % (Auto) 84.8 % Lymph % (Auto) 7.2 % [place] % (Auto) 6.6 % Eos % (Auto) 0.9 % Baso % (Auto) 0.1 % Neut # (Auto) 10.41 H (1.4-6.5) K/uL Lymph # (Auto) 0.89 L (1.2-3.4) K/uL [place] # (Auto) 0.81 H (0.11-0.59) K/uL Eos # (Auto) 0.11 (0-0.5) K/uL Baso # (Auto) 0.01 (0-0.2) K/uL Immature Gran # (Auto) 0.05 H (0.00-0.02) K/uL D-Dimer (0-500) ug/L FEU ABG pH (7.35-7.45) ABG pCO2 (35-46) mmHg ABG pO2 (80-95) mmHg ABG HCO3 (19-24) mmol/L ABG O2 Saturation (90-95) % ABG Base Excess (-9-1.8) mEq/L Jaden Test (Pos) Barometric Pressure mm/Hg Oxygen Given Sodium 138 (136-145) mmol/L Potassium 4.3 (3.5-5.1) mmol/L Chloride 107 (98-107) mmol/L Carbon Dioxide 23 (21-32) mmol/L Anion Gap 8.0 (3-11) BUN 53 H (7-18) mg/dl Creatinine 3.58 H (0.6-1.2) mg/dl Est Cr Clr Drug Dosing 14.2 ml/min Est GFR ( Amer) 14.3 ml/min Est GFR (Non-Af Amer) 12.4 ml/min BUN/Creatinine Ratio 14.8 (10-20) Glucose 126 H (70-99) mg/dl Lactate (0.4-2.0) mmol/L Calcium 8.7 (8.5-10.1) mg/dl Total Bilirubin 0.5 (0.2-1) mg/dl AST 18 (15-37) U/L ALT 26 (12-78) U/L Alkaline Phosphatase 73 (45-117) U/L Troponin I < 0.015 (0-0.045) ng/ml Total Protein 6.2 L (6.4-8.2) gm/dl Albumin 3.6 (3.4-5.0) gm/dl Globulin 2.6 (2.5-4.0) gm/dl Albumin/Globulin Ratio 1.4 (0.9-2) Procalcitonin 0.17 (0-0.5) ng/ml Urine Color Urine Appearance (Clear) Urine pH (4.5-7.5) Ur Specific [place] (1.000-1.030) Urine Protein (Negative) Urine Glucose (UA) (Negative) Urine Ketones (Negative) Urine Blood (Negative) Urine Nitrite (Negative) Urine Bilirubin (Negative) Urine Urobilinogen (Negative) Ur Leukocyte Esterase (Negative) Urine WBC (Auto) (0-5) /hpf Urine RBC (Auto) (0-4) /hpf U Hyaline Cast (Auto) (0-5) /lpf U Epithel Cells (Auto) (0-5) /lpf Urine Bacteria (Auto) (Negative) Calcium Oxalate Crystal (None Prsent) Other Crystals (None Prsent) Granular Casts (0) /lpf Urine Yeast COVID-19 Eval Order SARS-CoV-2 (PCR) (Negative) 01/22/21 01/22/21 01/22/21 Range/Units 10:55 11:12 11:12 WBC (4.8-10.8) K/uL RBC (4.2-5.4) M/uL Hgb (12.0-16.0) g/dL Hct (37-47) % MCV (80-100) fL MCH (25-34) pg MCHC (32-36) g/dL RDW Std Deviation (36.4-46.3) fL RDW Coeff of Radhames (11.5-14.5) % Plt Count (130-400) K/uL MPV (7.4-10.4) fL Immature Gran % (Auto) % Neut % (Auto) % Lymph % (Auto) % [place] % (Auto) % Eos % (Auto) % Baso % (Auto) % Neut # (Auto) (1.4-6.5) K/uL Lymph # (Auto) (1.2-3.4) K/uL [place] # (Auto) (0.11-0.59) K/uL Eos # (Auto) (0-0.5) K/uL Baso # (Auto) (0-0.2) K/uL Immature Gran # (Auto) (0.00-0.02) K/uL D-Dimer (0-500) ug/L FEU ABG pH (7.35-7.45) ABG pCO2 (35-46) mmHg ABG pO2 (80-95) mmHg ABG HCO3 (19-24) mmol/L ABG O2 Saturation (90-95) % ABG Base Excess (-9-1.8) mEq/L Jaden Test (Pos) Barometric Pressure mm/Hg Oxygen Given Sodium (136-145) mmol/L Potassium (3.5-5.1) mmol/L Chloride (98-107) mmol/L Carbon Dioxide (21-32) mmol/L Anion Gap (3-11) BUN (7-18) mg/dl Creatinine (0.6-1.2) mg/dl Est Cr Clr Drug Dosing ml/min Est GFR ( Amer) ml/min Est GFR (Non-Af Amer) ml/min BUN/Creatinine Ratio (10-20) Glucose (70-99) mg/dl Lactate 1.6 (0.4-2.0) mmol/L Calcium (8.5-10.1) mg/dl Total Bilirubin (0.2-1) mg/dl AST (15-37) U/L ALT (12-78) U/L Alkaline Phosphatase (45-117) U/L Troponin I (0-0.045) ng/ml Total Protein (6.4-8.2) gm/dl Albumin (3.4-5.0) gm/dl Globulin (2.5-4.0) gm/dl Albumin/Globulin Ratio (0.9-2) Procalcitonin (0-0.5) ng/ml Urine Color Yellow Urine Appearance Cloudy A (Clear) Urine pH 6.0 (4.5-7.5) Ur Specific [place] 1.014 (1.000-1.030) Urine Protein Trace H (Negative) Urine Glucose (UA) Negative (Negative) Urine Ketones Negative (Negative) Urine Blood 2+ H (Negative) Urine Nitrite Negative (Negative) Urine Bilirubin Negative (Negative) Urine Urobilinogen Negative (Negative) Ur Leukocyte Esterase Negative (Negative) Urine WBC (Auto) 5-10 H (0-5) /hpf Urine RBC (Auto) 10-30 H (0-4) /hpf U Hyaline Cast (Auto) 10-30 H (0-5) /lpf U Epithel Cells (Auto) >30 H (0-5) /lpf Urine Bacteria (Auto) Negative (Negative) Calcium Oxalate Crystal Present A (None Prsent) Other Crystals Talc (None Prsent) Granular Casts 1-5 H (0) /lpf Urine Yeast Not Reportable COVID-19 Eval Order Covid19 at [facility] SARS-CoV-2 (PCR) (Negative) 01/22/21 01/22/21 01/22/21 Range/Units 11:12 14:09 14:09 WBC (4.8-10.8) K/uL RBC (4.2-5.4) M/uL Hgb (12.0-16.0) g/dL Hct (37-47) % MCV (80-100) fL MCH (25-34) pg MCHC (32-36) g/dL RDW Std Deviation (36.4-46.3) fL RDW Coeff of Radhames (11.5-14.5) % Plt Count (130-400) K/uL MPV (7.4-10.4) fL Immature Gran % (Auto) % Neut % (Auto) % Lymph % (Auto) % [place] % (Auto) % Eos % (Auto) % Baso % (Auto) % Neut # (Auto) (1.4-6.5) K/uL Lymph # (Auto) (1.2-3.4) K/uL [place] # (Auto) (0.11-0.59) K/uL Eos # (Auto) (0-0.5) K/uL Baso # (Auto) (0-0.2) K/uL Immature Gran # (Auto) (0.00-0.02) K/uL D-Dimer 2330 H* (0-500) ug/L FEU ABG pH 7.28 L (7.35-7.45) ABG pCO2 41 (35-46) mmHg ABG pO2 81 (80-95) mmHg ABG HCO3 19 (19-24) mmol/L ABG O2 Saturation 95.4 H (90-95) % ABG Base Excess -7.5 (-9-1.8) mEq/L Jaden Test Pos (Pos) Barometric Pressure 737.1 mm/Hg Oxygen Given 3.5 Sodium (136-145) mmol/L Potassium (3.5-5.1) mmol/L Chloride (98-107) mmol/L Carbon Dioxide (21-32) mmol/L Anion Gap (3-11) BUN (7-18) mg/dl Creatinine (0.6-1.2) mg/dl Est Cr Clr Drug Dosing ml/min Est GFR ( Amer) ml/min Est GFR (Non-Af Amer) ml/min BUN/Creatinine Ratio (10-20) Glucose (70-99) mg/dl Lactate (0.4-2.0) mmol/L Calcium (8.5-10.1) mg/dl Total Bilirubin (0.2-1) mg/dl AST (15-37) U/L ALT (12-78) U/L Alkaline Phosphatase (45-117) U/L Troponin I (0-0.045) ng/ml Total Protein (6.4-8.2) gm/dl Albumin (3.4-5.0) gm/dl Globulin (2.5-4.0) gm/dl Albumin/Globulin Ratio (0.9-2) Procalcitonin (0-0.5) ng/ml Urine Color Urine Appearance (Clear) Urine pH (4.5-7.5) Ur Specific [place] (1.000-1.030) Urine Protein (Negative) Urine Glucose (UA) (Negative) Urine Ketones (Negative) Urine Blood (Negative) Urine Nitrite (Negative) Urine Bilirubin (Negative) Urine Urobilinogen (Negative) Ur Leukocyte Esterase (Negative) Urine WBC (Auto) (0-5) /hpf Urine RBC (Auto) (0-4) /hpf U Hyaline Cast (Auto) (0-5) /lpf U Epithel Cells (Auto) (0-5) /lpf Urine Bacteria (Auto) (Negative) Calcium Oxalate Crystal (None Prsent) Other Crystals (None Prsent) Granular Casts (0) /lpf Urine Yeast COVID-19 Eval Order SARS-CoV-2 (PCR) NEGATIVE (Negative) Administered Medications Sodium Chloride (Nss 1000ml) 1,000 mls @ 125 mls/hr IV .Q8H STA Stop: 01/22/21 18:50 Last Admin: 01/22/21 11:18 Dose: 125 mls/hr Documented by: [id number] Discontinued Medications Sodium Chloride (Nss 1000ml) 1,000 mls @ 999 mls/hr IV .Q1H1M STA Stop: 01/22/21 11:51 Last Infusion: 01/22/21 12:09 Dose: 0 mls/hr Documented by: [id number] Admin: 01/22/21 11:07 Dose: 999 mls/hr Documented by: [id number] Cefepime HCl (Maxipime) 2,000 mg in 20 mls @ 5 mls/min IV NOW STA; Protocol Stop: 01/22/21 10:58 Last Admin: 01/22/21 11:18 Dose: 5 mls/min Documented by: [id number] Vancomycin HCl 1,500 mg/ (Sodium Chloride) 530 mls @ 200 mls/hr IV NOW ONE Stop: 01/22/21 13:24 Last Infusion: 01/22/21 14:04 Dose: 0 mls/hr Documented by: [id number] Admin: 01/22/21 11:18 Dose: 200 mls/hr Documented by: [id number] Sodium Chloride (Nss 1000ml) 500 mls @ 999 mls/hr IV .Q31M ONE Stop: 01/22/21 13:01 Last Infusion: 01/22/21 13:11 Dose: 0 mls/hr Documented by: [id number] Admin: 01/22/21 12:39 Dose: 999 mls/hr Documented by: [id number] Acetaminophen (Ofirmev) 1,000 mg in 100 mls @ 400 mls/hr IV NOW STA Stop: 01/22/21 14:08 Last Infusion: 01/22/21 15:37 Dose: 0 mls/hr Documented by: [id number] Admin: 01/22/21 14:36 Dose: 400 mls/hr Documented by: [id number] Sodium Chloride (Nss 1000ml) 500 mls @ 999 mls/hr IV .Q31M ONE Stop: 01/22/21 14:25 Last Infusion: 01/22/21 14:41 Dose: 0 mls/hr Documented by: [id number] Admin: 01/22/21 14:09 Dose: 999 mls/hr Documented by: [id number] Imaging Data Radiologist's Impression: Chest X-Ray 01/22/21 10:52 XR chest 1V portable HISTORY: 70 years-old Female hypotension COMPARISON: Chest radiograph 01/09/2021 TECHNIQUE: Portable AP view the chest FINDINGS: Cardiomediastinal and hilar silhouettes are unchanged. Calcified plaque the thoracic aorta. Linear subsegmental atelectasis/scarring of the left lung base. Mild chronic interstitial coarsening. No pneumothorax, large pleural effusion or overt pulmonary edema. Degenerative changes of the shoulders and spine. IMPRESSION: No acute process. ACT 112: Negative or not required by law. The above report was generated using voice recognition software. It may contain grammatical, syntax or spelling errors. Electronically signed by: Osman Sauer M.D. 01/22/2021 11:21 AM Abdomen/Pelvis CT 01/22/21 12:[address] WITHOUT CONTRAST CT DOSE: 1077.32 mGycm HISTORY: Acute renal failure with hypotension ARF TECHNIQUE: Multiaxial CT images of the abdomen and pelvis were performed without contrast. A dose lowering technique was utilized adhering to the principles of ALARA. COMPARISON STUDY: Chest radiograph of same day FINDINGS: Mild cardiomegaly. Trace pericardial effusions with mild dependent bibasilar atelectasis. No pneumatosis or pneumoperitoneum. Limited exam secondary to upper extremity positioning and respiratory motion artifact. The unenhanced spleen, pancreas, adrenal glands, gallbladder and liver appear unremarkable. Punctate nonobstructing calculus of the interpolar left kidney. Equivocal punctate calculi of the inferior pole right kidney. No ureteral calculi or hydroureteronephrosis. Retroperitoneal calcifications of the right hemipelvis on image 229 series 3 likely vascular in origin. Decompressed urinary bladder with Uribe catheter in place. A punctate calcification on image 374 within the pelvis may represent a bladder calculus versus phlebolith. Hysterectomy. No adnexal mass lesion. Atherosclerosis of the aorta without aneurysm. Mild circumferential rectal wall thickening is noted with perirectal fat stranding. The appendix is reportedly surgically absent. No bowel obstruction. Diastases recti. Stranding with small nodular foci of the anterior abdominal wall are suggestive of injection sites. No retroperitoneal hemorrhage identified. Degenerative changes of the spine, pelvis and hips. Demineralized appearance of the bones. Mild lumbar levoscoliosis. IMPRESSION: 1. Limited exam as above. Probable punctate left renal calculus. No ureteral calculi or hydroureteronephrosis. 2. Mild rectal wall thickening with perirectal stranding. This may represent a nonspecific proctitis however should be correlated with a follow-up colonoscopy to exclude the less likely possibility of an underlying lesion. 3. Trace pleural effusions with mild dependent bibasilar atelectasis. 4. No bowel obstruction. ACT 112: Negative or not required by law. The above report was generated using voice recognition software. It may contain grammatical, syntax or spelling errors. Electronically signed by: Osman Sauer M.D. 01/22/2021 1:51 PM Venous Doppler Study 01/22/21 13:54 BILATERAL LOWER EXTREMITY VENOUS DOPPLER CLINICAL HISTORY: hypotension, hypoxia, tachy, ? DVT COMPARISON STUDY: No previous studies for comparison. TECHNIQUE: Sonography of the deep venous system of the bilateral lower extremities was performed. Compression and augmentation were evaluated. FINDINGS: The bilateral common femoral, superficial femoral and popliteal veins were compressible. Augmentation was normal. Flow was shown within the deep calf vessels. IMPRESSION: No evidence of deep venous thrombus within the bilateral lower extremities. ACT 112: Negative or not required by law. Electronically signed by: Jonathan Choe M.D. 01/22/2021 3:23 PM Discharge Plan Visit Data Chief Complaint: Hypotension Stated Complaint: Lethargy, Hypotension ED Provider: Michel Mitchell Discharge Problem: Acute renal failure, Acute hypotension, Acute UTI (urinary tract infection), Tachypnea, Tachycardia Patient Disposition: Admitted As Inpatient Forms Stand Alone Forms: [facility] Prescriptions Prescriptions: No Action ropinirole 1 mg Tablet 1 mg PO TIDM RF: 0 polyethylene glycol 3350 [Miralax] 17 gram Powder In Packet 17 g PO DAILY RF: 0 cetirizine [Zyrtec] 10 mg Tablet 10 mg PO HS RF: 0 atorvastatin 10 mg Tablet 10 mg PO QDD RF: 0 sennosides-docusate sodium [Senna-S] 8.6-50 mg Tablet 1 tab-cap PO BID RF: 0 cyanocobalamin (vitamin B-12) [Vitamin B-12] 1,000 mcg Tablet 1,000 mcg PO DAILY RF: 0 levothyroxine 75 mcg Tablet 75 mcg PO DAILY RF: 0 alprazolam 0.25 mg Tablet 0.25 mg PO HS RF: 0 ropinirole 2 mg Tablet 2 mg PO TIDM RF: 0 gabapentin 300 mg Capsule 300 mg PO TID RF: 0 midodrine 2.5 mg Tablet 2.5 mg PO BID RF: 0 melatonin 10 mg Tablet 10 mg PO HS RF: 0 Probiotic Acidophilus Biobeads 12.9 mg (2 billion cell) Tablet,Delayed Release (Dr/Ec) 1 tab PO TIDM RF: 0 citalopram 40 mg tablet 40 mg PO DAILY RF: 0 cholecalciferol (vitamin D3) [Vitamin D3] 25 mcg (1,000 unit) Tablet 50 mcg PO DAILY RF: 0 cyclobenzaprine 10 mg Tablet 10 mg PO BID 30 Days Qty: 60 RF: 0 lidocaine 4 % Adhesive Patch,Medicated 1 patch TOPICAL DAILY RF: 0 Referrals Referrals: Ronit White MD [Primary Care Provider] -
[2021-01-22 14:30] LABS: Base Excess ABG -7.5 mEq/L (-9-1.8); HCO3 ABG 19 mmol/L (19-24); Oxygen Saturation ABG 95.4 % (90-95); PCO2 ABG 41 mmHg (35-46); PO2 ABG 81 mmHg (80-95); pH ABG 7.28 (7.35-7.45)
[2021-01-22 14:31] LABS: Allen Test Pos (Pos)
[2021-01-22 14:49] LABS: D Dimer 2330 ug/L FEU (0-500)
--- NOTE | 2021-01-22 15:24 | Ultrasound Report ---
BILATERAL LOWER EXTREMITY VENOUS DOPPLER CLINICAL HISTORY: hypotension, hypoxia, tachy, ? DVT COMPARISON STUDY: No previous studies for comparison. TECHNIQUE: Sonography of the deep venous system of the bilateral lower extremities was performed. Co mpression and augmentation were evaluated. FINDINGS: The bilateral common femoral, superficial femoral and popliteal veins were compressible. A ugmentation was normal. Flow was shown within the deep calf vessels. IMPRESSION: No evidence of deep venous thrombus within the bilateral lower extremities. ACT 112: Negative or not required by law. Electronically signed by: Jonathan Choe M.D. 01/22/2021 3:23 PM
--- NOTE | 2021-01-22 16:14 | Electrocardiogram Report ---
Test Reason : Blood Pressure : / mmHG Vent. Rate : 112 BPM Atrial Rate : 112 BPM P-R Int : 130 ms QRS Dur : 082 ms QT Int : 346 ms P-R-T Axes : 034 -51 035 degrees QTc Int : 472 ms Poor data quality, interpretation may be adversely affected Sinus tachycardia Left axis deviation Poor R wave progression, consider anterior SD vs. lead placement vs. LVH Abnormal ECG When compared with ECG of 09-JAN-2021 14:15, ST no longer depressed in Lateral leads T wave inversion no longer evident in Inferior leads Confirmed by Colten Saleh ([id number]) on 01/22/2021 4:14:42 PM Referred By: Confirmed By:Colten Saleh
[2021-01-22] MEDS ORDERED: STAT IV Infusion **Titration per Protocol STA ×3 (16:52→20:56)
[2021-01-22] MEDS ORDERED: NOREPINEPHRINE/D5W 8 MG/508 ML IV ONE (17:05)
[2021-01-22] MEDS: NOREPINEPHRINE/D5W 8 MG/508 ML BAG IV SCH (17:14)
[2021-01-22] MEDS ORDERED: ICU PROTOCOL FOR HYPERGLYCEMIA PRN (18:10)
[2021-01-22] MEDS ORDERED: LACTATED RINGER'S 500 ML IV ONE (19:30)
[2021-01-22] MEDS ORDERED: RAPID SEQUENCE INDUCTION BAG ONE (19:37)
[2021-01-22] MEDS: PHENYLEPHRINE HCL 20 MG in DEXTROSE 5% 500 ML IV SCH (19:38)
--- NOTE | 2021-01-22 20:18 | Critical Care Consultation ---
Date of Consultation January 22, 2021 Assessment & Plan (1) Septic shock: (2) Multiple system atrophy: (3) Tachycardia: 70-year-old Fe male with a history of multisystem atrophy, Parkinson syndrome, hypertension and bedbound state presenting to the hospital due to shock. Neurologic: No focal deficits at this time. Hold sedating medications. She appears to be at baseline. Pulmonary: Minimal oxygen requirements presently. No focal infiltrates on chest imaging. Cardiovascular: Profound hypotension requiring norepinephrine. Sinus tachycardia likely secondary to septic shock state. Continue maintain mean arterial pressures above 65. We will add vasopressin. Consider transition Levophed to phenylephrine given rapid heart rate. Central line placed. Will place arterial line to obtain more accurate blood pressure readings. She does have orthostatic hypotension at baseline and is on midodrine. Echo ordered. Gastrointestinal: Proctitis noted on CT abdomen. Flagyl added. No abdominal pain. Renal: SLOAN present. Repeat BMP. Follow lactate. Follow urine output. Adequately resuscitated with fluids. Infectious disease: Continue cefepime and Flagyl for empiric coverage. MRSA screen pending. Follow-up blood cultures and urine cultures. UA appears dirty. Hematologic: No issues Endocrine: TSH earlier this month checked within normal limits. Hyperglycemia protocol per ICU pharmacy. Lines and tubes: Right IJ placed on 12/22/2020. Uribe catheter in place. VTE prophylaxis: SCDs. CODE STATUS: Full Family at bedside: None available at bedside due to the COVID-19 pandemic Disposition: Remain in the ICU. May benefit from palliative care consultation. I have personally spent 43 minutes of critical care time in the direct management of this patient. This is a life/limb threatening event. This includes time spent evaluating patient, direct bedside care, chart review, placing orders, interpretation of diagnostic studies, discussion with consultants, patient, and family members, as well as other required patient management activities. This time is exclusive of all separately billable procedures, and teaching time and separate from and in addition to any other critical care service time. Thank you for allowing us to participate in the care of this patient. History of Present Illness Reason for Consultation: Septic shock Attending Physician: Eladia Ruiz MD History of Present Illness History is difficult to obtain from patient due to her chronic dysarthria and multisystem atrophy. I was able to review the chart and obtain some history from the patient. I was also able to speak to the hospitalist. She has a history of hypothyroidism, orthostatic hypotension on midodrine and multisystem atrophy. She resides in [facility]. She was recently discharged from [facility] January 19 due to metabolic encephalopathy and a UTI. She was discharged to [facility] for rehab. Patient was found to be hypotensive with [facility]. She was 80s over 40s in the emergency department. She was started on Levophed. She received 2-1/2 L of fluid. She is mostly bedbound at baseline. She denies any trouble with her breathing at baseline. She denies shortness of breath currently. She does note some dizziness. She denies chest pain, fevers or chills. She was found to have tachycardia in the emergency department. Currently her heart rate is in the 130s. White count is mildly elevated. Abdominal CT demonstrated mild rectal wall thickening with perirectal stranding. Concern for nonspecific proctitis. Chest x-ray on admission did not demonstrate any acute process. Allergies Allergy/AdvReac Type Severity Reaction Status Date / Time bacitracin Allergy Intermediate hives Verified 01/22/21 14:51 neomycin Allergy Intermediate hives Verified 01/22/21 14:51 onion Allergy Intermediate diarrhea,violent Verified 01/22/21 14:51 illness polymyxin B Allergy Intermediate hives Verified 01/22/21 14:51 ragweed pollen Allergy Intermediate hayfever/adolfo Verified 01/22/21 14:51 fever carbidopa Allergy Unknown FROM [facility] Verified 01/22/21 14:51 MED LIST levodopa Allergy Unknown FROM [facility] Verified 01/22/21 14:51 MED LIST Home Medications Medication Instructions Recorded Confirmed Type L.acidoph-L.rhamn-B.bifidum-B.long 1 tab PO TIDM 01/09/21 01/22/21 History 12.9 mg (2 billion cell) tablet, (Probiotic Acidophilus Cruise Compare) alprazolam 0.25 mg tablet 0.25 mg PO HS 01/09/21 01/22/21 History atorvastatin 10 mg tablet 10 mg PO QDD 01/09/21 01/22/21 History cetirizine 10 mg tablet (Zyrtec) 10 mg PO HS 01/09/21 01/22/21 History cholecalciferol (vitamin D3) 25 50 mcg PO DAILY 01/09/21 01/22/21 History mcg (1,000 unit) tablet (Vitamin D3) citalopram 40 mg tablet 40 mg PO DAILY 01/09/21 01/22/21 History cyanocobalamin (vitamin B-12) 1,000 mcg PO DAILY 01/09/21 01/22/21 History 1,000 mcg tablet (Vitamin B-12) gabapentin 300 mg capsule 300 mg PO TID 01/09/21 01/22/21 History levothyroxine 75 mcg tablet 75 mcg PO DAILY 01/09/21 01/22/21 History melatonin 10 mg tablet 10 mg PO HS 01/09/21 01/22/21 History midodrine 2.5 mg tablet 2.5 mg PO BID 01/09/21 01/22/21 History polyethylene glycol 3350 17 gram 17 g PO DAILY 01/09/21 01/22/21 History oral powder packet (Miralax) ropinirole 1 mg tablet 1 mg PO TIDM 01/09/21 01/22/21 History ropinirole 2 mg tablet 2 mg PO TIDM 01/09/21 01/22/21 History sennosides 8.6 mg-docusate sodium 1 tab-cap PO BID 01/09/21 01/22/21 History 50 mg tablet (Senna-S) cyclobenzaprine 10 mg tablet 10 mg PO BID 30 Days #60 tab 01/19/21 01/22/21 Rx lidocaine 4 % topical patch 1 patch TOPICAL DAILY 01/22/21 01/22/21 History Patient History Medical History (Updated 01/22/21 @ 20:54 by Everette Quintero MD) Anxiety Atypical parkinsonism HLD (hyperlipidemia) Hypothyroid MDD (major depressive disorder) Multiple system atrophy Orthostatic hypotension Septic shock Tachycardia Surgical History History of hysterectomy Family History Other Family history unknown Social History Smoking Status: Never smoker Hx Alcohol Use: No Hx Substance Use: No Preferred Language: Georgian Communication Ability: Impaired Beliefs That Will Affect Care: None Current Living Situation: [facility] Current Living Situation Comment: Lives with and daughter Other Information That Helps Us Care for You: No Feels Safe at Home: Yes Safety Concerns: Feels Safe At This Time Assistive Devices: Glasses Review of Systems Review of Systems: All systems reviewed & are unremarkable except as noted in HPI & below Physical Exam Physical Exam: Constitutional: Frail appearing female no apparent distress. Laying in bed. Eyes: Pupils are equal round and reactive to light. Conjunctivae are normal. Anicteric sclera. Ears nose, mouth and throat: Normal oropharynx. No obvious deformities. Neck: Trachea is midline. Visual inspection is normal. Respiratory: Clear to auscultation bilaterally. Mild tachypnea. Cardiovascular: Tachycardic. No edema. Regular rhythm. Gastrointestinal: Normal bowel sounds, soft, nontender and nondistended. No hepatosplenomegaly noted. Musculoskeletal: No cyanosis. Patient is able to move all extremities. Diminished strength throughout. Skin: Areas of skin breakdown noted. Neurologic: Garbled speech at baseline. Cranial nerves II through XII intact. Psychiatric: Alert and oriented x3 with a euthymic affect. Results & Data Results & Data ([facility]) Vital Signs (Past 12 Hours) Vital Signs Temp Pulse Pulse Resp BP BP Pulse Ox 01/22/21 18:37 98.4 F 130 H 23 95/65 L 95 01/22/21 17:36 112 H 21 104/48 L 94 01/22/21 17:30 113 H 24 110/54 L 92 01/22/21 17:25 111 H 26 H 99/54 L 93 01/22/21 17:20 108 H 22 75/42 L 93 01/22/21 17:17 110 H 22 71/49 L 92 01/22/21 17:13 105 H 20 92 01/22/21 17:00 105 H 22 67/40 L 92 01/22/21 16:54 106 H 24 59/42 L 93 01/22/21 16:31 105 H 22 65/41 L 90 01/22/21 16:01 108 H 20 81/45 L 91 01/22/21 16:00 99.3 F 68 18 127/59 L 93 01/22/21 15:30 112 H 23 68/43 L 94 01/22/21 15:00 116 H 17 79/40 L 93 01/22/21 14:40 76/45 L 01/22/21 14:32 95/31 L 01/22/21 14:30 119 H 25 H 55/34 L 97 01/22/21 14:01 124 H 22 63/41 L 96 01/22/21 13:43 130 H 20 88/67 L 97 01/22/21 13:30 134 H 27 H 88/67 L 98 01/22/21 13:01 123 H 30 H 120/55 L 86 L 01/22/21 12:34 99/49 L 01/22/21 12:30 111 H 28 H 87/56 L 96 01/22/21 12:20 84/57 L 01/22/21 12:01 109 H 24 67/40 L 95 01/22/21 11:32 111 H 21 97 01/22/21 11:00 110 H 23 110/52 L 99 01/22/21 10:54 99.7 F H 112 H 20 91/35 L 86 L 01/22/21 10:47 112 H 21 88/35 L 96 vital signs, labs and imaging personally reviewed Coding Level of Care Code Critical Care 1st 30-74 mins Diagnoses Septic shock A41.9; R65.21 Multiple system atrophy G90.3 Tachycardia R00.0 Time Spent (min) 43
--- NOTE | 2021-01-22 20:26 | XRay Report ---
XR chest 1V portable CLINICAL HISTORY: s/p IJ COMPARISON STUDY: January 22, 2021 at 10:54 hours FINDINGS: No pneumothorax. No pleural effusion. Redemonstration of linear densities at the left lower lung which could represent scattered atelectasi s and/or scarring. Redemonstration of diffuse prominence of pulmonary interstitium, mostly within the right upper lung. Cardiomediastinal silhouette is stable, within upper limits of normal. Aorta is tortuous and calcifie d. No significant pulmonary vascular congestion.. Osseous structures: Degenerative changes of the spine. Interval placement of right-sided central venous catheter with tip projecting within at the atriocava l junction. IMPRESSION: 1. Interval placement of right-sided sided central venous catheter with tip projecting to the anatom ical region of the atriocaval junction. No evidence of pneumothorax. 2. The rest of findings as above. ACT 112: Negative or not required by law. The above report was generated using voice recognition software. It may contain grammatical, syntax o r spelling errors. Electronically signed by: Chelita Husain DO 01/22/2021 8:25 PM
[2021-01-22 20:53] LABS: iSTAT Allen Test Pass; iSTAT Arterial Blood Gas HCO3 19 meg/L (19-24); iSTAT Arterial Blood Gas pCO2 46 mmHg (35-46); iSTAT Arterial Blood Gas pH 7.24 (7.35-7.45); iSTAT Arterial Blood Gas pO2 84 mmHg (80-95); iSTAT Carbon Dioxide 21 mmol/L (24-31); iSTAT Site L Radial
[2021-01-22] MEDS ORDERED: VASOPRESSIN 20 UNITS in 0.9 % SODIUM CHLORIDE 100 ML IV SCH (21:00)
--- NOTE | 2021-01-22 21:01 | Procedure Note ---
Procedure Note Date of Service January 22, 2021 Note INTERNAL JUGULAR CENTRAL LINE PROCEDURE NOTE: Procedure: Internal Jugular Central Line Placement Indication: Central Drug Administration, Poor Venous Access, Multiple Lab Draws Necessary, etc. Anesthesia: 8 ml Lidocaine 1% Emergent consent was implied given the patient's septic shock state. I was able to discuss the need for central line placement with the patient briefly. I went over the risks and benefits and she did verbally consent. A time-out was completed verifying correct patient, procedure, site, positioning, and implants(s) or special equipment if applicable. Patients right neck was cleansed and draped in the typical sterile fashion using Chloraprep. The Internal Jugular Vein and Carotid Artery were identified using ultrasound. The superficial tissue was anesthetized using 8 mL of 1% lidocaine without epin ephrine under direct visualization with the ultrasound. After adequate anesthetization was achieved, the Internal Jugular vein was cannulated under direct ultrasound guidance using an introducer needle on a syringe. Good venous blood return was maintained prior to removal of syringe from introducer needle. Using Seldinger Technique, a guide wire was advanced through the introducer needle without resistance. The introducer needle was removed and ultrasound images were obtained of the guide wire within the Internal Jugular Vein and saved to the patients medical record. A small incision was made in penetrating fashion at the guide wire insertion site utilizing an 11 blade scalpel. The dilator was advanced to the vessel without resistance. The dilator was exchanged for the triple lumen catheter which was advanced into the vessel without resistance. The guide wire was removed intact from the catheter without issue. Claves were placed on each catheter tip with confirmation of good blood flow from each lumen. Each port was easily flushed with sterile saline. The catheter was placed at 16 cm and sut[address] in place. BioPatch was applied to the catheter and a sterile Tegaderm dressing was applied over the catheter with careful attention to sterility. Patient tolerated procedure well. No immediate complications were met. Post procedure x-ray was completed, placement was appropriate and no pneumothorax was noted. Images obtained are saved for permanent record Coding CPT Codes Tubes, Drains, and Vasc Access - Tubes, Drains, and Vasc Access: [id number] Place catheter in vein superior or inferior vena cava ([id number]) Tubes, Drains, and Vasc Access - Tubes, Drains, and Vasc Access: [id number] Ultrasound Guidance For Vascular ([id number]) [facility] Procedure Codes (Charges) Tubes, Drains, and Vasc Access Procedure 1: Tubes, Drains, and Vasc Access: [id number] Place catheter in vein superior or inferior vena cava Procedure 2: Tubes, Drains, and Vasc Access: [id number] Ultrasound Guidance For Vascular
[2021-01-22] MEDS: metroNIDAZOLE 500 MG/100 ML BAG IV SCH (21:03)
[2021-01-22] MEDS: HYDROCORTISONE SOD 50 MG in SYRINGE 0 ML IV SCH (21:04)
[2021-01-22] MEDS: MIDODRINE HCL 2.5 MG TAB PO SCH (21:48)
[2021-01-22] MEDS: DOCUSATE SODIUM/SENNA 50/8.6MG TAB PO SCH (21:49)
[2021-01-22 22:11] LABS: BUN Creatinine Ratio 20.5 (10-20); Calcium 8.5 mg/dl (8.5-10.1); Creatinine Clr Calc Pharmacy 23.4 ml/min; Est GFR (Non-African American) 22.4 ml/min
[2021-01-22 22:13] LABS: Magnesium 1.6 mg/dl (1.8-2.4); Phosphorus 4.2 mg/dl (2.5-4.9); Thyroid Stimulating Hormone 0.269 uIu/ml (0.300-4.500)
[2021-01-22 22:16] LABS: Potassium 3.6 mmol/L (3.5-5.1)
[2021-01-22 22:26] LABS: T4 Free Thyroxine 1.46 ng/dl (0.8-1.6)
[2021-01-22] MEDS: LACTATED RINGER'S 1,000 ML IV SCH (22:43)
[2021-01-22] MEDS: ACETAMINOPHEN 1,000 MG/100 ML VIAL IV PRN (23:52)
[2021-01-22] MEDS: MAGNESIUM SULFATE / D5W 1 GM/100 ML BAG IV SCH (23:52)
[2021-01-22] MEDS: POTASSIUM CHLORIDE / WTR 10 MEQ/100 ML PLCT IV SCH (23:52)
[2021-01-23] MEDS: POTASSIUM CHLORIDE / WTR 10 MEQ/100 ML PLCT IV SCH (01:01)
[2021-01-23] MEDS: MAGNESIUM SULFATE / D5W 1 GM/100 ML BAG IV SCH (01:55)
[2021-01-23] MEDS: HYDROCORTISONE SOD 50 MG in SYRINGE 0 ML IV SCH ×3 (01:56→20:30)
[2021-01-23] MEDS: metroNIDAZOLE 500 MG/100 ML BAG IV SCH ×3 (04:09→20:30)
[2021-01-23] MEDS: PHENYLEPHRINE HCL 20 MG in DEXTROSE 5% 500 ML IV SCH (04:51)
[2021-01-23 05:27] LABS: Basophils # (auto) 0.01 K/uL (0-0.2); Basophils % (auto) 0.1 %; Hematocrit (blood only) 34.5 % (37-47); Hemoglobin 11.2 g/dL (12.0-16.0); Immature Granulocytes # (auto) 0.02 K/uL (0.00-0.02); Immature Granulocytes % (auto) 0.2 %; Lymphocytes # (auto) 0.71 K/uL (1.2-3.4); Lymphocytes % (auto) 5.5 %; Mean Corpuscular Hgb Conc 32.5 g/dL (32-36); Mean Corpuscular Volume 98.6 fL (80-100); Mean Platelet Volume 8.7 fL (7.4-10.4); Monocytes # (auto) 0.38 K/uL (0.11-0.59); Monocytes % (auto) 2.9 %; Neutrophils # (auto) 11.81 K/uL (1.4-6.5); Neutrophils % (auto) 91.3 %; Platelet Count 235 K/uL (130-400); RDW Coefficient of Variation 13.5 % (11.5-14.5); RDW Standard Deviation 48.1 fL (36.4-46.3); White Blood Count 12.93 K/uL (4.8-10.8)
[2021-01-23] MEDS: LEVOTHYROXINE SODIUM 75 MCG TABLET PO SCH (05:44)
[2021-01-23 06:24] LABS: Bilirubin Direct 0.1 mg/dl (0-0.2); Bilirubin,Total 0.5 mg/dl (0.2-1); Calcium 8.2 mg/dl (8.5-10.1); Creatinine Clr Calc Pharmacy 43.3 ml/min; Est GFR (African American) 54.3 ml/min; Est GFR (Non-African American) 46.9 ml/min; Magnesium 2.5 mg/dl (1.8-2.4); Phosphorus 2.7 mg/dl (2.5-4.9); Total Protein 5.7 gm/dl (6.4-8.2)
--- NOTE | 2021-01-23 07:32 | XRay Report ---
XR chest 1V portable CLINICAL HISTORY: f/u COMPARISON STUDY: Chest radiograph January 22, 2021. FINDINGS: Tip of right internal jugular central line projects over the cavoatrial junction. Cardiomeg liss is unchanged. There is no evidence for pulmonary edema. Linear bibasilar opacities favor atelecta sis. There is no consolidation. There is no pneumothorax or pleural effusion. IMPRESSION: 1. No consolidation to suggest pneumonia. Linear bibasilar opacities suggestive of atelectasis. 2. Mild cardiomegaly without evidence for pulmonary edema. ACT 112: Negative or not required by law. Electronically signed by: Jonathan Choe M.D. 01/23/2021 7:31 AM
[2021-01-23] MEDS: MIDODRINE HCL 2.5 MG TAB PO SCH ×2 (07:38→17:38)
[2021-01-23] MEDS: POLYETHYLENE (MIRALAX) 17 GM PACK PO SCH (07:38)
[2021-01-23] MEDS: DOCUSATE SODIUM/SENNA 50/8.6MG TAB PO SCH ×2 (07:38→20:29)
[2021-01-23] MEDS: LACTATED RINGER'S 1,000 ML IV SCH ×2 (10:22→17:38)
[2021-01-23] MEDS ORDERED: CEFEPIME 1,000 MG in SYRINGE 0 ML IV SCH (11:00)
--- NOTE | 2021-01-23 13:31 | Critical Care Progress Note ---
Date of Service January 23, 2021 Assessment & Plan (1) Septic shock: (2) Multiple system atrophy: (3) Tachycardia: Plan: 70-year-old Fe male with a history of multisystem atrophy, Parkinson syndrome, hypertension and bedbound state presenting to the hospital due to shock. Neurologic: No focal deficits at this time. Chronic left upper extremity spasticity Does have history of Parkinson's but not taking any medication Pulmonary: Saturating well Chest x-ray does not shows linear atelectasis on the left lower lobe Cardiovascular: --Hypotension Likely septic Continue with broad-spectrum antibiotics Gastrointestinal: Proctitis noted on CT abdomen. Abdominal pain Renal: -- SLOAN Improving Monitor BUN/creatinine Avoid nephrotoxic medications Strict ins and outs Infectious disease: Nasal MRSA negative COVID-19 PCR negative, procalcitonin 0.17--> 0.14 Follow-up septic work-up UA appears dirty history of recent UTI with E. Faecalis Continue with Flagyl and cefepime for possible intra-abdominal/urinary source Hematologic: No issues Endocrine: TSH earlier this month checked within normal limits. Hyperglycemia protocol per ICU pharmacy. Random cortisol 138 but it was 30 minutes after getting hydrocortisone --Prophylaxis VTE: Heparin GI: None Lines:Right IJ placed on 12/22/2020. Uribe catheter in place. Diet: Regular Plan: In/out +2.2 L, urine output 4100 We will increase the midodrine to 5 mg twice daily Try to titrate off but will decrease the hydrocortisone to BID gradually titrate off Try to taper off I have personally spent 38 minutes of critical care time in the direct management of this patient. This is a life/limb threatening event. This includes time spent evaluating patient, direct bedside care, chart review, placing orders, interpretation of diagnostic studies, discussion with consultants, patient, and family members, as well as other required patient management activities. This time is exclusive of all separately billable procedures, and teaching time and separate from and in addition to any other critical care service time. Thank you for allowing us to participate in the care of this patient. Admission and Anticipated Discharge Date Admission Date: January 22, 2021 Subjective Patient seen and examined at bedside. No acute distress, no adverse events overnight. Patient was on low-dose phenylephrine at the time of examination Her map was in the 70s. Patient denies any chest pain, no abdominal pain, no Fair appetite No nausea or vomiting. Review of Systems Review of Systems: All systems reviewed & are unremarkable except as noted in Subjective Physical Exam Physical Exam: Constitutional: No acute distress HEENT: EOMI, PERRLA Respiratory system: Good air entry bilaterally, no wheeze, no rhonchi, positive crackles bilateral lower lobes CVS: S1-S2 positive, no murmurs or gallops Abdomen: Soft, nontender, nondistended, positive bowel sounds x4 Extremities: +2 pulses bilaterally radialis/ dorsalis pedis, no cyanosis, +1 pitting edema bilateral lower extremity, upper extremity spastic Neuro: Awake alert oriented x3 Psych: Normal mood and affect G/U: Positive Uribe Skin: no rashes, warm and dry Lymphatic: no cervical or axillary lymphadenopathy Results & Data Results & Data ([facility]) Vital Signs (Past 12 Hours) Vital Signs Temp Pulse Resp BP Pulse Ox 01/23/21 12:31 97 H 14 136/66 96 01/23/21 11:31 96 H 13 137/60 97 01/23/21 10:31 97 H 12 133/63 96 01/23/21 09:31 90 11 L 164/83 H 98 01/23/21 08:31 94 H 14 148/82 H 97 01/23/21 08:00 36.9 C 01/23/21 07:31 107 H 12 89/55 L 97 01/23/21 07:01 96 H 13 126/79 98 01/23/21 05:51 91 H 22 149/76 H 97 01/23/21 05:46 90 25 H 143/75 H 97 01/23/21 05:41 82 15 154/84 H 97 01/23/21 05:36 83 14 151/81 H 97 01/23/21 05:31 84 18 160/85 H 98 01/23/21 05:26 82 16 155/84 H 97 01/23/21 05:21 82 18 154/84 H 97 01/23/21 05:16 82 16 144/78 H 97 01/23/21 05:11 83 18 145/77 H 97 01/23/21 05:06 82 13 146/80 H 97 01/23/21 05:01 83 14 139/75 97 01/23/21 04:56 82 13 113/67 97 01/23/21 04:51 83 14 105/61 96 01/23/21 04:46 84 17 97/58 L 96 01/23/21 04:41 85 12 93/55 L 96 01/23/21 04:36 87 17 89/45 L 96 01/23/21 04:31 90 18 100/52 L 96 01/23/21 04:26 92 H 15 141/65 H 96 01/23/21 04:21 95 H 16 155/72 H 96 01/23/21 04:16 96 H 13 156/76 H 96 01/23/21 04:11 94 H 15 149/73 H 96 01/23/21 04:08 36.5 C 01/23/21 04:06 94 H 13 148/71 H 96 01/23/21 04:01 95 H 12 150/72 H 96 01/23/21 03:56 94 H 15 138/63 96 01/23/21 03:51 92 H 16 142/66 H 96 01/23/21 03:46 92 H 14 148/68 H 96 01/23/21 03:41 92 H 13 147/71 H 96 01/23/21 03:36 94 H 13 151/71 H 96 01/23/21 03:31 93 H 14 145/73 H 96 01/23/21 03:26 96 H 14 146/67 H 96 01/23/21 03:21 98 H 16 140/66 96 01/23/21 03:20 100 H 22 97 01/23/21 03:16 96 H 21 130/65 96 01/23/21 03:11 94 H 22 111/82 97 01/23/21 03:06 95 H 18 146/77 H 97 01/23/21 03:01 95 H 16 148/68 H 97 01/23/21 02:56 95 H 18 139/74 97 01/23/21 02:51 95 H 17 147/65 H 97 01/23/21 02:46 96 H 20 141/66 H 97 01/23/21 02:41 96 H 15 139/63 97 01/23/21 02:38 100 H 22 97 01/23/21 02:36 100 H 18 133/63 96 01/23/21 02:31 97 H 22 118/74 97 01/23/21 02:26 96 H 19 141/67 H 96 01/23/21 02:21 95 H 23 141/65 H 97 01/23/21 02:16 95 H 26 H 139/67 97 01/23/21 02:11 95 H 13 128/61 96 01/23/21 02:06 94 H 18 86/48 L 96 01/23/21 02:01 93 H 16 98/52 L 96 01/23/21 01:56 96 H 21 132/60 97 01/23/21 01:51 97 H 18 130/62 97 01/23/21 01:46 97 H 24 127/62 97 01/23/21 01:41 98 H 23 129/60 97 01/23/21 01:36 98 H 19 124/60 97 01/23/21 01:31 98 H 16 127/65 97 01/23/21 01:26 99 H 20 123/63 97 01/23/21 04:45 01/23/21 04:45 Coding Level of Care Code Critical Care 1st 30-74 mins Diagnoses Septic shock A41.9; R65.21 Multiple system atrophy G90.3 Tachycardia R00.0 Time Spent (min) 38
[2021-01-23] MEDS: ACETAMINOPHEN 1,000 MG/100 ML VIAL IV PRN (14:04)
[2021-01-23] MEDS ORDERED: CEFEPIME 1,000 MG in SYRINGE 0 ML IV ONE (14:15)
--- NOTE | 2021-01-23 15:10 | Hospitalist Progress Note ---
Date of Service January 23, 2021 Assessment & Plan (1) Acute respiratory failure with hypoxia: (2) Hypotension: Plan: Chief Complaint: Sent from [facility] for worsening renal function and hypotension Primary Care Provider: Ronit White MD per admitting service notes: 70 year old female with PMH hypothyroidism, orthostatic hypotension, multiple system atrophy, and other problems listed below who presents to the ED from [facility] for eval of worsening renal function and hypotension. Patient recently admitted to [facility] 01/09 - 01/19 for metabolic encephalopathy due to UTI. Patient was discharged to [facility] for rehab. During previous admission, patient's urine culture grew Enterococcus for which she received 9 days of appropriate antibiotics for. Septic Shock per admitting service notes: -Patient sent to the ED from [facility] for evaluation of acute renal failure and hypotension -Recently admitted to [facility] 01/09 - 01/19 for metabolic encephalopathy due to UTI. Urine culture grew Enterococcus which patient received appropriate antibiotic course for. -01/12 creatinine 0.5 -> 01/21 1.9 -> 01/22 3.3 -In the ED, patient hypoxic on room air at 86%, currently requiring 4 L of oxygen via nasal cannula, also hypotensive and tachycardic. Given tachypnea and shallow breaths, concern for rapid respiratory decompensation. Has underlying profound generalized weakness -D-dimer 2300, BL LE Doppler negative for DVT. Consider VQ scan (unable to do CTA due to SLOAN) -WBC 12 K, lactate 1.6 - CXR: no infiltrates Ct abd/pelvis: 1. Limited exam as above. Probable punctate left renal calculus. No ureteral calculi or hydroureteronephrosis. 2. Mild rectal wall thickening with perirectal stranding. This may represent a nonspecific proctitis however should be correlated with a follow-up colonoscopy to exclude the less likely possibility of an underlying lesion. 3. Trace pleural effusions with mild dependent bibasilar atelectasis. 4. No bowel obstruction. - cultures pending - required Levophed, Vasopressin-- > weaned off Hydrocortisone also started on usual Midodrine - improving continue Cefepime + Flagyl Acute renal failure: Plan: -01/12 creatinine 0.5 -> 16 1.9 -> 01/22 3.3 -Likely prerenal in nature due to dehydration/acute illness -No signs of ureteral obstruction on CT - IV fluids given crea improved from 3.3 to 1.19 Nephro consulted Acute Respiratory Failure with Hypoxia - CXR no signs of pneumonia - continue to wean off Oxygen Hypothyroid: Plan: -Continue levothyroxine Multiple system atrophy Plan: -resume gabapentin, cyclobenzaprine, and Requip Orthostatic hypotension Plan: -Hypotensive as above -Continue midodrine DVT prophylaxis: Plan: -SQ heparin Admission and Anticipated Discharge Date Admission Date: January 22, 2021 Subjective ff up for hypotension, etc seen resting in bed, comfortable awake, alert, oriented x 2 states she feels tired but otherwise ok denies headache, dizziness, chest pain, dyspnea, palpitations no abdominal pain, nausea/vomiting no urinary symptoms no other symptoms Review of Systems Review of Systems: all noted and negative except for above Physical Exam Physical Exam: General- oriented x 2, not in distress, speaks in sentences with no effort or accessory muscle use Head- atraumatic Eyes- PERRL, EOMI, anicteric ENT- oropharynx clear Neck- supple, no JVD, no adenopathy, no thyromegaly; carotids +2/2, no bruits appreciated Lungs- clear to auscultation bilaterally, no rales/wheezes Heart- normal rate, regular rhythm; no murmur, no gallop, no rub appreciated Abdomen- normal bowel sounds, nondistended, soft, nontender, no masses or hepatosplenomegaly Extremities- no pretibial edema, no calf tenderness; peripheral pulses intact Neuro- alert, oriented x 2; CN 2-12 grossly intact; motor 5/5 bilaterally;sensation 100% on all extremities; no other gross focal neurologic deficits (+) spastic L upper Ext Skin- warm & dry Results & Data Results & Data ([facility]) Vital Signs (Past 12 Hours) Vital Signs Temp Pulse Resp BP Pulse Ox 01/23/21 13:31 100 H 13 126/62 96 01/23/21 12:31 97 H 14 136/66 96 01/23/21 11:31 96 H 13 137/60 97 01/23/21 10:31 97 H 12 133/63 96 01/23/21 09:31 90 11 L 164/83 H 98 01/23/21 08:31 94 H 14 148/82 H 97 01/23/21 08:00 36.9 C 01/23/21 07:31 107 H 12 89/55 L 97 01/23/21 07:01 96 H 13 126/79 98 01/23/21 05:51 91 H 22 149/76 H 97 01/23/21 05:46 90 25 H 143/75 H 97 01/23/21 05:41 82 15 154/84 H 97 01/23/21 05:36 83 14 151/81 H 97 01/23/21 05:31 84 18 160/85 H 98 01/23/21 05:26 82 16 155/84 H 97 01/23/21 05:21 82 18 154/84 H 97 01/23/21 05:16 82 16 144/78 H 97 01/23/21 05:11 83 18 145/77 H 97 01/23/21 05:06 82 13 146/80 H 97 01/23/21 05:01 83 14 139/75 97 01/23/21 04:56 82 13 113/67 97 01/23/21 04:51 83 14 105/61 96 01/23/21 04:46 84 17 97/58 L 96 01/23/21 04:41 85 12 93/55 L 96 01/23/21 04:36 87 17 89/45 L 96 01/23/21 04:31 90 18 100/52 L 96 01/23/21 04:26 92 H 15 141/65 H 96 01/23/21 04:21 95 H 16 155/72 H 96 01/23/21 04:16 96 H 13 156/76 H 96 01/23/21 04:11 94 H 15 149/73 H 96 01/23/21 04:08 36.5 C 01/23/21 04:06 94 H 13 148/71 H 96 01/23/21 04:01 95 H 12 150/72 H 96 01/23/21 03:56 94 H 15 138/63 96 01/23/21 03:51 92 H 16 142/66 H 96 01/23/21 03:46 92 H 14 148/68 H 96 01/23/21 03:41 92 H 13 147/71 H 96 01/23/21 03:36 94 H 13 151/71 H 96 01/23/21 03:31 93 H 14 145/73 H 96 01/23/21 03:26 96 H 14 146/67 H 96 01/23/21 03:21 98 H 16 140/66 96 01/23/21 03:20 100 H 22 97 01/23/21 03:16 96 H 21 130/65 96 01/23/21 03:11 94 H 22 111/82 97 01/23/21 03:06 95 H 18 146/77 H 97 all noted and reviewed including below
[2021-01-23] MEDS: rOPINIRole HCL 2 MG TABLET PO SCH (16:28)
[2021-01-23] MEDS: rOPINIRole HCL 1 MG TABLET PO SCH (16:28)
[2021-01-23] MEDS: GABAPENTIN 300 MG CAP PO SCH (20:29)
[2021-01-23] MEDS: CYCLOBENZAPRINE HCL 10 MG TAB PO SCH (20:29)
[2021-01-23] MEDS: HEPARIN SOD 5,000 UNIT/0.5 ML VIAL SQ SCH (20:30)
[2021-01-24] MEDS: metroNIDAZOLE 500 MG/100 ML BAG IV SCH (04:03)
[2021-01-24] MEDS: LACTATED RINGER'S 1,000 ML IV SCH ×2 (04:09→13:59)
[2021-01-24 05:00] LABS: Basophils # (auto) 0.01 K/uL (0-0.2); Basophils % (auto) 0.1 %; Eosinophils # (auto) 0.03 K/uL (0-0.5); Eosinophils % (auto) 0.3 %; Hemoglobin 10.4 g/dL (12.0-16.0); Immature Granulocytes # (auto) 0.04 K/uL (0.00-0.02); Immature Granulocytes % (auto) 0.4 %; Lymphocytes # (auto) 0.81 K/uL (1.2-3.4); Mean Corpuscular Hemoglobin 31.6 pg (25-34); Mean Corpuscular Hgb Conc 33.5 g/dL (32-36); Mean Corpuscular Volume 94.2 fL (80-100); Mean Platelet Volume 8.6 fL (7.4-10.4); Monocytes # (auto) 0.67 K/uL (0.11-0.59); Monocytes % (auto) 6.6 %; Neutrophils # (auto) 8.52 K/uL (1.4-6.5); Neutrophils % (auto) 84.6 %; Platelet Count 168 K/uL (130-400); RDW Coefficient of Variation 13.1 % (11.5-14.5); RDW Standard Deviation 45.3 fL (36.4-46.3); Red Blood Count 3.29 M/uL (4.2-5.4); White Blood Count 10.08 K/uL (4.8-10.8)
[2021-01-24 05:58] LABS: Albumin Level 2.6 gm/dl (3.4-5.0); BUN Creatinine Ratio 24.9 (10-20); Bilirubin Direct 0.1 mg/dl (0-0.2); Bilirubin,Total 0.5 mg/dl (0.2-1); Calcium 8.1 mg/dl (8.5-10.1); Creatinine Clr Calc Pharmacy 97.3 ml/min; Est GFR (African American) 113.1 ml/min; Est GFR (Non-African American) 97.6 ml/min; Magnesium 1.6 mg/dl (1.8-2.4); Phosphorus 1.3 mg/dl (2.5-4.9); Potassium 3.7 mmol/L (3.5-5.1); Total Protein 5.2 gm/dl (6.4-8.2)
[2021-01-24] MEDS: LEVOTHYROXINE SODIUM 75 MCG TABLET PO SCH (06:32)
[2021-01-24] MEDS ORDERED: POTASSIUM PHOS 3 MMOL/1 ML INFUSION IV STA (06:43)
[2021-01-24] MEDS ORDERED: POTASSIUM PHOSPHATE 21 MMOL in SODIUM CHLORIDE 0.9% 500 ML IV ONE (07:00)
[2021-01-24] MEDS: PHENYLEPHRINE HCL 20 MG in DEXTROSE 5% 500 ML IV SCH (07:33)
[2021-01-24] MEDS: NOREPINEPHRINE/D5W 8 MG/508 ML BAG IV SCH (07:33)
[2021-01-24] MEDS: DOCUSATE SODIUM/SENNA 50/8.6MG TAB PO SCH ×2 (08:03→20:08)
[2021-01-24] MEDS: GABAPENTIN 300 MG CAP PO SCH ×3 (08:03→20:08)
[2021-01-24] MEDS: rOPINIRole HCL 1 MG TABLET PO SCH ×3 (08:03→17:09)
[2021-01-24] MEDS: rOPINIRole HCL 2 MG TABLET PO SCH ×3 (08:03→17:08)
[2021-01-24] MEDS: CYCLOBENZAPRINE HCL 10 MG TAB PO SCH ×2 (08:04→20:07)
[2021-01-24] MEDS: HEPARIN SOD 5,000 UNIT/0.5 ML VIAL SQ SCH ×2 (08:04→20:09)
[2021-01-24] MEDS: MIDODRINE HCL 2.5 MG TAB PO SCH ×2 (08:04→17:09)
[2021-01-24] MEDS: POLYETHYLENE (MIRALAX) 17 GM PACK PO SCH (08:05)
[2021-01-24] MEDS: HYDROCORTISONE SOD 50 MG in SYRINGE 0 ML IV SCH (08:06)
[2021-01-24] MEDS ORDERED: VANCOMYCIN HCL 2,000 MG in SODIUM CHLORIDE 0.9% 500 ML IV STA (08:45)
[2021-01-24] MEDS ORDERED: VANCOMYCIN CONSULT ACTIVE PRN (08:46)
--- NOTE | 2021-01-24 08:47 | Critical Care Progress Note ---
Date of Service January 24, 2021 Assessment & Plan (1) Septic shock: (2) Multiple system atrophy: (3) Tachycardia: Plan: 70-year-old Fe male with a history of multisystem atrophy, Parkinson syndrome, hypertension and bedbound state presenting to the hospital due to shock. Neurologic: No focal deficits at this time. Chronic left upper extremity spasticity Does have history of Parkinson's but not taking any medication Pulmonary: Saturating well Chest x-ray does not shows linear atelectasis on the left lower lobe Cardiovascular: --S/p septic shock from bacteremia Likely septic Continue with broad-spectrum antibiotics Gastrointestinal: Proctitis noted on CT abdomen. Abdominal pain Renal: -- S/p SLOAN Improving Monitor BUN/creatinine Avoid nephrotoxic medications Strict ins and outs Infectious disease: Gram-positive cocci in clusters --> MRSA negative Nasal MRSA negative COVID-19 PCR negative, procalcitonin 0.17--> 0.14 Follow-up septic work-up UA appears dirty history of recent UTI with E. Faecalis Hematologic: No issues Endocrine: TSH earlier this month checked within normal limits. Hyperglycemia protocol per ICU pharmacy. Random cortisol 138 but it was 30 minutes after getting hydrocortisone --Prophylaxis VTE: Heparin GI: None Lines:Right IJ placed on 12/22/2020. Uribe catheter in place. Diet: Regular Plan: In/out -427, Urine output 3900 Given that in the community staff is oxacillin resistant. I will give a dose of vancomycin. DC Flagyl Follow-up sensitivity Change hydrocortisone to once daily. Titrat it off in the next couple of days Increase midodrine back to 2.5 twice daily Hypophosphatemia and hypomagnesemia being replaced Rremove right IJ Okay to downgrade the patient to medical floor I have personally spent 35 minutes of critical care time in the direct management of this patient. This is a life/limb threatening event. This includes time spent evaluating patient, direct bedside care, chart review, placing orders, interpretation of diagnostic studies, discussion with consultants, patient, and family members, as well as other required patient management activities. This time is exclusive of all separately billable procedures, and teaching time and separate from and in addition to any other critical care service time. Admission and Anticipated Discharge Date Admission Date: January 22, 2021 Subjective Patient seen and examined at bedside. No acute distress, no adverse events overnight. Patient states that she is feeling better. Denies any chest pain, no shortness of breath. Does complain of pain in the left shoulder and left leg. This is chronic Good appetite. No dizziness. Review of Systems Review of Systems: All systems reviewed & are unremarkable except as noted in Subjective Physical Exam Physical Exam: Constitutional: No acute distress HEENT: EOMI, PERRLA Respiratory system: Good air entry bilaterally, no wheeze, no rhonchi, positive crackles bilateral lower lobes CVS: S1-S2 positive, no murmurs or gallops Abdomen: Soft, nontender, nondistended, positive bowel sounds x4 Extremities: +2 pulses bilaterally radialis/ dorsalis pedis, no cyanosis, +1 pitting edema bilateral lower extremity, left upper extremity spastic Neuro: Awake alert oriented x3 Psych: Normal mood and affect G/U: Positive Uribe Skin: no rashes, warm and dry Lymphatic: no cervical or axillary lymphadenopathy Results & Data Results & Data ([facility]) Vital Signs (Past 12 Hours) Vital Signs Temp Pulse Resp BP Pulse Ox 01/24/21 08:31 100 H 12 155/90 H 94 01/24/21 07:31 36.8 C 106 H 18 161/81 H 94 01/24/21 06:31 103 H 15 147/71 H 94 01/24/21 05:31 99 H 16 143/69 H 95 01/24/21 04:31 99 H 14 144/73 H 94 01/24/21 03:31 97 H 16 145/68 H 93 01/24/21 02:31 100 H 15 132/64 93 01/24/21 01:31 100 H 14 135/73 94 01/24/21 00:31 98 H 14 125/70 93 01/23/21 23:31 101 H 18 129/64 93 01/23/21 23:30 99 H 01/23/21 22:31 98 H 14 130/64 95 01/23/21 21:31 95 H 12 115/53 L 95 01/24/21 04:35 01/24/21 04:35 Coding Level of Care Code 13146 Subseq Hosp Care Lvl 3 Diagnoses Septic shock A41.9; R65.21 Multiple system atrophy G90.3 Tachycardia R00.0
[2021-01-24] MEDS: MAGNESIUM SULFATE / D5W 1 GM/100 ML BAG IV SCH ×2 (09:27→10:57)
--- NOTE | 2021-01-24 10:45 | Pharmacy Report ---
Pharmacy Abx Dose Short Note - Date of Service January 24, 2021 - Assessment & Plan Assessment 70 year old F receiving IV Vancomycin and Cefepime (not a consult) for treatment of GPC bacteremia; also with possible infectious process from GI/urinary source Day # 1 of antimicrobial therapy (although has been on Cefepime since admission 01/22) * Initially presented in SLOAN; sCr was 3.58 mg/dL, now improved back to 0.53 mg/dL, which is around her baseline of ~0.6 mg/dL. Estimated CrCl at this time 97 mL/min. Estimated pharmacokinetic parameters: * Ke ~0.085/hr, T1/2 ~8.1 hrs * According [facility], a dosing regimen of Vancomycin 750mg IV q8 is predicted to produce a therapeutic trough level of 16.6 mg/dL, which will achieve AUC 400-600mg/L.hr with 12% risk for toxicity. * Blood cultures growing 2/2 Gram positive cocci in clusters; serology resulted negative MRSA, but there is community prevalence of oxacillin resistance, therefore Vancomycin being started. Plan Vancomycin * Give Vancomycin 2000mg (~26 mg/kg) IV x 1 as a loading dose * Initiate Vancomycin 750mg (9.8 mg/kg) IV q8 as maintenance regimen * Goal trough level for bacteremia : 15 to 20 mcg/mL * Trough level ordered for: 01/25/21 @ 0930 (prior to 3rd dose and therefore not reflective of steady state, but would like to assess dosing regimen earlier due to severity of infection and to confirm predicted pharmacokinetics) Pharmacy will continue to follow and will adjust dose/frequency as necessary. Thank you.
[2021-01-24] MEDS: CITALOPRAM 40 MG TAB PO SCH (10:57)
[2021-01-24] MEDS: CEFEPIME 2,000 MG in SYRINGE 0 ML IV SCH ×2 (10:59→22:19)
[2021-01-24] MEDS ORDERED: CEFEPIME 2,000 MG in SYRINGE 0 ML IV SCH (14:00)
--- NOTE | 2021-01-24 15:37 | Hospitalist Progress Note ---
Date of Service January 24, 2021 Assessment & Plan (1) Acute respiratory failure with hypoxia: (2) Hypotension: Plan: Chief Complaint: Sent from [facility] for worsening renal function and hypotension Primary Care Provider: Ronit White MD per admitting service notes: 70 year old female with PMH hypothyroidism, orthostatic hypotension, multiple system atrophy, and other problems listed below who presents to the ED from [facility] for eval of worsening renal function and hypotension. Patient recently admitted to [facility] 01/09 - 01/19 for metabolic encephalopathy due to UTI. Patient was discharged to [facility] for rehab. During previous admission, patient's urine culture grew Enterococcus for which she received 9 days of appropriate antibiotics for. Septic Shock likely secondary to Staph Bacteremia Buttock Ulcer per admitting service notes: -Patient sent to the ED from [facility] for evaluation of acute renal failure and hypotension -Recently admitted to [facility] 01/09 - 01/19 for metabolic encephalopathy due to UTI. Urine culture grew Enterococcus which patient received appropriate antibiotic course for. -01/12 creatinine 0.5 -> 01/21 1.9 -> 01/22 3.3 -In the ED, patient hypoxic on room air at 86%, currently requiring 4 L of oxygen via nasal cannula, also hypotensive and tachycardic. Given tachypnea and shallow breaths, concern for rapid respiratory decompensation. Has underlying profound generalized weakness -D-dimer 2300, BL LE Doppler negative for DVT. Consider VQ scan (unable to do CTA due to SLOAN) -WBC 12 K, lactate 1.6 - CXR: no infiltrates Ct abd/pelvis: 1. Limited exam as above. Probable punctate left renal calculus. No ureteral calculi or hydroureteronephrosis. 2. Mild rectal wall thickening with perirectal stranding. This may represent a nonspecific proctitis however should be correlated with a follow-up colonoscopy to exclude the less likely possibility of an underlying lesion. 3. Trace pleural effusions with mild dependent bibasilar atelectasis. 4. No bowel obstruction. - blood culture 01/22: Staph species repeat blood culture 01/24: Pending - required Levophed, Vasopressin-- > weaned off Hydrocortisone also started--> taper on usual Midodrine - improved transfer to [facility] 01/24 - continue Vanco + Cefepime ID consulted Wound care consult Acute renal failure: Plan: -01/12 creatinine 0.5 -> 01/21 1.9 -> 01/22 3.3 -Likely prerenal in nature due to dehydration/acute illness -No signs of ureteral obstruction on CT - IV fluids given crea improved from 3.3 to 0.5 Nephro consulted Acute Respiratory Failure with Hypoxia - CXR no signs of pneumonia - continue to wean off Oxygen Hypothyroid: Plan: -Continue levothyroxine Multiple system atrophy Plan: -resume gabapentin, cyclobenzaprine, and Requip Orthostatic hypotension Plan: -Hypotensive as above -Continue midodrine DVT prophylaxis: Plan: -SQ heparin Disposition pending Admission and Anticipated Discharge Date Admission Date: January 22, 2021 Subjective ff up for septic shock, etc seen resting in bed, comfortable in good spirits states she continues to feel improved compared to admission answers most questions appropriately denies headache, dizziness, chest pain, cough, palpitations, abdominal pain no changes with BM or urination no other symptoms Review of Systems Review of Systems: all noted and negative except for above Physical Exam Physical Exam: General- oriented x 3, not in distress, speaks in sentences with no effort or accessory muscle use Eyes- anicteric Neck- no JVD Lungs- clear BS BL no rales/wheezing Heart- normal rate, regular rhythm; no murmurs Abdomen- normal bowel sounds, nondistended, soft, nontender buttock- (+) 2 superficial ulcers above the cleft- no bleeding or discharge Extremities- no pretibial edema, no calf tenderness Neuro- alert, oriented x2 ; no gross focal neurologic deficits Skin- warm & dry Results & Data Results & Data ([facility]) Vital Signs (Past 12 Hours) Vital Signs Temp Pulse Resp BP Pulse Ox 01/24/21 13:31 96 H 18 129/67 92 01/24/21 12:31 95 H 16 156/83 H 01/24/21 11:31 93 H 17 150/79 H 92 01/24/21 10:31 99 H 15 153/84 H 01/24/21 09:31 96 H 16 165/92 H 94 01/24/21 08:31 100 H 12 155/90 H 94 01/24/21 08:00 103 H 01/24/21 07:31 36.8 C 106 H 18 161/81 H 94 01/24/21 06:31 103 H 15 147/71 H 94 01/24/21 05:31 99 H 16 143/69 H 95 01/24/21 04:31 99 H 14 144/73 H 94 all noted and reviewed including below
[2021-01-24] MEDS: VANCOMYCIN HCL 750 MG in SODIUM CHLORIDE 0.9% 250 ML IV SCH (17:09)
--- NOTE | 2021-01-24 19:12 | Electrocardiogram Report ---
Test Reason : Blood Pressure : / mmHG Vent. Rate : 123 BPM Atrial Rate : 123 BPM P-R Int : 150 ms QRS Dur : 088 ms QT Int : 344 ms P-R-T Axes : 029 -26 017 degrees QTc Int : 492 ms Poor data quality, interpretation may be adversely affected Sinus tachycardia Nonspecific ST abnormality Abnormal ECG When compared with ECG of 22-JAN-2021 10:46, Nonspecific T wave abnormality no longer evident in Anterior leads Confirmed by Kj Nelson ([id number]) on 01/24/2021 7:11:56 PM Referred By: REFERRED SELF Confirmed By:Kj Nelson
[2021-01-24] MEDS: ALPRAZolam 0.25 MG TABLET PO SCH (20:06)
[2021-01-24] MEDS: CETIRIZINE HCL 10 MG TABLET PO SCH (20:07)
[2021-01-25] MEDS: VANCOMYCIN HCL 750 MG in SODIUM CHLORIDE 0.9% 250 ML IV SCH ×3 (02:15→17:00)
[2021-01-25] MEDS: LEVOTHYROXINE SODIUM 75 MCG TABLET PO SCH (06:01)
[2021-01-25] MEDS: rOPINIRole HCL 1 MG TABLET PO SCH ×3 (08:18→16:49)
[2021-01-25] MEDS: HEPARIN SOD 5,000 UNIT/0.5 ML VIAL SQ SCH ×2 (08:18→20:47)
[2021-01-25] MEDS: CYCLOBENZAPRINE HCL 10 MG TAB PO SCH ×2 (08:18→20:49)
[2021-01-25] MEDS: rOPINIRole HCL 2 MG TABLET PO SCH ×3 (08:18→16:49)
[2021-01-25] MEDS: MIDODRINE HCL 2.5 MG TAB PO SCH ×2 (08:18→16:49)
[2021-01-25] MEDS: GABAPENTIN 300 MG CAP PO SCH ×3 (08:18→20:45)
[2021-01-25] MEDS: CITALOPRAM 40 MG TAB PO SCH (08:18)
[2021-01-25] MEDS: POLYETHYLENE (MIRALAX) 17 GM PACK PO SCH (08:20)
[2021-01-25] MEDS: DOCUSATE SODIUM/SENNA 50/8.6MG TAB PO SCH ×2 (08:20→20:49)
--- NOTE | 2021-01-25 08:28 | Consultation Report ---
NEPHROLOGY CONSULTATION NOTE DATE OF CONSULTATION: 01/23/2021. REASON FOR CONSULTATION: Acute renal failure. HISTORY OF PRESENT ILLNESS: The patient is a 70-year-old female who was admitted yesterday after she presented to the hospital because of low blood pressure and worsening kidney function. In fact, the patient was discharged following an admission for metabolic encephalopathy due to UTI just few days ago on 01/19/2021. Patient's creatinine at the baseline is completely normal, but on labs yesterday, she had a creatinine of 3.3. She was hypotensive prior to hospitalization for the last few days wit h blood pressure in the 80s. Since admission, she has received IV fluid and with that urine output h as increased dramatically and renal function has improved very promptly and is now down to 1.1. She has already had a CT abdomen and pelvis which was unremarkable. She is also getting empiric antibiot ics with IV cefepime and IV vancomycin. PAST MEDICAL AND SURGICAL HISTORY: Includes parkinsonism, anxiety, hypothyroidism, depression, multi ple system atrophy, orthostatic hypotension, hyperlipidemia, anxiety. PAST SURGICAL HISTORY: Hysterectomy. FAMILY HISTORY: Unremarkable for renal disease or dialysis. SOCIAL HISTORY: The patient has never smoked. No alcohol. She is now at [facility], lives wit h her and daughter. REVIEW OF SYSTEMS: As detailed in HPI, unless stated otherwise 12 systems reviewed and negative. ALLERGIES: List was reviewed in detail and is as per the reconciliation list. HOME MEDICATIONS: List was also reviewed in detail and is as per the reconciliation list. She denie s taking any NSAIDs or any diuretics. PHYSICAL EXAMINATION: GENERAL: Elderly white female who is awake, alert, oriented x3. VITAL SIGNS: Blood pressure is 129/58. At this time, pulse 99, temperature 36.9, 95% on 2 liters luis al cannula. Mucous membrane is moist. NECK: Supple. No jugular venous distention. CHEST: Bilaterally clear to auscultation, but occasional wheezing heard. CARDIOVASCULAR: S1 and S2, regular. ABDOMEN: Soft, nontender. EXTREMITIES: Show no edema. SKIN: Shows no rashes. LABORATORY TEST: Reviewed in detail. Her creatinine was 0.6 as of 01/12/2021, which would be 10 day s prior to hospitalization. On admission yesterday she had a creatinine of 3.58, but by this morning it is already down to 1.19. Most recent blood work shows BUN 29, creatinine 1.19, sodium 142, potas sium 4, chloride 113, CO2 26, calcium 8.2, magnesium 2.5. CT abdomen and pelvis did not show any hyd ronephrosis. There were some punctate nonobstructive calculus. Chest x-ray was unremarkable. ASSESSMENT AND PLAN: A 70-year-old female with completely normal baseline creatinine, but does have atypical severe Parkinson disease. She presented to the hospital with hypotension and acute renal fa ilure. I have been consulted for management of acute renal failure. Acute renal failure, this is prerenal in etiology secondary to prolonged hypotension prior to hospita lization. However, she has improved very promptly and her creatinine is now almost totally normal an d is coming down very fast. She is also making a lot of urine, which is also very helpful. I think no further workup needed and I expect her creatinine to get even better tomorrow. We should be able to stop the IV fluid by tomorrow. No further workup is needed for the etiology of acute renal failur e. At this time, we will sign off. Please call us if any new questions. Job ID: [id number]
[2021-01-25] MEDS ORDERED: HYDROCORTISONE SOD 50 MG in SYRINGE 0 ML IV SCH (09:00)
[2021-01-25] MEDS ORDERED: VANCOMYCIN TROUGH ONE (09:30)
[2021-01-25 09:42] LABS: Basophils # (auto) 0.01 K/uL (0-0.2); Basophils % (auto) 0.2 %; Eosinophils # (auto) 0.19 K/uL (0-0.5); Eosinophils % (auto) 2.9 %; Hematocrit (blood only) 30.9 % (37-47); Hemoglobin 10.4 g/dL (12.0-16.0); Immature Granulocytes # (auto) 0.02 K/uL (0.00-0.02); Immature Granulocytes % (auto) 0.3 %; Lymphocytes # (auto) 0.87 K/uL (1.2-3.4); Lymphocytes % (auto) 13.1 %; Mean Corpuscular Hemoglobin 31.6 pg (25-34); Mean Corpuscular Hgb Conc 33.7 g/dL (32-36); Mean Corpuscular Volume 93.9 fL (80-100); Mean Platelet Volume 8.4 fL (7.4-10.4); Monocytes # (auto) 0.27 K/uL (0.11-0.59); Monocytes % (auto) 4.1 %; Neutrophils # (auto) 5.29 K/uL (1.4-6.5); Neutrophils % (auto) 79.4 %; Platelet Count 156 K/uL (130-400); RDW Coefficient of Variation 13.1 % (11.5-14.5); RDW Standard Deviation 45.5 fL (36.4-46.3); Red Blood Count 3.29 M/uL (4.2-5.4); White Blood Count 6.65 K/uL (4.8-10.8)
[2021-01-25 10:19] LABS: Albumin Level 2.6 gm/dl (3.4-5.0); BUN Creatinine Ratio 21.4 (10-20); Bilirubin Direct 0.1 mg/dl (0-0.2); Bilirubin,Total 0.4 mg/dl (0.2-1); Calcium 8.1 mg/dl (8.5-10.1); Creatinine Clr Calc Pharmacy 102.2 ml/min; Est GFR (African American) 114.5 ml/min; Est GFR (Non-African American) 98.8 ml/min; Magnesium 1.7 mg/dl (1.8-2.4); Phosphorus 1.4 mg/dl (2.5-4.9); Total Protein 5.3 gm/dl (6.4-8.2)
[2021-01-25] MEDS: MAGNESIUM SULFATE / D5W 1 GM/100 ML BAG IV SCH ×2 (11:13→13:17)
[2021-01-25] MEDS: POTASSIUM CHLORIDE CRTAB 20 MEQ TABCR PO SCH ×2 (11:15→20:44)
--- NOTE | 2021-01-25 12:18 | Pharmacy Report ---
Pharmacy Vanc AUC Short Note - Date of Service January 25, 2021 - Assessment & Plan Assessment 70 year old F receiving vancomycin for treatment of bacteremia. Pertinent microbiologic data includes: blood culture growing Staph species. Blood PCR is negative for MRSA and Staph aureus. Day # 2 of antimicrobial therapy. Plan Vancomycin * AUC/AZUCENA is the preferred PK/PD target for vancomycin * AUC guided dosing is effective and associated with decreased risk of n ephrotoxicity compared to traditional trough targets * Trough level of 17.2 mcg/mL is predicted to achieve target AUC/AZUCENA of 400-600 mg/L.hr and may be associated with a 11 % risk of nephrotoxicity * Continue dose of 750 mg IV every 8 hours * Trough to be ordered based upon condition. Pharmacy will continue to follow and will adjust dose/frequency as necessary. Thank you.
[2021-01-25] MEDS: CEFEPIME 2,000 MG in SYRINGE 0 ML IV SCH (12:43)
[2021-01-25] MEDS: POT PHOSPHATE MONOBASIC W/ SOD TAB PO SCH ×3 (12:44→20:45)
[2021-01-25] MEDS: ACETAMINOPHEN 1,000 MG/100 ML VIAL IV PRN (14:16)
[2021-01-25] MEDS ORDERED: FUROSEMIDE 20 MG in SYRINGE 0 ML IV ONE (16:00)
--- NOTE | 2021-01-25 16:17 | Hospitalist Progress Note ---
Date of Service January 25, 2021 Assessment & Plan (1) Acute respiratory failure with hypoxia: (2) Hypotension: Plan: Chief Complaint: Sent from [facility] for worsening renal function and hypotension Primary Care Provider: Ronit White MD per admitting service notes: 70 year old female with PMH hypothyroidism, orthostatic hypotension, multiple system atrophy, and other problems listed below who presents to the ED from [facility] for eval of worsening renal function and hypotension. Patient recently admitted to [facility] 01/09 - 01/19 for metabolic encephalopathy due to UTI. Patient was discharged to [facility] for rehab. During previous admission, patient's urine culture grew Enterococcus for which she received 9 days of appropriate antibiotics for. Septic Shock likely secondary to Staph Bacteremia Buttock Ulcer per admitting service notes: -Patient sent to the ED from [facility] for evaluation of acute renal failure and hypotension -Recently admitted to [facility] 01/09 - 01/19 for metabolic encephalopathy due to UTI. Urine culture grew Enterococcus which patient received appropriate antibiotic course for. -01/12 creatinine 0.5 -> 01/21 1.9 -> 01/22 3.3 -In the ED, patient hypoxic on room air at 86%, currently requiring 4 L of oxygen via nasal cannula, also hypotensive and tachycardic. Given tachypnea and shallow breaths, concern for rapid respiratory decompensation. Has underlying profound generalized weakness -D-dimer 2300, BL LE Doppler negative for DVT. Consider VQ scan (unable to do CTA due to SLOAN) -WBC 12 K, lactate 1.6 - CXR: no infiltrates Ct abd/pelvis: 1. Limited exam as above. Probable punctate left renal calculus. No ureteral calculi or hydroureteronephrosis. 2. Mild rectal wall thickening with perirectal stranding. This may represent a nonspecific proctitis however should be correlated with a follow-up colonoscopy to exclude the less likely possibility of an underlying lesion. 3. Trace pleural effusions with mild dependent bibasilar atelectasis. 4. No bowel obstruction. - blood culture 01/22: Staph species repeat blood culture 01/24: Pending - required Levophed, Vasopressin-- > weaned off Hydrocortisone also started--> taper on usual Midodrine - improved transfer to [facility] 01/24 - continue Vanco + Cefepime ID consulted Wound care consult 01/25/2021 Blood pressure remained stable Continue vancomycin, DC cefepime ID consulted, awaiting recommendations Acute renal failure: Plan: -01/12 creatinine 0.5 -> 01/21 1.9 -> 01/22 3.3 -Likely prerenal in nature due to dehydration/acute illness -No signs of ureteral obstruction on CT - IV fluids given crea improved from 3.3 to 0.5 Nephro consulted Lasix 20 mg IV ordered for mild edema of the lower legs Hypophosphatemia, hypokalemia, hypomagnesemia P.o. Neutra-Phos, K and IV magnesium ordered Monitor closely Acute Respiratory Failure with Hypoxia - CXR no signs of pneumonia - continue to wean off Oxygen Hypothyroid: Plan: -Continue levothyroxine Multiple system atrophy Plan: -resume gabapentin, cyclobenzaprine, and Requip Orthostatic hypotension Plan: -Hypotensive as above -Continue midodrine DVT prophylaxis: Plan: -SQ heparin Disposition pending Admission and Anticipated Discharge Date Admission Date: January 22, 2021 Subjective Follow-up for septic shock, bacteremia, etc. Seen resting in bed, comfortable, not in distress States that she feels okay today overall Reports sore throat Reports wheezing, but denies shortness of breath Denies headache, dizziness, chest pain, palpitations, nausea vomiting No other symptom Review of Systems Review of Systems: all noted and negative except for above Physical Exam Physical Exam: General- oriented x 2, not in distress, speaks in sentences with no effort or accessory muscle use Eyes- anicteric Neck- no JVD Mouth- thrush noted on the tongue Lungs- clear to auscultation bilaterally, no crackles or wheezing noted Heart- normal rate, regular rhythm; no murmurs Abdomen- normal bowel sounds, nondistended, soft, nontender Extremities-mild pretibial edema, no calf tenderness Neuro- alert, oriented x 2; no gross focal neurologic deficits Skin- warm & dry Results & Data Results & Data ([facility]) Vital Signs (Past 12 Hours) Vital Signs Temp Pulse Pulse Resp BP Pulse Ox 01/25/21 15:38 95 H 01/25/21 12:21 36.8 C 88 20 131/68 98 01/25/21 07:43 96 H 01/25/21 07:21 36.7 C 98 H 20 124/72 93 01/25/21 06:03 90 all noted and reviewed including below
[2021-01-25] MEDS: NYSTATIN SUSP 500,000 U/5 ML UDC PO SCH ×2 (16:49→20:47)
[2021-01-25] MEDS: CETIRIZINE HCL 10 MG TABLET PO SCH (20:45)
[2021-01-25] MEDS: ALPRAZolam 0.25 MG TABLET PO SCH (20:49)
[2021-01-26] MEDS: VANCOMYCIN HCL 750 MG in SODIUM CHLORIDE 0.9% 250 ML IV SCH ×3 (02:29→18:41)
[2021-01-26] MEDS: LEVOTHYROXINE SODIUM 75 MCG TABLET PO SCH (05:38)
[2021-01-26] MEDS: HYDROCORTISONE SOD 25 MG in SYRINGE 0 ML IV SCH (08:00)
[2021-01-26] MEDS: POT PHOSPHATE MONOBASIC W/ SOD TAB PO SCH (08:00)
[2021-01-26] MEDS: POTASSIUM CHLORIDE CRTAB 20 MEQ TABCR PO SCH (08:00)
[2021-01-26] MEDS: rOPINIRole HCL 2 MG TABLET PO SCH ×3 (08:00→17:07)
[2021-01-26] MEDS: CYCLOBENZAPRINE HCL 10 MG TAB PO SCH ×2 (08:00→20:06)
[2021-01-26] MEDS: CITALOPRAM 40 MG TAB PO SCH (08:01)
[2021-01-26] MEDS: NYSTATIN SUSP 500,000 U/5 ML UDC PO SCH ×4 (08:01→20:03)
[2021-01-26] MEDS: GABAPENTIN 300 MG CAP PO SCH ×3 (08:01→20:02)
[2021-01-26] MEDS: HEPARIN SOD 5,000 UNIT/0.5 ML VIAL SQ SCH ×2 (08:01→20:03)
[2021-01-26] MEDS: rOPINIRole HCL 1 MG TABLET PO SCH ×3 (08:01→17:07)
[2021-01-26] MEDS: POLYETHYLENE (MIRALAX) 17 GM PACK PO SCH (08:02)
[2021-01-26] MEDS: MIDODRINE HCL 2.5 MG TAB PO SCH ×2 (08:02→18:53)
[2021-01-26] MEDS: DOCUSATE SODIUM/SENNA 50/8.6MG TAB PO SCH ×2 (08:02→20:06)
[2021-01-26 08:22] LABS: BUN Creatinine Ratio 20.7 (10-20); Calcium 8.3 mg/dl (8.5-10.1); Creatinine Clr Calc Pharmacy 130.1 ml/min; Magnesium 2.4 mg/dl (1.8-2.4); Phosphorus 3.4 mg/dl (2.5-4.9); Potassium 3.5 mmol/L (3.5-5.1)
[2021-01-26] MEDS: CETIRIZINE HCL 10 MG TABLET PO SCH (20:03)
[2021-01-26] MEDS: ALPRAZolam 0.25 MG TABLET PO SCH (20:06)
--- NOTE | 2021-01-26 20:44 | Hospitalist Progress Note ---
Date of Service January 26, 2021 Assessment & Plan (1) Acute respiratory failure with hypoxia: (2) Hypotension: Plan: Chief Complaint: Sent from [facility] for worsening renal function and hypotension Primary Care Provider: Ronit White MD per admitting service notes: 70 year old female with PMH hypothyroidism, orthostatic hypotension, multiple system atrophy, and other problems listed below who presents to the ED from [facility] for eval of worsening renal function and hypotension. Patient recently admitted to [facility] 01/09 - 01/19 for metabolic encephalopathy due to UTI. Patient was discharged to [facility] for rehab. During previous admission, patient's urine culture grew Enterococcus for which she received 9 days of appropriate antibiotics for. Septic Shock likely secondary to Staph Bacteremia Buttock Ulcer per admitting service notes: -Patient sent to the ED from [facility] for evaluation of acute renal failure and hypotension -Recently admitted to [facility] 01/09 - 01/19 for metabolic encephalopathy due to UTI. Urine culture grew Enterococcus which patient received appropriate antibiotic course for. -01/12 creatinine 0.5 -> 01/21 1.9 -> 01/22 3.3 -In the ED, patient hypoxic on room air at 86%, currently requiring 4 L of oxygen via nasal cannula, also hypotensive and tachycardic. Given tachypnea and shallow breaths, concern for rapid respiratory decompensation. Has underlying profound generalized weakness -D-dimer 2300, BL LE Doppler negative for DVT. Consider VQ scan (unable to do CTA due to SLOAN) -WBC 12 K, lactate 1.6 - CXR: no infiltrates Ct abd/pelvis: 1. Limited exam as above. Probable punctate left renal calculus. No ureteral calculi or hydroureteronephrosis. 2. Mild rectal wall thickening with perirectal stranding. This may represent a nonspecific proctitis however should be correlated with a follow-up colonoscopy to exclude the less likely possibility of an underlying lesion. 3. Trace pleural effusions with mild dependent bibasilar atelectasis. 4. No bowel obstruction. - required Levophed, Vasopressin-- > weaned off Hydrocortisone also started--> taper on usual Midodrine Blood pressure remains stable - blood culture 01/22: Staph species-identification pending repeat blood culture 01/24: Negative so far Continue vancomycin day #3 Cefepime discontinued ID consulted, awaiting recommendations Acute renal failure: Plan: -01/12 creatinine 0.5 -> 01/21 1.9 -> 01/22 3.3 -Likely prerenal in nature due to dehydration/acute illness -No signs of ureteral obstruction on CT - IV fluids given crea improved from 3.3 to 0.5 Nephro consulted Lasix 20 mg IV ordered for mild edema of the lower legs Edema resolved Hypophosphatemia, hypokalemia, hypomagnesemia P.o. Neutra-Phos, K and IV magnesium ordered Resolved Acute Respiratory Failure with Hypoxia - CXR no signs of pneumonia - continue to wean off Oxygen Bright red blood per rectum Per visiting nurse report 01/22/2021 Per patient, she has had hemorrhoids chronically, worse with constipation Denies blood per rectum while admitted, no pain with defecation Continue Senokot as Monitor hemoglobin iron level 66 Hypothyroid: Plan: -Continue levothyroxine Multiple system atrophy Plan: -resume gabapentin, cyclobenzaprine, and Requip Orthostatic hypotension Plan: -Hypotensive as above -Continue midodrine DVT prophylaxis: Plan: -SQ heparin Disposition Referral sent to [facility] Admission and Anticipated Discharge Date Admission Date: January 22, 2021 Subjective Follow-up for septic shock, staph bacteremia, etc. Seen resting in bed, sitting up, in good spirits States she feels fine overall Reports intermittent wheeze but no shortness of breath, cough, chest pain, fevers or chills No abdominal pain, nausea vomiting Reports intermittent blood per rectum secondary to hemorrhoids which is chronic No other symptoms Review of Systems Review of Systems: all noted and negative except for above Physical Exam Physical Exam: General- oriented x 2, not in distress, speaks in sentences with no effort or accessory muscle use Eyes- anicteric Neck- no JVD Lungs- clear BS bilaterally, no crackles, no rhonchi no wheezing appreciated Heart- normal rate, regular rhythm; no murmurs Abdomen- normal bowel sounds, nondistended, soft, nontender Extremities- no pretibial edema, no calf tenderness Neuro- alert, oriented x 3; no new gross focal neurologic deficits Skin- warm & dry Results & Data Results & Data ([facility]) Vital Signs (Past 12 Hours) Vital Signs Temp Pulse Resp BP Pulse Ox 01/26/21 16:03 36.5 C 75 16 131/72 97 09/21/21 12:00 37.0 C 90 20 112/72 95 all noted and reviewed including below
[2021-01-27] MEDS: VANCOMYCIN HCL 750 MG in SODIUM CHLORIDE 0.9% 250 ML IV SCH ×3 (01:55→17:02)
[2021-01-27] MEDS: LEVOTHYROXINE SODIUM 75 MCG TABLET PO SCH (06:24)
[2021-01-27 07:59] LABS: BUN Creatinine Ratio 23.6 (10-20); Calcium 8.6 mg/dl (8.5-10.1); Creatinine Clr Calc Pharmacy 112.5 ml/min; Est GFR (African American) 118.5 ml/min; Est GFR (Non-African American) 102.2 ml/min; Magnesium 1.7 mg/dl (1.8-2.4); Phosphorus 3.6 mg/dl (2.5-4.9); Potassium 3.8 mmol/L (3.5-5.1)
[2021-01-27] MEDS: GABAPENTIN 300 MG CAP PO SCH ×3 (08:20→20:39)
[2021-01-27] MEDS: CITALOPRAM 40 MG TAB PO SCH (08:20)
[2021-01-27] MEDS: rOPINIRole HCL 2 MG TABLET PO SCH ×3 (08:21→17:03)
[2021-01-27] MEDS: HEPARIN SOD 5,000 UNIT/0.5 ML VIAL SQ SCH ×2 (08:22→20:38)
[2021-01-27] MEDS: HYDROCORTISONE SOD 25 MG in SYRINGE 0 ML IV SCH (08:22)
[2021-01-27] MEDS: NYSTATIN SUSP 500,000 U/5 ML UDC PO SCH ×4 (08:22→20:38)
[2021-01-27] MEDS: POLYETHYLENE (MIRALAX) 17 GM PACK PO SCH (08:26)
[2021-01-27] MEDS: DOCUSATE SODIUM/SENNA 50/8.6MG TAB PO SCH ×2 (08:31→21:01)
[2021-01-27] MEDS: CYCLOBENZAPRINE HCL 10 MG TAB PO SCH ×2 (08:31→21:01)
[2021-01-27] MEDS: MIDODRINE HCL 2.5 MG TAB PO SCH ×2 (09:32→17:03)
[2021-01-27] MEDS: rOPINIRole HCL 1 MG TABLET PO SCH ×3 (09:32→17:02)
[2021-01-27] MEDS ORDERED: MAGNESIUM SULFATE / D5W 1 GM/100 ML BAG IV ONE (10:45)
--- NOTE | 2021-01-27 17:07 | Hospitalist Progress Note ---
Date of Service January 27, 2021 Assessment & Plan (1) Acute respiratory failure with hypoxia: (2) Hypotension: Plan: per admitting service notes: 70 year old female with PMH hypothyroidism, orthostatic hypotension, multiple system atrophy, and other problems listed below who presents to the ED from [facility] for eval of worsening renal function and hypotension. Patient recently admitted to [facility] 01/09 - 01/19 for metabolic encephalopathy due to UTI. Patient was discharged to [facility] for rehab. During previous admission, patient's urine culture grew Enterococcus for which she received 9 days of appropriate antibiotics for. Septic Shock likely secondary to Staph Bacteremia Buttock Ulcer per admitting service notes: -Patient sent to the ED from [facility] for evaluation of acute renal failure and hypotension -Recently admitted to [facility] 01/09 - 01/19 for metabolic encephalopathy due to UTI. Urine culture grew Enterococcus which patient received appropriate antibiotic course for. -01/12 creatinine 0.5 -> 01/21 1.9 -> 01/22 3.3 -In the ED, patient hypoxic on room air at 86%, currently requiring 4 L of oxygen via nasal cannula, also hypotensive and tachycardic. Given tachypnea and shallow breaths, concern for rapid respiratory decompensation. Has underlying profound generalized weakness -D-dimer 2300, BL LE Doppler negative for DVT. Consider VQ scan (unable to do CTA due to SLOAN) -WBC 12 K, lactate 1.6 -CXR: no infiltrates -Ct abd/pelvis: 1. Limited exam as above. Probable punctate left renal calculus. No ureteral calculi or hydroureteronephrosis. 2. Mild rectal wall thickening with perirectal stranding. This may represent a nonspecific proctitis however should be correlated with a follow-up colonoscopy to exclude the less likely possibility of an underlying lesion. 3. Trace pleural effusions with mild dependent bibasilar atelectasis. 4. No bowel obstruction. - required Levophed, Vasopressin-- > weaned off Hydrocortisone also started--> Continue to taper, the D/C on usual Midodrine Blood pressure remains stable - blood culture 01/22: Staph species-identification pending repeat blood culture 01/24: Negative so far Continue vancomycin day #4 Cefepime discontinued ID on board recommended 2 weeks of IV antibiotic. Will change Supportive Family conference according to sensitivity Blood culture on 9/17 grew coag neg staph not lugdunensis Will reach to ID about final abx on discharge Acute renal failure: -01/12 creatinine 0.5 -> 01/21 1.9 -> 01/22 3.3 -Likely prerenal in nature due to dehydration/acute illness -No signs of ureteral obstruction on CT - IV fluids given crea improved from 3.3 to 0.5 Nephro consulted Lasix 20 mg IV ordered for mild edema of the lower legs Edema resolved Hypophosphatemia, hypokalemia, hypomagnesemia P.o. Neutra-Phos, K and IV magnesium ordered Resolved Acute Respiratory Failure with Hypoxia - CXR no signs of pneumonia - continue to wean off Oxygen Bright red blood per rectum Per visiting nurse report 01/22/2021 Per patient, she has had hemorrhoids chronically, worse with constipation Denies blood per rectum while admitted, no pain with defecation Continue Senokot as Monitor hemoglobin iron level 66 Hypothyroid -Continue levothyroxine Multiple system atrophy -resume gabapentin, cyclobenzaprine, and Requip Orthostatic hypotension -Hypotensive as above -Continue midodrine DVT prophylaxis: -SQ heparin Disposition Referral sent to [facility] Admission and Anticipated Discharge Date Admission Date: January 22, 2021 Subjective Follow-up for septic shock, staph bacteremia, etc. Patient was seen and evaluated for follow-up of septic shock and bacteremia Lying in bed with no acute distress Patient said that she was having issues swallowing her pills and felt like it caught to her throat She is requesting to be discharged Denies any chest pain, palpitation, dizziness, shortness of breath. Review of Systems Review of Systems: All systems reviewed & are unremarkable except as noted in Subjective Physical Exam Physical Exam: General- No acute distress Head- atraumatic Eyes- PERRL, EOMI, ENT- oropharynx clear Neck- supple, no JVD Lungs- clear to auscultation Heart- regular rhythm; no murmur Abdomen- normal bowel sounds, soft, nontender Extremities- no calf tenderness Neuro- alert, oriented x 2; PERRL, EOMI; no facial palsy; no dysarthria Skin- warm & dry Results & Data Results & Data ([facility]) Vital Signs (Past 12 Hours) Vital Signs Temp Pulse Pulse Resp BP BP Pulse Ox 01/27/21 16:09 104 H 01/27/21 15:04 36.7 C 104 H 20 101/65 90 01/27/21 11:48 36.8 C 106 H 20 127/79 94 01/27/21 07:57 101 H 01/27/21 07:09 36.6 C 99 H 20 159/83 H 95
[2021-01-27] MEDS: CETIRIZINE HCL 10 MG TABLET PO SCH (20:39)
[2021-01-27] MEDS: ALPRAZolam 0.25 MG TABLET PO SCH (21:01)
[2021-01-28] MEDS: VANCOMYCIN HCL 750 MG in SODIUM CHLORIDE 0.9% 250 ML IV SCH ×3 (01:40→17:28)
[2021-01-28] MEDS: LEVOTHYROXINE SODIUM 75 MCG TABLET PO SCH (04:55)
[2021-01-28] MEDS: HYDROCORTISONE SOD 12.5 MG in SYRINGE 0 ML IV SCH (08:53)
[2021-01-28] MEDS: rOPINIRole HCL 1 MG TABLET PO SCH ×3 (08:53→17:29)
[2021-01-28] MEDS: GABAPENTIN 300 MG CAP PO SCH ×3 (08:54→20:51)
[2021-01-28] MEDS: CITALOPRAM 40 MG TAB PO SCH (08:54)
[2021-01-28] MEDS: MIDODRINE HCL 2.5 MG TAB PO SCH ×2 (08:54→17:29)
[2021-01-28] MEDS: rOPINIRole HCL 2 MG TABLET PO SCH ×3 (08:54→17:29)
[2021-01-28] MEDS: DOCUSATE SODIUM/SENNA 50/8.6MG TAB PO SCH ×2 (08:55→20:51)
[2021-01-28] MEDS: NYSTATIN SUSP 500,000 U/5 ML UDC PO SCH ×4 (08:56→20:50)
[2021-01-28] MEDS: HEPARIN SOD 5,000 UNIT/0.5 ML VIAL SQ SCH (08:56)
[2021-01-28] MEDS: POLYETHYLENE (MIRALAX) 17 GM PACK PO SCH (08:56)
[2021-01-28] MEDS ORDERED: VANCOMYCIN TROUGH ONE (09:30)
[2021-01-28] MEDS: CYCLOBENZAPRINE HCL 10 MG TAB PO SCH ×2 (09:33→20:49)
[2021-01-28 10:46] LABS: BUN Creatinine Ratio 17.1 (10-20); Calcium 8.4 mg/dl (8.5-10.1); Est GFR (African American) 108.5 ml/min; Est GFR (Non-African American) 93.7 ml/min; Magnesium 1.7 mg/dl (1.8-2.4); Potassium 3.8 mmol/L (3.5-5.1)
[2021-01-28 10:50] LABS: Phosphorus 2.7 mg/dl (2.5-4.9)
[2021-01-28] MEDS: MAGNESIUM SULFATE / D5W 1 GM/100 ML BAG IV SCH ×2 (11:54→14:05)
--- NOTE | 2021-01-28 13:56 | Pharmacy Report ---
Pharmacy Vanc AUC Short Note - Date of Service January 28, 2021 - Assessment & Plan Assessment 70 year old F receiving vancomycin for treatment of gram-positive cocci bacteremia with unknown source. Pertinent microbiologic data includes: blood culture #1 growing coag negative staph not lugdunensis and gram-positive bacilli, blood culture #2 growing micrococcus species. Still awaiting final ID/susceptibilities. Repeat blood cultures show no growth at 48 hours. Microbiology notified to run susceptibility testing for these coagulase-negative Staph isolates. ID consulted and recommends continuing vancomycin until sensitivities available. Renal function stable. Day # 5 of antimicrobial therapy. Plan Vancomycin * AUC/AZUCENA is the preferred PK/PD target for vancomycin * AUC guided dosing is effective and associated with decreased risk of nephrotoxicity compared to traditional trough targets * Trough level of 15.3 mcg/mL is predicted to achieve target AUC/AZUCENA of 400-600 mg/L.hr and may be associated with a 15 % risk of nephrotoxicity * Continue dose of 750 mg IV every 8 hours * Follow-up trough levels with be obtained as needed Pharmacy will continue to follow and will adjust dose/frequency as necessary. Thank you.
[2021-01-28] MEDS: SODIUM CHLORIDE 0.9% 1000ML 1,000 ML IV SCH (14:45)
[2021-01-28] MEDS ORDERED: OPTIRAY 320 125ml IV ONE (16:09)
--- NOTE | 2021-01-28 16:24 | CT Scan Report ---
CT angio chest PE protocol CT DOSE: 531.65 mGycm HISTORY: 70 years-old Female with R/O PE. Acute shortness of breath TECHNIQUE: Multiple CTA images of the chest were obtained after the intravenous administration of 119 ml Optiray. Coronal and sagittal MIPS were obtained from the axial data set and were submitted for review. All measurements were obtained according to NASCET criteria. A dose lowering technique was u tilized adhering to the principles of ALARA. COMPARISON: Chest radiograph 01/23/2021 FINDINGS: CTA: Small pericardial effusion. The heart is upper limits of normal in size. No thoracic aortic aneurysm or dissection. Limited evaluation of the segmental and subsegmental pulmonary arterial branches secon leigh to respiratory motion. Segmental and subsegmental pulmonary emboli are noted within the left upp er lobe as seen on image 161 and 153 of series 4. No evidence of right heart strain. CT CHEST: No thyroid nodule. No adenopathy. Small layering pleural effusions. Mild dependent bibasilar consolid ation. No pneumothorax. 6 mm groundglass nodule of the right lung apex. 4 mm solid nodule of the left upper lobe on image 183 series 4. Mild linear atelectasis/scarring of the anterior segment right upp er lobe. Central airways are patent. No pulmonary infarct identified. No acute process of the imaged upper abdomen. 2.2 cm hypodense lesion of the mid spleen is indetermin ate, likely benign. Unremarkable soft tissues. There is no acute fracture. Degenerative changes of th e shoulders and spine. IMPRESSION: 1. Segmental and subsegmental pulmonary emboli of the left upper lobe. 2. Small pleural effusions with dependent bibasilar consolidation suggestive of compressive atelectas is. 3. 6 mm groundglass right upper lobe and 4 mm solid left upper lobe pulmonary nodules. 4. No adenopathy. Please refer to below summary of Fleischner criteria recommendations for follow-up of incidental CT n odules ([place] Rodriguez, Guidelines for management of small pulmonary nodules detected on CT scans: A sta tement from the Fleischner Society, Radiology 237: [phone].) SOLID NODULES Solitary nodule size: <6 mm * Low risk patients: no follow-up needed * high risk patients: optional CT at 12 months Note: newly detected indeterminate nodule in persons 35 years of age or older. * Low risk patients: minimal or absent history of smoking and/or other known risk factors * high risk patients: history of smoking or of other known risk factors (e.g. first degree relative with lung cancer, or exposure to asbestos, radon, uranium) * if a nodule up to 8 mm is partly solid or is ground glass further follow-up is required after 24 m onths to exclude possible slow growing adenocarcinoma ([place]) SUBSOLID NODULES Solitary pure ground-glass nodule * nodule size <6 mm - no CT follow-up required * nodule size >=6 mm - follow-up CT at 6-12 months, then every 2 years until 5 years ACT 112: Negative or not required by law. The above report was generated using voice recognition software. It may contain grammatical, syntax o r spelling errors. Electronically signed by: Osman Sauer M.D. 01/28/2021 4:22 PM
[2021-01-28] MEDS ORDERED: Heparin IV Adult Wt-Based Standard WITH Bolus Protocol IV SCH (17:04)
--- NOTE | 2021-01-28 17:23 | Hospitalist Progress Note ---
Date of Service January 28, 2021 Assessment & Plan (1) Acute respiratory failure with hypoxia: (2) Hypotension: Plan: per admitting service notes: 70 year old female with PMH hypothyroidism, orthostatic hypotension, multiple system atrophy, and other problems listed below who presents to the ED from [facility] for eval of worsening renal function and hypotension. Patient recently admitted to [facility] 01/09 - 01/19 for metabolic encephalopathy due to UTI. Patient was discharged to [facility] for rehab. During previous admission, patient's urine culture grew Enterococcus for which she received 9 days of appropriate antibiotics for. Septic Shock likely secondary to Staph Bacteremia Buttock Ulcer per admitting service notes: -Patient sent to the ED from [facility] for evaluation of acute renal failure and hypotension -Recently admitted to [facility] 01/09 - 01/19 for metabolic encephalopathy due to UTI. Urine culture grew Enterococcus which patient received appropriate antibiotic course for. -01/12 creatinine 0.5 -> 01/21 1.9 -> 01/22 3.3 -In the ED, patient hypoxic on room air at 86%, currently requiring 4 L of oxygen via nasal cannula, also hypotensive and tachycardic. Given tachypnea and shallow breaths, concern for rapid respiratory decompensation. Has underlying profound generalized weakness -D-dimer 2300, BL LE Doppler negative for DVT. Consider VQ scan (unable to do CTA due to SLOAN) -WBC 12 K, lactate 1.6 -CXR: no infiltrates -Ct abd/pelvis: 1. Limited exam as above. Probable punctate left renal calculus. No ureteral calculi or hydroureteronephrosis. 2. Mild rectal wall thickening with perirectal stranding. This may represent a nonspecific proctitis however should be correlated with a follow-up colonoscopy to exclude the less likely possibility of an underlying lesion. 3. Trace pleural effusions with mild dependent bibasilar atelectasis. 4. No bowel obstruction. - required Levophed, Vasopressin-- > weaned off Hydrocortisone also started--> Continue to taper, the D/C on usual Midodrine Blood pressure remains stable - blood culture 01/22: coag negative staph not lugdunensis, miccrococcus species - Repeat blood culture 01/24: Negative so far - Spoke to microbiology about the blood cx on 01/22, micro said it seems there is propionicbacteria growing Discussed with ID, that thing the blood cx might have been contaminating ID recommended to continue IV vancomycin until 01/29 Acute renal failure: -01/12 creatinine 0.5 -> 01/21 1.9 -> 01/22 3.3 -Likely prerenal in nature due to dehydration/acute illness -No signs of ureteral obstruction on CT - IV fluids given crea improved from 3.3 to 0.5 Nephro consulted Lasix 20 mg IV ordered for mild edema of the lower legs Edema resolved Hypophosphatemia, hypokalemia, hypomagnesemia P.o. Neutra-Phos, K and IV magnesium ordered Resolved Acute Respiratory Failure with Hypoxia - CXR no signs of pneumonia - continue to wean off Oxygen - Elevated Ddimer - will get a CTA chest - CTA chest showed Segmental and subsegmental pulmonary emboli of the left upper lobe. - Will start on heparin drip Bright red blood per rectum Per visiting nurse report 01/22/2021 Per patient, she has had hemorrhoids chronically, worse with constipation Denies blood per rectum while admitted, no pain with defecation Continue Senokot as Monitor hemoglobin while starting on heparin drip iron level 66 Hypothyroid -Continue levothyroxine Multiple system atrophy -resume gabapentin, cyclobenzaprine, and Requip Orthostatic hypotension -Hypotensive as above -Continue midodrine DVT prophylaxis: -SQ heparin Disposition Referral sent to [facility] Admission and Anticipated Discharge Date Admission Date: January 22, 2021 Subjective Patient was seen and evaluated for follow-up of septic shock and bacteremia Lying in bed with no acute distress Pt said that her breathing is ok, but her sat has been in the 90% on RA Nurse felt her breathing seems to be abnormal Denies any chest pain, palpitation, dizziness, shortness of breath. Review of Systems Review of Systems: All systems reviewed & are unremarkable except as noted in Subjective Physical Exam Physical Exam: General- No acute distress Head- atraumatic Eyes- PERRL, EOMI, ENT- oropharynx clear Neck- supple, no JVD Lungs- clear to auscultation Heart- regular rhythm; no murmur Abdomen- normal bowel sounds, soft, nontender Extremities- no calf tenderness Neuro- alert, oriented x 2; PERRL, EOMI; no facial palsy; no dysarthria Skin- warm & dry Results & Data Results & Data ([facility]) Vital Signs (Past 12 Hours) Vital Signs Temp Pulse Pulse Resp BP BP Pulse Ox 01/28/21 17:07 113 H 01/28/21 15:35 36.9 C 110 H 20 118/69 91 01/28/21 11:35 114 H 01/28/21 11:03 36.8 C 120 H 20 101/62 91 01/28/21 07:34 37.0 C 115 H 20 122/69 90
[2021-01-28 17:49] LABS: Basophils # (auto) 0.01 K/uL (0-0.2); Basophils % (auto) 0.1 %; Eosinophils # (auto) 0.29 K/uL (0-0.5); Eosinophils % (auto) 2.6 %; Hematocrit (blood only) 32.7 % (37-47); Hemoglobin 10.9 g/dL (12.0-16.0); Immature Granulocytes # (auto) 0.28 K/uL (0.00-0.02); Immature Granulocytes % (auto) 2.5 %; Lymphocytes # (auto) 1.53 K/uL (1.2-3.4); Lymphocytes % (auto) 13.6 %; Mean Corpuscular Hemoglobin 31.8 pg (25-34); Mean Corpuscular Volume 95.3 fL (80-100); Mean Platelet Volume 8.4 fL (7.4-10.4); Monocytes # (auto) 0.83 K/uL (0.11-0.59); Monocytes % (auto) 7.4 %; Neutrophils # (auto) 8.32 K/uL (1.4-6.5); Neutrophils % (auto) 73.8 %; Platelet Count 223 K/uL (130-400); Red Blood Count 3.43 M/uL (4.2-5.4); White Blood Count 11.26 K/uL (4.8-10.8)
[2021-01-28 17:53] LABS: Mean Corpuscular Hgb Conc 33.3 g/dL (32-36)
[2021-01-28 17:58] LABS: Partial Thromboplastin Ratio 1.1; Partial Thromboplastin Time 29.1 Seconds (21.0-31.0); Prothrombin Time 10.3 Seconds (9.0-12.0)
[2021-01-28] MEDS ORDERED: HEPARIN SOD (PORCINE) 1000 UNIT/ML IV ONE (18:20)
[2021-01-28] MEDS: HEPARIN SODIUM/DEXTROSE 25,000 UNITS/500 ML BAG IV SCH (18:23)
[2021-01-28] MEDS: ALPRAZolam 0.25 MG TABLET PO SCH (20:49)
[2021-01-28] MEDS: CETIRIZINE HCL 10 MG TABLET PO SCH (20:50)
[2021-01-29] MEDS: VANCOMYCIN HCL 750 MG in SODIUM CHLORIDE 0.9% 250 ML IV SCH ×3 (01:17→18:32)
[2021-01-29 01:20] LABS: Partial Thromboplastin Ratio 5.2
[2021-01-29 01:46] LABS: Partial Thromboplastin Time 137.8 Seconds (21.0-31.0)
[2021-01-29] MEDS: LEVOTHYROXINE SODIUM 75 MCG TABLET PO SCH (05:58)
[2021-01-29] MEDS: MIDODRINE HCL 2.5 MG TAB PO SCH ×2 (07:55→18:33)
[2021-01-29] MEDS: CITALOPRAM 40 MG TAB PO SCH (07:55)
[2021-01-29] MEDS: rOPINIRole HCL 2 MG TABLET PO SCH ×3 (07:55→17:17)
[2021-01-29] MEDS: rOPINIRole HCL 1 MG TABLET PO SCH ×3 (07:55→17:17)
[2021-01-29] MEDS: NYSTATIN SUSP 500,000 U/5 ML UDC PO SCH ×4 (07:56→20:18)
[2021-01-29] MEDS: POLYETHYLENE (MIRALAX) 17 GM PACK PO SCH (07:56)
[2021-01-29] MEDS: DOCUSATE SODIUM/SENNA 50/8.6MG TAB PO SCH ×2 (07:56→20:19)
[2021-01-29] MEDS: HYDROCORTISONE SOD 12.5 MG in SYRINGE 0 ML IV SCH (07:56)
[2021-01-29] MEDS: GABAPENTIN 300 MG CAP PO SCH ×3 (07:57→20:19)
[2021-01-29] MEDS: CYCLOBENZAPRINE HCL 10 MG TAB PO SCH ×2 (07:59→20:19)
[2021-01-29 09:30] LABS: Partial Thromboplastin Time 53.2 Seconds (21.0-31.0)
[2021-01-29 09:38] LABS: BUN Creatinine Ratio 19.3 (10-20); Creatinine Clr Calc Pharmacy 106.4 ml/min; Est GFR (Non-African American) 100.1 ml/min; Magnesium 1.7 mg/dl (1.8-2.4); Potassium 3.7 mmol/L (3.5-5.1)
[2021-01-29] MEDS ORDERED: MAGNESIUM SULFATE / D5W 1 GM/100 ML BAG IV ONE (11:30)
[2021-01-29] MEDS: SODIUM CHLORIDE 0.9% 1000ML 1,000 ML IV SCH (12:15)
[2021-01-29] MEDS: ALPRAZolam 0.25 MG TABLET PO SCH (20:19)
[2021-01-29] MEDS: CETIRIZINE HCL 10 MG TABLET PO SCH (20:19)
[2021-01-29] MEDS ORDERED: guaiFENesin SUGAR FREE 200 MG/10 ML UDC PO PRN (20:38)
[2021-01-29] MEDS: BENZONATATE 100 MG CAPSULE PO PRN (21:36)
--- NOTE | 2021-01-29 22:32 | Hospitalist Progress Note ---
Date of Service January 29, 2021 Assessment & Plan (1) Acute respiratory failure with hypoxia: (2) Hypotension: Plan: per admitting service notes: 70 year old female with PMH hypothyroidism, orthostatic hypotension, multiple system atrophy, and other problems listed below who presents to the ED from [facility] for eval of worsening renal function and hypotension. Patient recently admitted to [facility] 01/09 - 01/19 for metabolic encephalopathy due to UTI. Patient was discharged to [facility] for rehab. During previous admission, patient's urine culture grew Enterococcus for which she received 9 days of appropriate antibiotics for. Septic Shock Possible secondary to Staph Bacteremia Buttock Ulcer per admitting service notes: -Patient sent to the ED from [facility] for evaluation of acute renal failure and hypotension -Recently admitted to [facility] 01/09 - 01/19 for metabolic encephalopathy due to UTI. Urine culture grew Enterococcus which patient received appropriate antibiotic course for. -01/12 creatinine 0.5 -> 01/21 1.9 -> 01/22 3.3 -In the ED, patient hypoxic on room air at 86%, currently requiring 4 L of oxygen via nasal cannula, also hypotensive and tachycardic. Given tachypnea and shallow breaths, concern for rapid respiratory decompensation. Has underlying profound generalized weakness -D-dimer 2300, BL LE Doppler negative for DVT. Consider VQ scan (unable to do CTA due to SLOAN) -WBC 12 K, lactate 1.6 -CXR: no infiltrates -Ct abd/pelvis: 1. Limited exam as above. Probable punctate left renal calculus. No ureteral calculi or hydroureteronephrosis. 2. Mild rectal wall thickening with perirectal stranding. This may represent a nonspecific proctitis however should be correlated with a follow-up colonoscopy to exclude the less likely possibility of an underlying lesion. 3. Trace pleural effusions with mild dependent bibasilar atelectasis. 4. No bowel obstruction. - required Levophed, Vasopressin-- > weaned off Hydrocortisone also started--> Continue to taper, the D/C on usual Midodrine Blood pressure remains stable - blood culture 01/22: coag negative staph not lugdunensis, miccrococcus species - Repeat blood culture 01/24: Negative so far - Spoke to microbiology about the blood cx on 01/22, micro said it seems there is propionicbacteria growing Discussed with ID, that suspected the blood cx might have been contaminating ID recommended to continue IV vancomycin until 01/29, will d/c abx today Acute renal failure: -01/12 creatinine 0.5 -> 01/21 1.9 -> 01/22 3.3 -Likely prerenal in nature due to dehydration/acute illness -No signs of ureteral obstruction on CT - IV fluids given crea improved from 3.3 to 0.5 Nephro consulted Lasix 20 mg IV ordered for mild edema of the lower legs Edema resolved Hypophosphatemia, hypokalemia, hypomagnesemia P.o. Neutra-Phos, K and IV magnesium ordered Resolved Acute Respiratory Failure with Hypoxia - CXR no signs of pneumonia - continue to wean off Oxygen - Elevated Ddimer - will get a CTA chest - CTA chest showed Segmental and subsegmental pulmonary emboli of the left upper lobe. - Continue heparin drip, will transition to PO agent in am Lung Nodules CTA chest showed 6 mm groundglass right upper lobe and 4 mm solid left upper lobe pulmonary nodules. Will need outpatient CT to monitor lung nodule Bright red blood per rectum Per visiting nurse report 01/22/2021 Per patient, she has had hemorrhoids chronically, worse with constipation Denies blood per rectum while admitted, no pain with defecation Continue Senokot as Monitor hemoglobin while on anticogulant iron level 66 Hypothyroid -Continue levothyroxine Multiple system atrophy -resume gabapentin, cyclobenzaprine, and Requip Orthostatic hypotension -Hypotensive as above -Continue midodrine DVT prophylaxis: -SQ heparin Disposition Denies placement to SNF Daughter said that she will try to appeal the denial Admission and Anticipated Discharge Date Admission Date: January 22, 2021 Subjective Patient was seen and evaluated for follow-up of PE Lying in bed with no acute distress She was denied SNF and peer to peer done which was unsuccessful I spoke to her daughter and provided with updates and answered all her questions Denies any chest pain, palpitation, dizziness, shortness of breath. Review of Systems Review of Systems: All systems reviewed & are unremarkable except as noted in Subjective Physical Exam Physical Exam: General- No acute distress Head- atraumatic Eyes- PERRL, EOMI, ENT- oropharynx clear Neck- supple, no JVD Lungs- clear to auscultation Heart- regular rhythm; no murmur Abdomen- normal bowel sounds, soft, nontender Extremities- no calf tenderness Neuro- alert, oriented x 2; PERRL, EOMI; no facial palsy; no dysarthria Skin- warm & dry Results & Data Results & Data ([facility]) Vital Signs (Past 12 Hours) Vital Signs Temp Pulse Pulse Resp BP BP Pulse Ox 01/29/21 19:49 37.0 C 102 H 20 154/80 H 92 01/29/21 15:32 36.9 C 109 H 18 143/76 H 96 01/29/21 15:14 103 H 01/29/21 12:07 37.0 C 101 H 18 113/70 90
[2021-01-30] MEDS: HEPARIN SODIUM/DEXTROSE 25,000 UNITS/500 ML BAG IV SCH ×3 (00:36→23:20)
[2021-01-30] MEDS: VANCOMYCIN HCL 750 MG in SODIUM CHLORIDE 0.9% 250 ML IV SCH ×3 (02:09→17:31)
[2021-01-30] MEDS ORDERED: XOPENEX/ATROVENT 1.25mg/0.5MG NEB COMBO NEB STA (03:24)
[2021-01-30] MEDS ORDERED: LEVALBUTEROL HCL 1.25 MG/3 ML NEB ONE (03:34)
[2021-01-30] MEDS ORDERED: methylPREDNISolone 40 MG in SYRINGE 0 ML IV ONE (04:00)
[2021-01-30] MEDS ORDERED: MAGNESIUM SULFATE / D5W 1 GM/100 ML BAG IV ONE (04:00)
[2021-01-30] MEDS ORDERED: LEVALBUTEROL 1.25MG/0.5ML NEB INH STA (04:01)
[2021-01-30] MEDS ORDERED: IPRATROPIUM BROMIDE NEB SOLN 0.02% 2.5 ML VIAL INH STA (04:01)
[2021-01-30] MEDS ORDERED: PIPERACILLIN/TAZOBACTAM 4.5 GM in DEXTROSE 5% 100 ML IV ONE (04:16)
[2021-01-30] MEDS ORDERED: PIPERACILL/TAZOBAC CONSULT ACTIVE PRN (04:16)
--- NOTE | 2021-01-30 04:16 | Communication Note ---
Date of Service: January 30, 2021 Made aware by RN of patient gasping, cough symptoms. Patient cannot seem to get anything past her throat. Phlegm caught in patient's throat as per RN. Chest x-ray as per my interpretation atelectasis, possible new infiltrate left AP HCAP, possible aspiration Zosyn, nebs, Solu-Medrol 1 dose Will relay to AM provider.
[2021-01-30] MEDS: LEVOTHYROXINE SODIUM 75 MCG TABLET PO SCH (05:52)
[2021-01-30 06:32] LABS: Hematocrit (blood only) 31.9 % (37-47); Hemoglobin 10.4 g/dL (12.0-16.0); Mean Corpuscular Hemoglobin 31.4 pg (25-34); Mean Corpuscular Hgb Conc 32.6 g/dL (32-36); Mean Corpuscular Volume 96.4 fL (80-100); Mean Platelet Volume 8.3 fL (7.4-10.4); Platelet Count 213 K/uL (130-400); RDW Coefficient of Variation 13.2 % (11.5-14.5); RDW Standard Deviation 46.5 fL (36.4-46.3); Red Blood Count 3.31 M/uL (4.2-5.4); White Blood Count 8.87 K/uL (4.8-10.8)
[2021-01-30 06:48] LABS: Partial Thromboplastin Ratio 1.6; Partial Thromboplastin Time 42.4 Seconds (21.0-31.0)
[2021-01-30 06:58] LABS: BUN Creatinine Ratio 14.5 (10-20); Calcium 8.5 mg/dl (8.5-10.1); Creatinine Clr Calc Pharmacy 100.3 ml/min; Est GFR (African American) 113.8 ml/min; Est GFR (Non-African American) 98.2 ml/min; Magnesium 2.1 mg/dl (1.8-2.4); Potassium 3.9 mmol/L (3.5-5.1)
[2021-01-30 07:15] LABS: Basophils # (auto) 0.03 K/uL (0-0.2); Basophils % (auto) 0.3 %; Eosinophils # (auto) 0.26 K/uL (0-0.5); Eosinophils % (auto) 2.9 %; Immature Granulocytes # (auto) 0.65 K/uL (0.00-0.02); Immature Granulocytes % (auto) 7.3 %; Lymphocytes # (auto) 1.75 K/uL (1.2-3.4); Lymphocytes % (auto) 19.7 %; Monocytes # (auto) 0.45 K/uL (0.11-0.59); Monocytes % (auto) 5.1 %; Neutrophils # (auto) 5.73 K/uL (1.4-6.5); Neutrophils % (auto) 64.7 %
--- NOTE | 2021-01-30 07:43 | XRay Report ---
XR chest 1V portable HISTORY: 70 years-old Female sob acute shortness of breath COMPARISON: CTA chest 01/28/2021, chest radiograph 01/23/2021 TECHNIQUE: Portable AP view of the chest FINDINGS: Cardiac silhouette is enlarged. The patient is rotated. Linear consolidation of the left lung base re demonstrated along with trace pleural effusions. Mild chronic interstitial coarsening. No pneumothora x or overt pulmonary edema. Degenerative changes of the shoulders and spine. IMPRESSION: 1. Linear consolidation of the left lung base suggests atelectasis. Pneumonia is considered less like ly. 2. Trace pleural effusions. 3. Cardiomegaly without overt pulmonary edema. ACT 112: Negative or not required by law. The above report was generated using voice recognition software. It may contain grammatical, syntax o r spelling errors. Electronically signed by: Osman Sauer M.D. 01/30/2021 7:42 AM
[2021-01-30] MEDS: rOPINIRole HCL 2 MG TABLET PO SCH ×4 (08:22→20:44)
[2021-01-30] MEDS: CITALOPRAM 40 MG TAB PO SCH ×2 (08:22→20:43)
[2021-01-30] MEDS: rOPINIRole HCL 1 MG TABLET PO SCH ×3 (08:22→17:29)
[2021-01-30] MEDS: MIDODRINE HCL 2.5 MG TAB PO SCH ×2 (08:23→17:47)
[2021-01-30] MEDS: GABAPENTIN 300 MG CAP PO SCH ×3 (08:23→20:49)
[2021-01-30] MEDS: NYSTATIN SUSP 500,000 U/5 ML UDC PO SCH ×4 (08:24→20:49)
[2021-01-30] MEDS: POLYETHYLENE (MIRALAX) 17 GM PACK PO SCH (08:25)
[2021-01-30] MEDS: DOCUSATE SODIUM/SENNA 50/8.6MG TAB PO SCH ×2 (08:26→20:48)
[2021-01-30] MEDS ORDERED: ALBUT/IPRATROP 3MG/0.5MG NEB 3 ML VIAL NEB PRN (10:20)
[2021-01-30] MEDS: PIPERACILLIN/TAZOBACTAM 3.375 GM in DEXTROSE 5% 100 ML IV SCH ×2 (10:53→17:31)
[2021-01-30] MEDS: CYCLOBENZAPRINE HCL 10 MG TAB PO SCH ×2 (10:57→23:20)
[2021-01-30 13:43] LABS: Partial Thromboplastin Ratio 1.7; Partial Thromboplastin Time 44.5 Seconds (21.0-31.0)
[2021-01-30] MEDS: BENZONATATE 100 MG CAPSULE PO PRN ×2 (15:39→23:28)
[2021-01-30] MEDS ORDERED: ACETAMINOPHEN 325 MG TAB PO PRN (16:01)
[2021-01-30] MEDS: CETIRIZINE HCL 10 MG TABLET PO SCH (20:46)
[2021-01-30] MEDS: APIXABAN 5 MG TABLET PO SCH (20:46)
[2021-01-30 20:52] LABS: Partial Thromboplastin Ratio 1.8
--- NOTE | 2021-01-30 21:07 | Hospitalist Progress Note ---
Date of Service January 30, 2021 Assessment & Plan (1) Acute respiratory failure with hypoxia: (2) Hypotension: Plan: per admitting service notes: 70 year old female with PMH hypothyroidism, orthostatic hypotension, multiple system atrophy, and other problems listed below who presents to the ED from [facility] for eval of worsening renal function and hypotension. Patient recently admitted to [facility] 01/09 - 01/19 for metabolic encephalopathy due to UTI. Patient was discharged to [facility] for rehab. During previous admission, patient's urine culture grew Enterococcus for which she received 9 days of appropriate antibiotics for. Septic Shock Possible secondary to Staph Bacteremia Buttock Ulcer per admitting service notes: -Patient sent to the ED from [facility] for evaluation of acute renal failure and hypotension -Recently admitted to [facility] 01/09 - 01/19 for metabolic encephalopathy due to UTI. Urine culture grew Enterococcus which patient received appropriate antibiotic course for. -01/12 creatinine 0.5 -> 01/21 1.9 -> 01/22 3.3 -In the ED, patient hypoxic on room air at 86%, currently requiring 4 L of oxygen via nasal cannula, also hypotensive and tachycardic. Given tachypnea and shallow breaths, concern for rapid respiratory decompensation. Has underlying profound generalized weakness -D-dimer 2300, BL LE Doppler negative for DVT. Consider VQ scan (unable to do CTA due to SLOAN) -WBC 12 K, lactate 1.6 -CXR: no infiltrates -Ct abd/pelvis: 1. Limited exam as above. Probable punctate left renal calculus. No ureteral calculi or hydroureteronephrosis. 2. Mild rectal wall thickening with perirectal stranding. This may represent a nonspecific proctitis however should be correlated with a follow-up colonoscopy to exclude the less likely possibility of an underlying lesion. 3. Trace pleural effusions with mild dependent bibasilar atelectasis. 4. No bowel obstruction. - required Levophed, Vasopressin-- > weaned off Hydrocortisone also started--> Continue to taper, the D/C on usual Midodrine Blood pressure remains stable - Blood culture 01/22: coag negative staph not lugdunensis, miccrococcus species - Repeat blood culture 01/24: Negative so far - Spoke to microbiology about the blood cx on 01/22, micro said it seems there is propionicbacteria growing Discussed with ID, that suspected the blood cx might have been contaminating ID recommended to continue IV vancomycin until 01/29, Vancomycin discontinued Acute renal failure: -01/12 creatinine 0.5 -> 01/21 1.9 -> 01/22 3.3 -Likely prerenal in nature due to dehydration/acute illness -No signs of ureteral obstruction on CT - IV fluids given crea improved from 3.3 to 0.5 Nephro consulted Lasix 20 mg IV ordered for mild edema of the lower legs Edema resolved Hypophosphatemia, hypokalemia, hypomagnesemia P.o. Neutra-Phos, K and IV magnesium ordered Resolved Acute Respiratory Failure with Hypoxia - CXR no signs of pneumonia - continue to wean off Oxygen - Elevated Ddimer - will get a CTA chest - CTA chest showed Segmental and subsegmental pulmonary emboli of the left upper lobe. - Continue heparin drip, will transition to PO agent in am Possible Pneumonia CXR showed linear consolidation of the left lung base suggests atelectasis. Pneumonia is considered less likely. She was started on IV Zosyn Will add neb treatment with duoneb Lung Nodules CTA chest showed 6 mm groundglass right upper lobe and 4 mm solid left upper lobe pulmonary nodules. Will need outpatient CT to monitor lung nodule Bright red blood per rectum Per visiting nurse report 01/22/2021 Per patient, she has had hemorrhoids chronically, worse with constipation Denies blood per rectum while admitted, no pain with defecation Continue Senokot as Monitor hemoglobin while on anticogulant iron level 66 Hypothyroid -Continue levothyroxine Multiple system atrophy -resume gabapentin, cyclobenzaprine, and Requip Orthostatic hypotension -Hypotensive as above -Continue midodrine DVT prophylaxis: -SQ heparin Disposition Denies placement to SNF Daughter said that she will try to appeal the denial Admission and Anticipated Discharge Date Admission Date: January 22, 2021 Subjective Patient was seen and evaluated for follow-up of PE and cough Lying in bed with no acute distress She said that she had a cough but unable to bring the phlegm up Denies any chest pain, palpitation, dizziness, shortness of breath. Review of Systems Review of Systems: All systems reviewed & are unremarkable except as noted in Subjective Physical Exam Physical Exam: General- No acute distress Head- atraumatic Eyes- PERRL, EOMI, ENT- oropharynx clear Neck- supple, no JVD Lungs- clear to auscultation Heart- regular rhythm; no murmur Abdomen- normal bowel sounds, soft, nontender Extremities- no calf tenderness Neuro- alert, oriented x 2; PERRL, EOMI; no facial palsy; no dysarthria Skin- warm & dry Results & Data Results & Data ([facility]) Vital Signs (Past 12 Hours) Vital Signs Temp Pulse Pulse Resp BP Pulse Ox 01/30/21 19:58 36.8 C 105 H 20 112/72 94 01/30/21 15:50 109 H 01/30/21 15:45 36.9 C 107 H 16 144/80 H 93
[2021-01-30] MEDS: ALPRAZolam 0.25 MG TABLET PO SCH (23:20)
[2021-01-31] MEDS: PIPERACILLIN/TAZOBACTAM 3.375 GM in DEXTROSE 5% 100 ML IV SCH ×3 (03:00→17:50)
[2021-01-31] MEDS: VANCOMYCIN HCL 750 MG in SODIUM CHLORIDE 0.9% 250 ML IV SCH ×3 (03:10→17:48)
[2021-01-31] MEDS: LEVOTHYROXINE SODIUM 75 MCG TABLET PO SCH (06:20)
[2021-01-31 06:34] LABS: Partial Thromboplastin Ratio 1.1; Partial Thromboplastin Time 29.4 Seconds (21.0-31.0)
[2021-01-31 07:02] LABS: BUN Creatinine Ratio 19.7 (10-20); Calcium 8.9 mg/dl (8.5-10.1); Creatinine Clr Calc Pharmacy 101.9 ml/min; Est GFR (African American) 114.5 ml/min; Est GFR (Non-African American) 98.8 ml/min; Potassium 3.9 mmol/L (3.5-5.1)
[2021-01-31] MEDS: POLYETHYLENE (MIRALAX) 17 GM PACK PO SCH (08:09)
[2021-01-31] MEDS: rOPINIRole HCL 1 MG TABLET PO SCH ×3 (08:10→17:43)
[2021-01-31] MEDS: APIXABAN 5 MG TABLET PO SCH ×2 (08:10→21:00)
[2021-01-31] MEDS: MIDODRINE HCL 2.5 MG TAB PO SCH ×2 (08:11→17:44)
[2021-01-31] MEDS: NYSTATIN SUSP 500,000 U/5 ML UDC PO SCH ×4 (08:11→20:59)
[2021-01-31] MEDS: GABAPENTIN 300 MG CAP PO SCH ×3 (08:11→21:00)
[2021-01-31] MEDS: CYCLOBENZAPRINE HCL 10 MG TAB PO SCH ×2 (08:13→20:57)
[2021-01-31] MEDS: DOCUSATE SODIUM/SENNA 50/8.6MG TAB PO SCH ×2 (08:15→21:00)
[2021-01-31] MEDS: BENZONATATE 100 MG CAPSULE PO PRN ×3 (08:17→20:57)
[2021-01-31] MEDS: rOPINIRole HCL 2 MG TABLET PO SCH ×2 (11:37→17:43)
[2021-01-31] MEDS: ALPRAZolam 0.25 MG TABLET PO SCH (20:57)
[2021-01-31] MEDS: CETIRIZINE HCL 10 MG TABLET PO SCH (20:59)
--- NOTE | 2021-01-31 22:41 | Hospitalist Progress Note ---
Date of Service January 31, 2021 Assessment & Plan (1) Acute respiratory failure with hypoxia: (2) Hypotension: Plan: per admitting service notes: 70 year old female with PMH hypothyroidism, orthostatic hypotension, multiple system atrophy, and other problems listed below who presents to the ED from [facility] for eval of worsening renal function and hypotension. Patient recently admitted to [facility] 01/09 - 01/19 for metabolic encephalopathy due to UTI. Patient was discharged to [facility] for rehab. During previous admission, patient's urine culture grew Enterococcus for which she received 9 days of appropriate antibiotics for. Septic Shock Possible secondary to Staph Bacteremia Buttock Ulcer per admitting service notes: -Patient sent to the ED from [facility] for evaluation of acute renal failure and hypotension -Recently admitted to [facility] 01/09 - 01/19 for metabolic encephalopathy due to UTI. Urine culture grew Enterococcus which patient received appropriate antibiotic course for. -01/12 creatinine 0.5 -> 01/21 1.9 -> 01/22 3.3 -In the ED, patient hypoxic on room air at 86%, currently requiring 4 L of oxygen via nasal cannula, also hypotensive and tachycardic. Given tachypnea and shallow breaths, concern for rapid respiratory decompensation. Has underlying profound generalized weakness -D-dimer 2300, BL LE Doppler negative for DVT. Consider VQ scan (unable to do CTA due to SLOAN) -WBC 12 K, lactate 1.6 -CXR: no infiltrates -Ct abd/pelvis: 1. Limited exam as above. Probable punctate left renal calculus. No ureteral calculi or hydroureteronephrosis. 2. Mild rectal wall thickening with perirectal stranding. This may represent a nonspecific proctitis however should be correlated with a follow-up colonoscopy to exclude the less likely possibility of an underlying lesion. 3. Trace pleural effusions with mild dependent bibasilar atelectasis. 4. No bowel obstruction. - required Levophed, Vasopressin-- > weaned off Hydrocortisone also started--> Continue to taper, the D/C on usual Midodrine Blood pressure remains stable - Blood culture 01/22: coag negative staph not lugdunensis, miccrococcus species - Repeat blood culture 01/24: Negative so far - Spoke to microbiology about the blood cx on 01/22, micro said it seems there is propionicbacteria growing Discussed with ID, that suspected the blood cx might have been contaminating At first ID recommended to complete IV antibiotics for 2 weeks but when suspected contamination, ID recommended to discontinue antibiotic on 01/29 but reviewed blood culture sensitivity, Vanco will cover both organisms. We will reach to ID to check if we need to complete 2 weeks of antibiotic or to discontinue antibiotic. Acute renal failure: -01/12 creatinine 0.5 -> 01/21 1.9 -> 01/22 3.3 -Likely prerenal in nature due to dehydration/acute illness -No signs of ureteral obstruction on CT - IV fluids given crea improved from 3.3 to 0.5 Nephro consulted Lasix 20 mg IV ordered for mild edema of the lower legs Edema resolved Hypophosphatemia, hypokalemia, hypomagnesemia P.o. Neutra-Phos, K and IV magnesium ordered Resolved Acute Respiratory Failure with Hypoxia - CXR no signs of pneumonia - continue to wean off Oxygen - Elevated Ddimer - will get a CTA chest - CTA chest showed Segmental and subsegmental pulmonary emboli of the left upper lobe. - Continue heparin drip, will transition to PO agent in am -Continue Eliquis BID Possible Pneumonia CXR showed linear consolidation of the left lung base suggests atelectasis. Pneumonia is considered less likely. She was started on IV Zosyn, Will discontinue it Continue neb treatment with duoneb Lung Nodules CTA chest showed 6 mm groundglass right upper lobe and 4 mm solid left upper lobe pulmonary nodules. Will need outpatient CT to monitor lung nodule Bright red blood per rectum Per visiting nurse report 01/22/2021 Per patient, she has had hemorrhoids chronically, worse with constipation Denies blood per rectum while admitted, no pain with defecation Continue Senokot as Monitor hemoglobin while on anticogulant iron level 66 Hypothyroid -Continue levothyroxine Multiple system atrophy -resume gabapentin, cyclobenzaprine, and Requip Orthostatic hypotension -Hypotensive as above -Continue midodrine DVT prophylaxis: -SQ heparin Disposition Denies placement to SNF Daughter said that she will try to appeal the denial, waiting for placement Admission and Anticipated Discharge Date Admission Date: January 22, 2021 Subjective Patient was seen and evaluated for follow-up of PE and cough Lying in bed with no acute distress She said that she she usually has a cough in the morning She had overnight pulse oximetry done last night where she requires oxygen at night Denies any chest pain, palpitation, dizziness, shortness of breath. Review of Systems Review of Systems: All systems reviewed & are unremarkable except as noted in Subjective Physical Exam Physical Exam: General- No acute distress Head- atraumatic Eyes- PERRL, EOMI, ENT- oropharynx clear Neck- supple, no JVD Lungs- clear to auscultation Heart- regular rhythm; no murmur Abdomen- normal bowel sounds, soft, nontender Extremities- no calf tenderness Neuro- alert, oriented x 2; PERRL, EOMI; no facial palsy; no dysarthria Skin- warm & dry Results & Data Results & Data ([facility]) Vital Signs (Past 12 Hours) Vital Signs Temp Pulse Pulse Resp BP Pulse Ox 01/31/21 19:44 37.4 C 107 H 18 117/73 90 01/31/21 16:00 99 H 01/31/21 15:48 36.8 C 100 H 16 108/66 91 01/31/21 11:47 36.7 C 100 H 18 102/62 90
[2021-02-01] MEDS ORDERED: VANCOMYCIN TROUGH ONE (01:30)
[2021-02-01 01:47] LABS: Hematocrit (blood only) 33.3 % (37-47); Hemoglobin 10.7 g/dL (12.0-16.0); Mean Corpuscular Hemoglobin 31.3 pg (25-34); Mean Corpuscular Hgb Conc 32.1 g/dL (32-36); Mean Corpuscular Volume 97.4 fL (80-100); Platelet Count 229 K/uL (130-400); RDW Coefficient of Variation 13.5 % (11.5-14.5); RDW Standard Deviation 47.6 fL (36.4-46.3); Red Blood Count 3.42 M/uL (4.2-5.4); White Blood Count 11.16 K/uL (4.8-10.8)
[2021-02-01] MEDS: PIPERACILLIN/TAZOBACTAM 3.375 GM in DEXTROSE 5% 100 ML IV SCH ×3 (01:59→17:32)
[2021-02-01] MEDS: VANCOMYCIN HCL 750 MG in SODIUM CHLORIDE 0.9% 250 ML IV SCH ×3 (02:00→17:32)
[2021-02-01 02:08] LABS: Basophils # (auto) 0.04 K/uL (0-0.2); Basophils % (auto) 0.4 %; Eosinophils # (auto) 0.27 K/uL (0-0.5); Eosinophils % (auto) 2.4 %; Immature Granulocytes # (auto) 0.59 K/uL (0.00-0.02); Immature Granulocytes % (auto) 5.3 %; Lymphocytes # (auto) 3.04 K/uL (1.2-3.4); Lymphocytes % (auto) 27.2 %; Monocytes # (auto) 0.79 K/uL (0.11-0.59); Monocytes % (auto) 7.1 %; Neutrophils # (auto) 6.43 K/uL (1.4-6.5); Neutrophils % (auto) 57.6 %
[2021-02-01 02:17] LABS: Partial Thromboplastin Ratio 1.1; Partial Thromboplastin Time 29.7 Seconds (21.0-31.0)
[2021-02-01] MEDS: LEVOTHYROXINE SODIUM 75 MCG TABLET PO SCH (05:49)
[2021-02-01] MEDS: rOPINIRole HCL 1 MG TABLET PO SCH ×3 (08:25→17:33)
[2021-02-01] MEDS: rOPINIRole HCL 2 MG TABLET PO SCH ×3 (08:25→17:33)
[2021-02-01] MEDS: MIDODRINE HCL 2.5 MG TAB PO SCH ×2 (08:25→17:33)
[2021-02-01] MEDS: APIXABAN 5 MG TABLET PO SCH ×2 (08:25→21:08)
[2021-02-01] MEDS: CITALOPRAM 40 MG TAB PO SCH (08:25)
[2021-02-01] MEDS: NYSTATIN SUSP 500,000 U/5 ML UDC PO SCH ×4 (08:26→21:08)
[2021-02-01] MEDS: GABAPENTIN 300 MG CAP PO SCH ×3 (08:26→21:08)
[2021-02-01] MEDS: POLYETHYLENE (MIRALAX) 17 GM PACK PO SCH (08:27)
[2021-02-01] MEDS: DOCUSATE SODIUM/SENNA 50/8.6MG TAB PO SCH ×2 (08:31→21:08)
[2021-02-01] MEDS: CYCLOBENZAPRINE HCL 10 MG TAB PO SCH ×2 (08:31→21:08)
--- NOTE | 2021-02-01 09:03 | Pharmacy Report ---
Pharmacy Abx Dose Short Note - Date of Service February 01, 2021 - Assessment & Plan Assessment * 70 year old F receiving VANCOMYCIN for treatment of possible bacteremia. ZOSYN added 01/30 for possible HAP. * Day 9 Vancomycin; Day 3 Zosyn * 4 different organisms ID'd in BLCXs from 01/22: two CoN staph in aerobic bottle only of 1 set, micrococcus sp in aerobic bottle only of 1 set, cutibacterium sp (propionibacterium) in anaerobic bottle only of 1 set. * ID had previously recommended 14 days of vancomycin therapy. Hospitalist has mentioned discussion treatment duration with ID again given growth of multiple organisms in BLCXs collected on same day (all commensals) * No growth noted in repeat BLCXs from 01/24 * CTA + for PE; pleural effusions with dependent bibasilar consolidation suggestive of compressive atelectasis * Afebrile. Mild leukocytosis noted on today's CBC (WBC 11.2) * Renal fxn appears stable. Plan Vancomycin * Trough level of 15.6 mcg/mL is therapeutic * Continue dose of 750 mg IV every 8 hours * Goal trough level for bacteremia : 15 to 20 mcg/mL; or AUC/AZUCENA 400-600 * Will recheck trough level in 2-3 days if therapy to continue or if change in renal fxn noted Zosyn * eCrCl > 20; BMI < 35 - continue 3.375gm ext infusion Q 8 hrs Pharmacy will continue to follow and will adjust dose/frequency as necessary. Thank you.
[2021-02-01] MEDS: BENZONATATE 100 MG CAPSULE PO PRN (21:08)
[2021-02-01] MEDS: CETIRIZINE HCL 10 MG TABLET PO SCH (21:08)
[2021-02-01] MEDS: ALPRAZolam 0.25 MG TABLET PO SCH (21:08)
[2021-02-02] MEDS: VANCOMYCIN HCL 750 MG in SODIUM CHLORIDE 0.9% 250 ML IV SCH ×2 (01:16→10:04)
[2021-02-02] MEDS: PIPERACILLIN/TAZOBACTAM 3.375 GM in DEXTROSE 5% 100 ML IV SCH ×2 (01:16→10:04)
--- NOTE | 2021-02-02 02:11 | Hospitalist Progress Note ---
Date of Service February 01, 2021 Assessment & Plan (1) Acute respiratory failure with hypoxia: (2) Hypotension: Plan: per admitting service notes: 70 year old female with PMH hypothyroidism, orthostatic hypotension, multiple system atrophy, and other problems listed below who presents to the ED from [facility] for eval of worsening renal function and hypotension. Patient recently admitted to [facility] 01/09 - 01/19 for metabolic encephalopathy due to UTI. Patient was discharged to [facility] for rehab. During previous admission, patient's urine culture grew Enterococcus for which she received 9 days of appropriate antibiotics for. Septic Shock Possible secondary to Staph Bacteremia Buttock Ulcer per admitting service notes: -Patient sent to the ED from [facility] for evaluation of acute renal failure and hypotension -Recently admitted to [facility] 01/09 - 01/19 for metabolic encephalopathy due to UTI. Urine culture grew Enterococcus which patient received appropriate antibiotic course for. -01/12 creatinine 0.5 -> 01/21 1.9 -> 01/22 3.3 -In the ED, patient hypoxic on room air at 86%, currently requiring 4 L of oxygen via nasal cannula, also hypotensive and tachycardic. Given tachypnea and shallow breaths, concern for rapid respiratory decompensation. Has underlying profound generalized weakness -D-dimer 2300, BL LE Doppler negative for DVT. Consider VQ scan (unable to do CTA due to SLOAN) -WBC 12 K, lactate 1.6 -CXR: no infiltrates -Ct abd/pelvis: 1. Limited exam as above. Probable punctate left renal calculus. No ureteral calculi or hydroureteronephrosis. 2. Mild rectal wall thickening with perirectal stranding. This may represent a nonspecific proctitis however should be correlated with a follow-up colonoscopy to exclude the less likely possibility of an underlying lesion. 3. Trace pleural effusions with mild dependent bibasilar atelectasis. 4. No bowel obstruction. - required Levophed, Vasopressin-- > weaned off Hydrocortisone also started--> Continue to taper, the D/C on usual Midodrine Blood pressure remains stable - Blood culture 01/22: coag negative staph not lugdunensis, miccrococcus species - Repeat blood culture 01/24: Negative so far - Spoke to microbiology about the blood cx on 01/22, micro said it seems there is propionicbacteria growing Discussed with ID, that suspected the blood cx might have been contaminating At first ID recommended to complete IV antibiotics for 2 weeks but when suspected contamination, ID recommended to discontinue antibiotic on 01/29 but reviewed blood culture sensitivity, Vanco will cover both organisms. We will reach to ID to check if we need to complete 2 weeks of antibiotic or to discontinue antibiotic. Acute renal failure: -01/12 creatinine 0.5 -> 01/21 1.9 -> 01/22 3.3 -Likely prerenal in nature due to dehydration/acute illness -No signs of ureteral obstruction on CT - IV fluids given crea improved from 3.3 to 0.5 Nephro consulted Lasix 20 mg IV ordered for mild edema of the lower legs Edema resolved Hypophosphatemia, hypokalemia, hypomagnesemia P.o. Neutra-Phos, K and IV magnesium ordered Resolved Acute Respiratory Failure with Hypoxia - CXR no signs of pneumonia - continue to wean off Oxygen - Elevated Ddimer - will get a CTA chest - CTA chest showed Segmental and subsegmental pulmonary emboli of the left upper lobe. - Continue heparin drip, will transition to PO agent in am -Continue Eliquis BID Possible Pneumonia CXR showed linear consolidation of the left lung base suggests atelectasis. Pneumonia is considered less likely. She was started on IV Zosyn, Will discontinue it Continue neb treatment with duoneb Lung Nodules CTA chest showed 6 mm groundglass right upper lobe and 4 mm solid left upper lobe pulmonary nodules. Will need outpatient CT to monitor lung nodule Bright red blood per rectum Per visiting nurse report 01/22/2021 Per patient, she has had hemorrhoids chronically, worse with constipation Denies blood per rectum while admitted, no pain with defecation Continue Senokot as Monitor hemoglobin while on anticogulant iron level 66 Hypothyroid -Continue levothyroxine Multiple system atrophy -resume gabapentin, cyclobenzaprine, and Requip Orthostatic hypotension -Hypotensive as above -Continue midodrine DVT prophylaxis: -SQ heparin Disposition Denies placement to SNF Daughter said that she will try to appeal the denial, waiting for placement Admission and Anticipated Discharge Date Admission Date: January 22, 2021 Subjective Patient was seen and evaluated for follow-up of PE and cough Lying in bed with no acute distress She said that she she usually has a cough in the morning That seems that she had bloody bowel movement earlier But hemoglobin remained stable Denies any chest pain, palpitation, dizziness, shortness of breath. Review of Systems Review of Systems: All systems reviewed & are unremarkable except as noted in Subjective Physical Exam Physical Exam: General- No acute distress Head- atraumatic Eyes- PERRL, EOMI, ENT- oropharynx clear Neck- supple, no JVD Lungs- clear to auscultation Heart- regular rhythm; no murmur Abdomen- normal bowel sounds, soft, nontender Extremities- no calf tenderness Neuro- alert, oriented x 2; PERRL, EOMI; no facial palsy; no dysarthria Skin- warm & dry Results & Data Results & Data ([facility]) Vital Signs (Past 12 Hours) Vital Signs Temp Pulse Pulse Resp BP Pulse Ox 02/01/21 22:34 37 C 101 H 18 96/53 L 92 02/01/21 22:19 104 H 02/01/21 19:32 36.4 C L 111 H 18 107/67 94 02/01/21 18:04 110 H 02/01/21 16:13 36.5 C 74 21 136/85 96
[2021-02-02] MEDS: LEVOTHYROXINE SODIUM 75 MCG TABLET PO SCH (05:49)
[2021-02-02 07:02] LABS: Hematocrit (blood only) 33.4 % (37-47); Hemoglobin 10.7 g/dL (12.0-16.0); Mean Corpuscular Hemoglobin 31.5 pg (25-34); Mean Corpuscular Volume 98.2 fL (80-100); Mean Platelet Volume 8.3 fL (7.4-10.4); Platelet Count 229 K/uL (130-400); RDW Coefficient of Variation 13.6 % (11.5-14.5); RDW Standard Deviation 48.3 fL (36.4-46.3); White Blood Count 11.86 K/uL (4.8-10.8)
[2021-02-02 07:06] LABS: Partial Thromboplastin Ratio 1.2; Partial Thromboplastin Time 32.1 Seconds (21.0-31.0)
[2021-02-02] MEDS: rOPINIRole HCL 2 MG TABLET PO SCH ×2 (07:52→11:57)
[2021-02-02] MEDS: GABAPENTIN 300 MG CAP PO SCH (07:52)
[2021-02-02] MEDS: rOPINIRole HCL 1 MG TABLET PO SCH ×2 (07:52→11:57)
[2021-02-02] MEDS: NYSTATIN SUSP 500,000 U/5 ML UDC PO SCH (07:52)
[2021-02-02] MEDS: APIXABAN 5 MG TABLET PO SCH (07:52)
[2021-02-02] MEDS: POLYETHYLENE (MIRALAX) 17 GM PACK PO SCH (07:53)
[2021-02-02] MEDS: MIDODRINE HCL 2.5 MG TAB PO SCH (07:53)
[2021-02-02] MEDS: CITALOPRAM 40 MG TAB PO SCH (07:53)
[2021-02-02] MEDS: CYCLOBENZAPRINE HCL 10 MG TAB PO SCH (07:56)
[2021-02-02] MEDS: DOCUSATE SODIUM/SENNA 50/8.6MG TAB PO SCH (07:56)
[2021-02-02] MEDS ORDERED: guaiFENesin SUGAR FREE 200 MG/10 ML UDC PO SCH (11:15)
[2021-02-02] MEDS ORDERED: predniSONE 20 MG TAB PO SCH (11:30)
--- NOTE | 2021-02-02 11:47 | Discharge Summary ---
Date of Service February 02, 2021 Admission HPI Per Admitting Provider 70 year old female with PMH hypothyroidism, orthostatic hypotension, multiple system atrophy, and other problems listed below who presents to the ED from [facility] for eval of worsening renal function and hypotension. Patient recently admitted to [facility] 01/09 - 01/19 for metabolic encephalopathy due to UTI. Patient was discharged to [facility] for rehab. During previous admission, patient's urine culture grew Enterococcus for which she received 9 days of appropriate antibiotics for. Labs were obtained at [facility] yesterday that showed a creatinine of 1.9 (up from 0.5 on 01/12), today labs show creatinine 3.3. Patient was also found to be hypotensive today 80s/40s. Patient was sent to the ED for further evaluation. Patient speech is garbled at baseline from underlying MSA. She is also mostly bedbound at baseline. Patient reports she is currently feeling close to her baseline. She is noted to be tachypneic and taking shallow breaths however denies feeling short of breath. No chest pain. Denies lightheadedness and dizziness. No abdominal pain, nausea, vomiting, diarrhea. She denies urinary symptoms. In the ED, patient is found to be hypotensive, tachycardic, hypoxic. Also has low-grade fever of 37.6. Labs showed WBC 12 K, creatinine 3.5. CXR negative for acute cardiopulmonary findings. CT ABD/pelvis unremarkable as well. Patient was given IV Tylenol, IV cefepime, IV vancomycin, IVF. Admission Exam Per Admitting Provider Constitutional: well developed, well nourished and + ill appearing Eyes: PERRL, conjunctivae normal, anicteric sclerae ENMT: external ear and nose normal, oropharynx normal Respiratory: + tachypneic (w/ shallow breaths) and + grunting Auscultation: lungs clear to auscultation bilaterally Cardiovascular: regular rhythm and + tachycardic Vessels: normal peripheral pulses Extremities: no edema Gastrointestinal: normal bowel sounds, soft, nontender, no hepatosplenomegaly Musculoskeletal: no cyanosis and no clubbing strength 2-35 throughout Skin: no rashes, warm and dry strength 2-3/5 throughout Neurologic: Speech / Cognition: + abnormal speech (garbled speech - at baseline) Cranial Nerves: PERRL, normal accommodation and normal facial strength Psychiatric: A+Ox3, euthymic affect Lymphatic: charlton in place draining dark yellow urine Principal Diagnosis Acute respiratory failure with hypoxia: Hypotension: Pulmonary embolism Acute renal failure: Electrolytes abnormalities Lung Nodules Hypothyroid Multiple system atrophy Orthostatic hypotension Discharge Exam General- No acute distress Head- atraumatic Eyes- PERRL, EOMI, ENT- oropharynx clear Neck- supple, no JVD Lungs- clear to auscultation Heart- regular rhythm; no murmur Abdomen- normal bowel sounds, soft, nontender Extremities- no calf tenderness Neuro- alert, oriented x 2; PERRL, EOMI; no facial palsy; no dysarthria Skin- warm & dry Discharge Data Allergies Allergy/AdvReac Type Severity Reaction Status Date / Time bacitracin Allergy Intermediate hives Verified 01/22/21 14:51 neomycin Allergy Intermediate hives Verified 01/22/21 14:51 onion Allergy Intermediate diarrhea,violent Verified 01/22/21 14:51 illness polymyxin B Allergy Intermediate hives Verified 01/22/21 14:51 ragweed pollen Allergy Intermediate hayfever/adolfo Verified 01/22/21 14:51 fever carbidopa Allergy Unknown FROM [facility] Verified 01/22/21 14:51 MED LIST garlic Allergy Unknown Gastrointestinal Verified 01/29/21 17:10 Upset levodopa Allergy Unknown FROM GM Verified 01/22/21 14:51 MED LIST lactose AdvReac Unknown Gastrointestinal Verified 01/29/21 17:10 Upset Consultations 01/22/21 13:41 ED Decision to Admit Stat 01/22/21 18:10 Consult Stereo Operator Routine Consult Nephrology Routine 01/24/21 09:35 Consult Infectious Diseases Routine Ordered Studies 01/22/21 12:38 CT abd pelvis wo con Stat 01/22/21 13:54 US venous doppler LE BI Stat 01/22/21 19:21 US point of care ultrasound Urgent 01/28/21 13:54 CT angio chest PE protocol Urgent XR chest 1V portable HISTORY: 70 years-old Female sob acute shortness of breath COMPARISON: CTA chest 01/28/2021, chest radiograph 01/23/2021 TECHNIQUE: Portable AP view of the chest FINDINGS: Cardiac silhouette is enlarged. The patient is rotated. Linear consolidation of the left lung base redemonstrated along with trace pleural effusions. Mild chronic interstitial coarsening. No pneumothorax or overt pulmonary edema. Degenerative changes of the shoulders and spine. IMPRESSION: 1. Linear consolidation of the left lung base suggests atelectasis. Pneumonia is considered less likely. 2. Trace pleural effusions. 3. Cardiomegaly without overt pulmonary edema. ACT 112: Negative or not required by law. The above report was generated using voice recognition software. It may contain grammatical, syntax or spelling errors. Electronically signed by: Osman Sauer M.D. 01/30/2021 7:42 AM Dictated: 01/30/21739Transcribed: 01/30/21739 CT angio chest PE protocol CT DOSE: 531.65 mGycm HISTORY: 70 years-old Female with R/O PE. Acute shortness of breath TECHNIQUE: Multiple CTA images of the chest were obtained after the intravenous administration of 119 ml Optiray. Coronal and sagittal MIPS were obtained from the axial data set and were submitted for review. All measurements were obtained according to NASCET criteria. A dose lowering technique was utilized adhering to the principles of ALARA. COMPARISON: Chest radiograph 01/23/2021 FINDINGS: CTA: Small pericardial effusion. The heart is upper limits of normal in size. No thoracic aortic aneurysm or dissection. Limited evaluation of the segmental and subsegmental pulmonary arterial branches secondary to respiratory motion. Segmental and subsegmental pulmonary emboli are noted within the left upper lobe as seen on image 161 and 153 of series 4. No evidence of right heart strain. CT CHEST: No thyroid nodule. No adenopathy. Small layering pleural effusions. Mild dependent bibasilar consolidation. No pneumothorax. 6 mm groundglass nodule of the right lung apex. 4 mm solid nodule of the left upper lobe on image 183 series 4. Mild linear atelectasis/scarring of the anterior segment right upper lobe. Central airways are patent. No pulmonary infarct identified. No acute process of the imaged upper abdomen. 2.2 cm hypodense lesion of the mid spleen is indeterminate, likely benign. Unremarkable soft tissues. There is no acute fracture. Degenerative changes of the shoulders and spine. IMPRESSION: 1. Segmental and subsegmental pulmonary emboli of the left upper lobe. 2. Small pleural effusions with dependent bibasilar consolidation suggestive of compressive atelectasis. 3. 6 mm groundglass right upper lobe and 4 mm solid left upper lobe pulmonary nodules. 4. No adenopathy. Please refer to below summary of Fleischner criteria recommendations for follow- up of incidental CT nodules (Neville Rodriguez, Guidelines for management of small pulmonary nodules detected on CT scans: A statement from the Fleischner Society, Radiology 237: [phone].) SOLID NODULES Solitary nodule size: <6 mm * Low risk patients: no follow-up needed * high risk patients: optional CT at 12 months Note: newly detected indeterminate nodule in persons 35 years of age or older. * Low risk patients: minimal or absent history of smoking and/or other known risk factors * high risk patients: history of smoking or of other known risk factors (e.g. first degree relative with lung cancer, or exposure to asbestos, radon, uranium) * if a nodule up to 8 mm is partly solid or is ground glass further follow-up is required after 24 months to exclude possible slow growing adenocarcinoma ([place]) SUBSOLID NODULES Solitary pure ground-glass nodule * nodule size <6 mm - no CT follow-up required * nodule size >=6 mm - follow-up CT at 6-12 months, then every 2 years until 5 years ACT 112: Negative or not required by law. The above report was generated using voice recognition software. It may contain grammatical, syntax or spelling errors. Electronically signed by: Osman Sauer M.D. 01/28/2021 4:22 PM Dictated: 01/28/211614Transcribed: 01/28/211614 XR chest 1V portable CLINICAL HISTORY: f/u COMPARISON STUDY: Chest radiograph January 22, 2021. FINDINGS: Tip of right internal jugular central line projects over the cavoatrial junction. Cardiomegaly is unchanged. There is no evidence for pulmonary edema. Linear bibasilar opacities favor atelectasis. There is no consolidation. There is no pneumothorax or pleural effusion. IMPRESSION: 1. No consolidation to suggest pneumonia. Linear bibasilar opacities suggestive of atelectasis. 2. Mild cardiomegaly without evidence for pulmonary edema. ACT 112: Negative or not required by law. Electronically signed by: Jonathan Choe M.D. 01/23/2021 7:31 AM Dictated: 01/23/21728Transcribed: 01/23/21728 XR chest 1V portable CLINICAL HISTORY: s/p IJ COMPARISON STUDY: January 22, 2021 at 10:54 hours FINDINGS: No pneumothorax. No pleural effusion. Redemonstration of linear densities at the left lower lung which could represent scattered atelectasis and/or scarring. Redemonstration of diffuse prominence of pulmonary interstitium, mostly within the right upper lung. Cardiomediastinal silhouette is stable, within upper limits of normal. Aorta is tortuous and calcified. No significant pulmonary vascular congestion.. Osseous structures: Degenerative changes of the spine. Interval placement of right-sided central venous catheter with tip projecting within at the atriocaval junction. IMPRESSION: 1. Interval placement of right-sided sided central venous catheter with tip projecting to the anatomical region of the atriocaval junction. No evidence of pneumothorax. 2. The rest of findings as above. ACT 112: Negative or not required by law. The above report was generated using voice recognition software. It may contain grammatical, syntax or spelling errors. Electronically signed by: Chelita Husain DO 01/22/2021 8:25 PM Dictated: 01/22/212020Transcribed: 01/22/212020 BILATERAL LOWER EXTREMITY VENOUS DOPPLER CLINICAL HISTORY: hypotension, hypoxia, tachy, ? DVT COMPARISON STUDY: No previous studies for comparison. TECHNIQUE: Sonography of the deep venous system of the bilateral lower extremities was performed. Compression and augmentation were evaluated. FINDINGS: The bilateral common femoral, superficial femoral and popliteal veins were compressible. Augmentation was normal. Flow was shown within the deep calf vessels. IMPRESSION: No evidence of deep venous thrombus within the bilateral lower extremities. ACT 112: Negative or not required by law. Electronically signed by: Jonathan Choe M.D. 01/22/2021 3:23 PM Dictated: 01/22/21 1523Transcribed: 01/22/[address] WITHOUT CONTRAST CT DOSE: 1077.32 mGycm HISTORY: Acute renal failure with hypotension ARF TECHNIQUE: Multiaxial CT images of the abdomen and pelvis were performed without contrast. A dose lowering technique was utilized adhering to the principles of ALARA. COMPARISON STUDY: Chest radiograph of same day FINDINGS: Mild cardiomegaly. Trace pericardial effusions with mild dependent bibasilar atelectasis. No pneumatosis or pneumoperitoneum. Limited exam secondary to upper extremity positioning and respiratory motion artifact. The unenhanced spleen, pancreas, adrenal glands, gallbladder and liver appear unremarkable. Punctate nonobstructing calculus of the interpolar left kidney. Equivocal punctate calculi of the inferior pole right kidney. No ureteral calculi or hydroureteronephrosis. Retroperitoneal calcifications of the right hemipelvis on image 229 series 3 likely vascular in origin. Decompressed urinary bladder with Charlton catheter in place. A punctate calcification on image 374 within the pelvis may represent a bladder calculus versus phlebolith. Hysterectomy. No adnexal mass lesion. Atherosclerosis of the aorta without aneurysm. Mild circumferential rectal wall thickening is noted with perirectal fat stranding. The appendix is reportedly surgically absent. No bowel obstruction. Diastases recti. Stranding with small nodular foci of the anterior abdominal wall are suggestive of injection sites. No retroperitoneal hemorrhage identified. Degenerative changes of the spine, pelvis and hips. Demineralized appearance of the bones. Mild lumbar levoscoliosis. IMPRESSION: 1. Limited exam as above. Probable punctate left renal calculus. No ureteral calculi or hydroureteronephrosis. 2. Mild rectal wall thickening with perirectal stranding. This may represent a nonspecific proctitis however should be correlated with a follow-up colonoscopy to exclude the less likely possibility of an underlying lesion. 3. Trace pleural effusions with mild dependent bibasilar atelectasis. 4. No bowel obstruction. ACT 112: Negative or not required by law. The above report was generated using voice recognition software. It may contain grammatical, syntax or spelling errors. Electronically signed by: Osman Sauer M.D. 01/22/2021 1:51 PM Dictated: 01/22/21 1342Transcribed: 01/22/21 1349 XR chest 1V portable HISTORY: 70 years-old Female hypotension COMPARISON: Chest radiograph 01/09/2021 TECHNIQUE: Portable AP view the chest FINDINGS: Cardiomediastinal and hilar silhouettes are unchanged. Calcified plaque the th oracic aorta. Linear subsegmental atelectasis/scarring of the left lung base. Mild chronic interstitial coarsening. No pneumothorax, large pleural effusion or overt pulmonary edema. Degenerative changes of the shoulders and spine. IMPRESSION: No acute process. ACT 112: Negative or not required by law. The above report was generated using voice recognition software. It may contain grammatical, syntax or spelling errors. Electronically signed by: Osman Sauer M.D. 01/22/2021 11:21 AM Dictated: 01/22/21 1120Transcribed: 01/22/21 1120 Hospital Course (1) Acute respiratory failure with hypoxia: (2) Hypotension: per admitting service notes: 70 year old female with PMH hypothyroidism, orthostatic hypotension, multiple system atrophy, and other problems listed below who presents to the ED from [facility] for eval of worsening renal function and hypotension. Patient recently admitted to [facility] 01/09 - 01/19 for metabolic encephalopathy due to UTI. Patient was discharged to [facility] for rehab. During previous admission, patient's urine culture grew Enterococcus for which she received 9 days of appropriate antibiotics for. Septic Shock Possible secondary to Staph Bacteremia Buttock Ulcer per admitting service notes: -Patient sent to the ED from [facility] for evaluation of acute renal failure and hypotension -Recently admitted to [facility] 01/09 - 01/19 for metabolic encephalopathy due to UTI. Urine culture grew Enterococcus which patient received appropriate antibiotic course for. -01/12 creatinine 0.5 -> 01/21 1.9 -> 01/22 3.3 -In the ED, patient hypoxic on room air at 86%, currently requiring 4 L of oxygen via nasal cannula, also hypotensive and tachycardic. Given tachypnea and shallow breaths, concern for rapid respiratory decompensation. Has underlying profound generalized weakness -D-dimer 2300, BL LE Doppler negative for DVT. Consider VQ scan (unable to do CTA due to SLOAN) -WBC 12 K, lactate 1.6 -CXR: no infiltrates -Ct abd/pelvis: 1. Limited exam as above. Probable punctate left renal calculus. No ureteral calculi or hydroureteronephrosis. 2. Mild rectal wall thickening with perirectal stranding. This may represent a nonspecific proctitis however should be correlated with a follow-up colonoscopy to exclude the less likely possibility of an underlying lesion. 3. Trace pleural effusions with mild dependent bibasilar atelectasis. 4. No bowel obstruction. - required Levophed, Vasopressin-- > weaned off Hydrocortisone also started--> Continue to taper, the D/C on usual Midodrine Blood pressure remains stable - Blood culture 01/22: coag negative staph not lugdunensis, miccrococcus species - Repeat blood culture 01/24: Negative so far - Spoke to microbiology about the blood cx on 01/22, micro said it seems there is propionicbacteria growing Discussed with ID, that suspected the blood cx might have been contaminating At first ID recommended to complete IV antibiotics for 2 weeks but when suspected contamination, ID recommended to discontinue antibiotic on 01/29 but reviewed blood culture sensitivity, Vanco will cover both organisms. We will reach to ID to check if we need to complete 2 weeks of antibiotic or to discontinue antibiotic. Case discussed with ID on 02/02 again that convinced blood cx was contaminated and pt does not need an additional abx therapy. Vanco will be discontinue Acute renal failure: -01/12 creatinine 0.5 -> 01/21 1.9 -> 01/22 3.3 -Likely prerenal in nature due to dehydration/acute illness -No signs of ureteral obstruction on CT - IV fluids given crea improved from 3.3 to 0.5 Nephro consulted Lasix 20 mg IV ordered for mild edema of the lower legs Edema resolved Hypophosphatemia, hypokalemia, hypomagnesemia P.o. Neutra-Phos, K and IV magnesium ordered Resolved Acute Respiratory Failure with Hypoxia Pulmonary embolism - CXR no signs of pneumonia - continue to wean off Oxygen - Elevated Ddimer - CTA chest showed Segmental and subsegmental pulmonary emboli of the left upper lobe. - Pt was starting on heparin drip, then transition to Eliquis PO -Continue Eliquis BID Possible Pneumonia CXR showed linear consolidation of the left lung base suggests atelectasis. Pneumonia is considered less likely. She was started on IV Zosyn, Will discontinue abx on discharge Continue aspiration precaution Continue neb treatment with duoneb Will do a short course of prednisone and guaifenesin Lung Nodules CTA chest showed 6 mm groundglass right upper lobe and 4 mm solid left upper lobe pulmonary nodules. Will need outpatient CT to monitor lung nodule Bright red blood per rectum Per visiting nurse report 01/22/2021 Per patient, she has had hemorrhoids chronically, worse with constipation Denies blood per rectum while admitted, no pain with defecation Continue Senokot as Monitor hemoglobin while on anticogulant iron level 66 Hypothyroid -Continue levothyroxine Multiple system atrophy -resume gabapentin, cyclobenzaprine, and Requip Orthostatic hypotension -Hypotensive as above -Continue midodrine DVT prophylaxis: -SQ heparin Disposition Denies placement to SNF Daughter said that she will try to appeal the denial, waiting for placement Total Time Total Time Spent Total Time Spent (In Minutes): 35 minutes Discharge Plan Discharge Items Patient Disposition: Transfer Custodial Fac Reason For Visit: Lethargy, Hypotension Discharge Diagnosis: Acute respiratory failure with hypoxia: Hypotension: Pulmonary embolism Acute renal failure: Electrolytes abnormalities Lung Nodules Hypothyroid Multiple system atrophy Orthostatic hypotension Activity: Resume your previous activity Non-emergency contact: Primary Care Provider Call non-emergency contact if: you have any medication questions Follow-up/Referrals: Ronit White MD [Primary Care Provider] - Diet: Heart Healthy Addtl Attending Provider Instructions: Follow up with your primary care provider [facility] Continue physical and occupational therapy Continue Fall and aspiration precaution Continue oxygen supplement with 2-3 NC to keep oxygen saturation above 90% at night and as needed You will need outpatient CT lung to monitor the lung nodule in 3 to 6 months ( your provider will order it) Medication Instructions: Eliquis Your condition is typically treated with an anticoagulant. Anticoagulants will thin your blood to help prevent new clots. You should take her medication exactly as directed. Never skip a dose. Never take a double dose. If you miss a dose, take it as soon as you remember. Avoid NSAIDs (Motrin, Aleve, Naproxen, Ibuprofen, Advil, Meloxicam,..) due to risks of bleeding Call your Primary Care doctor if you experience any of the following: Swelling or Pain in your leg Sudden, continuous pain deep in a muscle Pain that worsens when you are active or when you stand still for a long time Chest Pain Sudden Shortness of Breath Rapid or pounding heart beat Fainting Dizziness Cough with blood or bloody sputum Sweating more than normal Bruises Heavy or uncontrolled bleeding Blood in your urine, stool or vomit Black or tarry stools Caring for Your Self at Home: Avoid sitting, standing or lying down for long periods without moving your legs and feet When traveling by car, stop to get out and move around at least once every 3 hours On long airplane, train or bus rides, get up and move around when possible If you can't get up, wiggle your toes and tighten your calves to keep your blood moving Follow Up: It is important for you to keep your follow up appointments with your medical provider. Pending Studies at Discharge: No Stand-Alone Forms: My [facility] Skilled Items Patient informed of condition?: Yes DNR: Yes Discharge Level of Care: Skilled Communicable Disease: No Discharge Prognosis: Stable Lines: None Urinary Catheter: No Medications and DC Order Prescriptions: New Eliquis 5 mg Tablet 10 mg PO UD Qty: 70 RF: 0 prednisone 20 mg tablet 20 mg PO DAILY Qty: 4 RF: 0 guaifenesin 200 mg tablet 200 mg PO TID Qty: 15 RF: 0 Continued ropinirole 1 mg Tablet 1 mg PO TIDM RF: 0 polyethylene glycol 3350 [Miralax] 17 gram Powder In Packet 17 g PO DAILY RF: 0 cetirizine [Zyrtec] 10 mg Tablet 10 mg PO HS RF: 0 atorvastatin 10 mg Tablet 10 mg PO QDD RF: 0 sennosides-docusate sodium [Senna-S] 8.6-50 mg Tablet 1 tab-cap PO BID RF: 0 cyanocobalamin (vitamin B-12) [Vitamin B-12] 1,000 mcg Tablet 1,000 mcg PO DAILY RF: 0 levothyroxine 75 mcg Tablet 75 mcg PO DAILY RF: 0 alprazolam 0.25 mg Tablet 0.25 mg PO HS RF: 0 ropinirole 2 mg Tablet 2 mg PO TIDM RF: 0 gabapentin 300 mg Capsule 300 mg PO TID RF: 0 midodrine 2.5 mg Tablet 2.5 mg PO BID RF: 0 melatonin 10 mg Tablet 10 mg PO HS RF: 0 Probiotic Acidophilus Biobeads 12.9 mg (2 billion cell) Tablet,Delayed Release (Dr/Ec) 1 tab PO TIDM RF: 0 citalopram 40 mg tablet 40 mg PO DAILY RF: 0 cholecalciferol (vitamin D3) [Vitamin D3] 25 mcg (1,000 unit) Tablet 50 mcg PO DAILY RF: 0 cyclobenzaprine 10 mg Tablet 10 mg PO BID 30 Days Qty: 60 RF: 0 lidocaine 4 % Adhesive Patch,Medicated 1 patch TOPICAL DAILY RF: 0 Discharge Orders: Discharge Order (Routine); Ordered 02/02/21 Ordered By: Daniel Armenta Admission Data Admit Date/Time: 01/22/21 14:32 Attending Provider: Daniel Armenta Admit Provider: Eladia Ruiz Primary Care Provider: Ronit White Other Providers: Kristie Bradshaw at [place] ; Eladia Ruiz ; Everette Quintero ; Dariana Astudillo ; Bradford Garcia ; Puneet Bauer ; Prosper Haney I. ; Aaron Mauricio II ; María Elena Dunlap ; Luiz Lee ; Darek Morgan Other Interventions: Discharge Summary Assessment (RN) Last Done: 02/02/21 11:48
--- NOTE | 2021-02-09 11:08 | Coding Query ---
SEPSIS To promote full compliance with coding requirements relating to patient care, physician participation is requested in all cases of bus aide uncertainty. Please assist us with the question(s) below: In responding to this query, please exercise your independent professional judgement. The fact that a question is asked does not imply that any particular answer is desired or expected. We appreciate your clarification on this issue. Throughout the medical record, you have clearly documented a localized infection and your patient has clinical evidence of a generalized sepsis or severe sepsis. The term urosepsis is a nonspecific entity and is coded as an UTI. If the patient has sepsis, severe sepsis, from an urinary source or some other source, please clarify in your response below. The medical record reflects the following clinical findings: Pt admitted with hypotension,septic shock. Cultures possible contaminant per Discharge Summary. Seeking to clarify the diagnoses that was treated during this Inpatient stay. Thanks for your help. Ramana Barcenas [facility] ____ ( )Bacteremia (Nonspecific laboratory finding of bacteria in the blood) Specify Organism ( ) Present on Admission ( ) Not present on admission ( ) Unable to clinically determine ( ) Septicemia (Systemic disease associated with the presence of pathogenic microorganisms in the blood): Specify Organism ( ) Present on Admission ( ) Not present on admission ( ) Unable to clinically determine ( ) Sepsis Specify Organism Specify Associated Condition/Diagnosis ( ) Present on Admission ( ) Not present on admission ( ) Unable to clinically determine ( ) Severe Sepsis (Sepsis associated with acute organ dysfunction) Specify Organism Specify Associated Condition/Diagnosis ( ) Present on Admission ( ) Not present on admission ( ) Unable to clinically determine (x ) Septic Shock (Severe sepsis with acute circulatory failure, unexplained by other causes) ( x) Present on Admission ( ) Not present on admission ( ) Unable to clinically determine ( ) Other, patient has: MTDD
== END 2021-02-02 12:14 | DRG 871 ==
LOC: ED 10:33 → 1E 14:32 → SUATTDRO 14:32 → 1E 17:46 → 2S 01-24 15:26 → 2N 01-26 15:50
DX: R91.8 Other nonspecific abnormal finding of lung field; I26.99 Other pulmonary embolism without acute cor pulmonale; E03.9 Hypothyroidism, unspecified; N17.9 Acute kidney failure, unspecified; E83.42 Hypomagnesemia; G90.3 Multi-system degeneration of the autonomic nervous system; L98.419 Non-pressure chronic ulcer of buttock with unspecified severity; A41.2 Sepsis due to unspecified staphylococcus; K92.1 Melena; J96.01 Acute respiratory failure with hypoxia; E87.6 Hypokalemia; N39.0 Urinary tract infection, site not specified; E83.39 Other disorders of phosphorus metabolism; E86.0 Dehydration; R65.21 Severe sepsis with septic shock; R00.0 Tachycardia, unspecified; G20 Parkinson's disease

== ENCOUNTER 2021-02-15 17:35 | Observation (INO) ==
[2021-02-15] MEDS ORDERED: cefTRIAXone SODIUM 350 MG/ML IM IM ONE (18:15)
--- NOTE | 2021-02-15 18:17 | Emergency Department Note ---
Impression & Plan Weakness, Acute confusion, Acute UTI (urinary tract infection) ED Provider Note Name: ENRIKE PICHARDO Age: 70 Sex: F Arrives Via: Walk-In Informant: Patient, Daughter ED Provider: Stephen Puentes MD Chief Complaint: uti Impression: As per Impression above Medical Decision Makin yr old female with multiple system atrophy and recent hospitalization for u ro-sepsis arrives with worsening weakness, confusion and episodes of respiratory difficulty over the last 24 hours since discharge from ED last night following re-diagnosis of UTI. Received Rocephin x 2 in last 24 hours with worsening symptoms. Exam with tachy, mild dehydrated and tired appearing. Waxing waning exhaustion with exam and found to have tachy. Tachy improving with fluids. Labs do not consistent with sepsis at this time. Given persistent worsening and her high risk of outpatient failure discussed with hospitalist for further evaluation and monitoring. She was given IV cefepime & vanco. Rash noted over left neck and itching as vanco went in. Thus this was held and benadryl given without further worsening. Prior Medical Record and Triage/Nursing Notes reviewed by Me Additional history obtained from chart & daughter Differentials:Infection, dehydration, metabolic abnormality, hypo/hyperglycemia, electrolyte disturbance, anemia, hypoxia, cardiac sources, intracerebral event, toxicologic, neurologic, as well as other pathologies. Vital Signs: reviewed and remarkable for tachy Interventions: saline lock, nss bolus, cefepime iv, vanco iv, benadryl iv Labs:Reviewed and remarkable for no significant abnormalities Imaging:X ray results are stated below per my interpretation: Chest: 1 view: No infiltrate, no effusion, normal cardiac border. EKG:Per My Interpretation: Indication Sepsis: Sinus Tach 104 bpm, qtc 468. No Ectopy. No Ischemia. Compared to EKG 02/14/21, no significant changes. Cardiac/Tele Monitoring: Cardiac Monitoring: An Order was placed for continuous cardiac monitoring. The monitor shows a rate of 105 with a sinus tach rhythm. Consults:Dr Marilin Hayes Hospitalist Plan: Disposition:Hospitalization. Condition: Good History of Present Illness:70 yr old female arrives for evaluation urinary difficulty. Patient with history of Multiple System Atrophy and recent hospitalization for UTI & Sepsis, recently discharged from skilled nursing. Patient with decreasing urinary output. Seen in ED last night and noted to have Urinary retention. Given Rocephin IV, Straight cath with 1L UOP, and sent home on bactrim. Daughter notes patient unable to urinate since discharge. Was to have straight cath by Home Health but they did not receive and order for it so they sent her to ED for evaluation. Patient with increasing exhaustion throughout last few days. Today increasing staring off in to space, confused, a nd periodic episodes of breathing difficulty. Patient appears much like she did with septic shock just a few weeks ago. She has rapidly gone downhill since yesterday evening. She received IM Rocephin at PCP this morning without improvement. No vomiting, fevers, syncope, cough, leg swelling nor other symptoms. She was on [place] O2 until a few days ago. She has had no falls, trauma, injury other than her left wrist has been bothering her for which she is following with PCP. Daughter notes she does not feel they are capable of caring for her at this time. ROS: See above HPI for pertinent positives & negatives. A total of 10 systems reviewed and were otherwise negative. Past Medical History:See Below Past Surgical History:See Below Family History:See Below Social History:See Below Home Medications:See Below Allergies:See Below Vitals:Blood Pressure: 100/60, Pulse 106, RR 20, T 36.4C, O2 90% on RA Physical Exam: GENERAL: Patient is chronically unwell appearing and in mild distress. EYES: No scleral icterus, unremarkable pupils. ENT: Mucous membranes moist, no nasal congestion. NECK: No masses appreciated, nomeningismus, trachea is midline. RESPIRATORY: No dyspnea. Clear to auscultation and equal bilaterally. No wheeze, no rhonchi. CARDIOVASCULAR: Tavhy.No murmurs, rubs, gallops appreciated. GASTROINTESTINAL: Abdomen soft, non-tender, no peritonitis.Bowel sounds positive.No masses appreciated. BACK: No midline tenderness, no CVA tenderness EXTREMITIES: Normal motion all extremities, no cyanosis, no edema. NEUROLOGIC: Alert and oriented, left sided weakness SKIN: No rash, no jaundice, no diaphoresis. PSYCH: Appropriate GCS: 15 ED Course: Times/Reassessments: seems a bit improved with fluids, though still not to point of discharge to home Stephen Puentes MD Past Med/Surg History Medical History Anxiety Atypical parkinsonism HLD (hyperlipidemia) Hypothyroid MDD (major depressive disorder) Multiple system atrophy Orthostatic hypotension Septic shock Tachycardia Surgical History History of hysterectomy Family History Other Family history unknown Social History Smoking Status: Former smoker Second Hand Exposure: No; Do You Dip or Chew Tobacco: No; Hx Alcohol Use: No Hx Substance Use: No Preferred Language: Guyanese Communication Ability: Impaired Print Buyer Required: No Beliefs That Will Affect Care: None marital status: Current Living Situation: Family Current Living Situation Comment: lives with her at her daughters house How many Children do You have: 1 Feels Safe at Home: Yes Safety Concerns: Feels Safe At This Time Assistive Devices: Glasses, Slide Board and Wheelchair Allergies Allergies Allergy/AdvReac Type Severity Reaction Status Date / Time bacitracin Allergy Intermediate hives Verified 02/15/21 19:02 neomycin Allergy Intermediate hives Verified 02/15/21 19:02 onion Allergy Intermediate diarrhea,violent Verified 02/15/21 19:02 illness polymyxin B Allergy Intermediate hives Verified 02/15/21 19:02 ragweed pollen Allergy Intermediate hayfever/adolfo Verified 02/15/21 19:02 fever carbidopa Allergy Unknown FROM [facility] Verified 02/15/21 19:02 MED LIST garlic Allergy Unknown Gastrointestinal Verified 02/15/21 19:02 Upset levodopa Allergy Unknown FROM [facility] Verified 02/15/21 19:02 MED LIST lactose AdvReac Unknown Gastrointestinal Verified 02/15/21 19:02 Upset Home Meds Home Medications Medication Instructions Recorded Confirmed L.acidoph-L.rhamn-B.bifidum-B.long 1 tab PO TIDM 01/09/21 02/15/21 12.9 mg (2 billion cell) tabletDR (Probiotic Acidophilus Trini) alprazolam 0.25 mg tablet 0.25 mg PO HS 01/09/21 02/15/21 atorvastatin 10 mg tablet 10 mg PO QDD 01/09/21 02/15/21 cetirizine 10 mg tablet (Zyrtec) 10 mg PO HS 01/09/21 02/15/21 cholecalciferol (vitamin D3) 25 50 mcg PO DAILY 01/09/21 02/15/21 mcg (1,000 unit) tablet (Vitamin D3) citalopram 40 mg tablet 40 mg PO DAILY 01/09/21 02/15/21 cyanocobalamin (vitamin B-12) 1,000 mcg PO DAILY 01/09/21 02/15/21 1,000 mcg tablet (Vitamin B-12) gabapentin 300 mg capsule 300 mg PO TID 01/09/21 02/15/21 levothyroxine 75 mcg tablet 75 mcg PO DAILY 01/09/21 02/15/21 melatonin 10 mg tablet 10 mg PO HS 01/09/21 02/15/21 midodrine 2.5 mg tablet 2.5 mg PO BID 01/09/21 02/15/21 polyethylene glycol 3350 17 gram 17 g PO DAILY 01/09/21 02/15/21 oral powder packet (Miralax) ropinirole 1 mg tablet 1 mg PO TIDM 01/09/21 02/15/21 ropinirole 2 mg tablet 2 mg PO TIDM 01/09/21 02/15/21 sennosides 8.6 mg-docusate sodium 1 tab-cap PO BID 01/09/21 02/15/21 50 mg tablet (Senna-S) lidocaine 4 % topical patch 1 patch TOPICAL DAILY 01/22/21 02/15/21 acetaminophen 325 mg tablet 650 mg PO Q4 PRN 02/15/21 02/15/21 (Tylenol) hydrocortisone acetate 25 mg 25 mg [place] DIRECTED PRN 02/15/21 02/15/21 rectal suppository prednisone 20 mg tablet 0 mg PO DAILY 02/15/21 02/15/21 Previous Rx's Medication Instructions Recorded cyclobenzaprine 10 mg tablet 10 mg PO BID 30 Days #60 tab 01/19/21 apixaban 5 mg tablet (Eliquis) 10 mg PO UD #70 tab 02/02/21 guaifenesin 200 mg tablet 200 mg PO TID #15 tab 02/02/21 Bactrim DS 800 mg-160 mg tablet 1 tab PO Q12H #14 tab NS 02/14/21 (sulfamethoxazole-trimethoprim) Results & Data (ED) Vital Signs Vital Signs - 24 hr 02/15/21 17:59 Temperature 36.4 C L Temperature Source Temporal Artery Scan Pulse Rate 106 H Respiratory Rate 20 Respiratory Effort / Characteristics Non-Labored Respiratory Depth Normal Respiratory Pattern Regular Blood Pressure 100/60 Blood Pressure Mean 73 Pulse Oximetry 90 Oxygen Delivery Method Room Air Sepsis Recent Fever Within 48 Hours No Sepsis New/Unexplained Change in Mental Status No Sepsis Action Taken by Nursing No Action Required Laboratory Data Result diagrams: 02/17/21 05:45 02/17/21 05:45 Lab Results 02/15/21 02/15/21 02/15/21 Range/Units 15:05 18:26 18:44 WBC (4.8-10.8) K/uL RBC (4.2-5.4) M/uL Hgb (12.0-16.0) g/dL Hct (37-47) % MCV (80-100) fL MCH (25-34) pg MCHC (32-36) g/dL RDW Std Deviation (36.4-46.3) fL RDW Coeff of Radhames (11.5-14.5) % Plt Count (130-400) K/uL MPV (7.4-10.4) fL Immature Gran % (Auto) % Neut % (Auto) % Lymph % (Auto) % [place] % (Auto) % Eos % (Auto) % Baso % (Auto) % Neut # (Auto) (1.4-6.5) K/uL Lymph # (Auto) (1.2-3.4) K/uL [place] # (Auto) (0.11-0.59) K/uL Eos # (Auto) (0-0.5) K/uL Baso # (Auto) (0-0.2) K/uL Immature Gran # (Auto) (0.00-0.02) K/uL Sodium (136-145) mmol/L Potassium (3.5-5.1) mmol/L Chloride (98-107) mmol/L Carbon Dioxide (21-32) mmol/L Anion Gap (3-11) BUN (7-18) mg/dl Creatinine (0.6-1.2) mg/dl Est Cr Clr Drug Dosing Est GFR ( Amer) ml/min Est GFR (Non-Af Amer) ml/min BUN/Creatinine Ratio (10-20) Glucose (70-99) mg/dl Lactate 1.8 (0.4-2.0) mmol/L Calcium (8.5-10.1) mg/dl Magnesium (1.8-2.4) mg/dl Total Bilirubin (0.2-1) mg/dl Direct Bilirubin (0-0.2) mg/dl AST (15-37) U/L ALT (12-78) U/L Alkaline Phosphatase (45-117) U/L Troponin I (0-0.045) ng/ml Total Protein (6.4-8.2) gm/dl Albumin (3.4-5.0) gm/dl Lipase (73-393) U/L Procalcitonin (0-0.5) ng/ml Urine Color Yellow Urine Appearance Clear (Clear) Urine pH 5.5 (4.5-7.5) POC Urine pH Cancelled Ur Specific [place] 1.018 (1.000-1.030) Urine Protein Negative (Negative) POC Urine Protein Cancelled Urine Glucose (UA) Trace H (Negative) POC Ur Glucose (UA) Cancelled Urine Ketones Negative (Negative) POC Urine Ketones Cancelled Urine Blood Negative (Negative) POC Urine Blood Cancelled Urine Nitrite Negative (Negative) POC Urine Nitrite Cancelled Urine Bilirubin Negative (Negative) POC Urine Bilirubin Cancelled Urine Urobilinogen Negative (Negative) POC Urine Urobilinogen Cancelled Ur Leukocyte Esterase 2+ H (Negative) POC U Leukocyte Esteras Cancelled Urine WBC (Auto) >30 H (0-5) /hpf Urine RBC (Auto) 0-4 (0-4) /hpf U Hyaline Cast (Auto) 10-30 H (0-5) /lpf U Epithel Cells (Auto) 0-5 (0-5) /lpf Urine Bacteria (Auto) Negative (Negative) Urine Yeast Budding A (None Prsent) COVID-19 Eval Order SARS-CoV-2 (PCR) (Negative) 02/15/21 02/15/21 02/15/21 Range/Units 18:44 18:44 18:44 WBC 9.94 (4.8-10.8) K/uL RBC 3.72 L (4.2-5.4) M/uL Hgb 11.9 L (12.0-16.0) g/dL Hct 35.6 L (37-47) % MCV 95.7 (80-100) fL MCH 32.0 (25-34) pg MCHC 33.4 (32-36) g/dL RDW Std Deviation 47.9 H (36.4-46.3) fL RDW Coeff of Radhames 13.9 (11.5-14.5) % Plt Count 267 (130-400) K/uL MPV 8.3 (7.4-10.4) fL Immature Gran % (Auto) 1.5 % Neut % (Auto) 80.1 % Lymph % (Auto) 11.2 % [place] % (Auto) 6.4 % Eos % (Auto) 0.6 % Baso % (Auto) 0.2 % Neut # (Auto) 7.96 H (1.4-6.5) K/uL Lymph # (Auto) 1.11 L (1.2-3.4) K/uL [place] # (Auto) 0.64 H (0.11-0.59) K/uL Eos # (Auto) 0.06 (0-0.5) K/uL Baso # (Auto) 0.02 (0-0.2) K/uL Immature Gran # (Auto) 0.15 H (0.00-0.02) K/uL Sodium 140 (136-145) mmol/L Potassium 4.0 (3.5-5.1) mmol/L Chloride 103 (98-107) mmol/L Carbon Dioxide 29 (21-32) mmol/L Anion Gap 8.0 (3-11) BUN 19 H (7-18) mg/dl Creatinine 0.72 (0.6-1.2) mg/dl Est Cr Clr Drug Dosing Not Reportable Est GFR ( Amer) 99.7 ml/min Est GFR (Non-Af Amer) 86.1 ml/min BUN/Creatinine Ratio 26.4 H (10-20) Glucose 160 H (70-99) mg/dl Lactate (0.4-2.0) mmol/L Calcium 8.7 (8.5-10.1) mg/dl Magnesium 1.9 (1.8-2.4) mg/dl Total Bilirubin 0.3 (0.2-1) mg/dl Direct Bilirubin < 0.1 (0-0.2) mg/dl AST 8 L (15-37) U/L ALT 17 (12-78) U/L Alkaline Phosphatase 69 (45-117) U/L Troponin I < 0.015 (0-0.045) ng/ml Total Protein 6.6 (6.4-8.2) gm/dl Albumin 3.3 L (3.4-5.0) gm/dl Lipase 123 (73-393) U/L Procalcitonin < 0.05 (0-0.5) ng/ml Urine Color Urine Appearance (Clear) Urine pH (4.5-7.5) POC Urine pH Ur Specific [place] (1.000-1.030) Urine Protein (Negative) POC Urine Protein Urine Glucose (UA) (Negative) POC Ur Glucose (UA) Urine Ketones (Negative) POC Urine Ketones Urine Blood (Negative) POC Urine Blood Urine Nitrite (Negative) POC Urine Nitrite Urine Bilirubin (Negative) POC Urine Bilirubin Urine Urobilinogen (Negative) POC Urine Urobilinogen Ur Leukocyte Esterase (Negative) POC U Leukocyte Esteras Urine WBC (Auto) (0-5) /hpf Urine RBC (Auto) (0-4) /hpf U Hyaline Cast (Auto) (0-5) /lpf U Epithel Cells (Auto) (0-5) /lpf Urine Bacteria (Auto) (Negative) Urine Yeast (None Prsent) COVID-19 Eval Order SARS-CoV-2 (PCR) (Negative) 02/15/21 02/15/21 Range/Units 19:18 19:18 WBC (4.8-10.8) K/uL RBC (4.2-5.4) M/uL Hgb (12.0-16.0) g/dL Hct (37-47) % MCV (80-100) fL MCH (25-34) pg MCHC (32-36) g/dL RDW Std Deviation (36.4-46.3) fL RDW Coeff of Radhames (11.5-14.5) % Plt Count (130-400) K/uL MPV (7.4-10.4) fL Immature Gran % (Auto) % Neut % (Auto) % Lymph % (Auto) % [place] % (Auto) % Eos % (Auto) % Baso % (Auto) % Neut # (Auto) (1.4-6.5) K/uL Lymph # (Auto) (1.2-3.4) K/uL [place] # (Auto) (0.11-0.59) K/uL Eos # (Auto) (0-0.5) K/uL Baso # (Auto) (0-0.2) K/uL Immature Gran # (Auto) (0.00-0.02) K/uL Sodium (136-145) mmol/L Potassium (3.5-5.1) mmol/L Chloride (98-107) mmol/L Carbon Dioxide (21-32) mmol/L Anion Gap (3-11) BUN (7-18) mg/dl Creatinine (0.6-1.2) mg/dl Est Cr Clr Drug Dosing Est GFR ( Amer) ml/min Est GFR (Non-Af Amer) ml/min BUN/Creatinine Ratio (10-20) Glucose (70-99) mg/dl Lactate (0.4-2.0) mmol/L Calcium (8.5-10.1) mg/dl Magnesium (1.8-2.4) mg/dl Total Bilirubin (0.2-1) mg/dl Direct Bilirubin (0-0.2) mg/dl AST (15-37) U/L ALT (12-78) U/L Alkaline Phosphatase (45-117) U/L Troponin I (0-0.045) ng/ml Total Protein (6.4-8.2) gm/dl Albumin (3.4-5.0) gm/dl Lipase (73-393) U/L Procalcitonin (0-0.5) ng/ml Urine Color Urine Appearance (Clear) Urine pH (4.5-7.5) POC Urine pH Ur Specific [place] (1.000-1.030) Urine Protein (Negative) POC Urine Protein Urine Glucose (UA) (Negative) POC Ur Glucose (UA) Urine Ketones (Negative) POC Urine Ketones Urine Blood (Negative) POC Urine Blood Urine Nitrite (Negative) POC Urine Nitrite Urine Bilirubin (Negative) POC Urine Bilirubin Urine Urobilinogen (Negative) POC Urine Urobilinogen Ur Leukocyte Esterase (Negative) POC U Leukocyte Esteras Urine WBC (Auto) (0-5) /hpf Urine RBC (Auto) (0-4) /hpf U Hyaline Cast (Auto) (0-5) /lpf U Epithel Cells (Auto) (0-5) /lpf Urine Bacteria (Auto) (Negative) Urine Yeast (None Prsent) COVID-19 Eval Order Covid19 at [facility] SARS-CoV-2 (PCR) NEGATIVE (Negative) Administered Medications Alprazolam (Alprazolam 0.25 Mg Tablet) 0.25 mg PO HS SAL Stop: 03/18/21 20:59 Last Admin: 02/16/21 20:17 Dose: 0.25 mg Documented by: [id number] Apixaban (Apixaban 5 Mg Tablet) 5 mg PO BID SAL Stop: 03/18/21 08:59 Last Admin: 02/17/21 08:45 Dose: 5 mg Documented by: [id number] Admin: 02/16/21 20:14 Dose: 5 mg Documented by: [id number] Admin: 02/16/21 08:08 Dose: 5 mg Documented by: [id number] Atorvastatin Calcium (Atorvastatin 10 Mg Tab) 10 mg PO QDD SAL Stop: 03/18/21 16:29 Last Admin: 02/16/21 17:00 Dose: 10 mg Documented by: [id number] Cetirizine HCl (Cetirizine Hcl 10 Mg Tablet) 10 mg PO HS SAL Stop: 03/18/21 20:59 Last Admin: 02/16/21 20:14 Dose: 10 mg Documented by: [id number] Citalopram Hydrobromide (Citalopram 40 Mg Tab) 40 mg PO DAILY SAL Stop: 03/18/21 08:59 Last Admin: 02/17/21 08:45 Dose: 40 mg Documented by: [id number] Admin: 02/16/21 08:08 Dose: 40 mg Documented by: [id number] Cyanocobalamin (Cyanocobalamin 500 Mcg Tablet (Vitamin B-12)) 1,000 mcg PO DAILY SAL Stop: 03/18/21 08:59 Last Admin: 02/17/21 08:45 Dose: 1,000 mcg Documented by: [id number] Admin: 02/16/21 08:08 Dose: 1,000 mcg Documented by: [id number] Cyclobenzaprine HCl (Cyclobenzaprine Hcl 10 Mg Tab) 10 mg PO BID SAL Stop: 03/18/21 08:59 Last Admin: 02/17/21 08:45 Dose: 10 mg Documented by: [id number] Admin: 02/16/21 20:14 Dose: 10 mg Documented by: [id number] Admin: 02/16/21 08:08 Dose: 10 mg Documented by: [id number] Gabapentin (Gabapentin 300 Mg Cap) 300 mg PO TID SAL Stop: 03/18/21 08:59 Last Admin: 02/17/21 08:45 Dose: 300 mg Documented by: [id number] Admin: 02/16/21 20:14 Dose: 300 mg Documented by: [id number] Admin: 02/16/21 15:07 Dose: 300 mg Documented by: [id number] Admin: 02/16/21 08:07 Dose: 300 mg Documented by: [id number] Guaifenesin (Guaifenesin 200 Mg Tab) 200 mg PO TID SAL Stop: 03/18/21 08:59 Last Admin: 02/17/21 08:45 Dose: 200 mg Documented by: [id number] Admin: 02/16/21 20:14 Dose: 200 mg Documented by: [id number] Admin: 02/16/21 15:07 Dose: 200 mg Documented by: [id number] Admin: 02/16/21 08:07 Dose: 200 mg Documented by: [id number] Sodium Chloride (Nss 1000ml) 1,000 mls @ 75 mls/hr IV .[id number] SAL Stop: 03/18/21 00:26 Last Admin: 02/17/21 05:44 Dose: 75 mls/hr Documented by: [id number] Infusion: 02/17/21 05:40 Dose: 75 mls/hr Documented by: [id number] Admin: 02/16/21 16:20 Dose: 75 mls/hr Documented by: [id number] Infusion: 02/16/21 16:19 Dose: 0 mls/hr Documented by: [id number] Admin: 02/16/21 01:13 Dose: 75 mls/hr Documented by: [id number] Cefepime HCl 2,000 mg/ Syringe 20 mls @ 5 mls/min IV Q8H SAL; Protocol Stop: 02/26/21 15:59 Last Admin: 02/17/21 08:44 Dose: 5 mls/min Documented by: [id number] Admin: 02/17/21 00:04 Dose: 5 mls/min Documented by: [id number] Admin: 02/16/21 16:59 Dose: 5 mls/min Documented by: [id number] Lactobacillus Acidoph/Casei/Rhamnos (Advanced Probiotic 1250 Mg Capsule) 2 cap PO TIDM SAL Stop: 03/18/21 07:59 Last Admin: 02/17/21 08:45 Dose: 2 cap Documented by: [id number] Admin: 02/16/21 17:00 Dose: 2 cap Documented by: [id number] Admin: 02/16/21 12:22 Dose: 2 cap Documented by: [id number] Admin: 02/16/21 08:08 Dose: 2 cap Documented by: [id number] Levothyroxine Sodium (Levothyroxine Sodium 75 Mcg Tablet) 75 mcg PO DAILYBB SAL Stop: 03/18/21 06:29 Last Admin: 02/17/21 05:47 Dose: 75 mcg Documented by: [id number] Admin: 02/16/21 06:12 Dose: 75 mcg Documented by: [id number] Lidocaine (Lidocaine 5% 1 Patch) 1 patch TD DAILY SAL Stop: 03/18/21 08:59 Last Admin: 02/17/21 08:45 Dose: 1 patch Documented by: [id number] Admin: 02/16/21 08:09 Dose: 1 patch Documented by: [id number] Melatonin (Melatonin 3 Mg Tab) 3 mg PO HS [facility] Stop: 03/18/21 20:59 Last Admin: 02/16/21 20:15 Dose: 3 mg Documented by: [id number] Midodrine (Midodrine Hcl 2.5 Mg Tab) 2.5 mg PO BID@0800,1200 [facility] Stop: 03/18/21 07:59 Last Admin: 02/17/21 08:46 Dose: 2.5 mg Documented by: [id number] Admin: 02/16/21 12:22 Dose: 2.5 mg Documented by: [id number] Admin: 02/16/21 08:08 Dose: 2.5 mg Documented by: [id number] Miscellaneous (Remove Lidoderm Patch) 1 ea N/A DAILY@2100 [facility] Stop: 03/18/21 00:59 Last Admin: 02/16/21 20:18 Dose: 1 ea Documented by: [id number] Admin: 02/16/21 01:14 Dose: 1 ea Documented by: [id number] Polyethylene Glycol (Polyethylene (Miralax) 17 Gm Pack) 17 gm PO DAILY SAL Stop: 03/18/21 08:59 Last Admin: 02/17/21 08:46 Dose: 17 gm Documented by: [id number] Admin: 02/16/21 08:08 Dose: 17 gm Documented by: [id number] Ropinirole HCl (Ropinirole Hcl 1 Mg Tablet) 1 mg PO TIDM SAL Stop: 03/18/21 07:59 Last Admin: 02/17/21 08:45 Dose: 1 mg Documented by: [id number] Admin: 02/16/21 17:00 Dose: 1 mg Documented by: [id number] Admin: 02/16/21 12:22 Dose: 1 mg Documented by: [id number] Admin: 02/16/21 08:08 Dose: 1 mg Documented by: [id number] Ropinirole HCl (Ropinirole Hcl 2 Mg Tablet) 2 mg PO TIDM SAL Stop: 03/18/21 07:59 Last Admin: 02/17/21 08:45 Dose: 2 mg Documented by: [id number] Admin: 02/16/21 17:00 Dose: 2 mg Documented by: [id number] Admin: 02/16/21 12:22 Dose: 2 mg Documented by: [id number] Admin: 02/16/21 08:08 Dose: 2 mg Documented by: [id number] Senna/Docusate Sodium (Docusate Sodium/Senna 50/8.6mg Tab) 1 tab PO BID SAL Stop: 03/18/21 08:59 Last Admin: 02/17/21 08:45 Dose: 1 tab Documented by: [id number] Admin: 02/16/21 20:14 Dose: 1 tab Documented by: [id number] Admin: 02/16/21 08:07 Dose: 1 tab Documented by: [id number] Vitamin D (Cholecalciferol 1,000 Units 25 Mcg Tab) 2,000 units PO DAILY SAL Stop: 03/18/21 08:59 Last Admin: 02/17/21 08:45 Dose: 2,000 units Documented by: [id number] Admin: 02/16/21 08:08 Dose: 2,000 units Documented by: [id number] Discontinued Medications Alprazolam (Alprazolam 0.25 Mg Tablet) 0.25 mg PO NOW STA Stop: 02/16/21 05:09 Last Admin: 02/16/21 05:42 Dose: 0.25 mg Documented by: [id number] Ceftriaxone Sodium (Ceftriaxone Sodium 350 Mg/Ml Im) 1,000 mg IM NOW ONE Stop: 02/15/21 18:16 Last Admin: 02/15/21 19:32 Dose: Not Given Documented by: [id number] Ceftriaxone Sodium (Ceftriaxone Sodium 1000mg/50ml D5w) Confirm Administered Dose 1,000 mg IV .STK-MED ONE Stop: 02/15/21 18:56 Last Admin: 02/15/21 19:00 Dose: 1,000 mg Documented by: [id number] Diphenhydramine HCl (Diphenhydramine 50 Mg/Ml Vial) 25 mg IV NOW STA Stop: 02/15/21 20:43 Last Admin: 02/15/21 20:50 Dose: 25 mg Documented by: [id number] Sodium Chloride (Nss 1000ml) 2,000 mls @ 999 mls/hr IV .Q2H1M ONE Stop: 02/15/21 20:27 Last Infusion: 02/15/21 21:00 Dose: 0 mls/hr Documented by: [id number] Infusion: 02/15/21 19:24 Dose: 0 mls/hr Documented by: [id number] Admin: 02/15/21 19:00 Dose: 999 mls/hr Documented by: [id number] Cefepime HCl (Maxipime) 2,000 mg in 20 mls @ 5 mls/min IV NOW STA; Protocol Stop: 02/15/21 18:31 Last Admin: 02/15/21 19:25 Dose: 5 mls/min Documented by: [id number] Vancomycin HCl 2,000 mg/ (Sodium Chloride) 540 mls @ 200 mls/hr IV NOW ONE Stop: 02/15/21 20:57 Last Infusion: 02/15/21 21:00 Dose: 0 mls/hr Documented by: [id number] Admin: 02/15/21 19:24 Dose: 200 mls/hr Documented by: [id number] Cefepime HCl 2,000 mg/ Syringe 20 mls @ 5 mls/min IV Q12H [facility]; Protocol Stop: 02/16/21 12:00 Last Admin: 02/16/21 09:34 Dose: 5 mls/min Documented by: [id number] Miscellaneous Information (Consult Pharmacy) 1 ea N/A NOW STA Stop: 02/15/21 21:41 Last Admin: 02/15/21 22:54 Dose: Not Given Documented by: [id number] Ropinirole HCl (Ropinirole Hcl 2 Mg Tablet) 2 mg PO NOW STA Stop: 02/16/21 05:09 Last Admin: 02/16/21 05:42 Dose: 2 mg Documented by: [id number] Imaging Data Radiologist's Impression: Chest X-Ray 02/15/21 18:27 XR chest 1V portable CLINICAL HISTORY: sepsis COMPARISON STUDY: Chest CT January 28, 2021. Chest radiograph January 30, 2021. FINDINGS: Lung volumes are normal. Linear left basilar opacity is similar to prior exam and favors atelectasis. There is no pneumothorax or pleural effusion. Cardiac size is normal. Mediastinal contours are normal. There is no evidence for pulmonary edema. IMPRESSION: No acute cardiopulmonary findings. No change in appearance of the chest. ACT 112: Negative or not required by law. Electronically signed by: Jonathan hCoe M.D. 02/15/2021 6:41 PM Discharge Plan Visit Data Chief Complaint: Urinary Symptoms Stated Complaint: CANNOT URINATE ON OWN ED Provider: Stephen Puentes Discharge Problem: Weakness, Acute confusion, Acute UTI (urinary tract infection) Patient Disposition: Admitted As Inpatient Discharge Instructions Interventions: ED Discharge Assessment Last Done: 02/16/21 00:05
[2021-02-15] MEDS ORDERED: SODIUM CHLORIDE 0.9% 1000ML 2,000 ML IV ONE (18:27)
[2021-02-15] MEDS ORDERED: CEFEPIME 2,000 MG/20 ML VIAL IV STA (18:28)
[2021-02-15] MEDS ORDERED: VANCOMYCIN HCL 2,000 MG in SODIUM CHLORIDE 0.9% 500 ML IV ONE (18:28)
[2021-02-15] MEDS ORDERED: VANCOMYCIN CONSULT ACTIVE PRN (18:28)
--- NOTE | 2021-02-15 18:42 | XRay Report ---
XR chest 1V portable CLINICAL HISTORY: sepsis COMPARISON STUDY: Chest CT January 28, 2021. Chest radiograph January 30, 2021. FINDINGS: Lung volumes are normal. Linear left basilar opacity is similar to prior exam and favors at electasis. There is no pneumothorax or pleural effusion. Cardiac size is normal. Mediastinal contours are normal. There is no evidence for pulmonary edema. IMPRESSION: No acute cardiopulmonary findings. No change in appearance of the chest. ACT 112: Negative or not required by law. Electronically signed by: Jonathan Choe M.D. 02/15/2021 6:41 PM
[2021-02-15 18:54] LABS: Basophils # (auto) 0.02 K/uL (0-0.2); Basophils % (auto) 0.2 %; Eosinophils # (auto) 0.06 K/uL (0-0.5); Eosinophils % (auto) 0.6 %; Hematocrit (blood only) 35.6 % (37-47); Hemoglobin 11.9 g/dL (12.0-16.0); Immature Granulocytes # (auto) 0.15 K/uL (0.00-0.02); Immature Granulocytes % (auto) 1.5 %; Lymphocytes # (auto) 1.11 K/uL (1.2-3.4); Lymphocytes % (auto) 11.2 %; Mean Corpuscular Hgb Conc 33.4 g/dL (32-36); Mean Corpuscular Volume 95.7 fL (80-100); Mean Platelet Volume 8.3 fL (7.4-10.4); Monocytes # (auto) 0.64 K/uL (0.11-0.59); Monocytes % (auto) 6.4 %; Neutrophils # (auto) 7.96 K/uL (1.4-6.5); Neutrophils % (auto) 80.1 %; Platelet Count 267 K/uL (130-400); RDW Coefficient of Variation 13.9 % (11.5-14.5); RDW Standard Deviation 47.9 fL (36.4-46.3); Red Blood Count 3.72 M/uL (4.2-5.4); White Blood Count 9.94 K/uL (4.8-10.8)
[2021-02-15] MEDS ORDERED: cefTRIAXone SODIUM 1000MG/50ML D5W IV ONE (18:55)
[2021-02-15 19:14] LABS: Alanine Aminotransferase 17 U/L (12-78); Albumin Level 3.3 gm/dl (3.4-5.0); Aspartate Aminotransferase 8 U/L (15-37); BUN Creatinine Ratio 26.4 (10-20); Bilirubin Direct < 0.1 mg/dl (0-0.2); Blood Urea Nitrogen 19 mg/dl (7-18); Calcium 8.7 mg/dl (8.5-10.1); Carbon Dioxide 29 mmol/L (21-32); Chloride 103 mmol/L (98-107); Est GFR (African American) 99.7 ml/min; Est GFR (Non-African American) 86.1 ml/min; Glucose 160 mg/dl (70-99); Lipase 123 U/L (73-393); Magnesium 1.9 mg/dl (1.8-2.4); Sodium 140 mmol/L (136-145)
[2021-02-15 19:19] LABS: Alkaline Phosphatase 69 U/L (45-117); Bilirubin,Total 0.3 mg/dl (0.2-1); Total Protein 6.6 gm/dl (6.4-8.2); Troponin I < 0.015 ng/ml (0-0.045)
[2021-02-15 19:25] LABS: Appearance Urine Clear (Clear); Bacteria Urine Automated Negative (Negative); Bilirubin Urine Negative (Negative); Blood Urine Negative (Negative); Color Urine Yellow; Epithelial Cell Urine Auto 0-5 /lpf (0-5); Glucose Urine UA Trace (Negative); Ketones Urine Negative (Negative); Leukocyte Esterase Urine 2+ (Negative); Nitrite Urine Negative (Negative); Protein Urine Negative (Negative); Specific Gravity Urine 1.018 (1.000-1.030); Urobilinogen Urine Negative (Negative); WBC Urine Automated >30 /hpf (0-5); pH Urine 5.5 (4.5-7.5)
[2021-02-15 20:18] LABS: RBC Urine Automated 0-4 /hpf (0-4)
[2021-02-15] MEDS ORDERED: diphenhydrAMINE 50 MG/ML VIAL IV STA (20:42)
[2021-02-15] MEDS ORDERED: CONSULT PHARMACY STA (21:40)
--- NOTE | 2021-02-16 00:06 | History and Physical Report ---
DATE OF ADMISSION: 02/15/2021. CHIEF COMPLAINT: Urinary retention and UTI. HISTORY OF PRESENT ILLNESS: A 70-year-old female with past medical history significant for acquired hypothyroidism, hyperlipidemia, lung nodules, orthostatic hypotension, history of multiple subsegmental recent pulmonary emboli, slow transit constipation, chronic pain of the left upper extremity, cervical spondylosis, progressive supranuclear ophthalmoplegia, multiple system atrophy. The patient is bedbound. Has to use lift to get into the wheelchair, history of generalized anxiety disorder, history of bacteremia, depression, who lives at home with her daughter, was brought in because of urinary retention. The patient recently had UTI with urosepsis. At the end of January, she was discharged to [facility], she came back home, and she again had decreased urine output. She was in the ED last night with urinary retention, given straight cath and IV Rocephin and sent home on Bactrim. After going home, she was not having any urinary out. There was a plan for straight catheter by [facility] but as there was no order for it she was sent to ED for evaluation. The patient is speaking in somewhat a low voice. Denies any chest pain or shortness of breath currently. She has occasional cough, occasional shortness of breath. Denies any headache. No blurred visions, no earache, no runny nose, no sore throat. She says she eats okay, no dysphagia, no nausea. Has some lower abdominal discomfort. She says once in a while she gets blood in the stool because she was recently started on Eliquis, no fevers. ALLERGIES: CARBIDOPA/LEVODOPA, IRON, MELOXICAM, NEOSPORIN, PRAZOSIN. PAST MEDICAL HISTORY: As mentioned above. PAST SURGICAL HISTORY: Removal of ovaries, total abdominal hysterectomy with removal of tubes. MEDICATIONS: Currently, the patient is on Tylenol 650 mg p.o. q. 4 hours p.r.n., alprazolam 0.5 mg p.o. at bedtime, Eliquis 5 mg p.o. b.i.d., atorvastatin 10 mg p.o. daily, cetirizine 10 mg p.o. at bedtime, vitamin D 50 mcg p.o. daily, citalopram 40 mg p.o. daily, vitamin B12 1000 mcg p.o. daily, cyclobenzaprine 10 mg p.o. b.i.d., gabapentin 300 mg p.o. t.i.d., guaifenesin 200 mg p.o. tid, hydrocortisone acetate 25 mg per rectal as directed, levothyroxine 75 mcg p.o. daily, lidocaine 1 patch topical daily, melatonin 10 mg p.o. at bedtime, midodrine 2.5 mg p.o. b.i.d., MiraLax 17 g p.o. daily, prednisone as directed, probiotic 1 tablet p.o. t.i.d. with meals, ropinirole 1 mg p.o. t.i.d. with meals, ropinirole 2 mg p.o. t.i.d. with meals, Senna S 1 tablet p.o. b.i.d., Bactrim 1 tablet p.o. b.i.d. FAMILY HISTORY: Significant for no family history on file. SOCIAL HISTORY: Former smoker, quit in 1969. No alcohol use. Lives with daughter. REVIEW OF SYSTEMS: As per HPI. Rest of the review of systems is negative. PHYSICAL EXAMINATION: GENERAL: The patient is of moderate build, not in acute distress. VITAL SIGNS: Temperature 36.4, pulse 91, respiratory rate 17, blood pressure 100/60, oxygen 93% on room air. HEENT: Pupils equal, round and reactive to light. Oral mucosa moist. NECK: No JVD, no neck masses. CARDIOVASCULAR: S1 and S2 heard. Regular rate and rhythm. No murmur, no gallop. RESPIRATORY SYSTEM: Normal AP diameter. No accessory muscle use. No wheezing, no crackles. ABDOMEN: Soft, bowel sounds present, nontender, no distention. CENTRAL NERVOUS SYSTEM: Alert and oriented. Speech is clear. Moves extremities. EXTREMITIES: No edema, no erythema. LABORATORY DATA: WBC 8.9, hemoglobin 11.9, hematocrit 35.6, platelets 267. Sodium 140, potassium 4, chloride 103, bicarb 29, BUN 19, creatinine 0.7, serum glucose 160. Lactate 1.8, calcium 8.7, magnesium 1.9, total bilirubin 0.3, direct bilirubin less than 0.1, AST 8, ALT 17, alkaline phosphatase 69. Troponin I less than 0.015. Lipase 123. Procalcitonin less than 0.015. Urinalysis, +2 leukocyte esterase, budding yeast. SARS-CoV-2 PCR negative. IMAGING DATA: Chest x-ray, no acute findings. EKG: Sinus tachycardia at a rate of 104, no acute ST changes seen. ASSESSMENT AND PLAN: This is a 70-year-old female who presents with recurrent urinary retention and urinary tract infection. 1. Recurrent urinary tract infection and recurrent urinary retention: Currently status post Uribe catheter in the ER. The patient has recently had sepsis from urinary tract infection. Symptoms did not improve with the Rocephin given in the ER yesterday. Will continue with Rocephin and vancomycin started in the ER. Follow the cultures. Gentle fluids. Consult urology in the a.m. for recurrent urinary retention. 2. History of pulmonary embolism: Continue Eliquis. 3. Lung nodules: Needs followup. 4. Hypothyroidism: Continue Synthroid. 5. 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 6. Orthostatic hypotension: Will monitor blood pressure. Currently continue gentle fluids and continue midodrine. 7. Deep venous thrombosis prophylaxis: Heparin subcu. 8. History of buttock ulcers: Monitor. DISPOSITION: Monitor in the [employer] tele. PT/OT prior to discharge. Social service to help with discharge planning. Job ID: [id number] [facility]
[2021-02-16] MEDS ORDERED: POLYETHYLENE (MIRALAX) 17 GM PACK PO PRN (00:27)
[2021-02-16] MEDS ORDERED: NITROGLYCERIN SL 0.4 MG/TAB TAB SL PRN (00:27)
[2021-02-16] MEDS ORDERED: ONDANSETRON INJ 2 MG/ML 2 ML VIAL IV PRN (00:27)
[2021-02-16] MEDS ORDERED: HYDROCORTISONE ACETATE 25 MG SUPP PR PRN (00:27)
[2021-02-16] MEDS ORDERED: ACETAMINOPHEN 325 MG TAB PO PRN ×2 (00:27)
[2021-02-16] MEDS ORDERED: CEFEPIME CONSULT ACTIVE PRN (01:00)
[2021-02-16] MEDS: SODIUM CHLORIDE 0.9% 1000ML 1,000 ML IV SCH ×2 (01:13→16:20)
--- NOTE | 2021-02-16 05:05 | Pharmacy Report ---
Pharmacy Abx Initial Consult - Date of Service February 16, 2021 - Pharmacy Dosing Scope Date of Consult: 02/16/21 Consultation requested by: Dr. Gaston Pharmacy is consulted to initiate VANCOMYCIN/CEFEPIME IV dosing therapy, order appropriate labs and adjust drug dose/frequency. - Subjective The patient is a 70 year old F admitted on 02/15/21 21:40. - Objective Height: 5 ft 2 in Weight: 76.912 kg Vital Signs (Past 12hrs): Vital Signs Temp Pulse Pulse Resp BP BP Pulse Ox 02/16/21 03:11 36.6 C 999 H 18 124/66 94 02/16/21 01:03 36.6 C 104 H 18 126/75 93 02/16/21 00:27 36.6 C 104 H 18 126/75 93 02/15/21 22:00 19 92 02/15/21 21:45 114 H 17 94 02/15/21 21:30 100 H 20 92 02/15/21 21:15 97 H 16 93 02/15/21 21:00 96 H 14 93 02/15/21 20:45 96 H 19 93 02/15/21 20:30 92 H 14 92 02/15/21 20:15 91 H 17 93 02/15/21 20:00 90 19 94 02/15/21 19:45 91 H 22 92 02/15/21 19:30 92 H 15 92 02/15/21 19:15 95 H 22 90 02/15/21 19:10 96 H 22 92 02/15/21 17:59 36.4 C L 106 H 20 100/60 90 Lab Results (24hrs): Laboratory Tests (24 Hours) 02/15/21 02/15/21 02/15/21 18:44 18:44 18:44 WBC 9.94 Neut # (Auto) 7.96 H Creatinine 0.72 Est Cr Clr Drug Dosing Not Reportable Procalcitonin < 0.05 Micro Results: 02/15/21 18:44 Aerobic Blood Culture - Pending Blood Anaerobic Blood Culture - Pending 02/15/21 15:05 Urine Culture - Pending Urine,Indwelling Cath 02/15/21 18:44 Aerobic Blood Culture - Pending Blood Anaerobic Blood Culture - Pending - Risk Factors for Resistance * Antimicrobial use within the last 90 days: Bactrim DS - Assessment & Plan Assessment 70 year old F ordered VANCOMYCIN/CEFEPIME for UTI. Blood and urine cx pending. Plan Vancomycin IV * Loading dose: 2000mg (~26 mg/kg) * Maintenance dose: 1000mg IV (~13 mg/kg) every 12 hours * Trough level ordered for 02/17/21 @ 0800. * AUC/AZUCENA is the preferred PK/PD target for vancomycin * AUC guided dosing is effective and associated with decreased risk of nephrotoxicity compared to traditional trough targets * This dose is predicted to achieve target AUC/AZUCENA of 400-600 mg/L.hr and may be associated with a 14% risk of nephrotoxicity Pharmacy will continue to follow and will adjust dose/frequency as necessary. Thank you.
[2021-02-16] MEDS ORDERED: ALPRAZolam 0.25 MG TABLET PO STA (05:08)
[2021-02-16] MEDS ORDERED: rOPINIRole HCL 2 MG TABLET PO STA (05:08)
[2021-02-16] MEDS: LEVOTHYROXINE SODIUM 75 MCG TABLET PO SCH (06:12)
[2021-02-16] MEDS ORDERED: VANCOMYCIN HCL 1,000 MG in SODIUM CHLORIDE 0.9% 250 ML IV SCH (08:00)
[2021-02-16] MEDS ORDERED: CEFEPIME 2,000 MG in SYRINGE 0 ML IV SCH (08:00)
--- NOTE | 2021-02-16 08:04 | Urology Consultation ---
Date of Consultation February 16, 2021 Assessment & Plan (1) Urinary retention: (2) UTI (urinary tract infection): 70 year-old female patient, with multiple comorbidities, admitted with presumed UTI with urinary retention. -Plan of care reviewed with Dr. Andrade, on-call urologist. -Etiology of urinary retention likely multifactorial. -She is afebrile, non-toxic on exam. -Labs reviewed - white count and creatinine stable. -Urine and blood cultures pending, follow and treat accordingly based on final sensitivities. -Continue with antibiotic therapy and supportive care. Urinalysis on admission positive for yeast - consider adding Fluconazole in addition to Cefepime. -No acute intervention indicated at this time. -Recommend maintaining charlton catheter for 7-10 days. -Will arrange outpatient follow-up with urology service for voiding trial, exam, and discussion of urodynamics. -Expected clinical course reviewed with patient, all questions answered. Thank you for allowing us to participate in the acute care of Mrs. Blanca. Please reconsult us with additional questions, concerns or changes in patient status. History of Present Illness Reason for Consultation: Recurrent urinary retention Attending Physician: Daniel Armenta MD History of Present Illness 70-year-old female patient, with past medical history significant for acquired hypothyroidism, hyperlipidemia, lung nodules, orthostatic hypotension, history of multiple subsegmental recent pulmonary emboli, progressive supranuclear ophthalmoplegia, multiple system atrophy, and other comorbidities listed below, presented to the emergency room with inability to void in addition to increased confusion. Of note, patient has had recent hospital admissions due to metabolic encephalopathy secondary to UTI and most recent admission due to acute respiratory failure. Patient was discharged to [facility] after second hospital admission and ultimately returned home. She noted inability to urinate and was seen in the emergency room on 02/14. At that time, she was catheterized for roughly 1 liter urine return. After going home from ER, she did not have any urinary output. Her homemaker companion was unable to cath her so she was ultimately sent to ED for further evaluation. Charlton catheter was placed in the emergency room 02/15. Patient admitted by medicine service for additional evaluation/treatment. Urology consulted for recurrent urinary retention. Patient states she followed with urology service many years ago when she was . Does have history of stones. Patient's father with history of stones. Chart review: Afebrile Labs 02/15 reviewed - Wbc 9.94 Hgb 11.9 Creatinine 0.72 Urinalysis on admission +2 leukocytes, >30 wbc, 0-4 rbc, negative bacteria, negative nitrates. Also with yeast on u/a. Repeat u/a pending. Urine culture pending. Preliminary blood cultures pending. Patient currently on IV Cefepime. Reviewed prior CT abd/pelvis completed 01/22/21 - IMPRESSION: 1. Limited exam as above. Probable punctate left renal calculus. No ureteral calculi or hydroureteronephrosis. 2. Mild rectal wall thickening with perirectal stranding. This may represent a nonspecific proctitis however should be correlated with a follow-up colonoscopy to exclude the less likely possibility of an underlying lesion. 3. Trace pleural effusions with mild dependent bibasilar atelectasis. 4. No bowel obstruction. Patient seen and examined at bedside. She is awake, alert, oriented, non-toxic in appearance. Reports she has been having difficulty emptying her bladder since this past fall which has progressively been worsening. No prior history of retention or indwelling charlton catheters previous to recent ER visit. Prior to admission, she denied dysuria or hematuria. States she did experience bladder discomfort. Currently denies abdominal or flank pain. She is tolerating charlton catheter well without difficulty. Urine clear yellow. Denies fevers or chills. Does have intermittent nausea, denies vomiting. Has occasional shortness of breath. Does feel better overall since admission. Denies additional urologic concerns today. Allergies Allergy/AdvReac Type Severity Reaction Status Date / Time bacitracin Allergy Intermediate hives Verified 02/15/21 19:02 neomycin Allergy Intermediate hives Verified 02/15/21 19:02 onion Allergy Intermediate diarrhea,violent Verified 02/15/21 19:02 illness polymyxin B Allergy Intermediate hives Verified 02/15/21 19:02 ragweed pollen Allergy Intermediate hayfever/adolfo Verified 02/15/21 19:02 fever carbidopa Allergy Unknown FROM [facility] Verified 02/15/21 19:02 MED LIST garlic Allergy Unknown Gastrointestinal Verified 02/15/21 19:02 Upset levodopa Allergy Unknown FROM [facility] Verified 02/15/21 19:02 MED LIST lactose AdvReac Unknown Gastrointestinal Verified 02/15/21 19:02 Upset Home Medications Medication Instructions Recorded Confirmed Type L.acidoph-L.rhamn-B.bifidum-B.long 1 tab PO TIDM 01/09/21 02/15/21 History 12.9 mg (2 billion cell) tabletDR (Probiotic Acidophilus [facility]) alprazolam 0.25 mg tablet 0.25 mg PO HS 01/09/21 02/15/21 History atorvastatin 10 mg tablet 10 mg PO QDD 01/09/21 02/15/21 History cetirizine 10 mg tablet (Zyrtec) 10 mg PO HS 01/09/21 02/15/21 History cholecalciferol (vitamin D3) 25 50 mcg PO DAILY 01/09/21 02/15/21 History mcg (1,000 unit) tablet (Vitamin D3) citalopram 40 mg tablet 40 mg PO DAILY 01/09/21 02/15/21 History cyanocobalamin (vitamin B-12) 1,000 mcg PO DAILY 01/09/21 02/15/21 History 1,000 mcg tablet (Vitamin B-12) gabapentin 300 mg capsule 300 mg PO TID 01/09/21 02/15/21 History levothyroxine 75 mcg tablet 75 mcg PO DAILY 01/09/21 02/15/21 History melatonin 10 mg tablet 10 mg PO HS 01/09/21 02/15/21 History midodrine 2.5 mg tablet 2.5 mg PO BID 01/09/21 02/15/21 History polyethylene glycol 3350 17 gram 17 g PO DAILY 01/09/21 02/15/21 History oral powder packet (Miralax) ropinirole 1 mg tablet 1 mg PO TIDM 01/09/21 02/15/21 History ropinirole 2 mg tablet 2 mg PO TIDM 01/09/21 02/15/21 History sennosides 8.6 mg-docusate sodium 1 tab-cap PO BID 01/09/21 02/15/21 History 50 mg tablet (Senna-S) cyclobenzaprine 10 mg tablet 10 mg PO BID 30 Days #60 tab 01/19/21 02/15/21 Rx lidocaine 4 % topical patch 1 patch TOPICAL DAILY 01/22/21 02/15/21 History apixaban 5 mg tablet (Eliquis) 10 mg PO UD #70 tab 02/02/21 02/15/21 Rx guaifenesin 200 mg tablet 200 mg PO TID #15 tab 02/02/21 02/15/21 Rx Bactrim DS 800 mg-160 mg tablet 1 tab PO Q12H #14 tab NS 02/14/21 02/15/21 Rx (sulfamethoxazole-trimethoprim) acetaminophen 325 mg tablet 650 mg PO Q4 PRN 02/15/21 02/15/21 History (Tylenol) hydrocortisone acetate 25 mg 25 mg [place] DIRECTED PRN 02/15/21 02/15/21 History rectal suppository prednisone 20 mg tablet 0 mg PO DAILY 02/15/21 02/15/21 History Patient History Medical History Anxiety Atypical parkinsonism HLD (hyperlipidemia) Hypothyroid MDD (major depressive disorder) Multiple system atrophy Orthostatic hypotension Septic shock Tachycardia Surgical History History of hysterectomy Family History Other Family history unknown Social History Smoking Status: Former smoker Second Hand Exposure: No; Do You Dip or Chew Tobacco: No; Hx Alcohol Use: No Hx Substance Use: No Preferred Language: Austrian Communication Ability: Effective Hoist Mechanic Required: No Beliefs That Will Affect Care: None marital status: Current Living Situation: Family Current Living Situation Comment: lives with her at her daughters house How many Children do You have: 1 Feels Safe at Home: Yes Safety Concerns: Feels Safe At This Time Assistive Devices: Glasses, Walker and Wheelchair Review of Systems Constitutional: as per Subjective / HPI; no fever and no chills Eyes: no problem reported Ear, Nose, Mouth, Throat: no dizziness Respiratory: as per Subjective / HPI Cardiovascular: no chest pain and no edema Gastrointestinal: as per Subjective / HPI Genitourinary: as per Subjective / HPI Musculoskeletal: as per Subjective / HPI Neurologic: no dizziness Endocrine: no fatigue Hematologic / Lymphatic: no easy bleeding and no easy bruising Physical Exam Constitutional: well nourished, cooperative and comfortable; no acute distress and not ill appearing ENMT: Ears: no external ear abnormality Nose: no external nose abnormality Neck: normal visual inspection and trachea midline Respiratory: normal respiratory effort and able to speak in complete sentences; no respiratory distress and no audible wheezes Cardiovascular: Extremities: no calf tenderness and no edema Gastrointestinal (Abdomen): Inspection/Auscultation: abdomen normal to inspection; abdomen not distended Percussion/Palpation: abdomen soft; abdomen nontender and no guarding Skin: No visible rashes, lesions, or wounds noted. Neurologic: awake Psychiatric: Orientation: alert, oriented x 3 and cooperative Affect: euthymic affect Genitourinary: no CVA tenderness Charlton catheter intact, draining clear yellow urine. Results & Data ([facility]) Vital Signs (Past 12 Hours) Vital Signs Temp Pulse Pulse Resp BP Pulse Ox 02/16/21 07:24 36.5 C 96 H 18 96/57 L 92 02/16/21 06:34 105 H 02/16/21 03:11 36.6 C 99 H 18 124/66 94 02/16/21 01:03 36.6 C 104 H 18 126/75 93 02/16/21 00:27 36.6 C 104 H 18 126/75 93 02/15/21 22:00 19 92 02/15/21 21:45 114 H 17 94 02/15/21 21:30 100 H 20 92 02/15/21 21:15 97 H 16 93 02/15/21 21:00 96 H 14 93 02/15/21 20:45 96 H 19 93 02/15/21 20:30 92 H 14 92 02/15/21 20:15 91 H 17 93 PG Care Time/CCT Total # of Minutes Spent Total Time Spent with Patient: Total time spent is greater than 50% in coordination of care (as documented) at patient's floor/unit and/or counseling patient: Coding Level of Care Code 49877 Initial Inpt Care Lvl 2 Diagnoses Urinary retention R33.9 UTI (urinary tract infection) N30.01 Hematuria presence: with hematuria Urinary tract infection type: acute cystitis (1) UTI (urinary tract infection) Hematuria presence: with hematuria Urinary tract infection type: acute cystitis Qualified Code(s): N30.01 - Acute cystitis with hematuria
[2021-02-16] MEDS: DOCUSATE SODIUM/SENNA 50/8.6MG TAB PO SCH ×2 (08:07→20:14)
[2021-02-16] MEDS: GABAPENTIN 300 MG CAP PO SCH ×3 (08:07→20:14)
[2021-02-16] MEDS: guaiFENesin 200 MG TAB PO SCH ×3 (08:07→20:14)
[2021-02-16] MEDS: CYCLOBENZAPRINE HCL 10 MG TAB PO SCH ×2 (08:08→20:14)
[2021-02-16] MEDS: ADVANCED PROBIOTIC 1250 MG CAPSULE PO SCH ×3 (08:08→17:00)
[2021-02-16] MEDS: POLYETHYLENE (MIRALAX) 17 GM PACK PO SCH (08:08)
[2021-02-16] MEDS: APIXABAN 5 MG TABLET PO SCH ×2 (08:08→20:14)
[2021-02-16] MEDS: CHOLECALCIFEROL 1,000 UNITS 25 MCG TAB PO SCH (08:08)
[2021-02-16] MEDS: MIDODRINE HCL 2.5 MG TAB PO SCH ×2 (08:08→12:22)
[2021-02-16] MEDS: rOPINIRole HCL 1 MG TABLET PO SCH ×3 (08:08→17:00)
[2021-02-16] MEDS: CITALOPRAM 40 MG TAB PO SCH (08:08)
[2021-02-16] MEDS: CYANOCOBALAMIN 500 MCG TABLET (VITAMIN B-12) PO SCH (08:08)
[2021-02-16] MEDS: rOPINIRole HCL 2 MG TABLET PO SCH ×3 (08:08→17:00)
[2021-02-16] MEDS: LIDOCAINE 5% 1 PATCH TD SCH (08:09)
--- NOTE | 2021-02-16 15:15 | Electrocardiogram Report ---
Test Reason : Blood Pressure : / mmHG Vent. Rate : 104 BPM Atrial Rate : 104 BPM P-R Int : 156 ms QRS Dur : 082 ms QT Int : 356 ms P-R-T Axes : 007 -36 011 degrees QTc Int : 468 ms Sinus tachycardia Left axis deviation Low voltage QRS Poor R wave progression, consider anterior UT vs. lead placement vs. LVH Abnormal ECG When compared with ECG of 14-FEB-2021 20:45, Questionable change in initial forces of Lateral leads Confirmed by Colten Saleh ([id number]) on 02/16/2021 3:15:10 PM Referred By: [facility] Confirmed By:Colten Saleh
[2021-02-16] MEDS: CEFEPIME 2,000 MG in SYRINGE 0 ML IV SCH (16:59)
[2021-02-16] MEDS: ATORVASTATIN 10 MG TAB PO SCH (17:00)
[2021-02-16] MEDS: CETIRIZINE HCL 10 MG TABLET PO SCH (20:14)
[2021-02-16] MEDS: MELATONIN 3 MG TAB PO SCH (20:15)
[2021-02-16] MEDS: ALPRAZolam 0.25 MG TABLET PO SCH (20:17)
--- NOTE | 2021-02-16 23:58 | Hospitalist Progress Note ---
Date of Service February 16, 2021 Assessment & Plan (1) UTI (urinary tract infection): Plan: Recurrent UTI Present on admission for recurrent urinary retention and UTI Urine cx collected in the ER on 02/14 grew Klebsiella oxytoca Received IV Cefepime and Vanco in the ER Blood cx no growth Continue IV cefepime Urinary retention Mostly multifactorial Urology on board No acute intervention indicated at this time. Urology recommended maintaining charlton catheter for 7-10 days. Outpatient follow-up with urology service for voiding trial History of pulmonary embolism: Continue Eliquis. Lung nodules: Needs CT followup. Hypothyroidism: Continue Synthroid. 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 Orthostatic hypotension continue midodrine. Continue monitor BP Deep venous thrombosis prophylaxis: Heparin subcu. CODE status full code Admission and Anticipated Discharge Date Admission Date: February 15, 2021 Subjective Pt was seen and examined for follow up of urinary retention Lying in bed with no acute distress Pt said that she feels ok She said that the bladder discomfort improves Denies any chest pain, palpitation, dizziness and sob Review of Systems Review of Systems: All systems reviewed & are unremarkable except as noted in Subjective Physical Exam Physical Exam: General- No acute distress Head- atraumatic Eyes- PERRL, EOMI, ENT- oropharynx clear Neck- supple, no JVD Lungs- clear to auscultation Heart- regular rhythm; no murmur Abdomen- normal bowel sounds, soft, nontender Extremities- no calf tenderness Neuro- alert, oriented, PERRL, EOMI; no facial palsy; no dysarthria Skin- warm & dry Results & Data Results & Data ([facility]) Vital Signs (Past 12 Hours) Vital Signs Temp Pulse Pulse Resp BP Pulse Ox 02/16/21 23:00 36.9 C 103 H 20 112/65 92 02/16/21 19:00 36.8 C 102 H 18 120/69 91 02/16/21 15:15 36.9 C 98 H 20 103/66 90 02/16/21 15:00 97 H 02/16/21 12:01 36.8 C 101 H 18 91/59 L 92 (1) UTI (urinary tract infection) Hematuria presence: with hematuria Urinary tract infection type: acute cystitis Qualified Code(s): N30.01 - Acute cystitis with hematuria
[2021-02-17] MEDS: CEFEPIME 2,000 MG in SYRINGE 0 ML IV SCH ×3 (00:04→15:49)
[2021-02-17] MEDS: SODIUM CHLORIDE 0.9% 1000ML 1,000 ML IV SCH ×2 (05:44→17:15)
[2021-02-17] MEDS: LEVOTHYROXINE SODIUM 75 MCG TABLET PO SCH (05:47)
[2021-02-17 06:32] LABS: Hematocrit (blood only) 34.7 % (37-47); Hemoglobin 11.3 g/dL (12.0-16.0); Mean Corpuscular Hemoglobin 31.7 pg (25-34); Mean Corpuscular Hgb Conc 32.6 g/dL (32-36); Mean Corpuscular Volume 97.2 fL (80-100); Mean Platelet Volume 8.3 fL (7.4-10.4); Platelet Count 221 K/uL (130-400); RDW Coefficient of Variation 14.4 % (11.5-14.5); RDW Standard Deviation 51.1 fL (36.4-46.3); Red Blood Count 3.57 M/uL (4.2-5.4); White Blood Count 7.87 K/uL (4.8-10.8)
[2021-02-17 07:14] LABS: BUN Creatinine Ratio 37.1 (10-20); Calcium 8.6 mg/dl (8.5-10.1); Creatinine Clr Calc Pharmacy 116.6 ml/min; Est GFR (African American) 119.3 ml/min; Phosphorus 4.3 mg/dl (2.5-4.9); Potassium 3.6 mmol/L (3.5-5.1)
[2021-02-17] MEDS ORDERED: VANCOMYCIN TROUGH ONE (07:30)
[2021-02-17] MEDS: CYANOCOBALAMIN 500 MCG TABLET (VITAMIN B-12) PO SCH (08:45)
[2021-02-17] MEDS: DOCUSATE SODIUM/SENNA 50/8.6MG TAB PO SCH ×2 (08:45→20:02)
[2021-02-17] MEDS: GABAPENTIN 300 MG CAP PO SCH ×3 (08:45→20:02)
[2021-02-17] MEDS: APIXABAN 5 MG TABLET PO SCH ×2 (08:45→20:03)
[2021-02-17] MEDS: CITALOPRAM 40 MG TAB PO SCH (08:45)
[2021-02-17] MEDS: rOPINIRole HCL 1 MG TABLET PO SCH ×3 (08:45→17:14)
[2021-02-17] MEDS: guaiFENesin 200 MG TAB PO SCH ×3 (08:45→20:01)
[2021-02-17] MEDS: LIDOCAINE 5% 1 PATCH TD SCH (08:45)
[2021-02-17] MEDS: CYCLOBENZAPRINE HCL 10 MG TAB PO SCH ×2 (08:45→20:03)
[2021-02-17] MEDS: rOPINIRole HCL 2 MG TABLET PO SCH ×3 (08:45→17:15)
[2021-02-17] MEDS: ADVANCED PROBIOTIC 1250 MG CAPSULE PO SCH ×3 (08:45→17:15)
[2021-02-17] MEDS: CHOLECALCIFEROL 1,000 UNITS 25 MCG TAB PO SCH (08:45)
[2021-02-17] MEDS: MIDODRINE HCL 2.5 MG TAB PO SCH ×2 (08:46→12:24)
[2021-02-17] MEDS: POLYETHYLENE (MIRALAX) 17 GM PACK PO SCH (08:46)
[2021-02-17] MEDS: ATORVASTATIN 10 MG TAB PO SCH (17:14)
--- NOTE | 2021-02-17 17:35 | Hospitalist Progress Note ---
Date of Service February 17, 2021 Assessment & Plan (1) UTI (urinary tract infection): Plan: Recurrent UTI Present on admission for recurrent urinary retention and UTI Urine cx collected in the ER on 02/14 grew Klebsiella oxytoca Received IV Cefepime and Vanco in the ER Blood cx no growth Continue IV cefepime Yeast on UA, urine culture, per urology, consider fluconazole, will discuss further with ID given recurrent UTIs Urinary retention Mostly multifactorial Urology consulted No acute intervention indicated at this time. Urology recommended maintaining Uribe catheter for 7-10 days. Outpatient follow-up with urology service for voiding trial History of pulmonary embolism: Continue Eliquis. Lung nodules: Needs CT followup. Hypothyroidism: Continue Synthroid. 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 Orthostatic hypotension continue midodrine. Continue monitor BP DVT prophylaxis: on Eliquis CODE status full code Admission and Anticipated Discharge Date Admission Date: February 15, 2021 Subjective Pt was seen and examined for follow up of urinary retention, UTI Sitting up in bed in no acute distress Denies any chest pain, palpitation, dizziness and sob nut felt slightly short of breath earlier today, and was started on nasal cannula Currently saturating 94%, will try and check her O2 sats on room air. It was not documented that she would be desaturating on room air Yeast on UA and urine culture, per urology consider fluconazole, will discuss with ID given recurrent UTIs Review of Systems Review of Systems: All systems reviewed & are unremarkable except as noted in Subjective Physical Exam Physical Exam: General- No acute distress Head- atraumatic Eyes- PERRL, EOMI, ENT- oropharynx clear Neck- supple, no JVD Lungs- clear to auscultation Heart- regular rhythm; no murmur Abdomen- normal bowel sounds, soft, nontender Extremities- no calf tenderness Neuro- alert, oriented, PERRL, EOMI;mild dysarthria (at baseline) Skin- warm & dry Results & Data Results & Data ([facility]) Vital Signs (Past 12 Hours) Vital Signs Temp Pulse Pulse Resp BP Pulse Ox 02/17/21 14:56 36.8 C 105 H 16 93/41 L 94 02/17/21 11:26 37.1 C 104 H 16 101/63 92 02/17/21 07:32 36.9 C 107 H 16 135/80 90 02/17/21 07:00 106 H Laboratory Results 02/17/21 02/17/21 Range/Units 05:45 05:45 WBC 7.87 (4.8-10.8) K/uL RBC 3.57 L (4.2-5.4) M/uL Hgb 11.3 L (12.0-16.0) g/dL Hct 34.7 L (37-47) % MCV 97.2 (80-100) fL MCH 31.7 (25-34) pg MCHC 32.6 (32-36) g/dL RDW Std Deviation 51.1 H (36.4-46.3) fL RDW Coeff of Radhames 14.4 (11.5-14.5) % Plt Count 221 (130-400) K/uL MPV 8.3 (7.4-10.4) fL Sodium 140 (136-145) mmol/L Potassium 3.6 (3.5-5.1) mmol/L Chloride 109 H (98-107) mmol/L Carbon Dioxide 25 (21-32) mmol/L Anion Gap 6.0 (3-11) BUN 17 (7-18) mg/dl Creatinine 0.45 L (0.6-1.2) mg/dl Est Cr Clr Drug Dosing 116.6 ml/min Est GFR ( Amer) 119.3 ml/min Est GFR (Non-Af Amer) 103.0 ml/min BUN/Creatinine Ratio 37.1 H (10-20) Glucose 86 (70-99) mg/dl Calcium 8.6 (8.5-10.1) mg/dl Phosphorus 4.3 (2.5-4.9) mg/dl Magnesium 2.0 (1.8-2.4) mg/dl Medications Administered Current Inpatient Medications Acetaminophen (Acetaminophen 325 Mg Tab) 650 mg PO Q4H PRN PRN Reason: Pain or Fever Stop: 03/18/21 00:26 Alprazolam (Alprazolam 0.25 Mg Tablet) 0.25 mg PO HS SAL Stop: 03/18/21 20:59 Last Admin: 02/16/21 20:17 Dose: 0.25 mg Documented by: Apixaban (Apixaban 5 Mg Tablet) 5 mg PO BID SAL Stop: 03/18/21 08:59 Last Admin: 02/17/21 08:45 Dose: 5 mg Documented by: Atorvastatin Calcium (Atorvastatin 10 Mg Tab) 10 mg PO QDD [facility] Stop: 03/18/21 16:29 Last Admin: 02/17/21 17:14 Dose: 10 mg Documented by: Cetirizine HCl (Cetirizine Hcl 10 Mg Tablet) 10 mg PO HS SAL Stop: 03/18/21 20:59 Last Admin: 02/16/21 20:14 Dose: 10 mg Documented by: Citalopram Hydrobromide (Citalopram 40 Mg Tab) 40 mg PO DAILY SAL Stop: 03/18/21 08:59 Last Admin: 02/17/21 08:45 Dose: 40 mg Documented by: Cyanocobalamin (Cyanocobalamin 500 Mcg Tablet (Vitamin B-12)) 1,000 mcg PO DAILY [facility] Stop: 03/18/21 08:59 Last Admin: 02/17/21 08:45 Dose: 1,000 mcg Documented by: Cyclobenzaprine HCl (Cyclobenzaprine Hcl 10 Mg Tab) 10 mg PO BID [facility] Stop: 03/18/21 08:59 Last Admin: 02/17/21 08:45 Dose: 10 mg Documented by: Gabapentin (Gabapentin 300 Mg Cap) 300 mg PO TID [facility] Stop: 03/18/21 08:59 Last Admin: 02/17/21 13:54 Dose: 300 mg Documented by: Guaifenesin (Guaifenesin 200 Mg Tab) 200 mg PO TID [facility] Stop: 03/18/21 08:59 Last Admin: 02/17/21 13:54 Dose: 200 mg Documented by: Hydrocortisone (Hydrocortisone Acetate 25 Mg Supp) 25 mg [place] DAILY PRN PRN Reason: Hemorrhoids Stop: 03/18/21 00:26 Sodium Chloride (Nss 1000ml) 1,000 mls @ 75 mls/hr IV .[id number] [facility] Stop: 03/18/21 00:26 Last Admin: 02/17/21 17:15 Dose: 75 mls/hr Documented by: Cefepime HCl 2,000 mg/ Syringe 20 mls @ 5 mls/min IV Q8H [facility]; Protocol Stop: 02/26/21 15:59 Last Admin: 02/17/21 15:49 Dose: 5 mls/min Documented by: Lactobacillus Acidoph/Casei/Rhamnos (Advanced Probiotic 1250 Mg Capsule) 2 cap PO TIDM [facility] Stop: 03/18/21 07:59 Last Admin: 02/17/21 17:15 Dose: Not Given Documented by: Levothyroxine Sodium (Levothyroxine Sodium 75 Mcg Tablet) 75 mcg PO DAILYBB [facility] Stop: 03/18/21 06:29 Last Admin: 02/17/21 05:47 Dose: 75 mcg Documented by: Lidocaine (Lidocaine 5% 1 Patch) 1 patch TD DAILY [facility] Stop: 03/18/21 08:59 Last Admin: 02/17/21 08:45 Dose: 1 patch Documented by: Melatonin (Melatonin 3 Mg Tab) 3 mg PO HS [facility] Stop: 03/18/21 20:59 Last Admin: 02/16/21 20:15 Dose: 3 mg Documented by: Midodrine (Midodrine Hcl 2.5 Mg Tab) 2.5 mg PO BID@0800,1200 [facility] Stop: 03/18/21 07:59 Last Admin: 02/17/21 12:24 Dose: 2.5 mg Documented by: Miscellaneous (Remove Lidoderm Patch) 1 ea N/A DAILY@2100 [facility] Stop: 03/18/21 00:59 Last Admin: 02/16/21 20:18 Dose: 1 ea Documented by: Miscellaneous Information (Cefepime Consult Active) 1 ea N/A UD PRN PRN Reason: Consult Stop: 03/18/21 00:59 Nitroglycerin (Nitroglycerin Sl 0.4 Mg/Tab Tab) 0.4 mg SL UD PRN PRN Reason: Chest Pain Stop: 03/18/21 00:26 Ondansetron HCl (Ondansetron Inj 2 Mg/Ml 2 Ml Vial) 4 mg IV Q6H PRN PRN Reason: Nausea Stop: 03/18/21 00:26 Polyethylene Glycol (Polyethylene (Miralax) 17 Gm Pack) 17 gm PO DAILY PRN PRN Reason: Constipation Stop: 03/18/21 00:26 Polyethylene Glycol (Polyethylene (Miralax) 17 Gm Pack) 17 gm PO DAILY [facility] Stop: 03/18/21 08:59 Last Admin: 02/17/21 08:46 Dose: 17 gm Documented by: Ropinirole HCl (Ropinirole Hcl 1 Mg Tablet) 1 mg PO TIDM [facility] Stop: 03/18/21 07:59 Last Admin: 02/17/21 17:14 Dose: 1 mg Documented by: Ropinirole HCl (Ropinirole Hcl 2 Mg Tablet) 2 mg PO TIDM SAL Stop: 03/18/21 07:59 Last Admin: 02/17/21 17:15 Dose: 2 mg Documented by: Senna/Docusate Sodium (Docusate Sodium/Senna 50/8.6mg Tab) 1 tab PO BID SAL Stop: 03/18/21 08:59 Last Admin: 02/17/21 08:45 Dose: 1 tab Documented by: Vitamin D (Cholecalciferol 1,000 Units 25 Mcg Tab) 2,000 units PO DAILY SAL Stop: 03/18/21 08:59 Last Admin: 02/17/21 08:45 Dose: 2,000 units Documented by: (1) UTI (urinary tract infection) Hematuria presence: with hematuria Urinary tract infection type: acute cystitis Qualified Code(s): N30.01 - Acute cystitis with hematuria
[2021-02-17] MEDS: MELATONIN 3 MG TAB PO SCH (20:01)
[2021-02-17] MEDS: CETIRIZINE HCL 10 MG TABLET PO SCH (20:03)
[2021-02-17] MEDS: ALPRAZolam 0.25 MG TABLET PO SCH (20:06)
[2021-02-18] MEDS: CEFEPIME 2,000 MG in SYRINGE 0 ML IV SCH ×4 (00:11→23:58)
[2021-02-18] MEDS: LEVOTHYROXINE SODIUM 75 MCG TABLET PO SCH (05:49)
[2021-02-18] MEDS: SODIUM CHLORIDE 0.9% 1000ML 1,000 ML IV SCH ×2 (05:51→18:18)
[2021-02-18 05:55] LABS: Hematocrit (blood only) 32.1 % (37-47); Hemoglobin 10.4 g/dL (12.0-16.0); Mean Corpuscular Hemoglobin 31.4 pg (25-34); Mean Corpuscular Hgb Conc 32.4 g/dL (32-36); Platelet Count 186 K/uL (130-400); RDW Coefficient of Variation 14.5 % (11.5-14.5); RDW Standard Deviation 50.9 fL (36.4-46.3); Red Blood Count 3.31 M/uL (4.2-5.4); White Blood Count 6.41 K/uL (4.8-10.8)
[2021-02-18 06:19] LABS: BUN Creatinine Ratio 26.6 (10-20); Calcium 8.2 mg/dl (8.5-10.1); Creatinine Clr Calc Pharmacy 119.3 ml/min; Est GFR (African American) 120.2 ml/min; Est GFR (Non-African American) 103.7 ml/min; Potassium 3.8 mmol/L (3.5-5.1)
[2021-02-18 06:21] LABS: Phosphorus 3.4 mg/dl (2.5-4.9)
--- NOTE | 2021-02-18 08:30 | Hospitalist Progress Note ---
Date of Service February 18, 2021 Assessment & Plan (1) UTI (urinary tract infection): Plan: Recurrent UTI Present on admission for recurrent urinary retention and UTI Urine cx collected in the ER on 02/14 grew Klebsiella oxytoca Received IV Cefepime and Vanco in the ER Blood cx no growth Continue IV cefepime Yeast on UA, urine culture, per urology, consider fluconazole, will discuss further with ID given recurrent UTIs Urinary retention Mostly multifactorial Urology consulted No acute intervention indicated at this time. Urology recommended maintaining Uribe catheter for 7-10 days. Outpatient follow-up with urology service for voiding trial BRBPR -Patient happens on and off since she has been on Eliquis -Monitor H&H, and discuss with GI History of pulmonary embolism: Continue Eliquis. Lung nodules: Needs CT followup. Hypothyroidism: Continue Synthroid. 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 Orthostatic hypotension continue midodrine. Continue monitor BP DVT prophylaxis: on Eliquis CODE status full code Admission and Anticipated Discharge Date Admission Date: February 15, 2021 Subjective Pt was seen and examined for follow up of urinary retention, UTI Per nursing staff, bright red blood noticed in stool, patient on Eliquis Sitting up in bed in no acute distress Denies any chest pain, palpitation, dizziness, increase shortness of breath however she is now on nasal cannula Seen by ID for recurrent UTIs and yeast in the urine Review of Systems Review of Systems: All systems reviewed & are unremarkable except as noted in Subjective Physical Exam Physical Exam: General- No acute distress Head- atraumatic Eyes- PERRL, EOMI, ENT- oropharynx clear Neck- supple, no JVD Lungs- clear to auscultation Heart- regular rhythm; no murmur Abdomen- normal bowel sounds, soft, nontender Extremities- no calf tenderness Neuro- alert, oriented, PERRL, EOMI;mild dysarthria (at baseline) Skin- warm & dry Results & Data Results & Data ([facility]) Vital Signs (Past 12 Hours) Vital Signs Temp Pulse Pulse Resp BP Pulse Ox 02/18/21 07:47 36.8 C 99 H 16 120/75 93 02/18/21 04:00 36.9 C 94 H 20 105/69 94 02/18/21 00:00 98 H Laboratory Results 02/18/21 02/18/21 Range/Units 05:38 05:38 WBC 6.41 (4.8-10.8) K/uL RBC 3.31 L (4.2-5.4) M/uL Hgb 10.4 L (12.0-16.0) g/dL Hct 32.1 L (37-47) % MCV 97.0 (80-100) fL MCH 31.4 (25-34) pg MCHC 32.4 (32-36) g/dL RDW Std Deviation 50.9 H (36.4-46.3) fL RDW Coeff of Radhames 14.5 (11.5-14.5) % Plt Count 186 (130-400) K/uL MPV 8.0 (7.4-10.4) fL Sodium 142 (136-145) mmol/L Potassium 3.8 (3.5-5.1) mmol/L Chloride 111 H (98-107) mmol/L Carbon Dioxide 28 (21-32) mmol/L Anion Gap 3.0 (3-11) BUN 12 (7-18) mg/dl Creatinine 0.44 L (0.6-1.2) mg/dl Est Cr Clr Drug Dosing 119.3 ml/min Est GFR ( Amer) 120.2 ml/min Est GFR (Non-Af Amer) 103.7 ml/min BUN/Creatinine Ratio 26.6 H (10-20) Glucose 90 (70-99) mg/dl Calcium 8.2 L (8.5-10.1) mg/dl Phosphorus 3.4 (2.5-4.9) mg/dl Magnesium 2.0 (1.8-2.4) mg/dl Medications Administered Current Inpatient Medications Acetaminophen (Acetaminophen 325 Mg Tab) 650 mg PO Q4H PRN PRN Reason: Pain or Fever Stop: 03/18/21 00:26 Alprazolam (Alprazolam 0.25 Mg Tablet) 0.25 mg PO HS SAL Stop: 03/18/21 20:59 Last Admin: 02/17/21 20:06 Dose: 0.25 mg Documented by: Apixaban (Apixaban 5 Mg Tablet) 5 mg PO BID SAL Stop: 03/18/21 08:59 Last Admin: 02/17/21 20:03 Dose: 5 mg Documented by: Atorvastatin Calcium (Atorvastatin 10 Mg Tab) 10 mg PO QDD [facility] Stop: 03/18/21 16:29 Last Admin: 02/17/21 17:14 Dose: 10 mg Documented by: Cetirizine HCl (Cetirizine Hcl 10 Mg Tablet) 10 mg PO HS SAL Stop: 03/18/21 20:59 Last Admin: 02/17/21 20:03 Dose: 10 mg Documented by: Citalopram Hydrobromide (Citalopram 40 Mg Tab) 40 mg PO DAILY SAL Stop: 03/18/21 08:59 Last Admin: 02/17/21 08:45 Dose: 40 mg Documented by: Cyanocobalamin (Cyanocobalamin 500 Mcg Tablet (Vitamin B-12)) 1,000 mcg PO DAILY SAL Stop: 03/18/21 08:59 Last Admin: 02/17/21 08:45 Dose: 1,000 mcg Documented by: Cyclobenzaprine HCl (Cyclobenzaprine Hcl 10 Mg Tab) 10 mg PO BID SAL Stop: 03/18/21 08:59 Last Admin: 02/17/21 20:03 Dose: 10 mg Documented by: Gabapentin (Gabapentin 300 Mg Cap) 300 mg PO TID [facility] Stop: 03/18/21 08:59 Last Admin: 02/17/21 20:02 Dose: 300 mg Documented by: Guaifenesin (Guaifenesin 200 Mg Tab) 200 mg PO TID [facility] Stop: 03/18/21 08:59 Last Admin: 02/17/21 20:01 Dose: 200 mg Documented by: Hydrocortisone (Hydrocortisone Acetate 25 Mg Supp) [address] DAILY PRN PRN Reason: Hemorrhoids Stop: 03/18/21 00:26 Sodium Chloride (Nss 1000ml) 1,000 mls @ 75 mls/hr IV .[id number] [facility] Stop: 03/18/21 00:26 Last Admin: 02/18/21 05:51 Dose: 75 mls/hr Documented by: Cefepime HCl 2,000 mg/ Syringe 20 mls @ 5 mls/min IV Q8H [facility]; Protocol Stop: 02/26/21 15:59 Last Admin: 02/18/21 00:11 Dose: 5 mls/min Documented by: Lactobacillus Acidoph/Casei/Rhamnos (Advanced Probiotic 1250 Mg Capsule) 2 cap PO TIDM [facility] Stop: 03/18/21 07:59 Last Admin: 02/17/21 17:15 Dose: Not Given Documented by: Levothyroxine Sodium (Levothyroxine Sodium 75 Mcg Tablet) 75 mcg PO DAILYBB [facility] Stop: 03/18/21 06:29 Last Admin: 02/18/21 05:49 Dose: 75 mcg Documented by: Lidocaine (Lidocaine 5% 1 Patch) 1 patch TD DAILY [facility] Stop: 03/18/21 08:59 Last Admin: 02/17/21 08:45 Dose: 1 patch Documented by: Melatonin (Melatonin 3 Mg Tab) 3 mg PO HS [facility] Stop: 03/18/21 20:59 Last Admin: 02/17/21 20:01 Dose: 3 mg Documented by: Midodrine (Midodrine Hcl 2.5 Mg Tab) 2.5 mg PO BID@0800,1200 [facility] Stop: 03/18/21 07:59 Last Admin: 02/17/21 12:24 Dose: 2.5 mg Documented by: Miscellaneous (Remove Lidoderm Patch) 1 ea N/A DAILY@2100 [facility] Stop: 03/18/21 00:59 Last Admin: 02/17/21 21:31 Dose: 1 ea Documented by: Miscellaneous Information (Cefepime Consult Active) 1 ea N/A UD PRN PRN Reason: Consult Stop: 03/18/21 00:59 Nitroglycerin (Nitroglycerin Sl 0.4 Mg/Tab Tab) 0.4 mg SL UD PRN PRN Reason: Chest Pain Stop: 03/18/21 00:26 Ondansetron HCl (Ondansetron Inj 2 Mg/Ml 2 Ml Vial) 4 mg IV Q6H PRN PRN Reason: Nausea Stop: 03/18/21 00:26 Polyethylene Glycol (Polyethylene (Miralax) 17 Gm Pack) 17 gm PO DAILY PRN PRN Reason: Constipation Stop: 03/18/21 00:26 Polyethylene Glycol (Polyethylene (Miralax) 17 Gm Pack) 17 gm PO DAILY [facility] Stop: 03/18/21 08:59 Last Admin: 02/17/21 08:46 Dose: 17 gm Documented by: Ropinirole HCl (Ropinirole Hcl 1 Mg Tablet) 1 mg PO TIDM [facility] Stop: 03/18/21 07:59 Last Admin: 02/17/21 17:14 Dose: 1 mg Documented by: Ropinirole HCl (Ropinirole Hcl 2 Mg Tablet) 2 mg PO TIDM SAL Stop: 03/18/21 07:59 Last Admin: 02/17/21 17:15 Dose: 2 mg Documented by: Senna/Docusate Sodium (Docusate Sodium/Senna 50/8.6mg Tab) 1 tab PO BID SAL Stop: 03/18/21 08:59 Last Admin: 02/17/21 20:02 Dose: 1 tab Documented by: Vitamin D (Cholecalciferol 1,000 Units 25 Mcg Tab) 2,000 units PO DAILY [facility] Stop: 03/18/21 08:59 Last Admin: 02/17/21 08:45 Dose: 2,000 units Documented by: (1) UTI (urinary tract infection) Hematuria presence: with hematuria Urinary tract infection type: acute cystitis Qualified Code(s): N30.01 - Acute cystitis with hematuria
[2021-02-18] MEDS: LIDOCAINE 5% 1 PATCH TD SCH (09:08)
[2021-02-18] MEDS: APIXABAN 5 MG TABLET PO SCH ×2 (09:08→20:10)
[2021-02-18] MEDS: rOPINIRole HCL 2 MG TABLET PO SCH ×3 (09:08→16:29)
[2021-02-18] MEDS: guaiFENesin 200 MG TAB PO SCH ×3 (09:10→20:10)
[2021-02-18] MEDS: DOCUSATE SODIUM/SENNA 50/8.6MG TAB PO SCH ×2 (09:10→20:08)
[2021-02-18] MEDS: GABAPENTIN 300 MG CAP PO SCH ×3 (09:10→20:11)
[2021-02-18] MEDS: CYCLOBENZAPRINE HCL 10 MG TAB PO SCH ×2 (09:10→20:10)
[2021-02-18] MEDS: MIDODRINE HCL 2.5 MG TAB PO SCH ×2 (09:10→12:08)
[2021-02-18] MEDS: CHOLECALCIFEROL 1,000 UNITS 25 MCG TAB PO SCH (09:11)
[2021-02-18] MEDS: CYANOCOBALAMIN 500 MCG TABLET (VITAMIN B-12) PO SCH (09:11)
[2021-02-18] MEDS: CITALOPRAM 40 MG TAB PO SCH (09:11)
[2021-02-18] MEDS: POLYETHYLENE (MIRALAX) 17 GM PACK PO SCH (09:12)
[2021-02-18] MEDS: rOPINIRole HCL 1 MG TABLET PO SCH ×3 (09:12→16:28)
--- NOTE | 2021-02-18 10:19 | Gastrointestinal Consultation ---
Date of Consultation February 18, 2021 Assessment & Plan (1) Rectal bleedin70 year old female admitted w/ urinary symptoms, GI asked to evaluate for rectal bleeding. This has been occurring intermittent x 1 month per discussion with patient. Documented are formed brown stools which are blood tinged. No melena. Her HGB has remained at hospital baseline around 10. No BUN Elevation. she is eating regular diet today. No plan for colonoscopy today or tomorrow given regular diet If she remains admitted over the weekend, would consider clear liquid diet monday and bowel prep with golytely 4L monday, NPO midnight and plan for colonoscopy Monday Otherwise, continue conservative measure Trend HGB Monitor BMs Transfuse PRNs Thank you for allowing us to participate in the care of this patient. Please call with any acute changes, questions or concerns. Please see addendum below with additional recommendation from my supervising physician. Supervising Physician Co-Signing Physician Notes I have seen and examined the patient with AIDAN Jimenez whose note reflects our findings and plan. Exam is benign. Vitals are stable. H/H stable. History oreviewed. If patient still in the hospital on Monday will plan for colonoscopy. if not, can certainly be done as an outpatient in the next 1-2 weeks. Please obtain records from patient's last colonoscopy. History of Present Illness Reason for Consultation: rectal bleeding Requesting Physician: Vik Attending Physician: Paulie Chery MD History of Present Illness 70 year old female with history of acquired hypothyroidism, hyperlipidemia, lung nodules, orthostatic hypotension, history of multiple subsegmental recent pulmonary emboli, progressive supranuclear ophthalmoplegia, multiple system atrophy currently at [facility] who was admitted through the ED with urinary retention, UTI - GI asked to evaluate for rectal bleeding. Pt was seen and evaluated, chart reviewed. She notes she has been aware of blood in her stoo ls x 2/3 weeks. She notes she has not seen her stools but staff has made her aware. Denies abd pain. No nausea, vomiting. No GERD. Tolerating PO intake is on a regular diet. Denies constipation/diarrhea. Documented is blood tinged, formed stools. Recently moved here from [place]. Last colonoscopy was 5+ years ago in [facility]. Allergies Allergy/AdvReac Type Severity Reaction Status Date / Time bacitracin Allergy Intermediate hives Verified 02/15/21 19:02 neomycin Allergy Intermediate hives Verified 02/15/21 19:02 onion Allergy Intermediate diarrhea,violent Verified 02/15/21 19:02 illness polymyxin B Allergy Intermediate hives Verified 02/15/21 19:02 ragweed pollen Allergy Intermediate hayfever/adolfo Verified 02/15/21 19:02 fever carbidopa Allergy Unknown [place] [facility] [place] Verified 02/15/21 19:02 MED LIST garlic Allergy Unknown Gastrointestinal Verified 02/15/21 19:02 Upset levodopa Allergy Unknown FROM [facility] [place] Verified 02/15/21 19:02 MED LIST lactose AdvReac Unknown Gastrointestinal Verified 02/15/21 19:02 Upset Home Medications Medication Instructions Recorded Confirmed Type L.acidoph-L.rhamn-B.bifidum-B.long 1 tab PO TIDM 01/09/21 02/15/21 History 12.9 mg (2 billion cell) tabletDR (Probiotic Acidophilus Biobeads) alprazolam 0.25 mg tablet 0.25 mg PO HS 01/09/21 02/15/21 History atorvastatin 10 mg tablet 10 mg PO QDD 01/09/21 02/15/21 History cetirizine 10 mg tablet (Zyrtec) 10 mg PO HS 01/09/21 02/15/21 History cholecalciferol (vitamin D3) 25 50 mcg PO DAILY 01/09/21 02/15/21 History mcg (1,000 unit) tablet (Vitamin D3) citalopram 40 mg tablet 40 mg PO DAILY 01/09/21 02/15/21 History cyanocobalamin (vitamin B-12) 1,000 mcg PO DAILY 01/09/21 02/15/21 History 1,000 mcg tablet (Vitamin B-12) gabapentin 300 mg capsule 300 mg PO TID 01/09/21 02/15/21 History levothyroxine 75 mcg tablet 75 mcg PO DAILY 01/09/21 02/15/21 History melatonin 10 mg tablet 10 mg PO HS 01/09/21 02/15/21 History midodrine 2.5 mg tablet 2.5 mg PO BID 01/09/21 02/15/21 History polyethylene glycol 3350 17 gram 17 g PO DAILY 01/09/21 02/15/21 History oral powder packet (Miralax) ropinirole 1 mg tablet 1 mg PO TIDM 01/09/21 02/15/21 History ropinirole 2 mg tablet 2 mg PO TIDM 01/09/21 02/15/21 History sennosides 8.6 mg-docusate sodium 1 tab-cap PO BID 01/09/21 02/15/21 History 50 mg tablet (Senna-S) cyclobenzaprine 10 mg tablet 10 mg PO BID 30 Days #60 tab 01/19/21 02/15/21 Rx lidocaine 4 % topical patch 1 patch TOPICAL DAILY 01/22/21 02/15/21 History apixaban 5 mg tablet (Eliquis) 10 mg PO UD #70 tab 02/02/21 02/15/21 Rx guaifenesin 200 mg tablet 200 mg PO TID #15 tab 02/02/21 02/15/21 Rx Bactrim DS 800 mg-160 mg tablet 1 tab PO Q12H #14 tab NS 02/14/21 02/15/21 Rx (sulfamethoxazole-trimethoprim) acetaminophen 325 mg tablet 650 mg PO Q4 PRN 02/15/21 02/15/21 History (Tylenol) hydrocortisone acetate 25 mg 25 mg SD DIRECTED PRN 02/15/21 02/15/21 History rectal suppository prednisone 20 mg tablet 0 mg PO DAILY 02/15/21 02/15/21 History Patient History Medical History Anxiety Atypical parkinsonism HLD (hyperlipidemia) Hypothyroid MDD (major depressive disorder) Multiple system atrophy Orthostatic hypotension Septic shock Tachycardia Surgical History History of hysterectomy Family History Other Family history unknown Social History Smoking Status: Former smoker Second Hand Exposure: No; Do You Dip or Chew Tobacco: No; Hx Alcohol Use: No Hx Substance Use: No Preferred Language: Ethiopian Communication Ability: 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 Beliefs That Will Affect Care: None marital status: Current Living Situation: Family Current Living Situation Comment: lives with her at her daughters house How many Children do You have: 1 Feels Safe at Home: Yes Safety Concerns: Feels Safe At This Time Assistive Devices: Glasses and Oxygen - at Night Review of Systems Review of Systems: All systems reviewed & are unremarkable except as noted in HPI & below Physical Exam Constitutional: WD/WN, vitals as above Neck: trachea midline, no thyromegaly Respiratory: normal respiratory effort, lungs clear to auscultation Cardiovascular: Rate/Rhythm: regular rate and regular rhythm Gastrointestinal (Abdomen): normal bowel sounds, soft, nontender, no hepatosplenomegaly Skin: no rashes, warm and dry Results & Data ([facility]) Vital Signs (Past 12 Hours) Vital Signs Temp Pulse Pulse Resp BP Pulse Ox 02/18/21 07:47 36.8 C 99 H 16 120/75 93 02/18/21 04:00 36.9 C 94 H 20 105/69 94 02/18/21 00:00 98 H Laboratory Results 02/18/21 02/18/21 Range/Units 05:38 05:38 WBC 6.41 (4.8-10.8) K/uL RBC 3.31 L (4.2-5.4) M/uL Hgb 10.4 L (12.0-16.0) g/dL Hct 32.1 L (37-47) % MCV 97.0 (80-100) fL MCH 31.4 (25-34) pg MCHC 32.4 (32-36) g/dL RDW Std Deviation 50.9 H (36.4-46.3) fL RDW Coeff of Radhames 14.5 (11.5-14.5) % Plt Count 186 (130-400) K/uL MPV 8.0 (7.4-10.4) fL Sodium 142 (136-145) mmol/L Potassium 3.8 (3.5-5.1) mmol/L Chloride 111 H (98-107) mmol/L Carbon Dioxide 28 (21-32) mmol/L Anion Gap 3.0 (3-11) BUN 12 (7-18) mg/dl Creatinine 0.44 L (0.6-1.2) mg/dl Est Cr Clr Drug Dosing 119.3 ml/min Est GFR ( Amer) 120.2 ml/min Est GFR (Non-Af Amer) 103.7 ml/min BUN/Creatinine Ratio 26.6 H (10-20) Glucose 90 (70-99) mg/dl Calcium 8.2 L (8.5-10.1) mg/dl Phosphorus 3.4 (2.5-4.9) mg/dl Magnesium 2.0 (1.8-2.4) mg/dl
[2021-02-18] MEDS: ADVANCED PROBIOTIC 1250 MG CAPSULE PO SCH ×3 (11:01→16:28)
[2021-02-18] MEDS: ATORVASTATIN 10 MG TAB PO SCH (16:29)
[2021-02-18] MEDS: ALPRAZolam 0.25 MG TABLET PO SCH (20:11)
[2021-02-18] MEDS: MELATONIN 3 MG TAB PO SCH (20:11)
[2021-02-18] MEDS: CETIRIZINE HCL 10 MG TABLET PO SCH (20:11)
[2021-02-19] MEDS: LEVOTHYROXINE SODIUM 75 MCG TABLET PO SCH (05:48)
[2021-02-19 07:31] LABS: BUN Creatinine Ratio 32.9 (10-20); Calcium 8.4 mg/dl (8.5-10.1); Creatinine Clr Calc Pharmacy 145.8 ml/min; Est GFR (African American) 128.4 ml/min; Est GFR (Non-African American) 110.8 ml/min; Phosphorus 3.2 mg/dl (2.5-4.9); Potassium 3.9 mmol/L (3.5-5.1)
[2021-02-19] MEDS: SODIUM CHLORIDE 0.9% 1000ML 1,000 ML IV SCH (08:10)
[2021-02-19] MEDS: CEFEPIME 2,000 MG in SYRINGE 0 ML IV SCH (08:31)
[2021-02-19] MEDS: rOPINIRole HCL 1 MG TABLET PO SCH ×3 (08:32→16:55)
[2021-02-19] MEDS: CHOLECALCIFEROL 1,000 UNITS 25 MCG TAB PO SCH (08:32)
[2021-02-19] MEDS: CITALOPRAM 40 MG TAB PO SCH (08:32)
[2021-02-19] MEDS: CYCLOBENZAPRINE HCL 10 MG TAB PO SCH ×2 (08:32→21:36)
[2021-02-19] MEDS: MIDODRINE HCL 2.5 MG TAB PO SCH ×2 (08:32→11:16)
[2021-02-19] MEDS: rOPINIRole HCL 2 MG TABLET PO SCH ×3 (08:32→16:55)
[2021-02-19] MEDS: ADVANCED PROBIOTIC 1250 MG CAPSULE PO SCH ×3 (08:33→16:55)
[2021-02-19] MEDS: APIXABAN 5 MG TABLET PO SCH (08:33)
[2021-02-19] MEDS: CYANOCOBALAMIN 500 MCG TABLET (VITAMIN B-12) PO SCH (08:33)
[2021-02-19] MEDS: GABAPENTIN 300 MG CAP PO SCH ×3 (08:33→21:36)
[2021-02-19] MEDS: DOCUSATE SODIUM/SENNA 50/8.6MG TAB PO SCH ×2 (08:33→21:37)
[2021-02-19] MEDS: guaiFENesin 200 MG TAB PO SCH ×3 (08:34→21:36)
[2021-02-19] MEDS: POLYETHYLENE (MIRALAX) 17 GM PACK PO SCH (08:34)
[2021-02-19] MEDS: LIDOCAINE 5% 1 PATCH TD SCH (08:34)
--- NOTE | 2021-02-19 08:39 | Gastroenterology Progress Note ---
Date of Service February 19, 2021 Assessment & Plan (1) Rectal bleeding: Plan: 70 year old female admitted w/ urinary symptoms, GI asked to evaluate for rectal bleeding. This has been occurring intermittent x 1 month per discussion with patient. Documented are formed brown stools which are blood tinged. No melena. Her HGB has remained at hospital baseline around 10. No BUN Elevation. she is eating regular diet today. No plan for colonoscopy today or tomorrow given regular diet If she remains admitted over the weekend, please start clear liquid diet monday and bowel prep with golytely 4L monday around 1500, NPO midnight and plan for egd/colonoscopy Monday Otherwise, continue conservative measure Trend HGB Monitor BMs Transfuse PRNs Admission and Anticipated Discharge Date Admission Date: February 15, 2021 Supervising Physician Co-Signing Physician Notes I performed a history and physical examination of the patient today, including specifically on physical exam - soft abdomen. I have discussed the patient's management with the advanced practitioner. Please refer to the nurse practitioner's note for the documented findings and plan of care. H/H stable, no overt GI bleeding now. She did not prep as she had solid food. Plan for EGD/colonoscopy on Monday if remains in the hospital. Hold AC prior to procedure. Subjective Persistent blood mixed with stool. Last BM was yesterday. No abd pain. No nausea, vomiting. Tolerating PO intake. Review of Systems Review of Systems: All systems reviewed & are unremarkable except as noted in HPI & below Physical Exam Constitutional: WD/WN, vitals as above Neck: trachea midline, no thyromegaly Respiratory: normal respiratory effort, lungs clear to auscultation Cardiovascular: RRR, no murmur, no edema Gastrointestinal (Abdomen): normal bowel sounds, soft, nontender, no hepatosplenomegaly Skin: no rashes, warm and dry Results & Data ([facility]) Vital Signs (Past 12 Hours) Vital Signs Temp Pulse Pulse Resp BP Pulse Ox 02/19/21 08:11 36.4 C L 98 H 18 116/75 94 02/19/21 04:26 36.7 C 96 H 20 119/71 95 02/18/21 23:59 36.9 C 102 H 20 113/71 94 02/18/21 23:08 105 H Laboratory Results 02/19/21 Range/Units 06:28 Sodium 142 (136-145) mmol/L Potassium 3.9 (3.5-5.1) mmol/L Chloride 109 H (98-107) mmol/L Carbon Dioxide 31 (21-32) mmol/L Anion Gap 2.0 L (3-11) BUN 12 (7-18) mg/dl Creatinine 0.36 L (0.6-1.2) mg/dl Est Cr Clr Drug Dosing 145.8 ml/min Est GFR ( Amer) 128.4 ml/min Est GFR (Non-Af Amer) 110.8 ml/min BUN/Creatinine Ratio 32.9 H (10-20) Glucose 97 (70-99) mg/dl Calcium 8.4 L (8.5-10.1) mg/dl Phosphorus 3.2 (2.5-4.9) mg/dl
[2021-02-19] MEDS ORDERED: DEXTROSE 5% IV SCH (12:00)
[2021-02-19] MEDS ORDERED: AMPHOTERICIN B IV SCH (12:00)
[2021-02-19] MEDS: cefTRIAXone SODIUM 2,000 MG in DEXTROSE 5% 50 ML IV SCH (13:04)
--- NOTE | 2021-02-19 13:50 | CT Scan Report ---
CT OF THE ABDOMEN AND PELVIS WITHOUT CONTRAST CLINICAL HISTORY: Flank pain. Evaluate for pyelonephritis, urolithiasis, abscess COMPARISON STUDY: CT of the abdomen and pelvis January 22, 2021. TECHNIQUE: Axial images of the abdomen and pelvis were obtained without IV contrast. Images were revi ewed in the axial, sagittal, and coronal planes. Automated exposure control was utilized for the shakila dy. A dose lowering technique was utilized adhering to the principles of ALARA. FINDINGS: Visualized portions of the lower lungs reveal trace bilateral pleural effusions with associ ated atelectasis. No pneumatosis, free air or portal venous gas is present. Several punctate calculi within the left kidney are noted. There are no ureteral calculi. There is no hydronephrosis or hydrou reter. Uribe balloon is present within the bladder which is collapsed. Bladder wall thickening accent uated by underdistention. No renal fluid collection is identified on this unenhanced exam. No signifi cant perinephric infiltration. Evaluation of the remainder of the abdomen and pelvis is suboptimal as unenhanced exam. A 2.2 cm low-attenuation splenic lesion is indeterminate but likely benign. Adrenal glands, liver and pancreas are unremarkable. No evidence for a bowel obstruction. A moderate amount stool is noted. There is wall thickening of the proximal rectum with perirectal infiltration. This alcantar s slightly decreased since prior exam. No acute fracture or suspicious lesion is identified within vi sualized skeletal structures. No pathologically enlarged lymph nodes are identified. IMPRESSION: 1. Several punctate calculi within the left kidney. No ureteral calculi or hydronephrosis. No renal f luid collection on unenhanced exam. Bladder wall thickening which could be correlated with urinalysis . 2. Proximal rectal wall thickening with mild adjacent infiltration. This has slightly decreased since prior exam. This may reflect proctitis. However, follow-up nonemergent colonoscopy to exclude an und erlying lesion is recommended. 3. No bowel obstruction. Moderate amount of stool. ACT 112: Negative or not required by law. Electronically signed by: Jonathan Choe M.D. 02/19/2021 1:49 PM
[2021-02-19] MEDS ORDERED: AMPHOTERICIN B CONSULT ACTIVE PRN (14:41)
[2021-02-19] MEDS: SODIUM CHLORIDE 0.9% 1000ML 500 ML IV SCH (15:35)
[2021-02-19] MEDS: AMPHOTERICIN B IV SCH (16:54)
[2021-02-19] MEDS: DEXTROSE 5% IV SCH (16:54)
[2021-02-19] MEDS: ATORVASTATIN 10 MG TAB PO SCH (16:55)
--- NOTE | 2021-02-19 17:13 | Hospitalist Progress Note ---
Date of Service February 19, 2021 Assessment & Plan (1) UTI (urinary tract infection): Plan: Recurrent UTI Present on admission for recurrent urinary retention and UTI Urine cx collected in the ER on 02/14 grew Klebsiella oxytoca Urine culture from February 15, 2021 + for Klebsiella oxytoca and Christen glabrata complex Received IV Cefepime and Vanco in the ER Blood cx no growth Continued IV cefepime Yeast on UA, urine culture, per urology, consider fluconazole, will discuss further with ID given recurrent UTIs ID consulted for back dysuria/funguria Recommend CT scan of abdomen pelvis to rule out urolithiasis pyelonephritis or renal abscess, CT was ordered IMPRESSION: 1. Several punctate calculi within the left kidney. No ureteral calculi or hydronephrosis. No renal fluid collection on unenhanced exam. Bladder wall thickening which could be correlated with urinalysis. 2. Proximal rectal wall thickening with mild adjacent infiltration. This has slightly decreased since prior exam. This may reflect proctitis. However, follow-up nonemergent colonoscopy to exclude an underlying lesion is recommended. 3. No bowel obstruction. Moderate amount of stool. Given Klebsiella isolate, ceftriaxone should be effective, switched from cefepime to ceftriaxone (02/19), could discharge on ciprofloxacin, anticipate 7 to 14 days of Abx treatment Given suspicion of Christen glabrata UTI, will start IV amphotericin B while awaiting fluconazole sensitivities. Discussed this with pharmacy, and patient was started on ceftriaxone and hepatitis B Urinary retention Mostly multifactorial Urology consulted No acute intervention indicated at this time. Urology recommended maintaining Uribe catheter for 7-10 days. Outpatient follow-up with urology service for voiding trial BRBPR - on and off since she has been on Eliquis -Monitor H&H, and discussed with GI Likely EGD/colonoscopy on Monday - will need prep on Monday and NPO after MN on Monday start clear liquid diet Monday and bowel prep with golytely 4L Monday around 1500, NPO midnight and plan for egd/colonoscopy Monday - will need to hold eliquis, will place on IV heparin w/o bolus in meantime History of pulmonary embolism: Continue Eliquis. Lung nodules: Needs CT followup. Hypothyroidism: Continue Synthroid. 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 Orthostatic hypotension continue midodrine. Continue monitor BP DVT prophylaxis: on Eliquis/ IV heparin CODE status full code Admission and Anticipated Discharge Date Admission Date: February 15, 2021 Subjective Pt was seen and examined for follow up of urinary retention, UTI Per nursing staff, bright red blood noticed in stool yesterday patient on Eliquis-reports on and off blood in her stools since starting Eliquis Sitting up in bed in no acute distress, says she is feeling much better Denies having any stools today Denies any chest pain, palpitation, dizziness, increased shortness of breath however she is now on nasal cannula, saturating at 98% Seen by ID yesterday for recurrent UTIs and yeast in the urine Plan for colonoscopy on Monday, per GI, will stop Eliquis, will have her on IV heparin in the meantime Will need prep on Monday and clear liquid diet Review of Systems Review of Systems: All systems reviewed & are unremarkable except as noted in Subjective Physical Exam Physical Exam: General- No acute distress Head- atraumatic Eyes- PERRL, EOMI, ENT- oropharynx clear Neck- supple, no JVD Lungs- clear to auscultation Heart- regular rhythm; no murmur Abdomen- normal bowel sounds, soft, nontender Extremities- no calf tenderness Neuro- alert, oriented, PERRL, EOMI;mild dysarthria (at baseline) Skin- warm & dry Results & Data Results & Data ([facility]) Vital Signs (Past 12 Hours) Vital Signs Temp Pulse Pulse Resp BP Pulse Ox 02/19/21 16:57 37.0 C 98 H 19 118/62 96 02/19/21 15:53 36.5 C 85 20 113/76 90 02/19/21 15:19 98 H 02/19/21 11:15 37.0 C 116 H 19 106/67 93 02/19/21 10:01 95 H 02/19/21 08:11 36.4 C L 98 H 18 116/75 94 Laboratory Results 02/19/21 Range/Units 06:28 Sodium 142 (136-145) mmol/L Potassium 3.9 (3.5-5.1) mmol/L Chloride 109 H (98-107) mmol/L Carbon Dioxide 31 (21-32) mmol/L Anion Gap 2.0 L (3-11) BUN 12 (7-18) mg/dl Creatinine 0.36 L (0.6-1.2) mg/dl Est Cr Clr Drug Dosing 145.8 ml/min Est GFR ( Amer) 128.4 ml/min Est GFR (Non-Af Amer) 110.8 ml/min BUN/Creatinine Ratio 32.9 H (10-20) Glucose 97 (70-99) mg/dl Calcium 8.4 L (8.5-10.1) mg/dl Phosphorus 3.2 (2.5-4.9) mg/dl Medications Administered Current Inpatient Medications Acetaminophen (Acetaminophen 325 Mg Tab) 650 mg PO Q4H PRN PRN Reason: Pain or Fever Stop: 03/18/21 00:26 Alprazolam (Alprazolam 0.25 Mg Tablet) 0.25 mg PO HS SAL Stop: 03/18/21 20:59 Last Admin: 02/18/21 20:11 Dose: 0.25 mg Documented by: Amphotericin B (Amphotericin B Consult Active) 1 ea N/A UD PRN PRN Reason: Consult Stop: 03/21/21 14:40 Apixaban (Apixaban 5 Mg Tablet) 5 mg PO BID SAL Stop: 03/18/21 08:59 Last Admin: 02/19/21 08:33 Dose: 5 mg Documented by: Atorvastatin Calcium (Atorvastatin 10 Mg Tab) 10 mg PO QDD SAL Stop: 03/18/21 16:29 Last Admin: 02/19/21 16:55 Dose: 10 mg Documented by: Cetirizine HCl (Cetirizine Hcl 10 Mg Tablet) 10 mg PO HS SAL Stop: 03/18/21 20:59 Last Admin: 02/18/21 20:11 Dose: 10 mg Documented by: Citalopram Hydrobromide (Citalopram 40 Mg Tab) 40 mg PO DAILY SAL Stop: 03/18/21 08:59 Last Admin: 02/19/21 08:32 Dose: 40 mg Documented by: Cyanocobalamin (Cyanocobalamin 500 Mcg Tablet (Vitamin B-12)) 1,000 mcg PO DAILY SAL Stop: 03/18/21 08:59 Last Admin: 02/19/21 08:33 Dose: 1,000 mcg Documented by: Cyclobenzaprine HCl (Cyclobenzaprine Hcl 10 Mg Tab) 10 mg PO BID SAL Stop: 03/18/21 08:59 Last Admin: 02/19/21 08:32 Dose: 10 mg Documented by: Gabapentin (Gabapentin 300 Mg Cap) 300 mg PO TID [facility] Stop: 03/18/21 08:59 Last Admin: 02/19/21 13:58 Dose: 300 mg Documented by: Guaifenesin (Guaifenesin 200 Mg Tab) 200 mg PO TID SAL Stop: 03/18/21 08:59 Last Admin: 02/19/21 13:58 Dose: 200 mg Documented by: Hydrocortisone (Hydrocortisone Acetate 25 Mg Supp) 25 mg [place] DAILY PRN PRN Reason: Hemorrhoids Stop: 03/18/21 00:26 Sodium Chloride (Nss 1000ml) 1,000 mls @ 75 mls/hr IV .[id number] [facility] Stop: 03/18/21 00:26 Last Infusion: 02/19/21 16:55 Dose: 75 mls/hr Documented by: Ceftriaxone Sodium 2,000 mg/ (Dextrose) 70 mls @ 140 mls/hr IV Q24H [facility] Stop: 03/01/21 11:59 Last Infusion: 02/19/21 13:58 Dose: Infused Documented by: Amphotericin B 40 mg/ Dextrose 500 mls @ 82 mls/hr IV DAILY@1700 [facility] Stop: 03/01/21 16:59 Last Admin: 02/19/21 16:54 Dose: 82 mls/hr Documented by: Sodium Chloride (Nss 1000ml) 500 mls @ 500 mls/hr IV DAILY@1600 [facility] Stop: 03/21/21 15:59 Last Infusion: 02/19/21 16:55 Dose: Infused Documented by: Lactobacillus Acidoph/Casei/Rhamnos (Advanced Probiotic 1250 Mg Capsule) 2 cap PO TIDM SAL Stop: 03/18/21 07:59 Last Admin: 02/19/21 16:55 Dose: 2 cap Documented by: Levothyroxine Sodium (Levothyroxine Sodium 75 Mcg Tablet) 75 mcg PO DAILYBB SAL Stop: 03/18/21 06:29 Last Admin: 02/19/21 05:48 Dose: 75 mcg Documented by: Lidocaine (Lidocaine 5% 1 Patch) 1 patch TD DAILY SAL Stop: 03/18/21 08:59 Last Admin: 02/19/21 08:34 Dose: 1 patch Documented by: Melatonin (Melatonin 3 Mg Tab) 3 mg PO HS [facility] Stop: 03/18/21 20:59 Last Admin: 02/18/21 20:11 Dose: 3 mg Documented by: Midodrine (Midodrine Hcl 2.5 Mg Tab) 2.5 mg PO BID@0800,1200 [facility] Stop: 03/18/21 07:59 Last Admin: 02/19/21 11:16 Dose: 2.5 mg Documented by: Miscellaneous (Remove Lidoderm Patch) 1 ea N/A DAILY@2100 [facility] Stop: 03/18/21 00:59 Last Admin: 02/18/21 20:12 Dose: 1 ea Documented by: Nitroglycerin (Nitroglycerin Sl 0.4 Mg/Tab Tab) 0.4 mg SL UD PRN PRN Reason: Chest Pain Stop: 03/18/21 00:26 Ondansetron HCl (Ondansetron Inj 2 Mg/Ml 2 Ml Vial) 4 mg IV Q6H PRN PRN Reason: Nausea Stop: 03/18/21 00:26 Polyethylene Glycol (Polyethylene (Miralax) 17 Gm Pack) 17 gm PO DAILY PRN PRN Reason: Constipation Stop: 03/18/21 00:26 Polyethylene Glycol (Polyethylene (Miralax) 17 Gm Pack) 17 gm PO DAILY SAL Stop: 03/18/21 08:59 Last Admin: 02/19/21 08:34 Dose: 17 gm Documented by: Ropinirole HCl (Ropinirole Hcl 1 Mg Tablet) 1 mg PO TIDM SAL Stop: 03/18/21 07:59 Last Admin: 02/19/21 16:55 Dose: 1 mg Documented by: Ropinirole HCl (Ropinirole Hcl 2 Mg Tablet) 2 mg PO TIDM SAL Stop: 03/18/21 07:59 Last Admin: 02/19/21 16:55 Dose: 2 mg Documented by: Senna/Docusate Sodium (Docusate Sodium/Senna 50/8.6mg Tab) 1 tab PO BID [facility] Stop: 03/18/21 08:59 Last Admin: 02/19/21 08:33 Dose: 1 tab Documented by: Vitamin D (Cholecalciferol 1,000 Units 25 Mcg Tab) 2,000 units PO DAILY [facility] Stop: 03/18/21 08:59 Last Admin: 02/19/21 08:32 Dose: 2,000 units Documented by: (1) UTI (urinary tract infection) Hematuria presence: with hematuria Urinary tract infection type: acute cystitis Qualified Code(s): N30.01 - Acute cystitis with hematuria
[2021-02-19 19:06] LABS: INR 1.1 (0.9-1.1); Partial Thromboplastin Ratio 1.1; Partial Thromboplastin Time 30.2 Seconds (21.0-31.0); Prothrombin Time 11.1 Seconds (9.0-12.0)
[2021-02-19] MEDS: HEPARIN SODIUM/DEXTROSE 25,000 UNITS/500 ML BAG IV SCH (21:23)
[2021-02-19] MEDS: ALPRAZolam 0.25 MG TABLET PO SCH (21:36)
[2021-02-19] MEDS: CETIRIZINE HCL 10 MG TABLET PO SCH (21:36)
[2021-02-19] MEDS: MELATONIN 3 MG TAB PO SCH (21:36)
[2021-02-20] MEDS: SODIUM CHLORIDE 0.9% 1000ML 1,000 ML IV SCH ×2 (03:32→16:30)
[2021-02-20 04:09] LABS: Hematocrit (blood only) 34.3 % (37-47); Hemoglobin 11.1 g/dL (12.0-16.0); Mean Corpuscular Hemoglobin 31.5 pg (25-34); Mean Corpuscular Hgb Conc 32.4 g/dL (32-36); Mean Corpuscular Volume 97.4 fL (80-100); Mean Platelet Volume 8.2 fL (7.4-10.4); Platelet Count 193 K/uL (130-400); RDW Coefficient of Variation 14.1 % (11.5-14.5); RDW Standard Deviation 49.8 fL (36.4-46.3); Red Blood Count 3.52 M/uL (4.2-5.4); White Blood Count 6.79 K/uL (4.8-10.8)
[2021-02-20 04:24] LABS: Partial Thromboplastin Ratio 1.6; Partial Thromboplastin Time 41.2 Seconds (21.0-31.0)
[2021-02-20 04:25] LABS: Calcium 8.8 mg/dl (8.5-10.1); Creatinine Clr Calc Pharmacy 114.1 ml/min; Est GFR (African American) 118.5 ml/min; Est GFR (Non-African American) 102.2 ml/min; Magnesium 2.1 mg/dl (1.8-2.4); Potassium 3.8 mmol/L (3.5-5.1)
[2021-02-20 04:26] LABS: Phosphorus 3.5 mg/dl (2.5-4.9)
[2021-02-20] MEDS: LEVOTHYROXINE SODIUM 75 MCG TABLET PO SCH (05:28)
[2021-02-20] MEDS: Heparin IV Adult Wt-Based Low-Dose *NO* Bolus Protocol IV SCH ×2 (07:55→07:56)
[2021-02-20] MEDS: LIDOCAINE 5% 1 PATCH TD SCH (08:22)
[2021-02-20] MEDS: DOCUSATE SODIUM/SENNA 50/8.6MG TAB PO SCH ×2 (08:22→20:32)
[2021-02-20] MEDS: GABAPENTIN 300 MG CAP PO SCH ×3 (08:22→20:33)
[2021-02-20] MEDS: rOPINIRole HCL 2 MG TABLET PO SCH ×3 (08:22→17:38)
[2021-02-20] MEDS: guaiFENesin 200 MG TAB PO SCH ×3 (08:23→20:32)
[2021-02-20] MEDS: rOPINIRole HCL 1 MG TABLET PO SCH ×3 (08:23→17:38)
[2021-02-20] MEDS: ADVANCED PROBIOTIC 1250 MG CAPSULE PO SCH ×3 (08:23→17:39)
[2021-02-20] MEDS: CHOLECALCIFEROL 1,000 UNITS 25 MCG TAB PO SCH (08:23)
[2021-02-20] MEDS: CYANOCOBALAMIN 500 MCG TABLET (VITAMIN B-12) PO SCH (08:23)
[2021-02-20] MEDS: CITALOPRAM 40 MG TAB PO SCH (08:24)
[2021-02-20] MEDS: CYCLOBENZAPRINE HCL 10 MG TAB PO SCH ×2 (08:24→20:32)
[2021-02-20] MEDS: POLYETHYLENE (MIRALAX) 17 GM PACK PO SCH (08:24)
[2021-02-20] MEDS: MIDODRINE HCL 2.5 MG TAB PO SCH ×2 (08:25→12:03)
[2021-02-20 11:28] LABS: Partial Thromboplastin Ratio 1.7; Partial Thromboplastin Time 44.1 Seconds (21.0-31.0)
[2021-02-20] MEDS: cefTRIAXone SODIUM 2,000 MG in DEXTROSE 5% 50 ML IV SCH (12:01)
[2021-02-20] MEDS: SODIUM CHLORIDE 0.9% 1000ML 500 ML IV SCH (16:30)
[2021-02-20] MEDS: ATORVASTATIN 10 MG TAB PO SCH (17:38)
[2021-02-20 18:29] LABS: Partial Thromboplastin Ratio 1.9
[2021-02-20 18:31] LABS: Partial Thromboplastin Time 49.7 Seconds (21.0-31.0)
[2021-02-20] MEDS: AMPHOTERICIN B IV SCH (18:35)
[2021-02-20] MEDS: DEXTROSE 5% IV SCH (18:35)
--- NOTE | 2021-02-20 20:22 | Hospitalist Progress Note ---
Date of Service February 20, 2021 Assessment & Plan (1) UTI (urinary tract infection): Plan: Recurrent UTI Present on admission for recurrent urinary retention and UTI Urine cx collected in the ER on 02/14 grew Klebsiella oxytoca Urine culture from February 15, 2021 + for Klebsiella oxytoca and Christen glabrata complex Received IV Cefepime and Vanco in the ER Blood cx no growth Continued IV cefepime Yeast on UA, urine culture, per urology, consider fluconazole, will discuss further with ID given recurrent UTIs ID consulted for back dysuria/funguria Recommend CT scan of abdomen pelvis to rule out urolithiasis pyelonephritis or renal abscess, CT was ordered IMPRESSION: 1. Several punctate calculi within the left kidney. No ureteral calculi or hydronephrosis. No renal fluid collection on unenhanced exam. Bladder wall thickening which could be correlated with urinalysis. 2. Proximal rectal wall thickening with mild adjacent infiltration. This has slightly decreased since prior exam. This may reflect proctitis. However, follow-up nonemergent colonoscopy to exclude an underlying lesion is recommended. 3. No bowel obstruction. Moderate amount of stool. Given Klebsiella isolate, ceftriaxone should be effective, switched from cefepime to ceftriaxone (02/19), could discharge on ciprofloxacin, anticipate 7 to 14 days of Abx treatment Given suspicion of Christen glabrata UTI, will start IV amphotericin B while awaiting fluconazole sensitivities. Discussed this with pharmacy, and patient was started on ceftriaxone and hepatitis B Urinary retention Mostly multifactorial Urology consulted No acute intervention indicated at this time. Urology recommended maintaining Uribe catheter for 7-10 days. Outpatient follow-up with urology service for voiding trial BRBPR - on and off since she has been on Eliquis -Monitor H&H, and discussed with GI Likely EGD/colonoscopy on Monday - will need prep on Monday and NPO after MN on Monday start clear liquid diet Monday and bowel prep with golytely 4L Monday around 1500, NPO midnight and plan for egd/colonoscopy Monday - will need to hold eliquis, will place on IV heparin w/o bolus in meantime History of pulmonary embolism: Continue Eliquis. Lung nodules: Needs CT followup. Hypothyroidism: Continue Synthroid. 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 Orthostatic hypotension continue midodrine. Continue monitor BP DVT prophylaxis: on Eliquis/ IV heparin CODE status full code Admission and Anticipated Discharge Date Admission Date: February 15, 2021 Subjective Pt was seen and examined for follow up of urinary retention, UTI Per nursing staff, bright red blood noticed in stool yesterday patient on Eliquis-reports on and off blood in her stools since starting Eliquis Sitting up in bed in no acute distress, says she is feeling much better Denies having any stools today Denies any chest pain, palpitation, dizziness, increased shortness of breath however she is now on nasal cannula, saturating at 98% Seen by ID yesterday for recurrent UTIs and yeast in the urine Plan for colonoscopy on Monday, per GI, will stop Eliquis, will have her on IV heparin in the meantime Will need prep on Monday and clear liquid diet Physical Exam Physical Exam: General- No acute distress Head- atraumatic Eyes- PERRL, EOMI, ENT- oropharynx clear Neck- supple, no JVD Lungs- clear to auscultation Heart- regular rhythm; no murmur Abdomen- normal bowel sounds, soft, nontender Extremities- no calf tenderness Neuro- alert, oriented, PERRL, EOMI;mild dysarthria (at baseline) Skin- warm & dry Results & Data Results & Data ([facility]) Vital Signs (Past 12 Hours) Vital Signs Temp Pulse Pulse Pulse Resp BP BP 02/20/21 20:14 37.0 C 107 H 18 118/70 02/20/21 17:00 105 H 02/20/21 16:20 37.0 C 86 21 105/70 02/20/21 11:42 36.8 C 113 H 24 118/66 Pulse Ox 02/20/21 20:14 92 02/20/21 17:00 02/20/21 16:20 96 02/20/21 11:42 92 Laboratory Results 02/20/21 02/20/21 02/20/21 Range/Units 17:54 11:08 03:52 WBC (4.8-10.8) K/uL RBC (4.2-5.4) M/uL Hgb (12.0-16.0) g/dL Hct (37-47) % MCV (80-100) fL MCH (25-34) pg MCHC (32-36) g/dL RDW Std Deviation (36.4-46.3) fL RDW Coeff of Radhames (11.5-14.5) % Plt Count (130-400) K/uL MPV (7.4-10.4) fL APTT 49.7 H* 44.1 H (21.0-31.0) Seconds PTT Ratio 1.9 1.7 Sodium 141 (136-145) mmol/L Potassium 3.8 (3.5-5.1) mmol/L Chloride 108 H (98-107) mmol/L Carbon Dioxide 30 (21-32) mmol/L Anion Gap 3.0 (3-11) BUN 11 (7-18) mg/dl Creatinine 0.46 L (0.6-1.2) mg/dl Est Cr Clr Drug Dosing 114.1 ml/min Est GFR ( Amer) 118.5 ml/min Est GFR (Non-Af Amer) 102.2 ml/min BUN/Creatinine Ratio 25.0 H (10-20) Glucose 110 H (70-99) mg/dl Calcium 8.8 (8.5-10.1) mg/dl Phosphorus 3.5 (2.5-4.9) mg/dl Magnesium 2.1 (1.8-2.4) mg/dl 02/20/21 02/20/21 Range/Units 03:52 03:52 WBC 6.79 (4.8-10.8) K/uL RBC 3.52 L (4.2-5.4) M/uL Hgb 11.1 L (12.0-16.0) g/dL Hct 34.3 L (37-47) % MCV 97.4 (80-100) fL MCH 31.5 (25-34) pg MCHC 32.4 (32-36) g/dL RDW Std Deviation 49.8 H (36.4-46.3) fL RDW Coeff of Radhames 14.1 (11.5-14.5) % Plt Count 193 (130-400) K/uL MPV 8.2 (7.4-10.4) fL APTT 41.2 H (21.0-31.0) Seconds PTT Ratio 1.6 Sodium (136-145) mmol/L Potassium (3.5-5.1) mmol/L Chloride (98-107) mmol/L Carbon Dioxide (21-32) mmol/L Anion Gap (3-11) BUN (7-18) mg/dl Creatinine (0.6-1.2) mg/dl Est Cr Clr Drug Dosing ml/min Est GFR ( Amer) ml/min Est GFR (Non-Af Amer) ml/min BUN/Creatinine Ratio (10-20) Glucose (70-99) mg/dl Calcium (8.5-10.1) mg/dl Phosphorus (2.5-4.9) mg/dl Magnesium (1.8-2.4) mg/dl Medications Administered Current Inpatient Medications Acetaminophen (Acetaminophen 325 Mg Tab) 650 mg PO Q4H PRN PRN Reason: Pain or Fever Stop: 03/18/21 00:26 Alprazolam (Alprazolam 0.25 Mg Tablet) 0.25 mg PO HS SAL Stop: 03/18/21 20:59 Last Admin: 02/19/21 21:36 Dose: 0.25 mg Documented by: Amphotericin B (Amphotericin B Consult Active) 1 ea N/A UD PRN PRN Reason: Consult Stop: 03/21/21 14:40 Apixaban (Apixaban 5 Mg Tablet) 5 mg PO BID SAL Stop: 03/18/21 08:59 Last Admin: 02/19/21 08:33 Dose: 5 mg Documented by: Atorvastatin Calcium (Atorvastatin 10 Mg Tab) 10 mg PO QDD SAL Stop: 03/18/21 16:29 Last Admin: 02/20/21 17:38 Dose: 10 mg Documented by: Cetirizine HCl (Cetirizine Hcl 10 Mg Tablet) 10 mg PO HS SAL Stop: 03/18/21 20:59 Last Admin: 02/19/21 21:36 Dose: 10 mg Documented by: Citalopram Hydrobromide (Citalopram 40 Mg Tab) 40 mg PO DAILY SAL Stop: 03/18/21 08:59 Last Admin: 02/20/21 08:24 Dose: 40 mg Documented by: Cyanocobalamin (Cyanocobalamin 500 Mcg Tablet (Vitamin B-12)) 1,000 mcg PO DAILY SAL Stop: 03/18/21 08:59 Last Admin: 02/20/21 08:23 Dose: 1,000 mcg Documented by: Cyclobenzaprine HCl (Cyclobenzaprine Hcl 10 Mg Tab) 10 mg PO BID SAL Stop: 03/18/21 08:59 Last Admin: 02/20/21 08:24 Dose: 10 mg Documented by: Gabapentin (Gabapentin 300 Mg Cap) 300 mg PO TID [facility] Stop: 03/18/21 08:59 Last Admin: 02/20/21 14:33 Dose: 300 mg Documented by: Guaifenesin (Guaifenesin 200 Mg Tab) 200 mg PO TID [facility] Stop: 03/18/21 08:59 Last Admin: 02/20/21 14:33 Dose: 200 mg Documented by: Hydrocortisone (Hydrocortisone Acetate 25 Mg Supp) [address] DAILY PRN PRN Reason: Hemorrhoids Stop: 03/18/21 00:26 Sodium Chloride (Nss 1000ml) 1,000 mls @ 75 mls/hr IV .[id number] [facility] Stop: 03/18/21 00:26 Last Infusion: 02/20/21 18:36 Dose: 0 mls/hr Documented by: Ceftriaxone Sodium 2,000 mg/ (Dextrose) 70 mls @ 140 mls/hr IV Q24H [facility] Stop: 03/01/21 11:59 Last Infusion: 02/20/21 12:31 Dose: Infused Documented by: Amphotericin B 40 mg/ Dextrose 500 mls @ 82 mls/hr IV DAILY@1700 [facility] Stop: 03/01/21 16:59 Last Admin: 02/20/21 18:35 Dose: 82 mls/hr Documented by: Sodium Chloride (Nss 1000ml) 500 mls @ 500 mls/hr IV DAILY@1600 [facility] Stop: 03/21/21 15:59 Last Infusion: 02/20/21 17:30 Dose: Infused Documented by: Heparin Sodium/Dextrose (Heparin Sodium/Dextrose) 25,000 units in 500 mls @ 17 mls/hr IV .Q24H [facility]; Protocol Stop: 03/21/21 20:59 Last Titration: 02/20/21 20:03 Dose: 0 units/hr, 0 mls/hr Documented by: Lactobacillus Acidoph/Casei/Rhamnos (Advanced Probiotic 1250 Mg Capsule) 2 cap PO TIDM [facility] Stop: 03/18/21 07:59 Last Admin: 02/20/21 17:39 Dose: 2 cap Documented by: Levothyroxine Sodium (Levothyroxine Sodium 75 Mcg Tablet) 75 mcg PO DAILYBB [facility] Stop: 03/18/21 06:29 Last Admin: 02/20/21 05:28 Dose: 75 mcg Documented by: Lidocaine (Lidocaine 5% 1 Patch) 1 patch TD DAILY SAL Stop: 03/18/21 08:59 Last Admin: 02/20/21 08:22 Dose: 1 patch Documented by: Melatonin (Melatonin 3 Mg Tab) 3 mg PO HS SAL Stop: 03/18/21 20:59 Last Admin: 02/19/21 21:36 Dose: 3 mg Documented by: Midodrine (Midodrine Hcl 2.5 Mg Tab) 2.5 mg PO BID@0800,1200 SAL Stop: 03/18/21 07:59 Last Admin: 02/20/21 12:03 Dose: 2.5 mg Documented by: Miscellaneous (Remove Lidoderm Patch) 1 ea N/A DAILY@2100 [facility] Stop: 03/18/21 00:59 Last Admin: 02/19/21 21:29 Dose: 1 ea Documented by: Nitroglycerin (Nitroglycerin Sl 0.4 Mg/Tab Tab) 0.4 mg SL UD PRN PRN Reason: Chest Pain Stop: 03/18/21 00:26 Ondansetron HCl (Ondansetron Inj 2 Mg/Ml 2 Ml Vial) 4 mg IV Q6H PRN PRN Reason: Nausea Stop: 03/18/21 00:26 Polyethylene Glycol (Polyethylene (Miralax) 17 Gm Pack) 17 gm PO DAILY PRN PRN Reason: Constipation Stop: 03/18/21 00:26 Polyethylene Glycol (Polyethylene (Miralax) 17 Gm Pack) 17 gm PO DAILY SAL Stop: 03/18/21 08:59 Last Admin: 02/20/21 08:24 Dose: 17 gm Documented by: Ropinirole HCl (Ropinirole Hcl 1 Mg Tablet) 1 mg PO TIDM SAL Stop: 03/18/21 07:59 Last Admin: 02/20/21 17:38 Dose: 1 mg Documented by: Ropinirole HCl (Ropinirole Hcl 2 Mg Tablet) 2 mg PO TIDM SAL Stop: 03/18/21 07:59 Last Admin: 02/20/21 17:38 Dose: 2 mg Documented by: Senna/Docusate Sodium (Docusate Sodium/Senna 50/8.6mg Tab) 1 tab PO BID SAL Stop: 03/18/21 08:59 Last Admin: 02/20/21 08:22 Dose: 1 tab Documented by: Vitamin D (Cholecalciferol 1,000 Units 25 Mcg Tab) 2,000 units PO DAILY SAL Stop: 03/18/21 08:59 Last Admin: 02/20/21 08:23 Dose: 2,000 units Documented by: Vitamin D (Cholecalciferol 400 Units 10 Mcg Tab) 2,000 units PO DAILY SAL Stop: 02/21/21 09:01 (1) UTI (urinary tract infection) Hematuria presence: with hematuria Urinary tract infection type: acute cystitis Qualified Code(s): N30.01 - Acute cystitis with hematuria
[2021-02-20] MEDS: ALPRAZolam 0.25 MG TABLET PO SCH (20:32)
[2021-02-20] MEDS: MELATONIN 3 MG TAB PO SCH (20:32)
[2021-02-20] MEDS: CETIRIZINE HCL 10 MG TABLET PO SCH (20:33)
[2021-02-21] MEDS: SODIUM CHLORIDE 0.9% 1000ML 1,000 ML IV SCH ×2 (01:00→11:55)
[2021-02-21] MEDS: HEPARIN SODIUM/DEXTROSE 25,000 UNITS/500 ML BAG IV SCH (05:00)
[2021-02-21] MEDS: LEVOTHYROXINE SODIUM 75 MCG TABLET PO SCH (05:14)
[2021-02-21 07:10] LABS: Partial Thromboplastin Ratio 1.8
[2021-02-21 07:28] LABS: Partial Thromboplastin Time 48.1 Seconds (21.0-31.0)
[2021-02-21] MEDS: GABAPENTIN 300 MG CAP PO SCH ×3 (08:36→20:03)
[2021-02-21] MEDS: rOPINIRole HCL 1 MG TABLET PO SCH ×3 (08:36→17:35)
[2021-02-21] MEDS: CITALOPRAM 40 MG TAB PO SCH (08:37)
[2021-02-21] MEDS: guaiFENesin 200 MG TAB PO SCH ×3 (08:37→20:02)
[2021-02-21] MEDS: MIDODRINE HCL 2.5 MG TAB PO SCH ×2 (08:37→11:55)
[2021-02-21] MEDS: CYANOCOBALAMIN 500 MCG TABLET (VITAMIN B-12) PO SCH (08:38)
[2021-02-21] MEDS: POLYETHYLENE (MIRALAX) 17 GM PACK PO SCH (08:38)
[2021-02-21] MEDS: rOPINIRole HCL 2 MG TABLET PO SCH ×3 (08:38→17:34)
[2021-02-21] MEDS: DOCUSATE SODIUM/SENNA 50/8.6MG TAB PO SCH ×2 (08:38→20:00)
[2021-02-21] MEDS: CYCLOBENZAPRINE HCL 10 MG TAB PO SCH ×2 (08:38→20:02)
[2021-02-21] MEDS: LIDOCAINE 5% 1 PATCH TD SCH (08:39)
[2021-02-21] MEDS: ADVANCED PROBIOTIC 1250 MG CAPSULE PO SCH ×3 (08:39→17:35)
[2021-02-21 08:47] LABS: Hematocrit (blood only) 34.9 % (37-47); Hemoglobin 11.1 g/dL (12.0-16.0)
[2021-02-21] MEDS ORDERED: CHOLECALCIFEROL 400 UNITS 10 MCG TAB PO SCH (09:00)
[2021-02-21 09:07] LABS: BUN Creatinine Ratio 20.3 (10-20); Calcium 8.7 mg/dl (8.5-10.1); Creatinine Clr Calc Pharmacy 114.4 ml/min; Est GFR (African American) 118.5 ml/min; Est GFR (Non-African American) 102.2 ml/min; Magnesium 2.1 mg/dl (1.8-2.4); Phosphorus 3.5 mg/dl (2.5-4.9); Potassium 3.6 mmol/L (3.5-5.1)
[2021-02-21] MEDS: cefTRIAXone SODIUM 2,000 MG in DEXTROSE 5% 50 ML IV SCH (11:55)
--- NOTE | 2021-02-21 13:16 | Hospitalist Progress Note ---
Date of Service February 21, 2021 Assessment & Plan (1) UTI (urinary tract infection): Plan: Recurrent UTI Present on admission for recurrent urinary retention and UTI Urine cx collected in the ER on 02/14 grew Klebsiella oxytoca Urine culture from February 15, 2021 + for Klebsiella oxytoca and Christen glabrata complex Received IV Cefepime and Vanco in the ER Blood cx no growth Continued IV cefepime Yeast on UA, urine culture, per urology, consider fluconazole, will discuss further with ID given recurrent UTIs ID consulted for back dysuria/funguria Recommend CT scan of abdomen pelvis to rule out urolithiasis pyelonephritis or renal abscess, CT was ordered IMPRESSION: 1. Several punctate calculi within the left kidney. No ureteral calculi or hydronephrosis. No renal fluid collection on unenhanced exam. Bladder wall thickening which could be correlated with urinalysis. 2. Proximal rectal wall thickening with mild adjacent infiltration. This has slightly decreased since prior exam. This may reflect proctitis. However, follow-up nonemergent colonoscopy to exclude an underlying lesion is recommended. 3. No bowel obstruction. Moderate amount of stool. Given Klebsiella isolate, ceftriaxone should be effective, switched from cefepime to ceftriaxone (02/19), could discharge on ciprofloxacin, anticipate 7 to 14 days of Abx treatment Given suspicion of Christen glabrata UTI, will start IV amphotericin B while awaiting fluconazole sensitivities. Discussed this with pharmacy, and patient was started on ceftriaxone and amp hotericin B Urinary retention Mostly multifactorial Urology consulted No acute intervention indicated at this time. Urology recommended maintaining Uribe catheter for 7-10 days. Outpatient follow-up with urology service for voiding trial BRBPR - on and off since she has been on Eliquis -Monitor H&H, and discussed with GI Likely EGD/colonoscopy on Monday - will need prep on Monday and NPO after MN on Monday start clear liquid diet Monday and bowel prep with golytely 4L Monday around 1500, NPO midnight and plan for egd/colonoscopy Monday - hold eliquis, started on IV heparin w/o bolus in meantime -Clear liquid diet today, prep ordered for today, and heparin IV to be stopped tomorrow 1 AM, n.p.o. after midnight History of pulmonary embolism: Continue Eliquis. (hold now for colonoscopy, as above) Lung nodules: Needs CT followup. Hypothyroidism: Continue Synthroid. 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 Orthostatic hypotension continue midodrine. Continue monitor BP DVT prophylaxis: on Eliquis/ IV heparin CODE status full code Admission and Anticipated Discharge Date Admission Date: February 15, 2021 Subjective Pt was seen and examined for follow up of urinary retention, UTI Per nursing staff, bright red blood noticed in stool patient on Eliquis-reports on and off blood in her stools since starting Eliquis Currently sitting up in bed in no acute distress Denies having any stools today or yesterday Denies any chest pain, palpitation, dizziness, increased shortness of breath however she is now on nasal cannula, saturating at 98% Seen by ID for recurrent UTIs and yeast in the urine Plan for colonoscopy on Monday, per GI, stopped Eliquis, on IV heparin in the meantime Started on clear liquid diet, plan to hold IV heparin in the morning at 1 AM, plan for colonoscopy tomorrow, prep ordered Review of Systems Review of Systems: All systems reviewed & are unremarkable except as noted in Subjective Physical Exam Physical Exam: General- No acute distress, on NC Head- atraumatic Eyes- PERRL, EOMI, ENT- oropharynx clear Neck- supple, no JVD Lungs- + rhonchi, no wheezing Heart- regular rhythm; no murmur Abdomen- normal bowel sounds, soft, nontender Extremities- no calf tenderness Neuro- alert, oriented, PERRL, EOMI;mild dysarthria (at baseline) Skin- warm & dry Results & Data Results & Data ([facility]) Vital Signs (Past 12 Hours) Vital Signs Temp Pulse Pulse Pulse Resp BP Pulse Ox 02/21/21 12:04 36.8 C 98 H 14 108/70 93 02/21/21 08:00 96 H 02/21/21 07:44 36.8 C 100 H 12 104/68 95 02/21/21 04:43 36.6 C 95 H 20 125/78 90 Laboratory Results 02/21/21 02/21/21 02/21/21 Range/Units 08:37 08:37 05:34 Hgb 11.1 L (12.0-16.0) g/dL Hct 34.9 L (37-47) % APTT 48.1 H* (21.0-31.0) Seconds PTT Ratio 1.8 Sodium 141 (136-145) mmol/L Potassium 3.6 (3.5-5.1) mmol/L Chloride 107 (98-107) mmol/L Carbon Dioxide 31 (21-32) mmol/L Anion Gap 3.0 (3-11) BUN 9 (7-18) mg/dl Creatinine 0.46 L (0.6-1.2) mg/dl Est Cr Clr Drug Dosing 114.4 ml/min Est GFR ( Amer) 118.5 ml/min Est GFR (Non-Af Amer) 102.2 ml/min BUN/Creatinine Ratio 20.3 H (10-20) Glucose 119 H (70-99) mg/dl Calcium 8.7 (8.5-10.1) mg/dl Phosphorus 3.5 (2.5-4.9) mg/dl Magnesium 2.1 (1.8-2.4) mg/dl 02/20/21 Range/Units 17:54 Hgb (12.0-16.0) g/dL Hct (37-47) % APTT 49.7 H* (21.0-31.0) Seconds PTT Ratio 1.9 Sodium (136-145) mmol/L Potassium (3.5-5.1) mmol/L Chloride (98-107) mmol/L Carbon Dioxide (21-32) mmol/L Anion Gap (3-11) BUN (7-18) mg/dl Creatinine (0.6-1.2) mg/dl Est Cr Clr Drug Dosing ml/min Est GFR ( Amer) ml/min Est GFR (Non-Af Amer) ml/min BUN/Creatinine Ratio (10-20) Glucose (70-99) mg/dl Calcium (8.5-10.1) mg/dl Phosphorus (2.5-4.9) mg/dl Magnesium (1.8-2.4) mg/dl Medications Administered Current Inpatient Medications Acetaminophen (Acetaminophen 325 Mg Tab) 650 mg PO Q4H PRN PRN Reason: Pain or Fever Stop: 03/18/21 00:26 Alprazolam (Alprazolam 0.25 Mg Tablet) 0.25 mg PO HS SAL Stop: 03/18/21 20:59 Last Admin: 02/20/21 20:32 Dose: 0.25 mg Documented by: Amphotericin B (Amphotericin B Consult Active) 1 ea N/A UD PRN PRN Reason: Consult Stop: 03/21/21 14:40 Apixaban (Apixaban 5 Mg Tablet) 5 mg PO BID SAL Stop: 03/18/21 08:59 Last Admin: 02/19/21 08:33 Dose: 5 mg Documented by: Atorvastatin Calcium (Atorvastatin 10 Mg Tab) 10 mg PO QDD SAL Stop: 03/18/21 16:29 Last Admin: 02/20/21 17:38 Dose: 10 mg Documented by: Cetirizine HCl (Cetirizine Hcl 10 Mg Tablet) 10 mg PO HS SAL Stop: 03/18/21 20:59 Last Admin: 02/20/21 20:33 Dose: 10 mg Documented by: Citalopram Hydrobromide (Citalopram 40 Mg Tab) 40 mg PO DAILY SAL Stop: 03/18/21 08:59 Last Admin: 02/21/21 08:37 Dose: 40 mg Documented by: Cyanocobalamin (Cyanocobalamin 500 Mcg Tablet (Vitamin B-12)) 1,000 mcg PO DAILY SAL Stop: 03/18/21 08:59 Last Admin: 02/21/21 08:38 Dose: 1,000 mcg Documented by: Cyclobenzaprine HCl (Cyclobenzaprine Hcl 10 Mg Tab) 10 mg PO BID SAL Stop: 03/18/21 08:59 Last Admin: 02/21/21 08:38 Dose: 10 mg Documented by: Gabapentin (Gabapentin 300 Mg Cap) 300 mg PO TID SAL Stop: 03/18/21 08:59 Last Admin: 02/21/21 08:36 Dose: 300 mg Documented by: Guaifenesin (Guaifenesin 200 Mg Tab) 200 mg PO TID SAL Stop: 03/18/21 08:59 Last Admin: 02/21/21 08:37 Dose: 200 mg Documented by: Hydrocortisone (Hydrocortisone Acetate 25 Mg Supp) 25 mg IN DAILY PRN PRN Reason: Hemorrhoids Stop: 03/18/21 00:26 Sodium Chloride (Nss 1000ml) 1,000 mls @ 75 mls/hr IV .[id number] SAL Stop: 03/18/21 00:26 Last Infusion: 02/21/21 12:26 Dose: 75 mls/hr Documented by: Ceftriaxone Sodium 2,000 mg/ (Dextrose) 70 mls @ 140 mls/hr IV Q24H [facility] Stop: 03/01/21 11:59 Last Infusion: 02/21/21 12:26 Dose: Infused Documented by: Amphotericin B 40 mg/ Dextrose 500 mls @ 82 mls/hr IV DAILY@1700 [facility] Stop: 03/01/21 16:59 Last Infusion: 02/21/21 01:01 Dose: Infused Documented by: Sodium Chloride (Nss 1000ml) 500 mls @ 500 mls/hr IV DAILY@1600 [facility] Stop: 03/21/21 15:59 Last Infusion: 02/20/21 17:30 Dose: Infused Documented by: Heparin Sodium/Dextrose (Heparin Sodium/Dextrose) 25,000 units in 500 mls @ 17 mls/hr IV .Q24H [facility]; Protocol Stop: 03/21/21 20:59 Last Titration: 02/21/21 07:30 Dose: 850 units/hr, 17 mls/hr Documented by: Lactobacillus Acidoph/Casei/Rhamnos (Advanced Probiotic 1250 Mg Capsule) 2 cap PO TIDM SAL Stop: 03/18/21 07:59 Last Admin: 02/21/21 11:55 Dose: 2 cap Documented by: Levothyroxine Sodium (Levothyroxine Sodium 75 Mcg Tablet) 75 mcg PO DAILYBB [facility] Stop: 03/18/21 06:29 Last Admin: 02/21/21 05:14 Dose: 75 mcg Documented by: Lidocaine (Lidocaine 5% 1 Patch) 1 patch TD DAILY SAL Stop: 03/18/21 08:59 Last Admin: 02/21/21 08:39 Dose: 1 patch Documented by: Melatonin (Melatonin 3 Mg Tab) 3 mg PO HS SAL Stop: 03/18/21 20:59 Last Admin: 02/20/21 20:32 Dose: 3 mg Documented by: Midodrine (Midodrine Hcl 2.5 Mg Tab) 2.5 mg PO BID@0800,1200 [facility] Stop: 03/18/21 07:59 Last Admin: 02/21/21 11:55 Dose: 2.5 mg Documented by: Miscellaneous (Remove Lidoderm Patch) 1 ea N/A DAILY@2100 [facility] Stop: 03/18/21 00:59 Last Admin: 02/20/21 20:33 Dose: 1 ea Documented by: Nitroglycerin (Nitroglycerin Sl 0.4 Mg/Tab Tab) 0.4 mg SL UD PRN PRN Reason: Chest Pain Stop: 03/18/21 00:26 Ondansetron HCl (Ondansetron Inj 2 Mg/Ml 2 Ml Vial) 4 mg IV Q6H PRN PRN Reason: Nausea Stop: 03/18/21 00:26 Polyethylene Glycol (Polyethylene (Miralax) 17 Gm Pack) 17 gm PO DAILY PRN PRN Reason: Constipation Stop: 03/18/21 00:26 Polyethylene Glycol (Polyethylene (Miralax) 17 Gm Pack) 17 gm PO DAILY SAL Stop: 03/18/21 08:59 Last Admin: 02/21/21 08:38 Dose: 17 gm Documented by: Ropinirole HCl (Ropinirole Hcl 1 Mg Tablet) 1 mg PO TIDM SAL Stop: 03/18/21 07:59 Last Admin: 02/21/21 11:55 Dose: 1 mg Documented by: Ropinirole HCl (Ropinirole Hcl 2 Mg Tablet) 2 mg PO TIDM SAL Stop: 03/18/21 07:59 Last Admin: 02/21/21 11:55 Dose: 2 mg Documented by: Senna/Docusate Sodium (Docusate Sodium/Senna 50/8.6mg Tab) 1 tab PO BID SAL Stop: 03/18/21 08:59 Last Admin: 02/21/21 08:38 Dose: 1 tab Documented by: Vitamin D (Cholecalciferol 1,000 Units 25 Mcg Tab) 2,000 units PO DAILY SAL Stop: 03/18/21 08:59 Last Admin: 02/20/21 08:23 Dose: 2,000 units Documented by: (1) UTI (urinary tract infection) Hematuria presence: with hematuria Urinary tract infection type: acute cystit is Qualified Code(s): N30.01 - Acute cystitis with hematuria
[2021-02-21] MEDS ORDERED: POTASSIUM CHLORIDE CRTAB 20 MEQ TABCR PO STA (13:20)
--- NOTE | 2021-02-21 14:33 | XRay Report ---
XR chest 1V portable CLINICAL HISTORY: follow up, hypoxia COMPARISON STUDY: Chest CT January 28, 2021. Chest radiograph February 15, 2021. FINDINGS: Cardiomediastinal silhouette is stable. Linear left basilar opacity favors atelectasis. The re is no pneumothorax. No pleural effusion is identified. Pulmonary vascular congestion is unchanged. There is no evidence for overt pulmonary edema. IMPRESSION: No acute cardiopulmonary findings. No significant change in appearance of the chest, as described above. ACT 112: Negative or not required by law. Electronically signed by: Jonathan Choe M.D. 02/21/2021 2:31 PM
[2021-02-21] MEDS ORDERED: LAVAGE SOLUTION 4000ML PO SCH (15:00)
[2021-02-21] MEDS ORDERED: POTASSIUM CHLORIDE / WTR 10 MEQ/100 ML PLCT IV ONE (15:30)
[2021-02-21] MEDS: SODIUM CHLORIDE 0.9% 1000ML 500 ML IV SCH (15:48)
[2021-02-21] MEDS: AMPHOTERICIN B IV SCH (17:34)
[2021-02-21] MEDS: DEXTROSE 5% IV SCH (17:34)
[2021-02-21] MEDS: ATORVASTATIN 10 MG TAB PO SCH (17:34)
[2021-02-21] MEDS: MELATONIN 3 MG TAB PO SCH (20:02)
[2021-02-21] MEDS: ALPRAZolam 0.25 MG TABLET PO SCH (20:02)
[2021-02-21] MEDS: CETIRIZINE HCL 10 MG TABLET PO SCH (20:03)
[2021-02-22] MEDS: LEVOTHYROXINE SODIUM 75 MCG TABLET PO SCH (05:19)
[2021-02-22] MEDS: SODIUM CHLORIDE 0.9% 1000ML 1,000 ML IV SCH (05:21)
[2021-02-22 07:42] LABS: Hematocrit (blood only) 33.2 % (37-47); Hemoglobin 10.7 g/dL (12.0-16.0); Mean Corpuscular Hemoglobin 31.6 pg (25-34); Mean Corpuscular Hgb Conc 32.2 g/dL (32-36); Mean Corpuscular Volume 97.9 fL (80-100); Mean Platelet Volume 8.7 fL (7.4-10.4); Platelet Count 175 K/uL (130-400); RDW Coefficient of Variation 13.8 % (11.5-14.5); RDW Standard Deviation 49.1 fL (36.4-46.3); Red Blood Count 3.39 M/uL (4.2-5.4); White Blood Count 5.57 K/uL (4.8-10.8)
[2021-02-22 07:54] LABS: Partial Thromboplastin Ratio 1.1; Partial Thromboplastin Time 28.4 Seconds (21.0-31.0)
[2021-02-22] MEDS: MIDODRINE HCL 2.5 MG TAB PO SCH ×2 (07:54→11:57)
[2021-02-22] MEDS: CYANOCOBALAMIN 500 MCG TABLET (VITAMIN B-12) PO SCH (07:54)
[2021-02-22] MEDS: CITALOPRAM 40 MG TAB PO SCH (07:54)
[2021-02-22] MEDS: guaiFENesin 200 MG TAB PO SCH ×3 (07:55→20:06)
[2021-02-22] MEDS: rOPINIRole HCL 1 MG TABLET PO SCH ×3 (07:55→16:37)
[2021-02-22] MEDS: DOCUSATE SODIUM/SENNA 50/8.6MG TAB PO SCH ×2 (07:55→20:07)
[2021-02-22] MEDS: rOPINIRole HCL 2 MG TABLET PO SCH ×3 (07:55→16:37)
[2021-02-22] MEDS: GABAPENTIN 300 MG CAP PO SCH ×3 (07:56→20:07)
[2021-02-22] MEDS: ADVANCED PROBIOTIC 1250 MG CAPSULE PO SCH ×3 (07:57→16:36)
[2021-02-22] MEDS: CYCLOBENZAPRINE HCL 10 MG TAB PO SCH ×2 (07:57→20:07)
[2021-02-22] MEDS: POLYETHYLENE (MIRALAX) 17 GM PACK PO SCH (07:58)
[2021-02-22] MEDS: LIDOCAINE 5% 1 PATCH TD SCH (07:58)
--- NOTE | 2021-02-22 08:17 | Hospitalist Progress Note ---
Date of Service February 22, 2021 Assessment & Plan (1) UTI (urinary tract infection): Plan: Recurrent UTI Present on admission for recurrent urinary retention and UTI Urine cx collected in the ER on 02/14 grew Klebsiella oxytoca Urine culture from February 15, 2021 + for Klebsiella oxytoca and Christen glabrata complex Received IV Cefepime and Vanco in the ER Blood cx no growth Continued IV cefepime Yeast on UA, urine culture, per urology, consider fluconazole, will discuss further with ID given recurrent UTIs ID consulted for back dysuria/funguria Recommend CT scan of abdomen pelvis to rule out urolithiasis pyelonephritis or renal abscess, CT was ordered IMPRESSION: 1. Several punctate calculi within the left kidney. No ureteral calculi or hydronephrosis. No renal fluid collection on unenhanced exam. Bladder wall thickening which could be correlated with urinalysis. 2. Proximal rectal wall thickening with mild adjacent infiltration. This has slightly decreased since prior exam. This may reflect proctitis. However, follow-up nonemergent colonoscopy to exclude an underlying lesion is recommended. 3. No bowel obstruction. Moderate amount of stool. Given Klebsiella isolate, ceftriaxone should be effective, switched from cefepime to ceftriaxone (02/19), could discharge on ciprofloxacin, anticipate 7 to 14 days of Abx treatment Given suspicion of Christen glabrata UTI, will start IV amphotericin B while awaiting fluconazole sensitivities. Discussed this with pharmacy, and patient was started on ceftriaxone and amp hotericin B Urinary retention Mostly multifactorial Urology consulted No acute intervention indicated at this time. Urology recommended maintaining Uribe catheter for 7-10 days. Outpatient follow-up with urology service for voiding trial BRBPR - on and off since she has been on Eliquis -Monitor H&H, and discussed with GI Plan for EGD/colonoscopy tomorrow (02/23) clear liquid diet, bowel prep, NPO midnight -holding eliquis, started on IV heparin w/o bolus in meantime -heparin IV to be stopped tomorrow 1 AM, n.p.o. after midnight History of pulmonary embolism: Continue Eliquis. (hold now for colonoscopy, as above) Lung nodules: Needs CT followup. Hypothyroidism: Continue Synthroid. 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 Orthostatic hypotension continue midodrine. Continue monitor BP DVT prophylaxis: on Eliquis/ IV heparin CODE status full code Admission and Anticipated Discharge Date Admission Date: February 15, 2021 Subjective Pt was seen and examined for follow up of urinary retention, UTI, blood in the stool Currently sitting up in bed in no acute distress Started prep yesterday however still having solid stools, will need to postpone endoscopy for tomorrow Blood streaks mixed with stool noted Denies any chest pain, palpitation, dizziness, increased shortness of breath however she is now on nasal cannula, saturating at 98% -plan to hold IV heparin in the morning at 1 AM, plan for colonoscopy tomorrow, cont. prep Review of Systems Review of Systems: All systems reviewed & are unremarkable except as noted in Subjective Physical Exam Physical Exam: General- No acute distress, on NC Head- atraumatic Eyes- PERRL, EOMI, ENT- oropharynx clear Neck- supple, no JVD Lungs- + mild rhonchi, no wheezing Heart- regular rhythm; no murmur Abdomen- normal bowel sounds, soft, nontender Extremities- no calf tenderness Neuro- alert, oriented, PERRL, EOMI;mild dysarthria (at baseline) Skin- warm & dry Results & Data Results & Data ([facility]) Vital Signs (Past 12 Hours) Vital Signs Temp Pulse Pulse Pulse Resp BP Pulse Ox 02/22/21 07:47 36.4 C L 96 H 20 142/64 H 93 02/22/21 03:53 36.5 C 97 H 16 134/79 95 02/22/21 01:55 96 H 02/21/21 23:23 36.9 C 96 H 18 118/75 94 Laboratory Results 02/22/21 02/22/21 02/22/21 Range/Units 06:44 06:44 06:44 WBC 5.57 (4.8-10.8) K/uL RBC 3.39 L (4.2-5.4) M/uL Hgb 10.7 L (12.0-16.0) g/dL Hct 33.2 L (37-47) % MCV 97.9 (80-100) fL MCH 31.6 (25-34) pg MCHC 32.2 (32-36) g/dL RDW Std Deviation 49.1 H (36.4-46.3) fL RDW Coeff of Radhames 13.8 (11.5-14.5) % Plt Count 175 (130-400) K/uL MPV 8.7 (7.4-10.4) fL APTT 28.4 (21.0-31.0) Seconds PTT Ratio 1.1 Sodium 142 (136-145) mmol/L Potassium 3.7 (3.5-5.1) mmol/L Chloride 105 (98-107) mmol/L Carbon Dioxide 33 H (21-32) mmol/L Anion Gap 4.0 (3-11) BUN 7 (7-18) mg/dl Creatinine 0.40 L (0.6-1.2) mg/dl Est Cr Clr Drug Dosing 131.5 ml/min Est GFR ( Amer) 124.0 ml/min Est GFR (Non-Af Amer) 107.0 ml/min BUN/Creatinine Ratio 16.6 (10-20) Glucose 85 (70-99) mg/dl Calcium 8.5 (8.5-10.1) mg/dl Phosphorus 3.1 (2.5-4.9) mg/dl Magnesium 2.0 (1.8-2.4) mg/dl Medications Administered Current Inpatient Medications Acetaminophen (Acetaminophen 325 Mg Tab) 650 mg PO Q4H PRN PRN Reason: Pain or Fever Stop: 03/18/21 00:26 Alprazolam (Alprazolam 0.25 Mg Tablet) 0.25 mg PO HS SAL Stop: 03/18/21 20:59 Last Admin: 02/21/21 20:02 Dose: 0.25 mg Documented by: Amphotericin B (Amphotericin B Consult Active) 1 ea N/A UD PRN PRN Reason: Consult Stop: 03/21/21 14:40 Apixaban (Apixaban 5 Mg Tablet) 5 mg PO BID SAL Stop: 03/18/21 08:59 Last Admin: 02/19/21 08:33 Dose: 5 mg Documented by: Atorvastatin Calcium (Atorvastatin 10 Mg Tab) 10 mg PO QDD SAL Stop: 03/18/21 16:29 Last Admin: 02/21/21 17:34 Dose: 10 mg Documented by: Cetirizine HCl (Cetirizine Hcl 10 Mg Tablet) 10 mg PO HS SAL Stop: 03/18/21 20:59 Last Admin: 02/21/21 20:03 Dose: 10 mg Documented by: Citalopram Hydrobromide (Citalopram 40 Mg Tab) 40 mg PO DAILY [facility] Stop: 03/18/21 08:59 Last Admin: 02/22/21 07:54 Dose: 40 mg Documented by: Cyanocobalamin (Cyanocobalamin 500 Mcg Tablet (Vitamin B-12)) 1,000 mcg PO DAILY [facility] Stop: 03/18/21 08:59 Last Admin: 02/22/21 07:54 Dose: 1,000 mcg Documented by: Cyclobenzaprine HCl (Cyclobenzaprine Hcl 10 Mg Tab) 10 mg PO BID [facility] Stop: 03/18/21 08:59 Last Admin: 02/22/21 07:57 Dose: 10 mg Documented by: Gabapentin (Gabapentin 300 Mg Cap) 300 mg PO TID [facility] Stop: 03/18/21 08:59 Last Admin: 02/22/21 07:56 Dose: 300 mg Documented by: Guaifenesin (Guaifenesin 200 Mg Tab) 200 mg PO TID [facility] Stop: 03/18/21 08:59 Last Admin: 02/22/21 07:55 Dose: 200 mg Documented by: Hydrocortisone (Hydrocortisone Acetate 25 Mg Supp) 25 mg [place] DAILY PRN PRN Reason: Hemorrhoids Stop: 03/18/21 00:26 Sodium Chloride (Nss 1000ml) 1,000 mls @ 75 mls/hr IV .[id number] [facility] Stop: 03/18/21 00:26 Last Admin: 02/22/21 05:21 Dose: 75 mls/hr Documented by: Ceftriaxone Sodium 2,000 mg/ (Dextrose) 70 mls @ 140 mls/hr IV Q24H [facility] Stop: 03/01/21 11:59 Last Infusion: 02/21/21 12:26 Dose: Infused Documented by: Amphotericin B 40 mg/ Dextrose 500 mls @ 82 mls/hr IV DAILY@1700 [facility] Stop: 03/01/21 16:59 Last Infusion: 02/22/21 00:02 Dose: Infused Documented by: Sodium Chloride (Nss 1000ml) 500 mls @ 500 mls/hr IV DAILY@1600 [facility] Stop: 03/21/21 15:59 Last Infusion: 02/21/21 16:48 Dose: Infused Documented by: Heparin Sodium/Dextrose (Heparin Sodium/Dextrose) 25,000 units in 500 mls @ 0 mls/hr IV .Q0M [facility]; Protocol Stop: 03/21/21 20:59 Last Titration: 02/22/21 01:14 Dose: 0 units/hr, 0 mls/hr Documented by: Lactobacillus Acidoph/Casei/Rhamnos (Advanced Probiotic 1250 Mg Capsule) 2 cap PO TIDM [facility] Stop: 03/18/21 07:59 Last Admin: 02/22/21 07:57 Dose: 2 cap Documented by: Levothyroxine Sodium (Levothyroxine Sodium 75 Mcg Tablet) 75 mcg PO DAILYBB [facility] Stop: 03/18/21 06:29 Last Admin: 02/22/21 05:19 Dose: 75 mcg Documented by: Lidocaine (Lidocaine 5% 1 Patch) 1 patch TD DAILY [facility] Stop: 03/18/21 08:59 Last Admin: 02/22/21 07:58 Dose: 1 patch Documented by: Melatonin (Melatonin 3 Mg Tab) 3 mg PO HS [facility] Stop: 03/18/21 20:59 Last Admin: 02/21/21 20:02 Dose: 3 mg Documented by: Midodrine (Midodrine Hcl 2.5 Mg Tab) 2.5 mg PO BID@0800,1200 [facility] Stop: 03/18/21 07:59 Last Admin: 02/22/21 07:54 Dose: 2.5 mg Documented by: Miscellaneous (Remove Lidoderm Patch) 1 ea N/A DAILY@2100 [facility] Stop: 03/18/21 00:59 Last Admin: 02/21/21 20:02 Dose: 1 ea Documented by: Nitroglycerin (Nitroglycerin Sl 0.4 Mg/Tab Tab) 0.4 mg SL UD PRN PRN Reason: Chest Pain Stop: 03/18/21 00:26 Ondansetron HCl (Ondansetron Inj 2 Mg/Ml 2 Ml Vial) 4 mg IV Q6H PRN PRN Reason: Nausea Stop: 03/18/21 00:26 Polyethylene Glycol (Polyethylene (Miralax) 17 Gm Pack) 17 gm PO DAILY PRN PRN Reason: Constipation Stop: 03/18/21 00:26 Polyethylene Glycol (Polyethylene (Miralax) 17 Gm Pack) 17 gm PO DAILY [facility] Stop: 03/18/21 08:59 Last Admin: 02/22/21 07:58 Dose: 17 gm Documented by: Ropinirole HCl (Ropinirole Hcl 1 Mg Tablet) 1 mg PO TIDM [facility] Stop: 03/18/21 07:59 Last Admin: 02/22/21 07:55 Dose: 1 mg Documented by: Ropinirole HCl (Ropinirole Hcl 2 Mg Tablet) 2 mg PO TIDM [facility] Stop: 03/18/21 07:59 Last Admin: 02/22/21 07:55 Dose: 2 mg Documented by: Senna/Docusate Sodium (Docusate Sodium/Senna 50/8.6mg Tab) 1 tab PO BID [facility] Stop: 03/18/21 08:59 Last Admin: 02/22/21 07:55 Dose: 1 tab Documented by: Vitamin D (Cholecalciferol 1,000 Units 25 Mcg Tab) 2,000 units PO DAILY [facility] Stop: 03/18/21 08:59 Last Admin: 02/20/21 08:23 Dose: 2,000 units Documented by: (1) UTI (urinary tract infection) Hematuria presence: with hematuria Urinary tract infection type: acute cystitis Qualified Code(s): N30.01 - Acute cystitis with hematuria
[2021-02-22 08:21] LABS: BUN Creatinine Ratio 16.6 (10-20); Calcium 8.5 mg/dl (8.5-10.1); Creatinine Clr Calc Pharmacy 131.5 ml/min; Phosphorus 3.1 mg/dl (2.5-4.9); Potassium 3.7 mmol/L (3.5-5.1)
--- NOTE | 2021-02-22 10:18 | Communication Note ---
Date of Service: February 22, 2021 Pt was scheduled for EGD/Colonoscopy evaluation today. She completed Golytely bowel prep but unfortunately still passing formed stools. Per RN stools brown with mucus and small amt of BRBPR overnight. Blood ct and VS stable. On exam, pt laying comfortably in bed, awake. Abd mildly distended with BS present and non tender. We will re-schedule EGD/colonoscopy to 02/23 and give her another day of Golytely prep. CL diet today, NPO after midnight please
[2021-02-22] MEDS: CHOLECALCIFEROL 1,000 UNITS 25 MCG TAB PO SCH (10:20)
[2021-02-22] MEDS ORDERED: LAVAGE SOLUTION 4000ML PO SCH (12:00)
[2021-02-22] MEDS: cefTRIAXone SODIUM 2,000 MG in DEXTROSE 5% 50 ML IV SCH (12:20)
[2021-02-22 15:59] LABS: Partial Thromboplastin Ratio 1.8
[2021-02-22 16:00] LABS: Partial Thromboplastin Time 47.4 Seconds (21.0-31.0)
[2021-02-22] MEDS: ATORVASTATIN 10 MG TAB PO SCH (16:33)
[2021-02-22] MEDS: SODIUM CHLORIDE 0.9% 1000ML 500 ML IV SCH (16:34)
[2021-02-22] MEDS: DEXTROSE 5% IV SCH (18:29)
[2021-02-22] MEDS: AMPHOTERICIN B IV SCH (18:29)
[2021-02-22] MEDS: HEPARIN SODIUM/DEXTROSE 25,000 UNITS/500 ML BAG IV SCH (18:32)
[2021-02-22] MEDS: ALPRAZolam 0.25 MG TABLET PO SCH (20:07)
[2021-02-22] MEDS: CETIRIZINE HCL 10 MG TABLET PO SCH (20:07)
[2021-02-22] MEDS: MELATONIN 3 MG TAB PO SCH (20:07)
[2021-02-23] MEDS: LEVOTHYROXINE SODIUM 75 MCG TABLET PO SCH (05:49)
[2021-02-23 06:20] LABS: Hematocrit (blood only) 32.2 % (37-47); Hemoglobin 10.6 g/dL (12.0-16.0)
[2021-02-23 06:29] LABS: Partial Thromboplastin Ratio 1.1; Partial Thromboplastin Time 29.3 Seconds (21.0-31.0)
[2021-02-23 06:48] LABS: BUN Creatinine Ratio 12.7 (10-20); Calcium 8.9 mg/dl (8.5-10.1); Creatinine Clr Calc Pharmacy 123.7 ml/min; Est GFR (African American) 122.1 ml/min; Est GFR (Non-African American) 105.3 ml/min; Magnesium 1.8 mg/dl (1.8-2.4); Phosphorus 3.6 mg/dl (2.5-4.9); Potassium 3.1 mmol/L (3.5-5.1)
[2021-02-23] MEDS: SODIUM CHLORIDE 0.9% 1000ML 1,000 ML IV SCH ×2 (07:53→22:56)
--- NOTE | 2021-02-23 07:54 | Hospitalist Progress Note ---
Date of Service February 23, 2021 Assessment & Plan (1) UTI (urinary tract infection): Plan: Recurrent UTI Present on admission for recurrent urinary retention and UTI Urine cx collected in the ER on 02/14 grew Klebsiella oxytoca Urine culture from February 15, 2021 + for Klebsiella oxytoca and Christen glabrata complex Received IV Cefepime and Vanco in the ER Blood cx no growth Continued IV cefepime Yeast on UA, urine culture, per urology, consider fluconazole, will discuss further with ID given recurrent UTIs ID consulted for back dysuria/funguria Recommend CT scan of abdomen pelvis to rule out urolithiasis pyelonephritis or renal abscess, CT was ordered IMPRESSION: 1. Several punctate calculi within the left kidney. No ureteral calculi or hydronephrosis. No renal fluid collection on unenhanced exam. Bladder wall thickening which could be correlated with urinalysis. 2. Proximal rectal wall thickening with mild adjacent infiltration. This has slightly decreased since prior exam. This may reflect proctitis. However, follow-up nonemergent colonoscopy to exclude an underlying lesion is recommended. 3. No bowel obstruction. Moderate amount of stool. Given Klebsiella isolate, ceftriaxone should be effective, switched from cefepime to ceftriaxone (02/19), could discharge on ciprofloxacin, anticipate 7 to 14 days of Abx treatment Given suspicion of Christen glabrata UTI, will start IV amphotericin B while awaiting fluconazole sensitivities. Discussed this with pharmacy, and patient was started on ceftriaxone and amp hotericin B 02/23 - called lab for Christen sensitivities, they were sent to [facility], results pending We will need to further discuss with ID about the length of treatment Urinary retention Mostly multifactorial Urology consulted No acute intervention indicated at this time. Urology recommended maintaining Uribe catheter for 7-10 days. Outpatient follow-up with urology service for voiding trial BRBPR - on and off since she has been on Eliquis -Monitor H&H, and discussed with GI s/p EGD/colonoscopy (02/23) - plan to resume anticoagulation and advance diet as tolerated History of pulmonary embolism: Continue Eliquis. (held for colonoscopy, as above, will resume) Lung nodules: Needs CT followup. Hypothyroidism: Continue Synthroid. 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 Orthostatic hypotension continue midodrine. Continue monitor BP DVT prophylaxis: on Eliquis/ IV heparin CODE status full code Admission and Anticipated Discharge Date Admission Date: February 15, 2021 Subjective Pt was seen and examined for follow up of urinary retention, UTI, blood in the stool Currently sitting up in bed in no acute distress Patient was supposed to undergo EGD colonoscopy yesterday, however she still had solid stools Underwent endoscopy today. tolerated well Denies any chest pain, palpitation, dizziness, increased shortness of breath Also called lab for sensitivities for Christen, they were were sent to [facility], pending results Review of Systems Review of Systems: All systems reviewed & are unremarkable except as noted in Subjective Physical Exam Physical Exam: General- No acute distress Head- atraumatic Eyes- PERRL, EOMI, ENT- oropharynx clear Neck- supple, no JVD Lungs- + mild rhonchi, no wheezing Heart- regular rhythm; no murmur Abdomen- normal bowel sounds, soft, nontender Extremities- no calf tenderness Neuro- alert, oriented, PERRL, EOMI;mild dysarthria (at baseline) Skin- warm & dry Results & Data Results & Data ([facility]) Vital Signs (Past 12 Hours) Vital Signs Temp Pulse Pulse Resp BP BP Pulse Ox 02/23/21 07:26 94 H 02/23/21 07:00 36.9 C 102 H 20 130/72 97 02/23/21 04:09 36.8 C 91 H 18 135/89 97 02/22/21 23:42 93 H 02/22/21 23:27 36.8 C 94 H 20 107/65 90 02/22/21 19:57 36.6 C 99 H 18 122/68 97 Laboratory Results 02/23/21 02/23/21 02/23/21 Range/Units 05:37 05:37 05:37 Hgb 10.6 L (12.0-16.0) g/dL Hct 32.2 L (37-47) % APTT 29.3 (21.0-31.0) Seconds PTT Ratio 1.1 Sodium 145 (136-145) mmol/L Potassium 3.1 L D (3.5-5.1) mmol/L Chloride 108 H (98-107) mmol/L Carbon Dioxide 34 H (21-32) mmol/L Anion Gap 3.0 (3-11) BUN 5 L (7-18) mg/dl Creatinine 0.42 L (0.6-1.2) mg/dl Est Cr Clr Drug Dosing 123.7 ml/min Est GFR ( Amer) 122.1 ml/min Est GFR (Non-Af Amer) 105.3 ml/min BUN/Creatinine Ratio 12.7 (10-20) Glucose 91 (70-99) mg/dl Calcium 8.9 (8.5-10.1) mg/dl Phosphorus 3.6 (2.5-4.9) mg/dl Magnesium 1.8 (1.8-2.4) mg/dl 02/22/21 02/22/21 02/22/21 Range/Units 15:22 06:44 06:44 Hgb (12.0-16.0) g/dL Hct (37-47) % APTT 47.4 H* 28.4 (21.0-31.0) Seconds PTT Ratio 1.8 1.1 Sodium 142 (136-145) mmol/L Potassium 3.7 (3.5-5.1) mmol/L Chloride 105 (98-107) mmol/L Carbon Dioxide 33 H (21-32) mmol/L Anion Gap 4.0 (3-11) BUN 7 (7-18) mg/dl Creatinine 0.40 L (0.6-1.2) mg/dl Est Cr Clr Drug Dosing 131.5 ml/min Est GFR ( Amer) 124.0 ml/min Est GFR (Non-Af Amer) 107.0 ml/min BUN/Creatinine Ratio 16.6 (10-20) Glucose 85 (70-99) mg/dl Calcium 8.5 (8.5-10.1) mg/dl Phosphorus 3.1 (2.5-4.9) mg/dl Magnesium 2.0 (1.8-2.4) mg/dl Medications Administered Current Inpatient Medications Acetaminophen (Acetaminophen 325 Mg Tab) 650 mg PO Q4H PRN PRN Reason: Pain or Fever Stop: 03/18/21 00:26 Alprazolam (Alprazolam 0.25 Mg Tablet) 0.25 mg PO HS SAL Stop: 03/18/21 20:59 Last Admin: 02/22/21 20:07 Dose: 0.25 mg Documented by: Amphotericin B (Amphotericin B Consult Active) 1 ea N/A UD PRN PRN Reason: Consult Stop: 03/21/21 14:40 Apixaban (Apixaban 5 Mg Tablet) 5 mg PO BID [facility] Stop: 03/18/21 08:59 Last Admin: 02/19/21 08:33 Dose: 5 mg Documented by: Atorvastatin Calcium (Atorvastatin 10 Mg Tab) 10 mg PO QDD [facility] Stop: 03/18/21 16:29 Last Admin: 02/22/21 16:33 Dose: 10 mg Documented by: Cetirizine HCl (Cetirizine Hcl 10 Mg Tablet) 10 mg PO HS [facility] Stop: 03/18/21 20:59 Last Admin: 02/22/21 20:07 Dose: 10 mg Documented by: Citalopram Hydrobromide (Citalopram 40 Mg Tab) 40 mg PO DAILY [facility] Stop: 03/18/21 08:59 Last Admin: 02/22/21 07:54 Dose: 40 mg Documented by: Cyanocobalamin (Cyanocobalamin 500 Mcg Tablet (Vitamin B-12)) 1,000 mcg PO DAILY [facility] Stop: 03/18/21 08:59 Last Admin: 02/22/21 07:54 Dose: 1,000 mcg Documented by: Cyclobenzaprine HCl (Cyclobenzaprine Hcl 10 Mg Tab) 10 mg PO BID [facility] Stop: 03/18/21 08:59 Last Admin: 02/22/21 20:07 Dose: 10 mg Documented by: Gabapentin (Gabapentin 300 Mg Cap) 300 mg PO TID [facility] Stop: 03/18/21 08:59 Last Admin: 02/22/21 20:07 Dose: 300 mg Documented by: Guaifenesin (Guaifenesin 200 Mg Tab) 200 mg PO TID [facility] Stop: 03/18/21 08:59 Last Admin: 02/22/21 20:06 Dose: 200 mg Documented by: Hydrocortisone (Hydrocortisone Acetate 25 Mg Supp) 25 mg [place] DAILY PRN PRN Reason: Hemorrhoids Stop: 03/18/21 00:26 Sodium Chloride (Nss 1000ml) 1,000 mls @ 75 mls/hr IV .[id number] [facility] Stop: 03/18/21 00:26 Last Admin: 02/23/21 07:53 Dose: 75 mls/hr Documented by: Ceftriaxone Sodium 2,000 mg/ (Dextrose) 70 mls @ 140 mls/hr IV Q24H [facility] Stop: 03/01/21 11:59 Last Infusion: 02/22/21 12:50 Dose: Infused Documented by: Amphotericin B 40 mg/ Dextrose 500 mls @ 82 mls/hr IV DAILY@1700 [facility] Stop: 03/01/21 16:59 Last Infusion: 02/23/21 00:54 Dose: Infused Documented by: Sodium Chloride (Nss 1000ml) 500 mls @ 500 mls/hr IV DAILY@1600 [facility] Stop: 03/01/21 15:59 Last Infusion: 02/22/21 17:59 Dose: Infused Documented by: Potassium Chloride (K Cristóbal / Wtr) 10 meq in 100 mls @ 100 mls/hr IV Q1H [facility] Stop: 02/23/21 08:53 Lactobacillus Acidoph/Casei/Rhamnos (Advanced Probiotic 1250 Mg Capsule) 2 cap PO TIDM [facility] Stop: 03/18/21 07:59 Last Admin: 02/22/21 16:36 Dose: 2 cap Documented by: Levothyroxine Sodium (Levothyroxine Sodium 75 Mcg Tablet) 75 mcg PO DAILYBB [facility] Stop: 03/18/21 06:29 Last Admin: 02/23/21 05:49 Dose: 75 mcg Documented by: Lidocaine (Lidocaine 5% 1 Patch) 1 patch TD DAILY [facility] Stop: 03/18/21 08:59 Last Admin: 02/22/21 07:58 Dose: 1 patch Documented by: Melatonin (Melatonin 3 Mg Tab) 3 mg PO HS [facility] Stop: 03/18/21 20:59 Last Admin: 02/22/21 20:07 Dose: 3 mg Documented by: Midodrine (Midodrine Hcl 2.5 Mg Tab) 2.5 mg PO BID@0800,1200 [facility] Stop: 03/18/21 07:59 Last Admin: 02/22/21 11:57 Dose: 2.5 mg Documented by: Miscellaneous (Remove Lidoderm Patch) 1 ea N/A DAILY@2100 [facility] Stop: 03/18/21 00:59 Last Admin: 02/22/21 20:06 Dose: 1 ea Documented by: Nitroglycerin (Nitroglycerin Sl 0.4 Mg/Tab Tab) 0.4 mg SL UD PRN PRN Reason: Chest Pain Stop: 03/18/21 00:26 Ondansetron HCl (Ondansetron Inj 2 Mg/Ml 2 Ml Vial) 4 mg IV Q6H PRN PRN Reason: Nausea Stop: 03/18/21 00:26 Polyethylene Glycol (Polyethylene (Miralax) 17 Gm Pack) 17 gm PO DAILY PRN PRN Reason: Constipation Stop: 03/18/21 00:26 Polyethylene Glycol (Polyethylene (Miralax) 17 Gm Pack) 17 gm PO DAILY [facility] Stop: 03/18/21 08:59 Last Admin: 02/22/21 07:58 Dose: 17 gm Documented by: Ropinirole HCl (Ropinirole Hcl 1 Mg Tablet) 1 mg PO TIDM [facility] Stop: 03/18/21 07:59 Last Admin: 02/22/21 16:37 Dose: 1 mg Documented by: Ropinirole HCl (Ropinirole Hcl 2 Mg Tablet) 2 mg PO TIDM [facility] Stop: 03/18/21 07:59 Last Admin: 02/22/21 16:37 Dose: 2 mg Documented by: Senna/Docusate Sodium (Docusate Sodium/Senna 50/8.6mg Tab) 1 tab PO BID [facility] Stop: 03/18/21 08:59 Last Admin: 02/22/21 20:07 Dose: 1 tab Documented by: Vitamin D (Cholecalciferol 1,000 Units 25 Mcg Tab) 2,000 units PO DAILY [facility] Stop: 03/18/21 08:59 Last Admin: 02/22/21 10:20 Dose: 2,000 units Documented by: (1) UTI (urinary tract infection) Hematuria presence: with hematuria Urinary tract infection type: acute cystitis Qualified Code(s): N30.01 - Acute cystitis with hematuria
[2021-02-23] MEDS ORDERED: PROPOFOL IV EMULSION 10 MG/ML 20 ML VIAL IV ONE ×2 (08:04)
[2021-02-23] MEDS ORDERED: LIDOCAINE 2% 2 ML VIAL/AMP(20MG/ML) INFIL ONE (08:04)
--- NOTE | 2021-02-23 08:19 | Anesthesiology Consultation ---
Date of Service February 23, 2021 Assessment & Plan (1) Encounter for pre-operative examination: History Surgery Operation Date: 02/22/21 16:30 Proposed Procedures p Colonoscopy EGD Dr. Suleman Shell MD Operation Date: 02/23/21 16:30 Proposed Procedures p Colonoscopy and EGD Dr. Suleman Shell MD Height/Weight Height: 5 ft 2 in Weight: 77.7 kg Allergies Allergy/AdvReac Type Severity Reaction Status Date / Time bacitracin Allergy Intermediate hives Verified 02/15/21 19:02 neomycin Allergy Intermediate hives Verified 02/15/21 19:02 onion Allergy Intermediate diarrhea,violent Verified 02/15/21 19:02 illness polymyxin B Allergy Intermediate hives Verified 02/15/21 19:02 ragweed pollen Allergy Intermediate hayfever/adolfo Verified 02/15/21 19:02 fever carbidopa Allergy Unknown FROM [facility] Verified 02/15/21 19:02 MED LIST garlic Allergy Unknown Gastrointestinal Verified 02/15/21 19:02 Upset levodopa Allergy Unknown FROM [facility] Verified 02/15/21 19:02 MED LIST lactose AdvReac Unknown Gastrointestinal Verified 02/15/21 19:02 Upset Medications Home Medications Medication Instructions Recorded Confirmed Last Taken L.acidoph-L.rhamn-B.bifidum-B.long 1 tab PO TIDM 01/09/21 02/15/21 02/15/21 12:00 12.9 mg (2 billion cell) tabletDR (Probiotic Acidophilus Biobeads) alprazolam 0.25 mg tablet 0.25 mg PO HS 01/09/21 02/15/21 02/14/21 atorvastatin 10 mg tablet 10 mg PO QDD 01/09/21 02/15/21 02/14/21 cetirizine 10 mg tablet (Zyrtec) 10 mg PO HS 01/09/21 02/15/21 02/14/21 cholecalciferol (vitamin D3) 25 50 mcg PO DAILY 01/09/21 02/15/21 02/15/21 mcg (1,000 unit) tablet (Vitamin D3) citalopram 40 mg tablet 40 mg PO DAILY 01/09/21 02/15/21 02/15/21 cyanocobalamin (vitamin B-12) 1,000 mcg PO DAILY 01/09/21 02/15/21 02/15/21 1,000 mcg tablet (Vitamin B-12) gabapentin 300 mg capsule 300 mg PO TID 01/09/21 02/15/21 02/15/21 12:00 levothyroxine 75 mcg tablet 75 mcg PO DAILY 01/09/21 02/15/21 02/15/21 melatonin 10 mg tablet 10 mg PO HS 01/09/21 02/15/21 02/14/21 midodrine 2.5 mg tablet 2.5 mg PO BID 01/09/21 02/15/21 02/15/21 polyethylene glycol 3350 17 gram 17 g PO DAILY 01/09/21 02/15/21 02/15/21 oral powder packet (Miralax) ropinirole 1 mg tablet 1 mg PO TIDM 01/09/21 02/15/21 02/15/21 12:00 ropinirole 2 mg tablet 2 mg PO TIDM 01/09/21 02/15/21 02/15/21 12:00 sennosides 8.6 mg-docusate sodium 1 tab-cap PO BID 01/09/21 02/15/21 02/15/21 08:00 50 mg tablet (Senna-S) cyclobenzaprine 10 mg tablet 10 mg PO BID 30 Days #60 tab 01/19/21 02/15/21 02/15/21 08:00 lidocaine 4 % topical patch 1 patch TOPICAL DAILY 01/22/21 02/15/21 02/15/21 apixaban 5 mg tablet (Eliquis) 10 mg PO UD #70 tab 02/02/21 02/15/21 02/15/21 08:00 10 MG guaifenesin 200 mg tablet 200 mg PO TID #15 tab 02/02/21 02/15/21 02/15/21 12:00 Bactrim DS 800 mg-160 mg tablet 1 tab PO Q12H #14 tab NS 02/14/21 02/15/21 Unknown (sulfamethoxazole-trimethoprim) acetaminophen 325 mg tablet 650 mg PO Q4 PRN 02/15/21 02/15/21 Unknown (Tylenol) hydrocortisone acetate 25 mg 25 mg [place] DIRECTED PRN 02/15/21 02/15/21 Unknown rectal suppository prednisone 20 mg tablet 0 mg PO DAILY 02/15/21 02/15/2121 Active Medications Generic Name Dose Route Start Last Admin Trade Name Zachery PRN Reason Stop Dose Admin Alprazolam 0.25 mg 02/16/21 21:00 02/22/21 20:07 Alprazolam 0.25 Mg Tablet PO 03/18/21 20:59 0.25 mg HS SAL Administration Apixaban 5 mg 02/16/21 09:00 02/19/21 08:33 Apixaban 5 Mg Tablet PO 03/18/21 08:59 5 mg BID SAL Administration Atorvastatin Calcium 10 mg 02/16/21 16:30 02/22/21 16:33 Atorvastatin 10 Mg Tab PO 03/18/21 16:29 10 mg QDD SAL Administration Cetirizine HCl 10 mg 02/16/21 21:00 02/22/21 20:07 Cetirizine Hcl 10 Mg Tablet PO 03/18/21 20:59 10 mg HS SAL Administration Citalopram Hydrobromide 40 mg 02/16/21 09:00 02/22/21 07:54 Citalopram 40 Mg Tab PO 03/18/21 08:59 40 mg DAILY SAL Administration Cyanocobalamin 1,000 mcg 02/16/21 09:00 02/22/21 07:54 Cyanocobalamin 500 Mcg Tablet (Vitamin B-12) PO 03/18/21 08:59 1,000 mcg DAILY SAL Administration Cyclobenzaprine HCl 10 mg 02/16/21 09:00 02/22/21 20:07 Cyclobenzaprine Hcl 10 Mg Tab PO 03/18/21 08:59 10 mg BID SAL Administration Gabapentin 300 mg 02/16/21 09:00 02/22/21 20:07 Gabapentin 300 Mg Cap PO 03/18/21 08:59 300 mg TID SAL Administration Guaifenesin 200 mg 02/16/21 09:00 02/22/21 20:06 Guaifenesin 200 Mg Tab PO 03/18/21 08:59 200 mg TID SAL Administration Sodium Chloride 1,000 mls @ 75 mls/hr 02/16/21 00:27 02/23/21 08:09 Nss 1000ml IV 03/18/21 00:26 0 mls/hr .[id number] SAL Infusion Ceftriaxone Sodium 2,000 mg/ 70 mls @ 140 mls/hr 02/19/21 12:00 02/22/21 12:50 Dextrose IV 03/01/21 11:59 Infused Q24H SAL Infusion Amphotericin B 40 mg/ Dextrose 500 mls @ 82 mls/hr 02/19/21 17:00 02/23/21 00:54 IV 03/01/21 16:59 Infused DAILY@1700 SAL Infusion Sodium Chloride 500 mls @ 500 mls/hr 02/19/21 16:00 02/22/21 17:59 Nss 1000ml IV 03/01/21 15:59 Infused DAILY@1600 SAL Infusion Lactobacillus Acidoph/Casei/Rhamnos 2 cap 02/16/21 08:00 02/22/21 16:36 Advanced Probiotic 1250 Mg Capsule PO 03/18/21 07:59 2 cap TIDM SAL Administration Levothyroxine Sodium 75 mcg 02/16/21 06:30 02/23/21 05:49 Levothyroxine Sodium 75 Mcg Tablet PO 03/18/21 06:29 75 mcg DAILYBB SAL Administration Lidocaine 1 patch 02/16/21 09:00 02/22/21 07:58 Lidocaine 5% 1 Patch TD 03/18/21 08:59 1 patch DAILY SAL Administration Melatonin 3 mg 02/16/21 21:00 02/22/21 20:07 Melatonin 3 Mg Tab PO 03/18/21 20:59 3 mg HS SAL Administration Midodrine 2.5 mg 02/16/21 08:00 02/22/21 11:57 Midodrine Hcl 2.5 Mg Tab PO 03/18/21 07:59 2.5 mg BID@0800,1200 SAL Administration Miscellaneous 1 ea 02/16/21 01:00 02/22/21 20:06 Remove Lidoderm Patch N/A 03/18/21 00:59 1 ea DAILY@2100 SAL Administration Polyethylene Glycol 17 gm 02/16/21 09:00 02/22/21 07:58 Polyethylene (Miralax) 17 Gm Pack PO 03/18/21 08:59 17 gm DAILY SAL Administration Ropinirole HCl 1 mg 02/16/21 08:00 02/22/21 16:37 Ropinirole Hcl 1 Mg Tablet PO 03/18/21 07:59 1 mg TIDM SAL Administration Ropinirole HCl 2 mg 02/16/21 08:00 02/22/21 16:37 Ropinirole Hcl 2 Mg Tablet PO 03/18/21 07:59 2 mg TIDM SAL Administration Senna/Docusate Sodium 1 tab 02/16/21 09:00 02/22/21 20:07 Docusate Sodium/Senna 50/8.6mg Tab PO 03/18/21 08:59 1 tab BID SAL Administration Vitamin D 2,000 units 02/16/21 09:00 02/22/21 10:20 Cholecalciferol 1,000 Units 25 Mcg Tab PO 03/18/21 08:59 2,000 units DAILY SAL Administration NPO Date Last Intake of Solids: 02/20/21 Time Last Intake of Solids: 17:30 Past Medical History Medical History Anxiety Atypical parkinsonism HLD (hyperlipidemia) Hypothyroid MDD (major depressive disorder) Multiple system atrophy Orthostatic hypotension Septic shock Tachycardia Past Family History Family History Other Family history unknown Past Surgical History Surgical History History of hysterectomy Social History Smoking Status: Former smoker Do You Dip or Chew Tobacco: No Hx Alcohol Use: No Hx Substance Use: No Physical Exam Vital Signs Last Vital Signs Temp 36.9 C 02/23/21 07:00 Pulse 94 H 02/23/21 07:26 Resp 20 02/23/21 07:00 BP 130/72 02/23/21 07:00 Pulse Ox 97 02/23/21 07:00 Testing Laboratory Results 02/23/21 05:37 02/23/21 05:37 PT 11.1 Seconds (9.0-12.0) 02/19/21 18:25 INR 1.1 (0.9-1.1) 02/19/21 18:25 APTT 29.3 Seconds (21.0-31.0) 02/23/21 05:37 Urine Color Yellow 02/15/21 15:05 Urine Appearance Clear (Clear) 02/15/21 15:05 Urine pH 5.5 (4.5-7.5) 02/15/21 15:05 Ur Specific [place] 1.018 (1.000-1.030) 02/15/21 15:05 Urine Protein Negative (Negative) 02/15/21 15:05 Urine Glucose (UA) Trace (Negative) H 02/15/21 15:05 Urine Ketones Negative (Negative) 02/15/21 15:05 Urine Nitrite Negative (Negative) 02/15/21 15:05 Ur Leukocyte Esterase 2+ (Negative) H 02/15/21 15:05 Urine WBC (Auto) >30 /hpf (0-5) H 02/15/21 15:05 Urine RBC (Auto) 0-4 /hpf (0-4) 02/15/21 15:05 U Hyaline Cast (Auto) 10-30 /lpf (0-5) H 02/15/21 15:05 U Epithel Cells (Auto) 0-5 /lpf (0-5) 02/15/21 15:05 Urine Bacteria (Auto) Negative (Negative) 02/15/21 15:05 02/15/21 18:44 Aerobic Blood Culture - Final Blood No growth in Aerobic bottle after 5 days. Anaerobic Blood Culture - Final 02/15/21 18:44 Aerobic Blood Culture - Final Blood No growth in Aerobic bottle after 5 days. Anaerobic Blood Culture - Final 02/15/21 15:05 Urine Culture - Preliminary Urine,Indwelling Cath Klebsiella oxytoca Christen glabrata complex
--- NOTE | 2021-02-23 08:21 | History & Physical Report ---
Date of Service February 23, 2021 Assessment & Plan Admission and Anticipated Discharge Date Admission Date: February 15, 2021 History of Present Illness Chief Complaint: Intermittent rectal bleeding Primary Care Provider: Ronit White MD 70 yo fm with multiple medical problems, reported prior history of intermittent rectal bleeding. She has been on eliquis that has been held. She was being prepped on monday but had a poor prep and therefore she prepped again yesterday and is now here today for her endoscopy/colonoscopy. Allergies Allergy/AdvReac Type Severity Reaction Status Date / Time bacitracin Allergy Intermediate hives Verified 02/15/21 19:02 neomycin Allergy Intermediate hives Verified 02/15/21 19:02 onion Allergy Intermediate diarrhea,violent Verified 02/15/21 19:02 illness polymyxin B Allergy Intermediate hives Verified 02/15/21 19:02 ragweed pollen Allergy Intermediate hayfever/adolfo Verified 02/15/21 19:02 fever carbidopa Allergy Unknown FROM [facility] Verified 02/15/21 19:02 MED LIST garlic Allergy Unknown Gastrointestinal Verified 02/15/21 19:02 Upset levodopa Allergy Unknown FROM [facility] Verified 02/15/21 19:02 MED LIST lactose AdvReac Unknown Gastrointestinal Verified 02/15/21 19:02 Upset Home Medications Medication Instructions Recorded Confirmed Type L.acidoph-L.rhamn-B.bifidum-B.long 1 tab PO TIDM 01/09/21 02/15/21 History 12.9 mg (2 billion cell) DR armando (Probiotic Acidophilus Biobeads) alprazolam 0.25 mg tablet 0.25 mg PO HS 01/09/21 02/15/21 History atorvastatin 10 mg tablet 10 mg PO QDD 01/09/21 02/15/21 History cetirizine 10 mg tablet (Zyrtec) 10 mg PO HS 01/09/21 02/15/21 History cholecalciferol (vitamin D3) 25 50 mcg PO DAILY 01/09/21 02/15/21 History mcg (1,000 unit) tablet (Vitamin D3) citalopram 40 mg tablet 40 mg PO DAILY 01/09/21 02/15/21 History cyanocobalamin (vitamin B-12) 1,000 mcg PO DAILY 01/09/21 02/15/21 History 1,000 mcg tablet (Vitamin B-12) gabapentin 300 mg capsule 300 mg PO TID 01/09/21 02/15/21 History levothyroxine 75 mcg tablet 75 mcg PO DAILY 01/09/21 02/15/21 History melatonin 10 mg tablet 10 mg PO HS 01/09/21 02/15/21 History midodrine 2.5 mg tablet 2.5 mg PO BID 01/09/21 02/15/21 History polyethylene glycol 3350 17 gram 17 g PO DAILY 01/09/21 02/15/21 History oral powder packet (Miralax) ropinirole 1 mg tablet 1 mg PO TIDM 01/09/21 02/15/21 History ropinirole 2 mg tablet 2 mg PO TIDM 01/09/21 02/15/21 History sennosides 8.6 mg-docusate sodium 1 tab-cap PO BID 01/09/21 02/15/21 History 50 mg tablet (Senna-S) cyclobenzaprine 10 mg tablet 10 mg PO BID 30 Days #60 tab 01/19/21 02/15/21 Rx lidocaine 4 % topical patch 1 patch TOPICAL DAILY 01/22/21 02/15/21 History apixaban 5 mg tablet (Eliquis) 10 mg PO UD #70 tab 02/02/21 02/15/21 Rx guaifenesin 200 mg tablet 200 mg PO TID #15 tab 02/02/21 02/15/21 Rx Bactrim DS 800 mg-160 mg tablet 1 tab PO Q12H #14 tab NS 02/14/21 02/15/21 Rx (sulfamethoxazole-trimethoprim) acetaminophen 325 mg tablet 650 mg PO Q4 PRN 02/15/21 02/15/21 History (Tylenol) hydrocortisone acetate 25 mg 25 mg [place] DIRECTED PRN 02/15/21 02/15/21 History rectal suppository prednisone 20 mg tablet 0 mg PO DAILY 02/15/21 02/15/21 History Past Med/Surg History Medical History Anxiety Atypical parkinsonism HLD (hyperlipidemia) Hypothyroid MDD (major depressive disorder) Multiple system atrophy Orthostatic hypotension Septic shock Tachycardia Surgical History History of hysterectomy Family History Other Family history unknown Social History Smoking Status: Former smoker Second Hand Exposure: No; Do You Dip or Chew Tobacco: No; Hx Alcohol Use: No Hx Substance Use: No Preferred Language: [place]iboutian Communication Ability: Impaired Supply Chain Manager Required: No Beliefs That Will Affect Care: None marital status: Current Living Situation: Family Current Living Situation Comment: lives with her at her daughters house How many Children do You have: 1 Feels Safe at Home: Yes Safety Concerns: Feels Safe At This Time Assistive Devices: Glasses and Oxygen - Continuous Review of Systems Unremarkable Physical Exam Physical Exam: Well nourished fm in nad Gastrointestinal (Abdomen): normal bowel sounds, soft, nontender, no hepatosplenomegaly Results & Data ([facility]) Vital Signs (Past 12 Hours) Vital Signs Temp Pulse Pulse Resp BP BP Pulse Ox 02/23/21 07:26 94 H 02/23/21 07:00 36.9 C 102 H 20 130/72 97 02/23/21 04:09 36.8 C 91 H 18 135/89 97 02/22/21 23:42 93 H 02/22/21 23:27 36.8 C 94 H 20 107/65 90 Code Status & VTE Plan VTE Prophylaxis Plan VTE Prophylaxis will be ordered: Yes Supervising Physician Co-Signing Physician Notes EGD and colonoscopy for intermittent rectal bleeding.
--- NOTE | 2021-02-23 09:16 | GI REPORT ---
Patient Name: Viji Blanca Procedure Date: 02/23/2021 8:36 AM Date of : 1950 Admit Type: Inpatient Age: 70 Gender: Female Attending MD: Sulema Shell M.d. Procedure: Upper GI endoscopy Providers: Sulema Shell M.d. Referring MD: Paulie Chery Md Indications: Anemia Medicines: See anesthesia record Complications: No immediate complications. Estimated Blood Loss: Estimated blood loss: none. Procedure: Pre-Anesthesia Assessment: - Patient identification and proposed procedure were verified prior to the procedure by the physician, the nurse and the anesthesiologist. The procedure was verified in the pre-procedure area. - Prior to the procedure, a History and Physical was performed, and patient medications, allergies and sensitivities were reviewed. The patient's tolerance of previous anesthesia was reviewed. - The risks and benefits of the procedure and the sedation options and risks were discussed with the patient. All questions were answered and informed consent was obtained. After obtaining informed consent, the endoscope was passed under direct vision. Throughout the procedure, the patient's blood pressure, pulse, and oxygen saturations were monitored continuously. The Endoscope was introduced through the mouth, and advanced to the second part of duodenum. The upper GI endoscopy was accomplished without difficulty. The patient tolerated the procedure well. Findings: The examined esophagus appeared normal. The Z-line appeared regular. The examined stomach appeared normal. The duodenal bulb and second portion of the duodenum appeared normal. Impression: - Normal esophagus. - Z-line regular. - Normal stomach. - Normal duodenal bulb and second portion of the duodenum. Recommendation: - Await pathology results. - Proceed to colonoscopy. Tiffani Borja M.d. 02/23/2021 9:15:23 AM This report has been signed electronically. Note Initiated On: 02/23/2021 8:36 AM Number of Addenda: 0 I attest to the content of the Intraoperative Record and orders documented therein, exceptions below {[id number]}
--- NOTE | 2021-02-23 09:18 | GI REPORT ---
Patient Name: Viji Blanca Procedure Date: 02/23/2021 8:35 AM Date of : 1950 Admit Type: Inpatient Age: 70 Gender: Female Attending MD: Sulema Shell M.d. Procedure: Colonoscopy Providers: Sulema Shell M.d. Referring MD: Paulie Chery Md Indications: Rectal bleeding Medicines: See anesthesia record. Complications: No immediate complications. Estimated Blood Loss: Estimated blood loss: none. Procedure: Pre-Anesthesia Assessment: - Patient identification and proposed procedure were verified prior to the procedure by the physician, the nurse and the anesthesiologist. The procedure was verified in the pre-procedure area. - Prior to the procedure, a History and Physical was performed, and patient medications, allergies and sensitivities were reviewed. The patient's tolerance of previous anesthesia was reviewed. - The risks and benefits of the procedure and the sedation options and risks were discussed with the patient. All questions were answered and informed consent was obtained. After I obtained informed consent, the scope was passed under direct vision. Throughout the procedure, the patient's blood pressure, pulse, and oxygen saturations were monitored continuously. The Colonoscope was introduced through the anus and advanced to the cecum, identified by appendiceal orifice and ileocecal valve. The colonoscopy was somewhat difficult due to a redundant colon. Successful completion of the procedure was aided by straightening and shortening the scope to obtain bowel loop reduction. The patient tolerated the procedure well. The quality of the bowel preparation was adequate to identify polyps 6 mm and larger in size. Findings: The examined colon appeared normal. A localized area of mildly inflamed mucosa was found in the rectum. This was biopsied with a cold forceps for histology. The pathology specimen was placed into Bottle A. Verification of patient identification for the specimen was done by the physician, nurse and die maintenance technician using the patient's name and medical record number. The exam was otherwise without abnormality on direct and retroflexion views. Impression: - The examined colon appeared normal. - Inflamed mucosa in the rectum. Biopsied. - The examination was otherwise normal on direct and retroflexion views. Recommendation: - Await pathology results. Tiffani Borja M.d. 02/23/2021 9:17:49 AM This report has been signed electronically. Note Initiated On: 02/23/2021 8:35 AM Number of Addenda: 0 I attest to the content of the Intraoperative Record and orders documented therein, exceptions below {[id number]}
[2021-02-23] MEDS: CHOLECALCIFEROL 1,000 UNITS 25 MCG TAB PO SCH (10:16)
[2021-02-23] MEDS: CYCLOBENZAPRINE HCL 10 MG TAB PO SCH ×2 (10:17→20:24)
[2021-02-23] MEDS: DOCUSATE SODIUM/SENNA 50/8.6MG TAB PO SCH ×2 (10:17→20:25)
[2021-02-23] MEDS: MIDODRINE HCL 2.5 MG TAB PO SCH ×2 (10:17→13:43)
[2021-02-23] MEDS: CYANOCOBALAMIN 500 MCG TABLET (VITAMIN B-12) PO SCH (10:17)
[2021-02-23] MEDS: rOPINIRole HCL 2 MG TABLET PO SCH ×3 (10:17→16:14)
[2021-02-23] MEDS: rOPINIRole HCL 1 MG TABLET PO SCH ×3 (10:17→16:14)
[2021-02-23] MEDS: CITALOPRAM 40 MG TAB PO SCH (10:17)
[2021-02-23] MEDS: GABAPENTIN 300 MG CAP PO SCH ×3 (10:18→20:25)
[2021-02-23] MEDS: ADVANCED PROBIOTIC 1250 MG CAPSULE PO SCH ×3 (10:19→16:14)
[2021-02-23] MEDS: LIDOCAINE 5% 1 PATCH TD SCH (10:20)
--- NOTE | 2021-02-23 10:20 | Communication Note ---
Date of Service: February 23, 2021 EGD normal, colonoscopy with findings of inflammation- biopsies obtained. Advance diet as tolerated. She will be informed of biopsy results when they return.
[2021-02-23] MEDS: guaiFENesin 200 MG TAB PO SCH ×3 (10:24→20:24)
[2021-02-23] MEDS: POTASSIUM CHLORIDE / WTR 10 MEQ/100 ML PLCT IV SCH ×2 (10:26→12:08)
[2021-02-23] MEDS: POLYETHYLENE (MIRALAX) 17 GM PACK PO SCH (10:43)
[2021-02-23] MEDS: cefTRIAXone SODIUM 2,000 MG in DEXTROSE 5% 50 ML IV SCH (13:43)
--- NOTE | 2021-02-23 14:07 | Anesthesiology Progress Note ---
Date of Service February 23, 2021 Anesthesia Post Procedure Vital Signs Vital Signs: Temp Pulse Pulse Pulse Resp BP BP 02/23/21 11:00 36.9 C 106 H 20 128/64 02/23/21 09:42 105 H 18 135/81 02/23/21 09:28 104 H 18 125/76 02/23/21 09:14 37.4 C 105 H 18 105/69 02/23/21 08:30 37.4 C 02/23/21 07:26 94 H 02/23/21 07:00 36.9 C 102 H 20 130/72 02/23/21 04:09 36.8 C 91 H 18 135/89 02/22/21 23:42 93 H 02/22/21 23:27 36.8 C 94 H 20 107/65 02/22/21 19:57 36.6 C 99 H 18 122/68 02/22/21 15:23 36.5 C 96 H 17 110/62 02/22/21 14:19 92 H Pulse Ox 02/23/21 11:00 90 02/23/21 09:42 92 02/23/21 09:28 92 02/23/21 09:14 92 02/23/21 08:30 02/23/21 07:26 02/23/21 07:00 97 02/23/21 04:09 97 02/22/21 23:42 02/22/21 23:27 90 02/22/21 19:57 97 02/22/21 15:23 96 02/22/21 14:19 Pain Intensity Medial Abdomen: Pain Intensity: 4 Abdomen: Pain Intensity: 4 Transfer of Care Handoff Completed per policy Notes Mental Status: alert / awake / arousable and participated in evaluation Patient Amnestic to Procedure: Yes Nausea / Vomiting: adequately controlled Pain: adequately controlled Airway Patency, RR, SpO2: stable & adequate BP & HR: stable & adequate Hydration State: stable & adequate Anesthetic Complications: no major complications apparent and Pt Satisfied with anesthetic care
[2021-02-23] MEDS: ATORVASTATIN 10 MG TAB PO SCH (16:13)
[2021-02-23] MEDS: SODIUM CHLORIDE 0.9% 1000ML 500 ML IV SCH (16:15)
[2021-02-23] MEDS: AMPHOTERICIN B IV SCH (17:28)
[2021-02-23] MEDS: DEXTROSE 5% IV SCH (17:28)
[2021-02-23] MEDS: ALPRAZolam 0.25 MG TABLET PO SCH (20:24)
[2021-02-23] MEDS: MELATONIN 3 MG TAB PO SCH (20:24)
[2021-02-23] MEDS: CETIRIZINE HCL 10 MG TABLET PO SCH (20:25)
[2021-02-23] MEDS: APIXABAN 5 MG TABLET PO SCH (22:04)
[2021-02-24] MEDS: LEVOTHYROXINE SODIUM 75 MCG TABLET PO SCH (05:24)
[2021-02-24 07:15] LABS: Hematocrit (blood only) 29.4 % (37-47); Hemoglobin 9.8 g/dL (12.0-16.0)
[2021-02-24 07:41] LABS: BUN Creatinine Ratio 13.5 (10-20); Calcium 8.6 mg/dl (8.5-10.1); Creatinine Clr Calc Pharmacy 96.7 ml/min; Est GFR (African American) 112.4 ml/min; Potassium 2.7 mmol/L (3.5-5.1)
[2021-02-24] MEDS: SODIUM CHLORIDE 0.9% 1000ML 1,000 ML IV SCH ×2 (08:35→10:02)
[2021-02-24] MEDS: LIDOCAINE 5% 1 PATCH TD SCH (08:36)
[2021-02-24] MEDS: POLYETHYLENE (MIRALAX) 17 GM PACK PO SCH (08:36)
[2021-02-24] MEDS: CHOLECALCIFEROL 1,000 UNITS 25 MCG TAB PO SCH (08:37)
[2021-02-24] MEDS: ADVANCED PROBIOTIC 1250 MG CAPSULE PO SCH ×3 (08:37→15:59)
[2021-02-24] MEDS: CYCLOBENZAPRINE HCL 10 MG TAB PO SCH ×2 (08:37→21:14)
[2021-02-24] MEDS: APIXABAN 5 MG TABLET PO SCH ×2 (08:37→21:14)
[2021-02-24] MEDS: rOPINIRole HCL 1 MG TABLET PO SCH ×3 (08:37→15:59)
[2021-02-24] MEDS: guaiFENesin 200 MG TAB PO SCH ×3 (08:38→21:15)
[2021-02-24] MEDS: GABAPENTIN 300 MG CAP PO SCH ×3 (08:38→21:15)
[2021-02-24] MEDS: CYANOCOBALAMIN 500 MCG TABLET (VITAMIN B-12) PO SCH (08:38)
[2021-02-24] MEDS: rOPINIRole HCL 2 MG TABLET PO SCH ×3 (08:38→15:59)
[2021-02-24] MEDS: CITALOPRAM 40 MG TAB PO SCH (08:39)
[2021-02-24] MEDS: DOCUSATE SODIUM/SENNA 50/8.6MG TAB PO SCH ×2 (08:39→21:14)
[2021-02-24] MEDS: MIDODRINE HCL 2.5 MG TAB PO SCH ×2 (08:39→12:06)
[2021-02-24] MEDS ORDERED: POTASSIUM CHLORIDE CRTAB 20 MEQ TABCR PO ONE ×2 (09:48→16:00)
[2021-02-24] MEDS: POTASSIUM CHLORIDE / WTR 10 MEQ/100 ML PLCT IV SCH ×3 (10:18→12:05)
[2021-02-24] MEDS: cefTRIAXone SODIUM 2,000 MG in DEXTROSE 5% 50 ML IV SCH (12:05)
--- NOTE | 2021-02-24 13:18 | XRay Report ---
XR chest 1V portable CLINICAL HISTORY: Hypoxia COMPARISON STUDY: Chest CT January 28, 2021 chest radiograph February 21, 2021 FINDINGS: Lung volumes are mildly diminished. This is unchanged. No pneumothorax or pleural effusion is present. Linear bilateral opacities favor atelectasis. Cardiomediastinal silhouette is stable. IMPRESSION: No acute cardiopulmonary findings. Linear bilateral opacities which favor atelectasis. ACT 112: Negative or not required by law. Electronically signed by: Jonathan Choe M.D. 02/24/2021 1:17 PM
[2021-02-24] MEDS: SODIUM CHLORIDE 0.9% 1000ML 500 ML IV SCH (15:57)
[2021-02-24] MEDS: ATORVASTATIN 10 MG TAB PO SCH (15:59)
--- NOTE | 2021-02-24 16:52 | Hospitalist Progress Note ---
Date of Service February 24, 2021 Assessment & Plan (1) UTI (urinary tract infection): Plan: Recurrent UTI H/O Urinary retention Urine Culture from 02/14 grew Klebsiella oxytoca Urine culture from February 15, 2021: Klebsiella oxytoca and Christen glabrata complex Blood Cultures: Negative -CT ABD: Several punctate calculi within the left kidney. No ureteral calculi or hydronephrosis. No renal fluid collection on unenhanced exam. Bladder wall thickening which could be correlated with urinalysis. Proximal rectal wall thickening with mild adjacent infiltration. This has slightly decreased since prior exam. This may reflect proctitis. However, follow-up nonemergent colonoscopy to exclude an underlying lesion is recommended. No bowel obstruction. Moderate amount of stool. -Received IV Cefepime and Vanco in the ER IV Cefepime transition to Rocephin on 02/19 Continue IV Amphotericin B while awaiting fluconazole sensitivities. Need to discuss with ID on final recommendations based on sensitivities. Needs 7 to 14 days of antibiotic therapy. Urinary retention Mostly multifactorial Appreciate Urology Input No acute intervention indicated currently Urology recommended maintaining Uribe catheter for 7-10 days. Outpatient follow-up with urology service for voiding trial Hypokalemia Replace electrolytes as needed Check magnesium levels BRBPR on and off since she has been on Eliquis S/P EGD: Normal esophagus. Z-line regular. Normal stomach. Normal duodenal bulb and second portion of the duodenum. S/P Colonoscopy:The examined colon appeared normal. Inflamed mucosa in the rectum. Biopsied. The examination was otherwise normal on direct and retroflexion views. Follow up Pathology results. Appreciate GI input Monitor CBC H/O Pulmonary embolism: Continue Eliquis Lung nodules: Needs CT follow up as outpatient Hypothyroidism: Continue levothyroxine Multisystem atrophy: On gabapentin, cyclobenzaprine, and Requip. Orthostatic hypotension continue midodrine. monitor BP DVT Px: Eliquis CODE STATUS: full code Admission and Anticipated Discharge Date Admission Date: February 15, 2021 Subjective Patient is seen and examined at bedside States feeling very tired today Also reports dyspnea on minimal exertion Family at bedside Denies chest pain, shortness of breath, dizziness, nausea, abdominal pain No recurrence of bleeding Review of Systems Review of Systems: All systems reviewed & are unremarkable except as noted in Subjective Physical Exam Physical Exam: Physical Exam: Vitals signs as noted above General Appearance:Moderately built and nourished, no apparent distress Head: normocephalic, Atraumatic Eyes: normal inspection, EOMI Neck: supple, Trachea midline Respiratory/Chest: Decreased breath sounds, CTA Cardiovascular: S1, S2, No murmur Abdomen/GI:Soft, Non tender, Bowel sounds present Extremities/Musculoskeletal:normal inspection, B/L LE edema Neurologic/Psych:AAOX3, 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 Skin: normal color, warm Results & Data Results & [facility] ([facility]) Vital Signs (Past 12 Hours) Vital Signs Temp Pulse Pulse Resp BP Pulse Ox 02/24/21 16:15 100 H 02/24/21 15:11 37.1 C 92 H 18 130/72 92 02/24/21 11:00 36.9 C 99 H 20 131/76 94 02/24/21 07:35 96 H 02/24/21 07:11 36.8 C 99 H 18 107/63 91 Laboratory Results Short CBC 02/24/21 Range/Units 06:48 Hgb 9.8 L (12.0-16.0) g/dL Hct 29.4 L (37-47) % BMP 02/24/21 06:48 Sodium 143 Potassium 2.7 L Chloride 109 H Carbon Dioxide 29 BUN 7 Creatinine 0.54 L Glucose 90 Calcium 8.6 (1) UTI (urinary tract infection) Hematuria presence: with hematuria Urinary tract infection type: acute cystitis Qualified Code(s): N30.01 - Acute cystitis with hematuria
[2021-02-24] MEDS: AMPHOTERICIN B IV SCH (17:00)
[2021-02-24] MEDS: DEXTROSE 5% IV SCH (17:00)
[2021-02-24] MEDS: ALPRAZolam 0.25 MG TABLET PO SCH (21:14)
[2021-02-24] MEDS: CETIRIZINE HCL 10 MG TABLET PO SCH (21:14)
[2021-02-24] MEDS: MELATONIN 3 MG TAB PO SCH (21:15)
[2021-02-25] MEDS: LEVOTHYROXINE SODIUM 75 MCG TABLET PO SCH (05:12)
[2021-02-25 06:58] LABS: Hematocrit (blood only) 28.7 % (37-47); Hemoglobin 9.6 g/dL (12.0-16.0)
[2021-02-25 07:31] LABS: BUN Creatinine Ratio 17.1 (10-20); Calcium 8.8 mg/dl (8.5-10.1); Creatinine Clr Calc Pharmacy 97.5 ml/min; Est GFR (African American) 113.1 ml/min; Est GFR (Non-African American) 97.6 ml/min; Magnesium 1.6 mg/dl (1.8-2.4); Potassium 3.4 mmol/L (3.5-5.1)
[2021-02-25] MEDS: rOPINIRole HCL 2 MG TABLET PO SCH ×3 (07:51→16:23)
[2021-02-25] MEDS: CYCLOBENZAPRINE HCL 10 MG TAB PO SCH ×2 (07:51→21:29)
[2021-02-25] MEDS: DOCUSATE SODIUM/SENNA 50/8.6MG TAB PO SCH ×2 (07:51→21:29)
[2021-02-25] MEDS: APIXABAN 5 MG TABLET PO SCH ×2 (07:51→21:33)
[2021-02-25] MEDS: ADVANCED PROBIOTIC 1250 MG CAPSULE PO SCH ×3 (07:51→16:23)
[2021-02-25] MEDS: rOPINIRole HCL 1 MG TABLET PO SCH ×3 (07:51→16:23)
[2021-02-25] MEDS: CYANOCOBALAMIN 500 MCG TABLET (VITAMIN B-12) PO SCH (07:52)
[2021-02-25] MEDS: CITALOPRAM 40 MG TAB PO SCH (07:52)
[2021-02-25] MEDS: CHOLECALCIFEROL 1,000 UNITS 25 MCG TAB PO SCH (07:52)
[2021-02-25] MEDS: LIDOCAINE 5% 1 PATCH TD SCH (07:52)
[2021-02-25] MEDS: MIDODRINE HCL 2.5 MG TAB PO SCH ×2 (07:52→11:48)
[2021-02-25] MEDS: POLYETHYLENE (MIRALAX) 17 GM PACK PO SCH (07:53)
[2021-02-25] MEDS: GABAPENTIN 300 MG CAP PO SCH ×3 (07:53→21:31)
[2021-02-25] MEDS: guaiFENesin 200 MG TAB PO SCH ×3 (07:53→21:31)
[2021-02-25] MEDS ORDERED: POTASSIUM CHLORIDE CRTAB 20 MEQ TABCR PO ONE (08:19)
[2021-02-25] MEDS: MAGNESIUM SULFATE / D5W 1 GM/100 ML BAG IV SCH ×2 (09:09→10:54)
[2021-02-25] MEDS: cefTRIAXone SODIUM 2,000 MG in DEXTROSE 5% 50 ML IV SCH (12:57)
[2021-02-25] MEDS: SODIUM CHLORIDE 0.9% 1000ML 500 ML IV SCH (16:21)
[2021-02-25] MEDS: ATORVASTATIN 10 MG TAB PO SCH (16:22)
[2021-02-25] MEDS: AMPHOTERICIN B IV SCH (17:40)
[2021-02-25] MEDS: DEXTROSE 5% IV SCH (17:40)
--- NOTE | 2021-02-25 18:02 | Hospitalist Progress Note ---
Date of Service February 25, 2021 Assessment & Plan (1) UTI (urinary tract infection): Plan: Recurrent UTI H/O Urinary retention Urine Culture from 02/14 grew Klebsiella oxytoca Urine culture from February 15, 2021: Klebsiella oxytoca and Christen glabrata complex Blood Cultures: Negative -CT ABD: Several punctate calculi within the left kidney. No ureteral calculi or hydronephrosis. No renal fluid collection on unenhanced exam. Bladder wall thickening which could be correlated with urinalysis. Proximal rectal wall thickening with mild adjacent infiltration. This has slightly decreased since prior exam. This may reflect proctitis. However, follow-up nonemergent colonoscopy to exclude an underlying lesion is recommended. No bowel obstruction. Moderate amount of stool. -Received IV Cefepime and Vanco in the ER IV Cefepime transition to Rocephin on 02/19 Continue IV Amphotericin B while awaiting fluconazole sensitivities. Need to discuss with ID on final recommendations based on sensitivities. Needs 7 to 14 days of antibiotic therapy. Still waiting for final culture sensitivities Urinary retention Mostly multifactorial Appreciate Urology Input No acute intervention indicated currently Urology recommended maintaining Uribe catheter for 7-10 days. Outpatient follow-up with urology service for voiding trial Hypokalemia Hypomagnesemia Replace electrolytes as needed BRBPR on and off since she has been on Eliquis S/P EGD: Normal esophagus. Z-line regular. Normal stomach. Normal duodenal bulb and second portion of the duodenum. S/P Colonoscopy:The examined colon appeared normal. Inflamed mucosa in the rectum. Biopsied. The examination was otherwise normal on direct and retroflexion views. Follow up Pathology results. Appreciate GI input Monitor CBC Hb 9.6 today H/O Pulmonary embolism: Continue Eliquis Lung nodules: Needs CT follow up as outpatient Hypothyroidism: Continue levothyroxine Multisystem atrophy: On gabapentin, cyclobenzaprine, and Requip. Orthostatic hypotension continue midodrine. monitor BP DVT Px: Eliquis CODE STATUS: full code Admission and Anticipated Discharge Date Admission Date: February 15, 2021 Subjective Patient is seen and examined at bedside Offers no new complaints States feeling better today Denies chest pain, shortness of breath, dizziness, nausea, abdominal pain Review of Systems Review of Systems: All systems reviewed & are unremarkable except as noted in Subjective Physical Exam Physical Exam: Physical Exam: Vitals signs as noted above General Appearance:Moderately built and nourished, no apparent distress Head: normocephalic, Atraumatic Eyes: normal inspection, EOMI Neck: supple, Trachea midline Respiratory/Chest: Decreased breath sounds, CTA Cardiovascular: S1, S2, No murmur Abdomen/GI:Soft, Non tender, Bowel sounds present Extremities/Musculoskeletal:normal inspection, B/L LE edema Neurologic/Psych:AAOX3, 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 Skin: normal color, warm Results & Data Results & Data ([facility]) Vital Signs (Past 12 Hours) Vital Signs Temp Pulse Pulse Resp BP Pulse Ox 02/25/21 15:00 37.0 C 98 H 100 H 20 115/68 93 02/25/21 11:04 37.0 C 96 H 20 106/64 92 02/25/21 07:37 93 H 02/25/21 07:17 37.0 C 95 H 20 108/69 93 Laboratory Results Short CBC 02/25/21 Range/Units 05:57 Hgb 9.6 L (12.0-16.0) g/dL Hct 28.7 L (37-47) % BMP 02/25/21 05:57 Sodium 144 Potassium 3.4 L D Chloride 111 H Carbon Dioxide 29 BUN 9 Creatinine 0.53 L Glucose 90 Calcium 8.8 (1) UTI (urinary tract infection) Hematuria presence: with hematuria Urinary tract infection type: acute cystitis Qualified Code(s): N30.01 - Acute cystitis with hematuria
[2021-02-25] MEDS: ALPRAZolam 0.25 MG TABLET PO SCH (21:29)
[2021-02-25] MEDS: MELATONIN 3 MG TAB PO SCH (21:29)
[2021-02-25] MEDS: CETIRIZINE HCL 10 MG TABLET PO SCH (21:32)
[2021-02-26] MEDS: LEVOTHYROXINE SODIUM 75 MCG TABLET PO SCH (06:14)
[2021-02-26 07:28] LABS: Hemoglobin 9.6 g/dL (12.0-16.0)
[2021-02-26 08:07] LABS: Calcium 8.4 mg/dl (8.5-10.1); Creatinine Clr Calc Pharmacy 81.4 ml/min; Est GFR (African American) 106.3 ml/min; Est GFR (Non-African American) 91.7 ml/min; Magnesium 1.7 mg/dl (1.8-2.4); Potassium 3.5 mmol/L (3.5-5.1)
[2021-02-26] MEDS: APIXABAN 5 MG TABLET PO SCH ×2 (08:08→20:32)
[2021-02-26] MEDS: CYCLOBENZAPRINE HCL 10 MG TAB PO SCH ×2 (08:09→20:33)
[2021-02-26] MEDS: guaiFENesin 200 MG TAB PO SCH ×3 (08:09→20:33)
[2021-02-26] MEDS: ADVANCED PROBIOTIC 1250 MG CAPSULE PO SCH ×3 (08:09→17:40)
[2021-02-26] MEDS: CYANOCOBALAMIN 500 MCG TABLET (VITAMIN B-12) PO SCH (08:09)
[2021-02-26] MEDS: rOPINIRole HCL 2 MG TABLET PO SCH ×3 (08:10→17:41)
[2021-02-26] MEDS: CHOLECALCIFEROL 1,000 UNITS 25 MCG TAB PO SCH (08:10)
[2021-02-26] MEDS: CITALOPRAM 40 MG TAB PO SCH (08:10)
[2021-02-26] MEDS: MIDODRINE HCL 2.5 MG TAB PO SCH ×2 (08:10→11:12)
[2021-02-26] MEDS: GABAPENTIN 300 MG CAP PO SCH ×3 (08:10→20:34)
[2021-02-26] MEDS: DOCUSATE SODIUM/SENNA 50/8.6MG TAB PO SCH ×2 (08:11→20:33)
[2021-02-26] MEDS: rOPINIRole HCL 1 MG TABLET PO SCH ×3 (08:11→17:41)
[2021-02-26] MEDS: POLYETHYLENE (MIRALAX) 17 GM PACK PO SCH (08:12)
[2021-02-26] MEDS: LIDOCAINE 5% 1 PATCH TD SCH (08:12)
[2021-02-26] MEDS ORDERED: POTASSIUM CHLORIDE CRTAB 20 MEQ TABCR PO ONE (09:31)
[2021-02-26] MEDS ORDERED: MAGNESIUM SULFATE / D5W 1 GM/100 ML BAG IV ONE (10:00)
[2021-02-26] MEDS: MAGNESIUM CHLORIDE 64MG DELAYED REL TAB PO SCH ×2 (11:00→20:35)
[2021-02-26] MEDS: ATORVASTATIN 10 MG TAB PO SCH (16:30)
--- NOTE | 2021-02-26 17:10 | Hospitalist Progress Note ---
Date of Service February 26, 2021 Assessment & Plan (1) UTI (urinary tract infection): Plan: Recurrent UTI H/O Urinary retention Urine Culture from 02/14 grew Klebsiella oxytoca Urine culture from February 15, 2021: Klebsiella oxytoca and Christen glabrata complex Blood Cultures: Negative -CT ABD: Several punctate calculi within the left kidney. No ureteral calculi or hydronephrosis. No renal fluid collection on unenhanced exam. Bladder wall thickening which could be correlated with urinalysis. Proximal rectal wall thickening with mild adjacent infiltration. This has slightly decreased since prior exam. This may reflect proctitis. However, follow-up nonemergent colonoscopy to exclude an underlying lesion is recommended. No bowel obstruction. Moderate amount of stool. -Received IV Cefepime and Vanco in the ER IV Cefepime transition to Rocephin on 02/19 Also received IV Amphotericin B for 7 days Completed IV antibiotics, antifungal course Appreciate ID input--No further treatment recommended Hypoxia Likely secondary to atelectasis Currently weaned off of oxygen Saturating low 90s on room air We will obtain nocturnal oximetry study Urinary retention Mostly multifactorial Appreciate Urology Input No acute intervention indicated currently voiding trial today Bladder scan as needed Needs follow-up with urology upon discharge Hypokalemia Hypomagnesemia Replace electrolytes as needed BRBPR on and off since she has been on Eliquis S/P EGD: Normal esophagus. Z-line regular. Normal stomach. Normal duodenal bulb and second portion of the duodenum. S/P Colonoscopy:The examined colon appeared normal. Inflamed mucosa in the rectum. Biopsied. The examination was otherwise normal on direct and retroflexion views. 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 Negative for granulomas. Negative for dysplasia and malignancy. 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 Orthostatic hypotension continue midodrine. monitor BP DVT Px: Eliquis CODE STATUS: full code Admission and Anticipated Discharge Date Admission Date: February 15, 2021 Subjective Patient is seen and examined at bedside States feeling well today No new complaints Saturating low 90s on room air Discussed with patient's daughter over the phone in detail Denies chest pain, shortness of breath, dizziness, nausea, abdominal pain Review of Systems Review of Systems: All systems reviewed & are unremarkable except as noted in Subjective Physical Exam Physical Exam: Physical Exam: Vitals signs as noted above General Appearance:Moderately built and nourished, no apparent distress Head: normocephalic, Atraumatic Eyes: normal inspection, EOMI Neck: supple, Trachea midline Respiratory/Chest: Decreased breath sounds, CTA Cardiovascular: S1, S2, No murmur Abdomen/GI:Soft, Non tender, Bowel sounds present Extremities/Musculoskeletal:normal inspection, B/L LE edema Neurologic/Psych:AAOX3, 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 Skin: normal color, warm Results & Data Results & Data ([facility]) Vital Signs (Past 12 Hours) Vital Signs Temp Pulse Pulse Pulse Resp BP BP 02/26/21 16:31 96 H 02/26/21 15:44 37.1 C 85 16 126/70 02/26/21 11:38 36.6 C 101 H 20 114/68 02/26/21 10:40 02/26/21 07:40 96 H 02/26/21 07:06 37.1 C 96 H 20 103/68 Pulse Ox 02/26/21 16:31 02/26/21 15:44 92 02/26/21 11:38 90 02/26/21 10:40 91 02/26/21 07:40 02/26/21 07:06 93 Laboratory Results Short CBC 02/26/21 Range/Units 06:50 Hgb 9.6 L (12.0-16.0) g/dL Hct 29.0 L (37-47) % BMP 02/26/21 06:50 Sodium 144 Potassium 3.5 Chloride 109 H Carbon Dioxide 29 BUN 12 Creatinine 0.64 Glucose 86 Calcium 8.4 L (1) UTI (urinary tract infection) Hematuria presence: with hematuria Urinary tract infection type: acute cystitis Qualified Code(s): N30.01 - Acute cystitis with hematuria
[2021-02-26] MEDS: ALPRAZolam 0.25 MG TABLET PO SCH (20:31)
[2021-02-26] MEDS: CETIRIZINE HCL 10 MG TABLET PO SCH (20:32)
[2021-02-26] MEDS: MELATONIN 3 MG TAB PO SCH (20:35)
[2021-02-27] MEDS: LEVOTHYROXINE SODIUM 75 MCG TABLET PO SCH (05:36)
[2021-02-27 06:21] LABS: BUN Creatinine Ratio 26.8 (10-20); Creatinine Clr Calc Pharmacy 86.8 ml/min; Est GFR (African American) 108.5 ml/min; Est GFR (Non-African American) 93.7 ml/min; Magnesium 1.9 mg/dl (1.8-2.4); Potassium 3.5 mmol/L (3.5-5.1)
[2021-02-27] MEDS: ADVANCED PROBIOTIC 1250 MG CAPSULE PO SCH ×3 (09:00→17:57)
[2021-02-27] MEDS: MIDODRINE HCL 2.5 MG TAB PO SCH ×2 (09:00→13:14)
[2021-02-27] MEDS: rOPINIRole HCL 1 MG TABLET PO SCH ×3 (09:00→17:57)
[2021-02-27] MEDS: rOPINIRole HCL 2 MG TABLET PO SCH ×3 (09:00→17:57)
[2021-02-27] MEDS: CHOLECALCIFEROL 1,000 UNITS 25 MCG TAB PO SCH (09:07)
[2021-02-27] MEDS: APIXABAN 5 MG TABLET PO SCH ×2 (09:07→20:26)
[2021-02-27] MEDS: guaiFENesin 200 MG TAB PO SCH ×3 (09:07→20:30)
[2021-02-27] MEDS: CYCLOBENZAPRINE HCL 10 MG TAB PO SCH ×2 (09:07→20:27)
[2021-02-27] MEDS: GABAPENTIN 300 MG CAP PO SCH ×3 (09:07→20:29)
[2021-02-27] MEDS: DOCUSATE SODIUM/SENNA 50/8.6MG TAB PO SCH ×2 (09:07→20:29)
[2021-02-27] MEDS: CITALOPRAM 40 MG TAB PO SCH (09:07)
[2021-02-27] MEDS: CYANOCOBALAMIN 500 MCG TABLET (VITAMIN B-12) PO SCH (09:07)
[2021-02-27] MEDS: POLYETHYLENE (MIRALAX) 17 GM PACK PO SCH (09:08)
[2021-02-27] MEDS: LIDOCAINE 5% 1 PATCH TD SCH (09:08)
[2021-02-27] MEDS: MAGNESIUM CHLORIDE 64MG DELAYED REL TAB PO SCH ×2 (09:08→20:30)
[2021-02-27] MEDS: ATORVASTATIN 10 MG TAB PO SCH (13:15)
--- NOTE | 2021-02-27 16:07 | Hospitalist Progress Note ---
Date of Service February 27, 2021 Assessment & Plan (1) UTI (urinary tract infection): Plan: Recurrent UTI H/O Urinary retention Urine Culture from 02/14 grew Klebsiella oxytoca Urine culture from February 15, 2021: Klebsiella oxytoca and Christen glabrata complex Blood Cultures: Negative -CT ABD: Several punctate calculi within the left kidney. No ureteral calculi or hydronephrosis. No renal fluid collection on unenhanced exam. Bladder wall thickening which could be correlated with urinalysis. Proximal rectal wall thickening with mild adjacent infiltration. This has slightly decreased since prior exam. This may reflect proctitis. However, follow-up nonemergent colonoscopy to exclude an underlying lesion is recommended. No bowel obstruction. Moderate amount of stool. -Received IV Cefepime and Vanco in the ER IV Cefepime transition to Rocephin on 02/19 Also received IV Amphotericin B for 7 days Completed IV antibiotics, antifungal course Appreciate ID input--No further treatment recommended Nocturnal Hypoxia Atelectasis Nocturnal oximetry study: 3 L at bedtime Continue supplemental oxygen at bedtime Urinary retention Mostly multifactorial Appreciate Urology Input No acute intervention indicated currently Bladder scan as needed Needs follow-up with urology upon discharge Resolved Voiding without any issues Hypokalemia Hypomagnesemia Replace electrolytes as needed BRBPR on and off since she has been on Eliquis S/P EGD: Normal esophagus. Z-line regular. Normal stomach. Normal duodenal bulb and second portion of the duodenum. S/P Colonoscopy:The examined colon appeared normal. Inflamed mucosa in the rect um. Biopsied. The examination was otherwise normal on direct and retroflexion views. 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 Negative for granulomas. Negative for dysplasia and malignancy. 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 Orthostatic hypotension continue midodrine. monitor BP DVT Px: Eliquis CODE STATUS: full code Admission and Anticipated Discharge Date Admission Date: February 15, 2021 Subjective Patient is seen and examined at bedside Doing well today Offers no complaints Voiding without any issues Denies chest pain, shortness of breath, dizziness, nausea, abdominal pain Had nocturnal pulse oximetry study yesterday Review of Systems Review of Systems: All systems reviewed & are unremarkable except as noted in Subjective Physical Exam Physical Exam: Physical Exam: Vitals signs as noted above General Appearance:Moderately built and nourished, no apparent distress Head: normocephalic, Atraumatic Eyes: normal inspection, EOMI Neck: supple, Trachea midline Respiratory/Chest: Decreased breath sounds, CTA Cardiovascular: S1, S2, No murmur Abdomen/GI:Soft, Non tender, Bowel sounds present Extremities/Musculoskeletal:normal inspection, B/L LE edema Neurologic/Psych:AAOX3, 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) Vital Signs (Past 12 Hours) Vital Signs Temp Pulse Pulse Resp BP BP Pulse Ox 02/27/21 15:13 97 H 02/27/21 14:48 36.8 C 101 H 18 108/62 90 02/27/21 11:47 37.0 C 107 H 18 113/64 91 02/27/21 09:59 94 H 02/27/21 08:07 37.0 C 67 18 97/59 L 91 Laboratory Results [facility] 02/27/21 05:26 Sodium 143 Potassium 3.5 Chloride 108 H Carbon Dioxide 29 BUN 16 Creatinine 0.60 Glucose 106 H Calcium 9.0 (1) UTI (urinary tract infection) Hematuria presence: with hematuria Urinary tract infection type: acute cystitis Qualified Code(s): N30.01 - Acute cystitis with hematuria
[2021-02-27] MEDS: CETIRIZINE HCL 10 MG TABLET PO SCH (20:26)
[2021-02-27] MEDS: MELATONIN 3 MG TAB PO SCH (20:30)
[2021-02-27] MEDS: ALPRAZolam 0.25 MG TABLET PO SCH (20:37)
[2021-02-27 23:15] LABS: Basophils # (auto) 0.01 K/uL (0-0.2); Basophils % (auto) 0.2 %; Eosinophils # (auto) 0.22 K/uL (0-0.5); Eosinophils % (auto) 5.2 %; Hematocrit (blood only) 27.6 % (37-47); Hemoglobin 9.1 g/dL (12.0-16.0); Immature Granulocytes # (auto) 0.02 K/uL (0.00-0.02); Immature Granulocytes % (auto) 0.5 %; Lymphocytes # (auto) 1.51 K/uL (1.2-3.4); Mean Corpuscular Hemoglobin 31.5 pg (25-34); Mean Corpuscular Volume 95.5 fL (80-100); Mean Platelet Volume 8.6 fL (7.4-10.4); Monocytes # (auto) 0.46 K/uL (0.11-0.59); Neutrophils # (auto) 1.98 K/uL (1.4-6.5); Neutrophils % (auto) 47.1 %; Platelet Count 158 K/uL (130-400); RDW Coefficient of Variation 13.9 % (11.5-14.5); RDW Standard Deviation 48.3 fL (36.4-46.3); Red Blood Count 2.89 M/uL (4.2-5.4)
[2021-02-28 00:45] LABS: Cdiff Antigen Positive
[2021-02-28 00:54] LABS: Cdiff Toxin A+B Positive Cdiff Toxin (Negative)
--- NOTE | 2021-02-28 01:16 | Communication Note ---
Date of Service: February 28, 2021 Patient with blood tinged loose BM as per RN. No abdominal pain as per RN. Stool C. difficile positive AP L GIB secondary to C. difficile diarrhea NOAC therapy for PE Dificid course Hold NOAC until patient hemoglobin stable Will relay to AM provider.
[2021-02-28] MEDS: FIDAXOMICIN 200 MG TAB PO SCH ×3 (01:52→21:07)
[2021-02-28] MEDS: LEVOTHYROXINE SODIUM 75 MCG TABLET PO SCH (05:46)
[2021-02-28 05:58] LABS: Hematocrit (blood only) 29.6 % (37-47); Hemoglobin 9.5 g/dL (12.0-16.0)
[2021-02-28 06:37] LABS: BUN Creatinine Ratio 23.2 (10-20); Calcium 8.5 mg/dl (8.5-10.1); Creatinine Clr Calc Pharmacy 87.7 ml/min; Est GFR (African American) 109.2 ml/min; Est GFR (Non-African American) 94.2 ml/min; Magnesium 1.7 mg/dl (1.8-2.4); Potassium 3.5 mmol/L (3.5-5.1)
[2021-02-28] MEDS ORDERED: MAGNESIUM SULFATE / D5W 1 GM/100 ML BAG IV ONE (09:30)
[2021-02-28] MEDS: MIDODRINE HCL 2.5 MG TAB PO SCH ×2 (09:54→12:13)
[2021-02-28] MEDS: rOPINIRole HCL 1 MG TABLET PO SCH ×3 (09:54→17:09)
[2021-02-28] MEDS: rOPINIRole HCL 2 MG TABLET PO SCH ×3 (09:54→17:09)
[2021-02-28] MEDS: CITALOPRAM 40 MG TAB PO SCH (09:55)
[2021-02-28] MEDS: CYCLOBENZAPRINE HCL 10 MG TAB PO SCH ×2 (09:55→21:03)
[2021-02-28] MEDS: guaiFENesin 200 MG TAB PO SCH ×3 (09:55→21:04)
[2021-02-28] MEDS: MAGNESIUM CHLORIDE 64MG DELAYED REL TAB PO SCH ×2 (09:55→21:04)
[2021-02-28] MEDS: DOCUSATE SODIUM/SENNA 50/8.6MG TAB PO SCH ×2 (09:55→21:03)
[2021-02-28] MEDS: ADVANCED PROBIOTIC 1250 MG CAPSULE PO SCH ×3 (09:55→17:09)
[2021-02-28] MEDS: CHOLECALCIFEROL 1,000 UNITS 25 MCG TAB PO SCH (09:55)
[2021-02-28] MEDS: CYANOCOBALAMIN 500 MCG TABLET (VITAMIN B-12) PO SCH (09:55)
[2021-02-28] MEDS: LIDOCAINE 5% 1 PATCH TD SCH (09:56)
[2021-02-28] MEDS: POLYETHYLENE (MIRALAX) 17 GM PACK PO SCH (09:56)
[2021-02-28] MEDS: GABAPENTIN 300 MG CAP PO SCH ×3 (09:56→21:03)
--- NOTE | 2021-02-28 16:45 | Hospitalist Progress Note ---
Date of Service February 28, 2021 Assessment & Plan (1) UTI (urinary tract infection): Plan: Recurrent UTI H/O Urinary retention Urine Culture from 02/14 grew Klebsiella oxytoca Urine culture from February 15, 2021: Klebsiella oxytoca and Christen glabrata complex Blood Cultures: Negative -CT ABD: Several punctate calculi within the left kidney. No ureteral calculi or hydronephrosis. No renal fluid collection on unenhanced exam. Bladder wall thickening which could be correlated with urinalysis. Proximal rectal wall thickening with mild adjacent infiltration. This has slightly decreased since prior exam. This may reflect proctitis. However, follow-up nonemergent colonoscopy to exclude an underlying lesion is recommended. No bowel obstruction. Moderate amount of stool. -Received IV Cefepime and Vanco in the ER IV Cefepime transition to Rocephin on 02/19 Also received IV Amphotericin B for 7 days Completed IV antibiotics, antifungal course Appreciate ID input--No further treatment recommended C. difficile colitis Started on Dificid Monitor electrolytes Anticoagulation held given hematochezia Monitor CBC Resume Eliquis as able Nocturnal Hypoxia Atelectasis Nocturnal oximetry study: 3 L at bedtime Continue supplemental oxygen at bedtime Urinary retention Mostly multifactorial Appreciate Urology Input No acute intervention indicated currently Bladder scan as needed Needs follow-up with urology upon discharge Resolved Voiding without any issues Hypokalemia Hypomagnesemia Replace electrolytes as needed BRBPR on and off since she has been on Eliquis S/P EGD: Normal esophagus. Z-line regular. Normal stomach. Normal duodenal bulb and second portion of the duodenum. S/P Colonoscopy:The examined colon appeared normal. Inflamed mucosa in the rectum. Biopsied. The examination was otherwise normal on direct and retroflexion views. 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 Negative for granulomas. Negative for dysplasia and malignancy. Appreciate GI input Monitor CBC Hb 9.5 H/O Pulmonary embolism: Eliquis held currently Resume tomorrow if no recurrence of hematochezia and if hemoglobin stable Lung nodules: Needs CT follow up as outpatient Hypothyroidism: Continue levothyroxine Multisystem atrophy: On gabapentin, cyclobenzaprine, and Requip. Orthostatic hypotension continue midodrine. monitor BP DVT Px: Eliquis CODE STATUS: full code Admission and Anticipated Discharge Date Admission Date: February 15, 2021 Subjective Patient is seen and examined at bedside Had significant diarrhea overnight associated with minimal hematochezia Stool study positive for C. difficile Denies any diarrhea at this morning Also denies any nausea, vomiting, abdominal pain, chest pain, dyspnea Review of Systems Review of Systems: All systems reviewed & are unremarkable except as noted in Subjective Physical Exam Physical Exam: Physical Exam: Vitals signs as noted above General Appearance:Moderately built and nourished, no apparent distress Head: normocephalic, Atraumatic Eyes: normal inspection, EOMI Neck: supple, Trachea midline Respiratory/Chest: Decreased breath sounds, CTA Cardiovascular: S1, S2, No murmur Abdomen/GI:Soft, Non tender, Bowel sounds present Extremities/Musculoskeletal:normal inspection, B/L LE edema Neurologic/Psych:AAOX3, 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 Skin: normal color, warm Results & Data Results & Data ([facility]) Vital Signs (Past 12 Hours) Vital Signs Temp Pulse Pulse Resp BP Pulse Ox 02/28/21 16:23 36.8 C 102 H 20 109/61 90 02/28/21 11:22 36.8 C 109 H 20 111/62 91 02/28/21 07:20 95 H 02/28/21 06:46 36.4 C L 96 H 18 120/74 91 Laboratory Results Short CBC 02/27/21 02/28/21 Range/Units 22:52 05:20 WBC 4.20 L (4.8-10.8) K/uL Hgb 9.1 L 9.5 L (12.0-16.0) g/dL Hct 27.6 L 29.6 L (37-47) % Plt Count 158 (130-400) K/uL BMP 02/28/21 05:20 Sodium 142 Potassium 3.5 Chloride 107 Carbon Dioxide 34 H BUN 14 Creatinine 0.59 L Glucose 90 Calcium 8.5 (1) UTI (urinary tract infection) Hematuria presence: with hematuria Urinary tract infection type: acute cyst itis Qualified Code(s): N30.01 - Acute cystitis with hematuria
[2021-02-28] MEDS: ATORVASTATIN 10 MG TAB PO SCH (17:09)
[2021-02-28] MEDS: CETIRIZINE HCL 10 MG TABLET PO SCH (21:03)
[2021-02-28] MEDS: MELATONIN 3 MG TAB PO SCH (21:04)
[2021-02-28] MEDS: ALPRAZolam 0.25 MG TABLET PO SCH (21:07)
[2021-03-01] MEDS: LEVOTHYROXINE SODIUM 75 MCG TABLET PO SCH (05:49)
[2021-03-01 06:11] LABS: Hematocrit (blood only) 29.6 % (37-47); Hemoglobin 9.7 g/dL (12.0-16.0); Mean Corpuscular Hemoglobin 31.3 pg (25-34); Mean Corpuscular Hgb Conc 32.8 g/dL (32-36); Mean Corpuscular Volume 95.5 fL (80-100); Mean Platelet Volume 8.3 fL (7.4-10.4); Platelet Count 157 K/uL (130-400); RDW Coefficient of Variation 13.9 % (11.5-14.5); RDW Standard Deviation 48.1 fL (36.4-46.3); White Blood Count 4.27 K/uL (4.8-10.8)
[2021-03-01 06:46] LABS: BUN Creatinine Ratio 24.6 (10-20); Calcium 8.5 mg/dl (8.5-10.1); Creatinine Clr Calc Pharmacy 102.8 ml/min; Est GFR (African American) 114.5 ml/min; Est GFR (Non-African American) 98.8 ml/min; Magnesium 1.7 mg/dl (1.8-2.4); Potassium 3.4 mmol/L (3.5-5.1)
[2021-03-01] MEDS: DOCUSATE SODIUM/SENNA 50/8.6MG TAB PO SCH ×2 (07:28→20:40)
[2021-03-01] MEDS: GABAPENTIN 300 MG CAP PO SCH ×3 (07:28→20:39)
[2021-03-01] MEDS: ADVANCED PROBIOTIC 1250 MG CAPSULE PO SCH ×3 (07:28→17:38)
[2021-03-01] MEDS: rOPINIRole HCL 1 MG TABLET PO SCH ×3 (07:29→17:39)
[2021-03-01] MEDS: rOPINIRole HCL 2 MG TABLET PO SCH ×3 (07:29→17:39)
[2021-03-01] MEDS: guaiFENesin 200 MG TAB PO SCH ×3 (07:29→20:39)
[2021-03-01] MEDS: MIDODRINE HCL 2.5 MG TAB PO SCH ×2 (07:29→12:17)
[2021-03-01] MEDS: CYCLOBENZAPRINE HCL 10 MG TAB PO SCH ×2 (07:31→20:39)
[2021-03-01] MEDS: CHOLECALCIFEROL 1,000 UNITS 25 MCG TAB PO SCH (07:31)
[2021-03-01] MEDS: CYANOCOBALAMIN 500 MCG TABLET (VITAMIN B-12) PO SCH (07:31)
[2021-03-01] MEDS: CITALOPRAM 40 MG TAB PO SCH (07:31)
[2021-03-01] MEDS: LIDOCAINE 5% 1 PATCH TD SCH (07:32)
[2021-03-01] MEDS: MAGNESIUM CHLORIDE 64MG DELAYED REL TAB PO SCH ×2 (07:32→20:40)
[2021-03-01] MEDS: POLYETHYLENE (MIRALAX) 17 GM PACK PO SCH (07:33)
[2021-03-01] MEDS: FIDAXOMICIN 200 MG TAB PO SCH ×2 (07:37→21:22)
[2021-03-01] MEDS ORDERED: POTASSIUM CHLORIDE CRTAB 20 MEQ TABCR PO STA (09:36)
--- NOTE | 2021-03-01 14:59 | Hospitalist Progress Note ---
Date of Service March 01, 2021 Assessment & Plan (1) UTI (urinary tract infection): Plan: Recurrent UTI H/O Urinary retention Urine Culture from 02/14 grew Klebsiella oxytoca Urine culture from February 15, 2021: Klebsiella oxytoca and Christen glabrata complex Blood Cultures: Negative -CT ABD: Several punctate calculi within the left kidney. No ureteral calculi or hydronephrosis. No renal fluid collection on unenhanced exam. Bladder wall thickening which could be correlated with urinalysis. Proximal rectal wall thickening with mild adjacent infiltration. This has slightly decreased since prior exam. This may reflect proctitis. However, follow-up nonemergent colonoscopy to exclude an underlying lesion is recommended. No bowel obstruction. Moderate amount of stool. -Received IV Cefepime and Vanco in the ER IV Cefepime transition to Rocephin on 02/19 Also received IV Amphotericin B for 7 days Completed IV antibiotics, antifungal course Appreciate ID input--No further treatment recommended No more urinary symptoms C. difficile colitis Started on Dificid Monitor electrolytes Anticoagulation held given hematochezia-hematochezia stopped Has had formed stool today without any blood in it Hemoglobin remained stable Eliquis restarted Nocturnal Hypoxia Atelectasis Nocturnal oximetry study: 3 L at bedtime Continue supplemental oxygen at bedtime Urinary retention Mostly multifactorial Appreciate Urology Input No acute intervention indicated currently Bladder scan as needed Needs follow-up with urology upon discharge Voiding without any issues Hypokalemia Hypomagnesemia Replace electrolytes as needed BRBPR on and off since she has been on Eliquis S/P EGD: Normal esophagus. Z-line regular. Normal stomach. Normal duodenal bulb and second portion of the duodenum. S/P Colonoscopy:The examined colon appeared normal. Inflamed mucosa in the rectum. Biopsied. The examination was otherwise normal on direct and retroflexion views. 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 Negative for granulomas. Negative for dysplasia and malignancy. Appreciate GI input Monitor CBC Hb 9.5 -remains stable H/O Pulmonary embolism: Eliquis held currently Resume tomorrow if no recurrence of hematochezia and if hemoglobin stable Eliquis has been restarted Lung nodules: Needs CT follow up as outpatient Hypothyroidism: Continue levothyroxine Multisystem atrophy: On gabapentin, cyclobenzaprine, and Requip. Orthostatic hypotension continue midodrine. monitor BP DVT Px: Eliquis CODE STATUS: full code Likely discharge tomorrow Admission and Anticipated Discharge Date Admission Date: February 15, 2021 Subjective 03/01/2021 The patient was seen and examined in medical telemetry unit She has been feeling a little better and has had formed stool today Remains generally weak but denies any abdominal pain, nausea and or vomiting Review of Systems Review of Systems: All systems reviewed and are unremarkable except as noted below Musculoskeletal: Generally weak and lethargic Physical Exam Physical Exam: Lying in bed comfortably Constitutional: well developed and well nourished; no acute distress Eyes: PERRL, conjunctivae normal, anicteric sclerae ENMT: external ear and nose normal, oropharynx normal Neck: trachea midline, no thyromegaly Respiratory: no respiratory distress Auscultation: + diminished lung sounds and + crackles (Minimal crackles at the bases) Gastrointestinal (Abdomen): Inspection/Auscultation: normal bowel sounds; abdomen not distended Percussion/Palpation: abdomen soft; abdomen nontender Musculoskeletal: No acute arthritis in any joint Neurologic: Alert, awake and oriented x3. Generally weak. Minimal dysarthria that has been chronic nothing unusual Lymphatic: no cervical or axillary lymphadenopathy Results & Data Results & Data ([facility]) Vital Signs (Past 12 Hours) Vital Signs Temp Pulse Pulse Resp BP Pulse Ox 03/01/21 08:00 94 H 03/01/21 07:35 36.6 C 101 H 16 135/82 97 03/01/21 02:57 37 C 87 20 116/67 97 Laboratory Results Short CBC 03/01/21 Range/Units 05:40 WBC 4.27 L (4.8-10.8) K/uL Hgb 9.7 L (12.0-16.0) g/dL Hct 29.6 L (37-47) % Plt Count 157 (130-400) K/uL BMP 03/01/21 05:40 Sodium 142 Potassium 3.4 L Chloride 107 Carbon Dioxide 34 H BUN 13 Creatinine 0.51 L Glucose 91 Calcium 8.5 Medications Administered Current Inpatient Medications Acetaminophen (Acetaminophen 325 Mg Tab) 650 mg PO Q4H PRN PRN Reason: Pain or Fever Stop: 03/18/21 00:26 Alprazolam (Alprazolam 0.25 Mg Tablet) 0.25 mg PO HS SAL Stop: 03/18/21 20:59 Last Admin: 02/28/21 21:07 Dose: 0.25 mg Documented by: Apixaban (Apixaban 5 Mg Tablet) 5 mg PO BID SAL Stop: 03/18/21 08:59 Last Admin: 02/27/21 20:26 Dose: 5 mg Documented by: Atorvastatin Calcium (Atorvastatin 10 Mg Tab) 10 mg PO QDD SAL Stop: 03/18/21 16:29 Last Admin: 02/28/21 17:09 Dose: 10 mg Documented by: Cetirizine HCl (Cetirizine Hcl 10 Mg Tablet) 10 mg PO HS SAL Stop: 03/18/21 20:59 Last Admin: 02/28/21 21:03 Dose: 10 mg Documented by: Citalopram Hydrobromide (Citalopram 40 Mg Tab) 40 mg PO DAILY SAL Stop: 03/18/21 08:59 Last Admin: 03/01/21 07:31 Dose: 40 mg Documented by: Cyanocobalamin (Cyanocobalamin 500 Mcg Tablet (Vitamin B-12)) 1,000 mcg PO DAILY SAL Stop: 03/18/21 08:59 Last Admin: 03/01/21 07:31 Dose: 1,000 mcg Documented by: Cyclobenzaprine HCl (Cyclobenzaprine Hcl 10 Mg Tab) 10 mg PO BID SAL Stop: 03/18/21 08:59 Last Admin: 03/01/21 07:31 Dose: 10 mg Documented by: Fidaxomicin (Fidaxomicin 200 Mg Tab) 200 mg PO BID SAL Stop: 03/10/21 01:19 Last Admin: 03/01/21 07:37 Dose: 200 mg Documented by: Gabapentin (Gabapentin 300 Mg Cap) 300 mg PO TID SAL Stop: 03/18/21 08:59 Last Admin: 03/01/21 13:30 Dose: 300 mg Documented by: Guaifenesin (Guaifenesin 200 Mg Tab) 200 mg PO TID SAL Stop: 03/18/21 08:59 Last Admin: 03/01/21 13:30 Dose: 200 mg Documented by: Hydrocortisone (Hydrocortisone Acetate 25 Mg Supp) 25 mg [place] DAILY PRN PRN Reason: Hemorrhoids Stop: 03/18/21 00:26 Lactobacillus Acidoph/Casei/Rhamnos (Advanced Probiotic 1250 Mg Capsule) 2 cap PO TIDM SAL Stop: 03/18/21 07:59 Last Admin: 03/01/21 12:17 Dose: 2 cap Documented by: Levothyroxine Sodium (Levothyroxine Sodium 75 Mcg Tablet) 75 mcg PO DAILYBB [facility] Stop: 03/18/21 06:29 Last Admin: 03/01/21 05:49 Dose: 75 mcg Documented by: Lidocaine (Lidocaine 5% 1 Patch) 1 patch TD DAILY SAL Stop: 03/18/21 08:59 Last Admin: 03/01/21 07:32 Dose: 1 patch Documented by: Magnesium Chloride (Magnesium Chloride 64mg Delayed Rel Tab) 64 mg PO BID [facility] Stop: 03/28/21 09:59 Last Admin: 03/01/21 07:32 Dose: 64 mg Documented by: Melatonin (Melatonin 3 Mg Tab) 3 mg PO HS [facility] Stop: 03/18/21 20:59 Last Admin: 02/28/21 21:04 Dose: 3 mg Documented by: Midodrine (Midodrine Hcl 2.5 Mg Tab) 2.5 mg PO BID@0800,1200 [facility] Stop: 03/18/21 07:59 Last Admin: 03/01/21 12:17 Dose: 2.5 mg Documented by: Miscellaneous (Remove Lidoderm Patch) 1 ea N/A DAILY@2100 [facility] Stop: 03/18/21 00:59 Last Admin: 02/28/21 21:09 Dose: 1 ea Documented by: Nitroglycerin (Nitroglycerin Sl 0.4 Mg/Tab Tab) 0.4 mg SL UD PRN PRN Reason: Chest Pain Stop: 03/18/21 00:26 Ondansetron HCl (Ondansetron Inj 2 Mg/Ml 2 Ml Vial) 4 mg IV Q6H PRN PRN Reason: Nausea Stop: 03/18/21 00:26 Polyethylene Glycol (Polyethylene (Miralax) 17 Gm Pack) 17 gm PO DAILY PRN PRN Reason: Constipation Stop: 03/18/21 00:26 Polyethylene Glycol (Polyethylene (Miralax) 17 Gm Pack) 17 gm PO DAILY [facility] Stop: 03/18/21 08:59 Last Admin: 03/01/21 07:33 Dose: Not Given Documented by: Ropinirole HCl (Ropinirole Hcl 1 Mg Tablet) 1 mg PO TIDM [facility] Stop: 03/18/21 07:59 Last Admin: 03/01/21 12:17 Dose: 1 mg Documented by: Ropinirole HCl (Ropinirole Hcl 2 Mg Tablet) 2 mg PO TIDM SAL Stop: 03/18/21 07:59 Last Admin: 03/01/21 12:17 Dose: 2 mg Documented by: Senna/Docusate Sodium (Docusate Sodium/Senna 50/8.6mg Tab) 1 tab PO BID SAL Stop: 03/18/21 08:59 Last Admin: 03/01/21 07:28 Dose: 1 tab Documented by: Vitamin D (Cholecalciferol 1,000 Units 25 Mcg Tab) 2,000 units PO DAILY SAL Stop: 03/18/21 08:59 Last Admin: 03/01/21 07:31 Dose: 2,000 units Documented by: (1) UTI (urinary tract infection) Hematuria presence: with hematuria Urinary tract infection type: acute cystitis Qualified Code(s): N30.01 - Acute cystitis with hematuria
[2021-03-01] MEDS: ATORVASTATIN 10 MG TAB PO SCH (17:37)
[2021-03-01] MEDS: ALPRAZolam 0.25 MG TABLET PO SCH (20:39)
[2021-03-01] MEDS: APIXABAN 5 MG TABLET PO SCH (20:39)
[2021-03-01] MEDS: MELATONIN 3 MG TAB PO SCH (20:40)
[2021-03-01] MEDS: CETIRIZINE HCL 10 MG TABLET PO SCH (20:40)
[2021-03-02] MEDS: LEVOTHYROXINE SODIUM 75 MCG TABLET PO SCH (05:47)
[2021-03-02] MEDS: CYCLOBENZAPRINE HCL 10 MG TAB PO SCH (07:44)
[2021-03-02] MEDS: rOPINIRole HCL 2 MG TABLET PO SCH ×2 (07:44→12:35)
[2021-03-02] MEDS: DOCUSATE SODIUM/SENNA 50/8.6MG TAB PO SCH (07:45)
[2021-03-02] MEDS: guaiFENesin 200 MG TAB PO SCH ×2 (07:45→13:17)
[2021-03-02] MEDS: CHOLECALCIFEROL 1,000 UNITS 25 MCG TAB PO SCH (07:45)
[2021-03-02] MEDS: CYANOCOBALAMIN 500 MCG TABLET (VITAMIN B-12) PO SCH (07:45)
[2021-03-02] MEDS: MAGNESIUM CHLORIDE 64MG DELAYED REL TAB PO SCH (07:45)
[2021-03-02] MEDS: ADVANCED PROBIOTIC 1250 MG CAPSULE PO SCH ×2 (07:45→12:34)
[2021-03-02] MEDS: CITALOPRAM 40 MG TAB PO SCH (07:46)
[2021-03-02] MEDS: APIXABAN 5 MG TABLET PO SCH (07:46)
[2021-03-02] MEDS: LIDOCAINE 5% 1 PATCH TD SCH (07:46)
[2021-03-02] MEDS: MIDODRINE HCL 2.5 MG TAB PO SCH ×2 (07:46→12:34)
[2021-03-02] MEDS: GABAPENTIN 300 MG CAP PO SCH ×2 (07:46→13:16)
[2021-03-02] MEDS: rOPINIRole HCL 1 MG TABLET PO SCH ×2 (07:47→12:34)
[2021-03-02] MEDS: POLYETHYLENE (MIRALAX) 17 GM PACK PO SCH (07:47)
[2021-03-02] MEDS: FIDAXOMICIN 200 MG TAB PO SCH (07:49)
[2021-03-02 09:16] LABS: Eosinophils # (auto) 0.14 K/uL (0-0.5); Eosinophils % (auto) 4.1 %; Hematocrit (blood only) 32.2 % (37-47); Hemoglobin 10.7 g/dL (12.0-16.0); Immature Granulocytes # (auto) 0.03 K/uL (0.00-0.02); Immature Granulocytes % (auto) 0.9 %; Lymphocytes # (auto) 1.05 K/uL (1.2-3.4); Lymphocytes % (auto) 31.1 %; Mean Corpuscular Hemoglobin 31.3 pg (25-34); Mean Corpuscular Hgb Conc 33.2 g/dL (32-36); Mean Corpuscular Volume 94.2 fL (80-100); Mean Platelet Volume 8.2 fL (7.4-10.4); Monocytes # (auto) 0.24 K/uL (0.11-0.59); Monocytes % (auto) 7.1 %; Neutrophils # (auto) 1.92 K/uL (1.4-6.5); Neutrophils % (auto) 56.8 %; Platelet Count 149 K/uL (130-400); RDW Coefficient of Variation 13.5 % (11.5-14.5); RDW Standard Deviation 46.5 fL (36.4-46.3); Red Blood Count 3.42 M/uL (4.2-5.4); White Blood Count 3.38 K/uL (4.8-10.8)
[2021-03-02 09:57] LABS: BUN Creatinine Ratio 19.4 (10-20); Creatinine Clr Calc Pharmacy 93.1 ml/min; Est GFR (Non-African American) 95.8 ml/min; Potassium 3.7 mmol/L (3.5-5.1)
--- NOTE | 2021-03-02 11:34 | Hospitalist Progress Note ---
Date of Service March 02, 2021 Assessment & Plan (1) UTI (urinary tract infection): Plan: Recurrent UTI H/O Urinary retention Urine Culture from 02/14 grew Klebsiella oxytoca Urine culture from February 15, 2021: Klebsiella oxytoca and Christen glabrata complex Blood Cultures: Negative -CT ABD: Several punctate calculi within the left kidney. No ureteral calculi or hydronephrosis. No renal fluid collection on unenhanced exam. Bladder wall thickening which could be correlated with urinalysis. Proximal rectal wall thickening with mild adjacent infiltration. This has slightly decreased since prior exam. This may reflect proctitis. However, follow-up nonemergent colonoscopy to exclude an underlying lesion is recommended. No bowel obstruction. Moderate amount of stool. -Received IV Cefepime and Vanco in the ER IV Cefepime transition to Rocephin on 02/19 Also received IV Amphotericin B for 7 days Completed IV antibiotics, antifungal course Appreciate ID input--No further treatment recommended No more urinary symptoms C. difficile colitis Started on Dificid Monitor electrolytes Anticoagulation held given hematochezia-hematochezia stopped Has had formed stool today without any blood in it Hemoglobin remained stable Will start vancomycin and she will be discharged home on vancomycin for a total of 14 days of antibiotic Nocturnal Hypoxia Atelectasis Nocturnal oximetry study: 3 L at bedtime Continue supplemental oxygen at bedtime Urinary retention Mostly multifactorial Appreciate Urology Input No acute intervention indicated currently Bladder scan as needed Needs follow-up with urology upon discharge Voiding without any issues Hypokalemia Hypomagnesemia Replace electrolytes as needed BRBPR on and off since she has been on Eliquis S/P EGD: Normal esophagus. Z-line regular. Normal stomach. Normal duodenal bulb and second portion of the duodenum. S/P Colonoscopy:The examined colon appeared normal. Inflamed mucosa in the rectum. Biopsied. The examination was otherwise normal on direct and retroflexion views. 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 Negative for granulomas. Negative for dysplasia and malignancy. Appreciate GI input Monitor CBC Hb 9.5 -remains stable Hemoglobin remains stable at 10.7 on 03/02/2021 H/O Pulmonary embolism: Eliquis held currently Resume tomorrow if no recurrence of hematochezia and if hemoglobin stable Eliquis has been restarted Lung nodules: Needs CT follow up as outpatient Hypothyroidism: Continue levothyroxine Multisystem atrophy: On gabapentin, cyclobenzaprine, and Requip. Orthostatic hypotension continue midodrine. monitor BP DVT Px: Eliquis CODE STATUS: full code Will be discharged home this afternoon Admission and Anticipated Discharge Date Admission Date: February 15, 2021 Subjective 03/01/2021 The patient was seen and examined in medical telemetry unit She has been feeling a little better and has had formed stool today Remains generally weak but denies any abdominal pain, nausea and or vomiting 03/02/2021 The patient was seen and examined in medical telemetry unit She denies any symptoms of nausea, vomiting or abdominal pain She has been having formed stool for the last 2 days Denies any other symptoms Review of Systems Review of Systems: All systems reviewed and are unremarkable except as noted below Gastrointestinal: No nausea, vomiting or abdominal pain Neurologic: Alert, awake and oriented. Generally very weak and lethargic Physical Exam Physical Exam: Lying in bed comfortably Constitutional: well developed and well nourished; no acute distress Eyes: PERRL, conjunctivae normal, anicteric sclerae ENMT: external ear and nose normal, oropharynx normal Neck: trachea midline, no thyromegaly Respiratory: no respiratory distress Auscultation: + diminished lung sounds and + crackles (Minimal crackles at the bases) Cardiovascular: Rate/Rhythm: regular rate and regular rhythm; not tachycardic Heart Sounds: normal S1 and normal S2; no murmur Extremities: + edema (Trace edema bilaterally) Gastrointestinal (Abdomen): Inspection/Auscultation: normal bowel sounds; abdomen not distended Percussion/Palpation: abdomen soft; abdomen nontender Musculoskeletal: No acute arthritis in any joint Neurologic: Alert, awake and oriented x3. No focal sensory or motor deficit appreciated Lymphatic: no cervical or axillary lymphadenopathy Results & Data Results & Data ([facility]) Vital Signs (Past 12 Hours) Vital Signs Temp Pulse Pulse Resp BP Pulse Ox 03/02/21 07:29 36.5 C 98 H 20 138/80 95 03/02/21 07:08 91 H 03/02/21 03:50 36.5 C 93 H 20 113/69 95 03/01/21 23:55 36.7 C 100 H 22 101/67 93 Laboratory Results Short CBC 03/02/21 Range/Units 09:03 WBC 3.38 L (4.8-10.8) K/uL Hgb 10.7 L (12.0-16.0) g/dL Hct 32.2 L (37-47) % Plt Count 149 (130-400) K/uL [facility] 03/02/21 09:03 Sodium 141 Potassium 3.7 Chloride 104 Carbon Dioxide 34 H BUN 11 Creatinine 0.56 L Glucose 163 H Calcium 9.0 Medications Administered Current Inpatient Medications Acetaminophen (Acetaminophen 325 Mg Tab) 650 mg PO Q4H PRN PRN Reason: Pain or Fever Stop: 03/18/21 00:26 Alprazolam (Alprazolam 0.25 Mg Tablet) 0.25 mg PO HS SAL Stop: 03/18/21 20:59 Last Admin: 03/01/21 20:39 Dose: 0.25 mg Documented by: Apixaban (Apixaban 5 Mg Tablet) 5 mg PO BID SAL Stop: 03/18/21 08:59 Last Admin: 03/02/21 07:46 Dose: 5 mg Documented by: Atorvastatin Calcium (Atorvastatin 10 Mg Tab) 10 mg PO QDD SAL Stop: 03/18/21 16:29 Last Admin: 03/01/21 17:37 Dose: 10 mg Documented by: Cetirizine HCl (Cetirizine Hcl 10 Mg Tablet) 10 mg PO HS SAL Stop: 03/18/21 20:59 Last Admin: 03/01/21 20:40 Dose: 10 mg Documented by: Citalopram Hydrobromide (Citalopram 40 Mg Tab) 40 mg PO DAILY SAL Stop: 03/18/21 08:59 Last Admin: 03/02/21 07:46 Dose: 40 mg Documented by: Cyanocobalamin (Cyanocobalamin 500 Mcg Tablet (Vitamin B-12)) 1,000 mcg PO DAILY SAL Stop: 03/18/21 08:59 Last Admin: 03/02/21 07:45 Dose: 1,000 mcg Documented by: Cyclobenzaprine HCl (Cyclobenzaprine Hcl 10 Mg Tab) 10 mg PO BID SAL Stop: 03/18/21 08:59 Last Admin: 03/02/21 07:44 Dose: 10 mg Documented by: Fidaxomicin (Fidaxomicin 200 Mg Tab) 200 mg PO BID SAL Stop: 03/10/21 01:19 Last Admin: 03/02/21 07:49 Dose: 200 mg Documented by: Gabapentin (Gabapentin 300 Mg Cap) 300 mg PO TID [facility] Stop: 03/18/21 08:59 Last Admin: 03/02/21 07:46 Dose: 300 mg Documented by: Guaifenesin (Guaifenesin 200 Mg Tab) 200 mg PO TID SAL Stop: 03/18/21 08:59 Last Admin: 03/02/21 07:45 Dose: 200 mg Documented by: Hydrocortisone (Hydrocortisone Acetate 25 Mg Supp) 25 mg [place] DAILY PRN PRN Reason: Hemorrhoids Stop: 03/18/21 00:26 Lactobacillus Acidoph/Casei/Rhamnos (Advanced Probiotic 1250 Mg Capsule) 2 cap PO TIDM SAL Stop: 03/18/21 07:59 Last Admin: 03/02/21 07:45 Dose: 2 cap Documented by: Levothyroxine Sodium (Levothyroxine Sodium 75 Mcg Tablet) 75 mcg PO DAILYBB [facility] Stop: 03/18/21 06:29 Last Admin: 03/02/21 05:47 Dose: 75 mcg Documented by: Lidocaine (Lidocaine 5% 1 Patch) 1 patch TD DAILY SAL Stop: 03/18/21 08:59 Last Admin: 03/02/21 07:46 Dose: 1 patch Documented by: Magnesium Chloride (Magnesium Chloride 64mg Delayed Rel Tab) 64 mg PO BID SAL Stop: 03/28/21 09:59 Last Admin: 03/02/21 07:45 Dose: 64 mg Documented by: Melatonin (Melatonin 3 Mg Tab) 3 mg PO HS [facility] Stop: 03/18/21 20:59 Last Admin: 03/01/21 20:40 Dose: 3 mg Documented by: Midodrine (Midodrine Hcl 2.5 Mg Tab) 2.5 mg PO BID@0800,1200 [facility] Stop: 03/18/21 07:59 Last Admin: 03/02/21 07:46 Dose: 2.5 mg Documented by: Miscellaneous (Remove Lidoderm Patch) 1 ea N/A DAILY@2100 [facility] Stop: 03/18/21 00:59 Last Admin: 03/01/21 20:40 Dose: 1 ea Documented by: Nitroglycerin (Nitroglycerin Sl 0.4 Mg/Tab Tab) 0.4 mg SL UD PRN PRN Reason: Chest Pain Stop: 03/18/21 00:26 Ondansetron HCl (Ondansetron Inj 2 Mg/Ml 2 Ml Vial) 4 mg IV Q6H PRN PRN Reason: Nausea Stop: 03/18/21 00:26 Polyethylene Glycol (Polyethylene (Miralax) 17 Gm Pack) 17 gm PO DAILY PRN PRN Reason: Constipation Stop: 03/18/21 00:26 Polyethylene Glycol (Polyethylene (Miralax) 17 Gm Pack) 17 gm PO DAILY SAL Stop: 03/18/21 08:59 Last Admin: 03/02/21 07:47 Dose: Not Given Documented by: Ropinirole HCl (Ropinirole Hcl 1 Mg Tablet) 1 mg PO TIDM SAL Stop: 03/18/21 07:59 Last Admin: 03/02/21 07:47 Dose: 1 mg Documented by: Ropinirole HCl (Ropinirole Hcl 2 Mg Tablet) 2 mg PO TIDM SAL Stop: 03/18/21 07:59 Last Admin: 03/02/21 07:44 Dose: 2 mg Documented by: Senna/Docusate Sodium (Docusate Sodium/Senna 50/8.6mg Tab) 1 tab PO BID SAL Stop: 03/18/21 08:59 Last Admin: 03/02/21 07:45 Dose: 1 tab Documented by: Vitamin D (Cholecalciferol 1,000 Units 25 Mcg Tab) 2,000 units PO DAILY [facility] Stop: 03/18/21 08:59 Last Admin: 03/02/21 07:45 Dose: 2,000 units Documented by: (1) UTI (urinary tract infection) Hematuria presence: with hematuria Urinary tract infection type: acute cystitis Qualified Code(s): N30.01 - Acute cystitis with hematuria
[2021-03-02] MEDS ORDERED: RASPBERRY SYRUP 5 ML UDP PO SCH (12:00)
[2021-03-02] MEDS ORDERED: VANCOMYCIN HCL 125 MG/2.5ML SOLN PO SCH (12:00)
--- NOTE | 2021-03-03 08:14 | Discharge Summary ---
Date of Service March 03, 2021 Admission HPI Per Admitting Provider DICTATED BY: Gilberto Gaston MD DATE OF ADMISSION: 02/15/2021. CHIEF COMPLAINT: Urinary retention and UTI. HISTORY OF PRESENT ILLNESS: A 70-year-old female with past medical history significant for acquired hypothyroidism, hyperlipidemia, lung nodules, orthostatic hypotension, history of multiple subsegmental recent pulmonary emboli, slow transit constipation, chronic pain of the left upper extremity, cervical spondylosis, progressive supranuclear ophthalmoplegia, multiple system atrophy. The patient is bedbound. Has to use lift to get into the wheelchair, history of generalized anxiety disorder, history of bacteremia, depression, who lives at home with her daughter, was brought in because of urinary retention. The patient recently had UTI with urosepsis. At the end of January, she was discharged to [facility], she came back home, and she again had decreased urine output. She was in the ED last night with urinary retention, given straight cath and IV Rocephin and sent home on Bactrim. After going home, she was not having any urinary out. There was a plan for straight catheter by [facility] but as there was no order for it she was sent to ED for evaluation. The patient is speaking in somewhat a low voice. Denies any chest pain or shortness of breath currently. She has occasional cough, occasional shortness of breath. Denies any headache. No blurred visions, no earache, no runny nose, no sore throat. She says she eats okay, no dysphagia, no nausea. Has some lower abdominal discomfort. She says once in a while she gets blood in the stool because she was recently started on Eliquis, no fevers. Admission Exam Per Admitting Provider GENERAL: The patient is of moderate build, not in acute distress. VITAL SIGNS: Temperature 36.4, pulse 91, respiratory rate 17, blood pressure 100/60, oxygen 93% on room air. HEENT: Pupils equal, round and reactive to light. Oral mucosa moist. NECK: No JVD, no neck masses. CARDIOVASCULAR: S1 and S2 heard. Regular rate and rhythm. No murmur, no gallop. RESPIRATORY SYSTEM: Normal AP diameter. No accessory muscle use. No wheezing, no crackles. ABDOMEN: Soft, bowel sounds present, nontender, no distention. CENTRAL NERVOUS SYSTEM: Alert and oriented. Speech is clear. Moves extremities. EXTREMITIES: No edema, no erythema. Principal Diagnosis Recurrent UTI, C. difficile colitis, nocturnal hypoxia, history of pulmonary embolism, multisystem atrophy, hypothyroidism Discharge Exam Lying in bed comfortably Constitutional well developed and well nourished; no acute distress Eyes PERRL, conjunctivae normal, anicteric sclerae ENMT external ear and nose normal, oropharynx normal Neck trachea midline, no thyromegaly Respiratory no respiratory distress Auscultation: + diminished lung sounds and + crackles (Minimal crackles at the bases) Cardiovascular Rate/Rhythm: regular rate and regular rhythm; not tachycardic Heart Sounds: normal S1 and normal S2; no murmur Extremities: + edema (Trace edema bilaterally) Gastrointestinal (Abdomen) Inspection/Auscultation: normal bowel sounds; abdomen not distended Percussion/Palpation: abdomen soft; abdomen nontender Lymphatic no cervical or axillary lymphadenopathy Discharge Data Allergies Allergy/AdvReac Type Severity Reaction Status Date / Time bacitracin Allergy Intermediate hives Verified 02/15/21 19:02 neomycin Allergy Intermediate hives Verified 02/15/21 19:02 onion Allergy Intermediate diarrhea,violent Verified 02/15/21 19:02 illness polymyxin B Allergy Intermediate hives Verified 02/15/21 19:02 ragweed pollen Allergy Intermediate hayfever/adolfo Verified 02/15/21 19:02 fever carbidopa Allergy Unknown FROM [facility] Verified 02/15/21 19:02 MED LIST garlic Allergy Unknown Gastrointestinal Verified 02/15/21 19:02 Upset levodopa Allergy Unknown FROM [facility] Verified 02/15/21 19:02 MED LIST lactose AdvReac Unknown Gastrointestinal Verified 02/15/21 19:02 Upset Consultations 02/15/21 19:46 ED Decision to Admit Stat 02/16/21 08:00 Consult Urology Routine 02/17/21 21:16 Consult Infectious Diseases Routine 02/18/21 09:26 Consult Gastroenterology Routine Procedures Performed Operation Date: 02/22/21 16:30 <No data on this case meets the specified criteria> Operation Date: 02/23/21 16:30 Actual Procedures p Esophagogastroduodenoscopy - Sulema Shell MD s Colonoscopy Biopsy Cytology - Sulema Shell MD Ordered Studies 02/19/21 11:10 CT abd pelvis wo con Urgent Hospital Course (1) UTI (urinary tract infection): Recurrent UTI H/O Urinary retention Urine Culture from 02/14 grew Klebsiella oxytoca Urine culture from February 15, 2021: Klebsiella oxytoca and Christen glabrata complex Blood Cultures: Negative -CT ABD: Several punctate calculi within the left kidney. No ureteral calculi or hydronephrosis. No renal fluid collection on unenhanced exam. Bladder wall thickening which could be correlated with urinalysis. Proximal rectal wall thickening with mild adjacent infiltration. This has slightly decreased since prior exam. This may reflect proctitis. However, follow-up nonemergent colonoscopy to exclude an underlying lesion is recommended. No bowel obstruction. Moderate amount of stool. -Received IV Cefepime and Vanco in the ER IV Cefepime transition to Rocephin on 02/19 Also received IV Amphotericin B for 7 days Completed IV antibiotics, antifungal course Appreciate ID input--No further treatment recommended No more urinary symptoms C. difficile colitis Started on Dificid Monitor electrolytes Anticoagulation held given hematochezia-hematochezia stopped Has had formed stool today without any blood in it Hemoglobin remained stable Will start vancomycin and she will be discharged home on vancomycin for a total of 14 days of antibiotic Nocturnal Hypoxia Atelectasis Nocturnal oximetry study: 3 L at bedtime Continue supplemental oxygen at bedtime Urinary retention Mostly multifactorial Appreciate Urology Input No acute intervention indicated currently Bladder scan as needed Needs follow-up with urology upon discharge Voiding without any issues Hypokalemia Hypomagnesemia Replace electrolytes as needed BRBPR on and off since she has been on Eliquis S/P EGD: Normal esophagus. Z-line regular. Normal stomach. Normal duodenal bulb and second portion of the duodenum. S/P Colonoscopy:The examined colon appeared normal. Inflamed mucosa in the rectum. Biopsied. The examination was otherwise normal on direct and retroflexion views. 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 Negative for granulomas. Negative for dysplasia and malignancy. Appreciate GI input Monitor CBC Hb 9.5 -remains stable Hemoglobin remains stable at 10.7 on 03/02/2021 H/O Pulmonary embolism: Eliquis held currently Resume tomorrow if no recurrence of hematochezia and if hemoglobin stable Eliquis has been restarted Lung nodules: Needs CT follow up as outpatient Hypothyroidism: Continue levothyroxine Multisystem atrophy: On gabapentin, cyclobenzaprine, and Requip. Orthostatic hypotension continue midodrine. monitor BP DVT Px: Eliquis CODE STATUS: full code Will be discharged home this afternoon Total Time Total Time Spent Total Time Spent (In Minutes): 45 minutes Discharge Plan Discharge Items Patient Disposition: Home - Home Health Services Reason For Visit: URINARY SYMPTOMS Discharge Diagnosis: Recurrent UTI, C. difficile colitis, nocturnal hypoxia, history of pulmonary embolism, multisystem atrophy, hypothyroidism Condition on Discharge: Fair Activity: Resume your previous activity Non-emergency contact: Primary Care Provider Call non-emergency contact if: you have any medication questions and your symptoms worsen Follow-up/Referrals: Amy Ramos CRNP [Nurse Practitioner] - 03/08/21 1:30 pm ([facility] [address] [place] [address] Please call if you have any questions or problems prior to the appointment.) Ronit White MD [Primary Care Provider] - 03/05/21 11:00 am (Date & Time 03/05/2021 11:00 AM Provider Ronit White MD Department General Internal Medicine [facility] ) Diet: Heart Healthy Diet Texture: Easy to Chew Addtl Attending Provider Instructions: Please take precautions to avoid fall Finish your antibiotics as as advised Please maintain hygiene to prevent infection as advised Take your oxygen as advised Pending Studies at Discharge: No Stand-Alone Forms: My [facility], Smoking Cessation Medications and DC Order Prescriptions: New vancomycin 1,000 mg Recon Soln 125 mg PO Q6 10 Days Qty: 40 RF: 0 magnesium chloride [Mag 64] 64 mg Tablet,Delayed Release (Dr/Ec) 64 mg PO BID 30 Days Qty: 60 RF: 0 Advanced Probiotic 625 mg (10 billion cell) Capsule 2 cap PO TIDM 30 Days Qty: 60 RF: 0 Continued ropinirole 1 mg Tablet 1 mg PO TIDM RF: 0 polyethylene glycol 3350 [Miralax] 17 gram Powder In Packet 17 g PO DAILY RF: 0 cetirizine [Zyrtec] 10 mg Tablet 10 mg PO HS RF: 0 atorvastatin 10 mg Tablet 10 mg PO QDD RF: 0 sennosides-docusate sodium [Senna-S] 8.6-50 mg Tablet 1 tab-cap PO BID RF: 0 cyanocobalamin (vitamin B-12) [Vitamin B-12] 1,000 mcg Tablet 1,000 mcg PO DAILY RF: 0 levothyroxine 75 mcg Tablet 75 mcg PO DAILY RF: 0 alprazolam 0.25 mg Tablet 0.25 mg PO HS RF: 0 ropinirole 2 mg Tablet 2 mg PO TIDM RF: 0 gabapentin 300 mg Capsule 300 mg PO TID RF: 0 midodrine 2.5 mg Tablet 2.5 mg PO BID RF: 0 melatonin 10 mg Tablet 10 mg PO HS RF: 0 Probiotic Acidophilus Biobeads 12.9 mg (2 billion cell) Tablet,Delayed Release (Dr/Ec) 1 tab PO TIDM RF: 0 citalopram 40 mg tablet 40 mg PO DAILY RF: 0 cholecalciferol (vitamin D3) [Vitamin D3] 25 mcg (1,000 unit) Tablet 50 mcg PO DAILY RF: 0 lidocaine 4 % Adhesive Patch,Medicated 1 patch TOPICAL DAILY RF: 0 guaifenesin 200 mg tablet 200 mg PO TID Qty: 15 RF: 0 acetaminophen [Tylenol] 325 mg Tablet 650 mg PO Q4 PRN (Reason: Pain) RF: 0 hydrocortisone acetate 25 mg Suppository 25 mg ND DIRECTED PRN (Reason: Hemorrhoids) RF: 0 Changed Eliquis 5 mg Tablet 5 mg PO BID Qty: 70 RF: 0 Discontinued sulfamethoxazole-trimethoprim [Bactrim DS] 800-160 mg tablet 1 tab PO Q12H Qty: 14 RF: 0 prednisone 20 mg tablet 0 mg PO DAILY RF: 0 Discharge Orders: Discharge Order (Routine); Ordered 03/02/21 Ordered By: Eladia Ruiz Admission Data Admit Date/Time: 02/15/21 21:40 Attending Provider: Eladia Ruiz Admit Provider: Gilberto Gaston Primary Care Provider: Ronit White Other Providers: Gilberto Gaston ; Kj Ramos ; Vijay Curry ; Jayme Buckley ; Citlalli Kuhn ; Jeremias Salomon ; Yolanda Carrillo Melissa A. ; Radha Shane ; Stephen Andrade ; Duane Jefferson ; Ann Guillen ; Jyothi Shane ; Ray Ramírez ; Daniel Armenta ; Bradford Garcia ; Puneet Bauer ; Prosper Haney I. ; Aaron Mauricio II ; María Elena Dunlap ; Luiz Lee ; Ruddy Hanley ; Iwona Pressley ; [facility] ; Sherman Cardona Other Interventions: Discharge Summary Assessment (RN) Last Done: 03/02/21 14:19
--- NOTE | 2021-03-08 10:59 | Coding Query ---
CODING CLARIFICATION The EGD performed on 02/23/2021 does not describe a biopsy within the procedure description but report states "await pathology results" and pathology report is on this account. Please provide further clarification regarding the biopsy below: ( ) Biopsy was not performed ( ) Biopsy was performed DESCRIPTION: ( ) Other, please clarify: Thank you for your assistance, Radha Lockhart - Creative Assistant [facility]
== END 2021-03-02 15:58 | disposition home or self-care (01) ==
LOC: ED 17:35 → EDINP 21:40 → SUATTDRO 21:40 → INTOOBSV 21:40 → 2N 23:59